=== PATIENT | male | born 1960 | race Caucasian/White ===

== ENCOUNTER 2017-10-18 21:07 | Emergency (ER) | payer MEDICARE, MEDICAID ==
[~2017-10-18] VITALS: Ht 172.7 cm; Wt 78.0 kg
[~2017-10-18 21:07] MED LIST: ALBU8.5H2 IH; AMOX-358 PO; ASPI-586 PO; ASPI-587 PO; AZIT-21 PO; CARI350T27 PO; CEFU500T5 PO; CEPH500C PO; CIPR500T4 PO; CITA10SO4 PO; CITA10TA PO; CLIN300C3 PO; D-ME118S33 PO; DIAZ-345 PO; DOXY100C2 PO; DOXY100C42 PO; ESCI10TA PO; ESCT10T PO; GABA600T2 PO; GBPN100C PO; HC2.5C30 TP; HCT25T PO; HYDR-1231 PO; HYDR-2890 PO; HYDR-3062 PO; HYDR-3583 PO; HYDR-3816 PO; HYDR-700 PO; HYDR25CA PO; HYDR25TA4 PO; HYDR50TA76 PO; KETO75CA PO; LISI-552 PO; LISI10TA2 PO; LISI1TAB PO; LORA1TAB59 PO; LSNP20T PO; METR500T PO; MINO100C2 PO; NAPR-243 PO; NF-ESOM40C PO; NS.65NA45; ORPH100T PO; ORUDIS PO; OXC5T PO; PRD20T PO; PRM25T PO; PRM50SU PR; SIMV20TA3 PO; SIMV40TA PO; SIMV40TA2 PO; SULF-222 PO; SULF1TAB35 PO; SULF1TAB38 PO; SULF1TAB7 PO; TRAM-21 PO; TRAM50TA2 PO; WARF10TA PO; WARF10TA4 PO; WRF10T PO; WRF2T PO
[2017-10-18] MEDS ORDERED: AMOX-358 PO (21:20)
--- NOTE | 2017-10-18 21:21 | ED EENT ---
History of Present Illness General Stated Complaint: DENTAL PAIN Source: patient Exam Limitations: no limitations History of Present Illness Date Seen by Provider: Oct 18, 2017 Time Seen by Provider: 21:18 Initial Comments To ER with left upper dental pain and some sinus congestion. He finished amoxicillin yesterday for this dental infection. He has an appointment with [facility] tomorrow morning to have a couple of teeth removed. Timing/Duration: this morning Severity: moderate Allergies and Home Medications Allergies Coded Allergies: Bacitracin Zinc (Verified Allergy, Unknown, 06/04/12) bacitracin (Verified Allergy, Unknown, 06/04/12) benzalkonium chloride (Verified Allergy, Unknown, 06/04/12) cefadroxil (Verified Allergy, Unknown, RASH, 04/08/16) gramicidin D (Verified Allergy, Unknown, 06/04/12) hydrocortisone (Verified Allergy, Unknown, 06/04/12) methocarbamol (Verified Allergy, Unknown, 06/04/12) neomycin sulfate (Verified Allergy, Unknown, 06/04/12) polymyxin B (Verified Allergy, Unknown, 06/04/12) polymyxin B sulfate (Verified Allergy, Unknown, 06/04/12) carbamazepine (Unverified Adverse Reaction, Mild, hives, 11/12/14) Home Medications Amoxicillin/Potassium Clav 1 Each Tablet, 1 EACH PO BID, #14 Prescribed by: PEDRO MENDES on 06/24/162004 Aspirin 81 Mg Tablet.dr, 81 MG PO DAILY, (Reported) Escitalopram Oxalate 10 Mg Tablet, 10 MG PO DAILY PRN for MOOD, (Reported) Hydrochlorothiazide 25 Mg Tablet, 25 MG PO DAILY PRN for BLOOD PRESSURE, ( Reported) Hydrocodone/Acetaminophen 1 Each Tablet, 1 EACH PO Q6H, #12 Prescribed by: PEDRO MENDES on 06/24/162004 Hydroxyzine HCl 25 Mg Tablet, 25 MG PO Q6H PRN for ITCHING, #20 Ref 0 Prescribed by: PEDRO MENDES on 06/24/162004 Lisinopril 20 Mg Tablet, 20 MG PO DAILY PRN for BLOOD PRESSURE, (Reported) Loratadine/Pseudoephedrine 1 Each Tab.er.12h, 1 TAB PO BID PRN for CONGESTION, ( Reported) Prednisone 20 Mg Tab, 40 MG PO DAILY, #14 Prescribed by: PEDRO MENDES on 06/24/162004 Simvastatin 20 Mg Tablet, 20 MG PO HS PRN for CHOLESTEROL, (Reported) Warfarin Sodium 10 Mg Tablet, 10 MG PO TWICE WEEKLY PRN for DIZZINESS, (Reported ) REPORTS TAKES ONCE OR TWICE WEEKLY, MAINLY WHEN HE FEELS DIZZY Review of Systems Constitutional: see HPI Eyes: No Symptoms Reported Ears: No Symptoms Reported Nose: no symptoms reported Mouth: no symptoms reported Throat: no symptoms reported Respiratory: no symptoms reported Cardiovascular: no symptoms reported Musculoskeletal: no symptoms reported Skin: no symptoms reported Neurological: No Symptoms Reported Hematologic/Lymphatic: No Symptoms Reported Past Hfmllzx-Sdhvmg-Zhlpzf Hx Patient Social History Alcohol Beverage of Choice: Beer Type Used: Cigarettes Recent Foreign Travel: No Contact w/Someone Who Travel: No Recent Hopitalizations: Yes Immunizations Up To Date Tetanus Booster (TDap): Unknown Date of Pneumonia Vaccine: Sep 26, 2010 Date of Influenza Vaccine: Jun 26, 2011 Seasonal Allergies Seasonal Allergies: No Surgeries Surgeries: Cardiac, Eye Surgery, Lobectomy Respiratory Respiratory Disorders: Asthma, COPD, Tuberculosis Cardiovascular Cardiac Disorders: Coronary Artery Disease, Deep Vein Thrombosis, Heart Attack , Hypertension, Peripheral Vascular Neurological Neurological Disorders: Neuropathy, Stroke, TIA Reproductive System Hx Reproductive Disorders: No Sexually Transmitted Disease: No Genitourinary Genitourinary Disorders: Renal Failure Gastrointestinal Gastrointestinal Disorders: Gastroesophageal Reflux, Liver Disease/Jaundice, Hepatitis, Polyps Musculoskeletal Musculoskeletal Disorders: Back Injury, Chronic Back Pain, Fractures Cancer Cancer: Lung Psychosocial Behavioral Health Disorders: Anxiety, PTSD, Depression Physical Exam General Appearance: WD/WN, no apparent distress Eyes: bilateral eye normal inspection, bilateral eye PERRL, bilateral eye EOMI Ears: bilateral ear auricle normal, bilateral ear canal normal, bilateral ear TM normal Mouth/Throat: other (multiple eroded teeth but no fluctuant abscess) Neck: non-tender, full range of motion Respiratory: normal breath sounds, no respiratory distress, no accessory muscle use Gastrointestinal: normal bowel sounds, non tender Neurologic/Psychiatric: alert, normal mood/affect, oriented x 3 Skin: normal color, warm/dry Progress/Results/Core Measures Results/Orders My Orders Orders - JASMINE ANDERSON [employer] Amoxicillin/Clavulanate Tablet (Augmenti (10/18/17 21:30) Departure Impression Impression: Primary Impression: Pain, dental Disposition: 01 HOME, SELF-CARE Condition: Stable (ERASED) Departure-Patient Inst. Decision time for Depature: 21:20 Referrals: [facility] (PCP/Family) Primary Care Physician Patient Instructions: Dental Pain Add. Discharge Instructions: 1. Keep your appointment with the dentist tomorrow morning 2. Return to ER for any concerns 3. Scripts Amoxicillin/Potassium Clav (Augmentin 875-125 Tablet) 1 Each Tablet 1 EACH PO BID, #14 TAB Prov: JASMINE ANDERSON APRN 10/18/17 JASMINE ANDERSON APRN Oct 18, 2017 21:21
[2017-10-18 21:25] VITALS: BP 0/0
[2017-10-18] MEDS ORDERED: AUGMENTIN 875 MG TAB (AMOXICILLIN/CLAVULANATE) PO SCH (21:30)
[2017-10-18] MEDS ORDERED: HYDROcodone/APAP 5 MG/325 MG (LORTAB) TAB PO ONE (21:30)
== END 2017-10-18 21:25 | disposition home or self-care (01) ==
LOC: EDUNIT# 21:07 → ER 21:09
DX: K08.89 Other specified disorders of teeth and supporting structures (principal); F41.9 Anxiety disorder, unspecified; F32.9 Major depressive disorder, single episode, unspecified; F43.10 Post-traumatic stress disorder, unspecified; I25.10 Atherosclerotic heart disease of native coronary artery without angina pectoris; I25.2 Old myocardial infarction; J44.9 Chronic obstructive pulmonary disease, unspecified; I10 Essential (primary) hypertension; Z86.718 Personal history of other venous thrombosis and embolism; Z86.73 Personal history of transient ischemic attack (TIA), and cerebral infarction without residual deficits; Z90.2 Acquired absence of lung [part of]; Z79.01 Long term (current) use of anticoagulants; Z79.82 Long term (current) use of aspirin
CPT/HCPCS: 99283

== ENCOUNTER 2017-12-09 09:56 | Emergency (ER) | payer MEDICARE, MEDICAID ==
[~2017-12-09] VITALS: Ht 172.7 cm; Wt 72.6 kg
[~2017-12-09 09:56] MED LIST changes: +HYDR-34 PO; -HYDR-3816 PO
[2017-12-09 10:33] VITALS: BP 146/97
== END 2017-12-09 11:12 | disposition left against medical advice (07) ==
LOC: EDUNIT# 09:56 → ER 09:58
DX: R05 Cough (principal); R09.81 Nasal congestion; R06.00 Dyspnea, unspecified
CPT/HCPCS: 99282

== ENCOUNTER 2018-02-24 13:37 | Emergency (ER) | payer MEDICARE, MEDICAID ==
[~2018-02-24] VITALS: Ht 175.3 cm; Wt 72.1 kg
[2018-02-24 13:53] LABS: BASOPHILS % (AUTO) 0 % (0-10); EOSINOPHILS % (AUTO) 0 % (0-10); HEMATOCRIT 43 % (40-54); HEMOGLOBIN 14.8 G/DL (13.3-17.7); LYMPHOCYTES # (AUTO) 0.7 X 10^3 (1.0-4.0); LYMPHOCYTES % (AUTO) 8 % (12-44); MEAN CORPUSCULAR HEMOGLOBIN 30 PG (25-34); MEAN CORPUSCULAR HGB CONC 35 G/DL (32-36); MEAN CORPUSCULAR VOLUME 88 FL (80-99); MEAN PLATELET VOLUME 9.6 FL (7.4-10.4); MONOCYTES # (AUTO) 0.4 X 10^3 (0.0-1.0); MONOCYTES % (AUTO) 5 % (0-12); NEUTROPHILS # (AUTO) 7.7 X 10^3 (1.8-7.8); NEUTROPHILS % (AUTO) 87 % (42-75); PLATELET COUNT 276 10^3/uL (130-400); RED BLOOD COUNT 4.89 10^6/uL (4.35-5.85); RED CELL DISTRIBUTION WIDTH 14.8 % (10.0-14.5); WHITE BLOOD COUNT 8.9 10^3/uL (4.3-11.0)
[2018-02-24 14:14] LABS: ALANINE AMINOTRANSFERASE 47 U/L (0-55); ALBUMIN 4.3 GM/DL (3.2-4.5); ALKALINE PHOSPHATASE 88 U/L (40-136); BUN/CREATININE RATIO 15; CALCIUM 9.5 MG/DL (8.5-10.1); CARBON DIOXIDE 22 MMOL/L (21-32); CHLORIDE 109 MMOL/L (98-107); CREATININE SERUM 1.24 MG/DL (0.60-1.30); GFR ESTIMATED > 60; GLUCOSE 139 MG/DL (70-105); SODIUM 142 MMOL/L (135-145); TOTAL PROTEIN 7.7 GM/DL (6.4-8.2)
[2018-02-24] MEDS ORDERED: ONDANSETRON 4 MG/2 ML (SDV) Z0FRAN IVP ONE (14:15)
[2018-02-24] MEDS ORDERED: NS IV 1000 ML 1,000 ML IV SCH ×2 (14:15→15:30)
[2018-02-24 14:17] LABS: LYMPHOCYTES % (MANUAL) 10 %; MONOCYTES % (MANUAL) 9 %; NEUTROPHILS % (MANUAL) 81 %; RBC MORPH NORMAL
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
[2018-02-24] MEDS ORDERED: ACETAMINOPHEN 500 MG TAB (TYLENOL) PO ONE (16:15)
[2018-02-24 16:39] VITALS: BP 142/79
== END 2018-02-24 16:39 | disposition home or self-care (01) ==
LOC: EDUNIT# 13:37 → ER 13:39
DX: T67.5XXA Heat exhaustion, unspecified, initial encounter (principal); J44.9 Chronic obstructive pulmonary disease, unspecified; I25.2 Old myocardial infarction; I10 Essential (primary) hypertension; I73.9 Peripheral vascular disease, unspecified; I25.10 Atherosclerotic heart disease of native coronary artery without angina pectoris; B19.20 Unspecified viral hepatitis C without hepatic coma; K21.9 Gastro-esophageal reflux disease without esophagitis; F41.9 Anxiety disorder, unspecified; F43.10 Post-traumatic stress disorder, unspecified; F32.9 Major depressive disorder, single episode, unspecified; F12.10 Cannabis abuse, uncomplicated; F17.210 Nicotine dependence, cigarettes, uncomplicated; Z86.010 Personal history of colon polyps; Z88.2 Allergy status to sulfonamides; Z90.2 Acquired absence of lung [part of]; Z87.19 Personal history of other diseases of the digestive system; Z86.718 Personal history of other venous thrombosis and embolism; Z86.73 Personal history of transient ischemic attack (TIA), and cerebral infarction without residual deficits; Z88.8 Allergy status to other drugs, medicaments and biological substances; Z88.1 Allergy status to other antibiotic agents; Z88.0 Allergy status to penicillin; Z79.82 Long term (current) use of aspirin; Z79.01 Long term (current) use of anticoagulants; X30.XXXA Exposure to excessive natural heat, initial encounter
CPT/HCPCS: 36415; 80053; 80320; 85007; 85027; 96361; 96374

== ENCOUNTER → 2018-03-15 | Outpatient (CLI) | payer MEDICARE, MEDICAID ==
--- NOTE | 2018-03-15 13:11 | Diagnostic Imaging Report ---
Indication: Left wrist pain post injury. AP, oblique, and lateral views of the left wrist are obtained. There is narrowing of the left wrist joint space with chondrocalcinosis, suggesting calcium pyrophosphate deposition arthropathy. There is narrowing of the first carpal metacarpal joint as well with underlying sclerosis. Impression: Degenerative changes of the left wrist involving the radial carpal joint as well as first carpal metacarpal joint. No acute fracture. There is chondrocalcinosis. Dictated by: Dictated on workstation # [id number]
== END ==
LOC: RAD 11:41
PROVIDERS: ATTEND Nurse Practitioner Family
DX: M19.132 Post-traumatic osteoarthritis, left wrist (principal); M11.231 Other chondrocalcinosis, right wrist
CPT/HCPCS: 73110

== ENCOUNTER 2018-07-02 22:39 | Observation (INO) | payer MEDICARE, MEDICAID ==
[~2018-07-02] VITALS: Ht 172.7 cm; Wt 78.6 kg
[2018-07-02] MEDS ORDERED: RT-ALBUTEROL SULF 2.5 MG/3 ML PRE-MIX VIAL INH STA (22:49)
[2018-07-02] MEDS ORDERED: GABA-490 PO (22:53)
[2018-07-02] MEDS ORDERED: GABA-490 (22:53)
[2018-07-02] MEDS ORDERED: AMIT150T PO (22:53)
[2018-07-02] MEDS ORDERED: OMEP20CA12 PO (22:53)
[2018-07-02] MEDS ORDERED: MELO7.5T46 PO (22:53)
[2018-07-02] MEDS ORDERED: FLUT1DIS28 IH (22:53)
[2018-07-02] MEDS ORDERED: PROP40TA5 PO (22:53)
[2018-07-02] MEDS ORDERED: RT-ALBUTEROL/IPRATROPIUM 3 ML (DUONEB) VIAL INH ONE (23:00)
[2018-07-02] MEDS ORDERED: methylPREDNISolone 125 MG (Solu-MEDROL) VIAL IVP ONE (23:00)
[2018-07-02 23:17] LABS: BASOPHILS % (AUTO) 0 % (0-10); EOSINOPHILS # (AUTO) 0.2 10^3/uL (0.0-0.3); EOSINOPHILS % (AUTO) 4 % (0-10); HEMATOCRIT 38 % (40-54); HEMOGLOBIN 12.9 G/DL (13.3-17.7); LYMPHOCYTES # (AUTO) 1.2 X 10^3 (1.0-4.0); LYMPHOCYTES % (AUTO) 20 % (12-44); MEAN CORPUSCULAR HEMOGLOBIN 30 PG (25-34); MEAN CORPUSCULAR HGB CONC 34 G/DL (32-36); MEAN CORPUSCULAR VOLUME 89 FL (80-99); MONOCYTES # (AUTO) 0.8 X 10^3 (0.0-1.0); MONOCYTES % (AUTO) 13 % (0-12); NEUTROPHILS # (AUTO) 3.7 X 10^3 (1.8-7.8); NEUTROPHILS % (AUTO) 63 % (42-75); PLATELET COUNT 201 10^3/uL (130-400); RED BLOOD COUNT 4.25 10^6/uL (4.35-5.85); RED CELL DISTRIBUTION WIDTH 14.3 % (10.0-14.5)
[2018-07-02 23:33] LABS: INR 1.1 (0.8-1.4)
[2018-07-02 23:36] LABS: ALANINE AMINOTRANSFERASE 89 U/L (0-55); ALKALINE PHOSPHATASE 60 U/L (40-136); BILIRUBIN,TOTAL 0.4 MG/DL (0.1-1.0); BUN/CREATININE RATIO 14; CALCIUM 9.3 MG/DL (8.5-10.1); CARBON DIOXIDE 22 MMOL/L (21-32); CHLORIDE 108 MMOL/L (98-107); CREATININE SERUM 1.31 MG/DL (0.60-1.30); GFR ESTIMATED 57; GLUCOSE 93 MG/DL (70-105); POTASSIUM 4.5 MMOL/L (3.6-5.0); SODIUM 141 MMOL/L (135-145)
[2018-07-02 23:43] LABS: MYOGLOBIN SERUM 64.3 NG/ML (10.0-92.0)
[2018-07-02] MEDS ORDERED: RX-OSELTAMIVIR 75 MG (TAMIFLU) BOX OF 10 PO STA (23:47)
[2018-07-03] MEDS ORDERED: ACETAMINOPHEN 500 MG TAB (TYLENOL) PO ONE
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
[2018-07-03 02:00] VITALS: BP 137/81
[2018-07-03 03:00] VITALS: BP 131/60
[2018-07-03] MEDS ORDERED: RT-ALBUTEROL SULF 2.5 MG/3 ML PRE-MIX VIAL IH PRN (03:15)
[2018-07-03] MEDS ORDERED: IBUPROFEN 600 MG (MOTRIN) TAB PO PRN (03:15)
[2018-07-03] MEDS ORDERED: ACETAMINOPHEN 500 MG TAB (TYLENOL) PO PRN (03:15)
[2018-07-03] MEDS: NS IV 1000 ML 1,000 ML IV SCH ×2 (03:34→13:36)
[2018-07-03 03:46] LABS: BASOPHILS % (AUTO) 0 % (0-10); EOSINOPHILS % (AUTO) 0 % (0-10); HEMATOCRIT 36 % (40-54); HEMOGLOBIN 12.2 G/DL (13.3-17.7); LYMPHOCYTES # (AUTO) 0.6 X 10^3 (1.0-4.0); LYMPHOCYTES % (AUTO) 9 % (12-44); MEAN CORPUSCULAR HEMOGLOBIN 30 PG (25-34); MEAN CORPUSCULAR HGB CONC 34 G/DL (32-36); MEAN CORPUSCULAR VOLUME 89 FL (80-99); MEAN PLATELET VOLUME 10.1 FL (7.4-10.4); MONOCYTES # (AUTO) 0.1 X 10^3 (0.0-1.0); MONOCYTES % (AUTO) 2 % (0-12); NEUTROPHILS # (AUTO) 6.1 X 10^3 (1.8-7.8); NEUTROPHILS % (AUTO) 89 % (42-75); PLATELET COUNT 200 10^3/uL (130-400); RED BLOOD COUNT 4.03 10^6/uL (4.35-5.85); RED CELL DISTRIBUTION WIDTH 14.5 % (10.0-14.5); WHITE BLOOD COUNT 6.8 10^3/uL (4.3-11.0)
[2018-07-03 04:00] VITALS: BP 123/67
[2018-07-03 04:17] LABS: CALCIUM 9.2 MG/DL (8.5-10.1); CREATININE SERUM 1.42 MG/DL (0.60-1.30); POTASSIUM 4.3 MMOL/L (3.6-5.0)
[2018-07-03 04:42] LABS: BAND NEUTROPHILS 5 %; EOSINOPHILS % (MANUAL) 1 %; LYMPHOCYTES % (MANUAL) 7 %; MONOCYTES % (MANUAL) 3 %; NEUTROPHILS % (MANUAL) 84 %; RBC MORPH NORMAL
[2018-07-03] MEDS: methylPREDNISolone 40 MG/ML (Solu-MEDROL) VIAL IV SCH ×2 (05:11→13:35)
--- NOTE | 2018-07-03 06:39 | Diagnostic Imaging Report ---
INDICATION: Cough. TECHNIQUE: Single frontal view of the chest. COMPARISON: 03/11/2015 FINDINGS: Lung volumes are mildly low. No focal consolidation is seen. No significant pleural effusion or pneumothorax is present. No acute osseous abnormality is seen. There is an old right-sided rib fracture. The cardiac silhouette is normal in size. IMPRESSION: Low lung volumes with no acute pulmonary abnormality seen. Dictated by: Dictated on workstation # [id number]
[2018-07-03] MEDS: RT-ALBUTEROL/IPRATROPIUM 3 ML (DUONEB) VIAL IH SCH ×3 (06:49→14:33)
[2018-07-03] MEDS ORDERED: FLU QUADRIvalent (5+ YOA) 2018-2019 (AFLURIA) 0.5 ML IM ONE (07:00)
--- NOTE | 2018-07-03 07:20 | Diagnostic Imaging Report ---
INDICATION: Cough. TECHNIQUE: Single frontal view of the chest. COMPARISON: 07/02/2018 FINDINGS: There is mild central vascular congestion. Calcified granuloma is again seen in the left lung. Lung volumes appear normal. No new consolidation is seen. There is no significant pleural effusion or pneumothorax. IMPRESSION: 1. Mild central vascular congestion. No focal consolidation seen. Dictated by: Dictated on workstation # [id number]
[2018-07-03 08:00] VITALS: BP 128/62
[2018-07-03] MEDS ORDERED: RX-OSELTAMIVIR 75 MG (TAMIFLU) BOX OF 10 PO SCH (09:00)
[2018-07-03] MEDS ORDERED: risperiDONE 0.25 MG (RisperDAL) TAB PO NR (09:15)
[2018-07-03] MEDS ORDERED: FLUT12AE4 IH (11:09)
[2018-07-03] MEDS ORDERED: LISI10TA2 PO (11:09)
[2018-07-03] MEDS ORDERED: RT-ALBUINH IH (11:09)
[2018-07-03] MEDS ORDERED: FLUT12AE6 IH (11:12)
[2018-07-03] MEDS ORDERED: HYDR-700 PO (11:12)
[2018-07-03] MEDS ORDERED: hydrOXYzine (VISTARIL) 25 MG CAP PO PRN (11:30)
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
[2018-07-03] MEDS ORDERED: HALOPERIDOL 5 MG/ML (HALDOL) AMP ONE (11:40)
[2018-07-03] MEDS ORDERED: LORazepam INJ 2 MG/ML (ATIVAN) VIAL IVP NR (11:45)
[2018-07-03] MEDS ORDERED: HALOPERIDOL 5 MG/ML (HALDOL) AMP IM PRN (11:45)
[2018-07-03 12:03] VITALS: BP 144/78
[2018-07-03] MEDS ORDERED: ENOXAPARIN 40 MG/0.4 ML (LOVENOX) SYR SC SCH (12:15)
[2018-07-03] MEDS ORDERED: GABAPENTIN 400 MG (NEURONTIN) CAP PO SCH (13:00)
--- NOTE | 2018-07-03 19:51 | Discharge Summary ---
Diagnosis/Chief Complaint Date of Admission Jul 03, 2018 at 00:51 Date of Discharge Jul 03, 2018 at 14:11 Admission Diagnosis Admission Diagnosis (1) Influenza A Status: Acute Assessment & Plan: Started oseltamivir, no hypoxia or fever. (2) Influenza B Status: Acute Assessment & Plan: See above (3) COPD exacerbation Status: Acute Assessment & Plan: RT protocol, duonebs, solumedrol (4) Acute renal insufficiency Status: Acute Assessment & Plan: Stop NSAIDs, hold lisinopril, increase IVF to 150 ml/hr (5) Psychosis Status: Acute Assessment & Plan: Unclear etiology, possibly delirium associated with illness , but appears more consistent with psychosis as the remainder of his history and exam is unremarkable and he is alert and oriented about his reason for admission. Agitation leading to need for one-on-one sitter and wanting to leave AMA. -Risperidone 0.25 mg give this am with no benefit -Will try lorazepam 2 mg IV and if still agitated, can try Haldol 2 mg IM. If unable to calm and leaves AMA, will contact law enforcement due to concern for safety with his acute psychosis. (6) Elevated liver enzymes Status: Chronic Assessment & Plan: Reported history of Hep C treated, no labs found. Stable elevation, monitor. (7) Chest pain Status: Acute Assessment & Plan: Troponin and D dimer neg, suspect related to his influenza/ COPD exacerbation. BNP is slightly elevated, last echo in 2014 showed normal EF and LV function. Monitor closely with IVF administration. (8) Tremor Assessment & Plan: Reportedly acute, but chart review notes occurring over a month ago and was started on propranolol. Hold propranolol given his COPD exacerbation. May need further neurologic work-up given the psychosis as well. When less agitated will attempt further evaluation. (9) PTSD (post-traumatic stress disorder) Status: Chronic Assessment & Plan: Resume home gabapentin, hold home amitriptyline, escitalopram and hydroxyzine for now due to risk of QT prolongation with Haldol use. (10) Depression Status: Chronic (11) DVT prophylaxis Status: Acute Assessment & Plan: Enoxaparin renally dosed Discharge Diagnosis Patient became more agitated and requesting to leave AMA in spite of IV ativan. He refused haldol. [facility] visited with him and stated he was not a danger to himself or others. Concern that his psychosis may have been related to the oseltamivir which was therefore held, but unable to convince patient to stay and wait for improvement. He was not walking well when he attempted to leave, so law enforcement was called, they did give him a ride. Chief Complaint/HPI Chief Complaint/HPI 57 yo male brought from skilled nursing due to chest pain. He reports central chest pain radiating to back starting around 5 pm along with some shortness of breath which did not improve, so he was brought to the ER. He no longer has chest pain , but states he has some pain in his right side at this time. He also is concerned about the "bad dope" growing inside of him and coming out of his skin in "crystallization", "moving his hair on his arms and legs and writing things to him", the messages are telling him "he's not going to make it". He denies having had this happen before. 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 When asked to clarify, he states he took some dope around February that was "bad- it was moving from the bacteria they use to make it" but he injected it anyway and he thought he had kicked it but now feels it has returned and is causing all these problems. He was going to go to rehab in February, but states he was arrested for not registering as a drug offender and has been in skilled nursing since April 15. He states he last drank alcohol in 1998. He is tremulous and states he started shaking 3-4 days ago, but chart review notes a visit in May where he was having racing thoughts and shakiness. Review of his records demonstrates that he has previously reported extremely extensive and unverified medical history- some of which is not accurate- for example he reportedly stated he "100% blockage of one carotid and 95% of the other" but a carotid US in 2014 showed only mild left plaquing with no stenosis. Discharge Summary-Simple/Stand Consultations Discharge Physical Examination Allergies: Coded Allergies: Bacitracin Zinc (Verified Allergy, Unknown, 06/04/12) bacitracin (Verified Allergy, Unknown, 06/04/12) benzalkonium chloride (Verified Allergy, Unknown, 06/04/12) cefadroxil (Verified Allergy, Unknown, RASH, 04/08/16) gramicidin D (Verified Allergy, Unknown, 06/04/12) hydrocortisone (Verified Allergy, Unknown, 06/04/12) methocarbamol (Verified Allergy, Unknown, 06/04/12) neomycin sulfate (Verified Allergy, Unknown, 06/04/12) polymyxin B (Verified Allergy, Unknown, 06/04/12) polymyxin B sulfate (Verified Allergy, Unknown, 06/04/12) carbamazepine (Unverified Adverse Reaction, Mild, hives, 11/12/14) Vitals & I&Os Vital Sign - Last 12Hours Date Time Temp Pulse Resp B/P (MAP) Pulse Ox O2 Delivery O2 Flow Rate FiO2 07/03/18 13:00 119 07/03/18 12:03 99.5 22 144/78 (100) 94 Room Air Hospital Course See final discharge diagnosis. Radiology Reviewed CXR: 1. Mild central vascular congestion. No focal consolidation seen. Discussion & Recommendations See discharge diagnosis, patient left AMA. Discharge Condition at discharge AMA Instructions to patient/family Please see electronic discharge instructions given to patient. Discharge Medications Reviewed and agree with Discharge Medication list on patient's Discharge Instruction sheet Clinical Quality Measures DVT/VTE Risk/Contraindication: Risk Factor Score Per Nursin RFS Level Per Nursing on Admit: 3=High SAMANTHA GALEANO MD Jul 03, 2018 19:51
[2018-07-03] MEDS ORDERED: AMITRIPTYLINE 150 MG (ELAVIL) TABLET PO SCH (21:00)
[2018-07-03] MEDS ORDERED: NON-FORMULARY MEDICATION 1 EA EA (Fluticasone/Salmeterol (Advair Hfa 230-21 Mcg Inhaler) 2 IH SCH (21:00)
[2018-07-04] MEDS ORDERED: NS IV 1000 ML 1,000 ML ONE (07:51)
[2018-07-04] MEDS ORDERED: OMEP20CA12 PO (09:50)
[2018-07-04] MEDS ORDERED: AMIT150T PO (09:50)
[2018-07-04] MEDS ORDERED: PRD10T PO (09:50)
[2018-07-04] MEDS ORDERED: ESCI10TA PO (09:50)
[2018-07-04] MEDS ORDERED: GABA-490 PO (09:50)
[2018-07-04] MEDS ORDERED: LISI10TA2 PO (09:50)
[2018-07-04] MEDS ORDERED: RT-ALBUINH IH (09:50)
[2018-07-04] MEDS ORDERED: FLUT12AE6 IH (09:50)
== END 2018-07-03 14:11 | disposition left against medical advice (07) ==
LOC: EDUNIT# 22:39 → ER 22:40 → 4TH 22:42 → UNDOADMOB 07-03 00:51 → UNDODISOB 07-03 14:11
PROVIDERS: ADMIT Family Medicine; ATTEND Family Medicine
DX: J10.89 Influenza due to other identified influenza virus with other manifestations (principal); J44.0 Chronic obstructive pulmonary disease with (acute) lower respiratory infection; J44.1 Chronic obstructive pulmonary disease with (acute) exacerbation; N28.9 Disorder of kidney and ureter, unspecified; F23 Brief psychotic disorder; R25.1 Tremor, unspecified; B19.20 Unspecified viral hepatitis C without hepatic coma; I25.10 Atherosclerotic heart disease of native coronary artery without angina pectoris; I10 Essential (primary) hypertension; J45.909 Unspecified asthma, uncomplicated; F17.210 Nicotine dependence, cigarettes, uncomplicated; I73.9 Peripheral vascular disease, unspecified; K21.9 Gastro-esophageal reflux disease without esophagitis; F41.9 Anxiety disorder, unspecified; F43.10 Post-traumatic stress disorder, unspecified; F32.9 Major depressive disorder, single episode, unspecified; I25.2 Old myocardial infarction; Z90.2 Acquired absence of lung [part of]; Z87.19 Personal history of other diseases of the digestive system; Z86.718 Personal history of other venous thrombosis and embolism; Z86.73 Personal history of transient ischemic attack (TIA), and cerebral infarction without residual deficits; Z79.82 Long term (current) use of aspirin; Z79.01 Long term (current) use of anticoagulants; Z53.21 Procedure and treatment not carried out due to patient leaving prior to being seen by health care provider
CPT/HCPCS: 36415; 71045; 80048; 80053; 80061; 83735; 83874; 83880; 84484; 85007; 85025; 85027; 85610; 85730; 86141; 87804; 93005; 93041; 94640; 94760; G0378

== ENCOUNTER 2018-07-03 19:51 | Observation (INO) | payer MEDICARE, MEDICAID ==
[~2018-07-03] VITALS: Ht 172.7 cm; Wt 77.3 kg
[~2018-07-03 19:51] MED LIST changes: +AMIT150T PO; +FLUT12AE4 IH; +FLUT12AE6 IH; +FLUT1DIS28 IH; +GABA-490; +GABA-490 PO; +MELO7.5T46 PO; +OMEP20CA12 PO; +PROP40TA5 PO; +RT-ALBUINH IH
[2018-07-03] MEDS ORDERED: RT-ALBUTEROL/IPRATROPIUM 3 ML (DUONEB) VIAL INH ONE (20:30)
[2018-07-03 20:42] LABS: BASOPHILS % (AUTO) 0 % (0-10); EOSINOPHILS % (AUTO) 0 % (0-10); HEMATOCRIT 35 % (40-54); HEMOGLOBIN 12.6 G/DL (13.3-17.7); LYMPHOCYTES % (AUTO) 6 % (12-44); MEAN CORPUSCULAR HEMOGLOBIN 31 PG (25-34); MEAN CORPUSCULAR HGB CONC 36 G/DL (32-36); MEAN CORPUSCULAR VOLUME 88 FL (80-99); MEAN PLATELET VOLUME 9.2 FL (7.4-10.4); MONOCYTES # (AUTO) 0.8 X 10^3 (0.0-1.0); MONOCYTES % (AUTO) 5 % (0-12); NEUTROPHILS # (AUTO) 14.4 X 10^3 (1.8-7.8); NEUTROPHILS % (AUTO) 89 % (42-75); PLATELET COUNT 222 10^3/uL (130-400); RED BLOOD COUNT 4.04 10^6/uL (4.35-5.85); WHITE BLOOD COUNT 16.1 10^3/uL (4.3-11.0)
[2018-07-03 20:51] LABS: BENZODIAZEPINES SCREEN URINE POSITIVE (NEGATIVE); TRICYCLIC ANTIDEPRESSANTS SCRE POSITIVE (NEGATIVE)
[2018-07-03 20:52] LABS: AMPHETAMINE SCREEN, URINE NEGATIVE (NEGATIVE); BARBITURATE SCREEN URINE NEGATIVE (NEGATIVE); CANNABINOID SCREEN, URINE NEGATIVE (NEGATIVE); COCAINE SCREEN URINE NEGATIVE (NEGATIVE); METHADONE STAT NEGATIVE (NEGATIVE); METHAMPHETAMINE SCREEN URINE S NEGATIVE (NEGATIVE); OPIATE SCREEN URINE NEGATIVE (NEGATIVE); OXYCODONE STAT NEGATIVE (NEGATIVE); PROPOXYPHENE STAT NEGATIVE (NEGATIVE)
[2018-07-03 20:58] LABS: BAND NEUTROPHILS 1 %; BASOPHILS % (MANUAL) 0 %; EOSINOPHILS % (MANUAL) 0 %; LYMPHOCYTES % (MANUAL) 9 %; MONOCYTES % (MANUAL) 3 %; NEUTROPHILS % (MANUAL) 87 %; RBC MORPH NORMAL
[2018-07-03] MEDS ORDERED: NS IV 1000 ML 1,000 ML IV ONE (20:59)
[2018-07-03 21:01] LABS: ALANINE AMINOTRANSFERASE 82 U/L (0-55); ALBUMIN 4.4 GM/DL (3.2-4.5); ALKALINE PHOSPHATASE 52 U/L (40-136); BILIRUBIN,TOTAL 0.7 MG/DL (0.1-1.0); BUN/CREATININE RATIO 20; CALCIUM 9.7 MG/DL (8.5-10.1); CARBON DIOXIDE 19 MMOL/L (21-32); CHLORIDE 106 MMOL/L (98-107); CREATININE SERUM 1.33 MG/DL (0.60-1.30); GFR ESTIMATED 56; GLUCOSE 123 MG/DL (70-105); SODIUM 139 MMOL/L (135-145); TOTAL PROTEIN 7.5 GM/DL (6.4-8.2)
--- NOTE | 2018-07-03 21:25 | Diagnostic Imaging Report ---
CHEST PA/LAT (2 VIEW) Indication: Cough and shortness of air Comparison: Portable chest of earlier same day. Findings: No focal pneumonic consolidation, pleural effusion or pneumothorax. Stable calcified left upper lobe pulmonary nodule. Normal heart size and pulmonary vasculature. Impression: No acute cardiopulmonary process. Dictated by: Dictated on workstation # [id number]
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
[2018-07-03] MEDS ORDERED: ACETAMINOPHEN 500 MG TAB (TYLENOL) PO PRN (23:15)
[2018-07-03] MEDS: NS IV 1000 ML 1,000 ML IV SCH (23:22)
[2018-07-03] MEDS: methylPREDNISolone 40 MG/ML (Solu-MEDROL) VIAL IV SCH (23:22)
[2018-07-03 23:30] VITALS: BP 131/81
[2018-07-04 00:18] VITALS: BP 124/79
[2018-07-04] MEDS ORDERED: RT-ALBUTEROL/IPRATROPIUM 3 ML (DUONEB) VIAL INH PRN (00:30)
[2018-07-04] MEDS: LORazepam INJ 2 MG/ML (ATIVAN) VIAL IV PRN ×2 (03:22→05:30)
[2018-07-04 04:00] VITALS: BP 144/75
[2018-07-04] MEDS: methylPREDNISolone 40 MG/ML (Solu-MEDROL) VIAL IV SCH (05:15)
[2018-07-04] MEDS ORDERED: RT-ALBUTEROL/IPRATROPIUM 3 ML (DUONEB) VIAL INH SCH (07:00)
[2018-07-04] MEDS ORDERED: FLU QUADRIvalent (5+ YOA) 2018-2019 (AFLURIA) 0.5 ML IM ONE (07:15)
[2018-07-04] MEDS: NS IV 1000 ML 1,000 ML IV SCH (09:46)
[2018-07-04] MEDS ORDERED: RT-ALBUINH IH (09:50)
[2018-07-04] MEDS ORDERED: AMIT150T PO (09:50)
[2018-07-04] MEDS ORDERED: OMEP20CA12 PO (09:50)
[2018-07-04] MEDS ORDERED: FLUT12AE6 IH (09:50)
[2018-07-04] MEDS ORDERED: ESCI10TA PO (09:50)
[2018-07-04] MEDS ORDERED: LISI10TA2 PO (09:50)
[2018-07-04] MEDS ORDERED: PRD10T PO (09:50)
[2018-07-04] MEDS ORDERED: GABA-490 PO (09:50)
--- NOTE | 2018-07-04 09:55 | Discharge Instructions ---
Discharge Inst-[facility] Discharge Medications New, Converted or Re-Newed RX: Transmitted to Pharmacy New Medications: Prednisone (Prednisone) 10 Mg Tab 0 PO UD, #42 TAB 0 Refills Take 6 tabs(60mg)daily, decrease by 1 tab(10mg) every other day. Continued Medications: Albuterol Sulfate (Proair Hfa) 1 Puff Puff 2 PUFF IH Q6H PRN for SHORTNESS OF BREATH, #1 INHALER 0 Refills (This prescription has been renewed) Amitriptyline HCl (Amitriptyline HCl) 150 Mg Tablet 150 MG PO HS, #30 TAB 0 Refills (This prescription has been renewed) Escitalopram Oxalate (Lexapro) 10 Mg Tablet 10 MG PO DAILY, #30 TAB 0 Refills (This prescription has been renewed) Fluticasone/Salmeterol (Advair Hfa 230-21 Mcg Inhaler) 12 Gm Hfa.aer.ad 2 PUFF IH BID, #1 INHALER 0 Refills (This prescription has been renewed) Gabapentin (Gabapentin) 400 Mg Capsule 400 MG PO TID, #90 CAP 0 Refills (This prescription has been renewed) Lisinopril (Lisinopril) 10 Mg Tablet 10 MG PO DAILY, #30 TAB 0 Refills (This prescription has been renewed) Omeprazole (Omeprazole) 20 Mg Capsule.dr 20 MG PO DAILY, #30 CAP 0 Refills (This prescription has been renewed) Discontinued Medications: Hydroxyzine HCl (Hydroxyzine HCl) 25 Mg Tablet 25 MG PO TID PRN for ANXIETY, TAB Meloxicam (Meloxicam) 7.5 Mg Tablet 7.5 MG PO BID, TAB Propranolol HCl (Propranolol HCl) 40 Mg Tablet 40 MG PO BID, TAB Patient Instructions Goal/Follow Up Appt: Follow up with Bebo Tipton at [facility] on Jul 06 at 1140 am. Return to The Hospital For: Fever, worsening shortness of breath Activity & Diet Discharge Diet: Regular Diet Orders-Post D/C & Referrals Pneu Vac Indicated: Yes Copy Copies To 1: SAVANNA Morocho BETHANY N MD Jul 04, 2018 9:55 am
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
== END 2018-07-04 09:57 | disposition home or self-care (01) ==
LOC: EDUNIT# 19:51 → ER 19:53 → 4TH 21:42 → UNDOADMOB 21:42 → ICU 23:07 → 4TH 23:07 → ICU 23:30 → 4TH 07-04 07:50 → ICU 07-04 07:50 → UNDODISOB 07-04 10:46
PROVIDERS: ADMIT Family Medicine; ATTEND Family Medicine
DX: J09.X2 Influenza due to identified novel influenza A virus with other respiratory manifestations (principal); R06.02 Shortness of breath; R06.2 Wheezing; F17.210 Nicotine dependence, cigarettes, uncomplicated; J44.0 Chronic obstructive pulmonary disease with (acute) lower respiratory infection; J44.1 Chronic obstructive pulmonary disease with (acute) exacerbation; Z86.718 Personal history of other venous thrombosis and embolism; I25.2 Old myocardial infarction; I10 Essential (primary) hypertension; I73.9 Peripheral vascular disease, unspecified; Z86.73 Personal history of transient ischemic attack (TIA), and cerebral infarction without residual deficits; F32.9 Major depressive disorder, single episode, unspecified; F41.9 Anxiety disorder, unspecified; F43.10 Post-traumatic stress disorder, unspecified; Z23 Encounter for immunization
CPT/HCPCS: 36415; 71046; 80053; 80306; 80320; 85007; 85027; 90471; 90686; 94640; 96360; G0378

== ENCOUNTER 2018-07-04 19:38 | Emergency (ER) | payer MEDICARE, MEDICAID ==
[~2018-07-04 19:38] MED LIST changes: +PRD10T PO
== END 2018-07-04 20:11 | disposition left against medical advice (07) ==
LOC: EDUNIT# 19:38 → ER 19:39
DX: R06.02 Shortness of breath (principal); R25.9 Unspecified abnormal involuntary movements

== ENCOUNTER 2018-07-05 04:12 | Observation (INO) | payer MEDICARE, MEDICAID ==
[2018-07-05] VITALS (7 sets, daily range): BP systolic 107–132; BP diastolic 61–90
[~2018-07-05] VITALS: Ht 172.7 cm; Wt 77.3 kg
[2018-07-05] MEDS ORDERED: NS IV 1000 ML 1,000 ML IV SCH (04:18)
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
[2018-07-05 05:10] LABS: BASOPHILS % (AUTO) 0 % (0-10); EOSINOPHILS % (AUTO) 0 % (0-10); HEMATOCRIT 35 % (40-54); HEMOGLOBIN 12.4 G/DL (13.3-17.7); LYMPHOCYTES # (AUTO) 2.2 X 10^3 (1.0-4.0); LYMPHOCYTES % (AUTO) 15 % (12-44); MEAN CORPUSCULAR HEMOGLOBIN 32 PG (25-34); MEAN CORPUSCULAR HGB CONC 36 G/DL (32-36); MEAN CORPUSCULAR VOLUME 88 FL (80-99); MEAN PLATELET VOLUME 9.9 FL (7.4-10.4); MONOCYTES # (AUTO) 1.8 X 10^3 (0.0-1.0); MONOCYTES % (AUTO) 13 % (0-12); NEUTROPHILS # (AUTO) 10.5 X 10^3 (1.8-7.8); NEUTROPHILS % (AUTO) 72 % (42-75); PLATELET COUNT 247 10^3/uL (130-400); RED BLOOD COUNT 3.94 10^6/uL (4.35-5.85); RED CELL DISTRIBUTION WIDTH 14.3 % (10.0-14.5); WHITE BLOOD COUNT 14.5 10^3/uL (4.3-11.0)
[2018-07-05 05:33] LABS: ALANINE AMINOTRANSFERASE 80 U/L (0-55); ALBUMIN 4.2 GM/DL (3.2-4.5); ALKALINE PHOSPHATASE 48 U/L (40-136); AMMONIA 27 UMOL/L (11-32); BILIRUBIN,TOTAL 1.2 MG/DL (0.1-1.0); BUN/CREATININE RATIO 28; CALCIUM 9.4 MG/DL (8.5-10.1); CARBON DIOXIDE 19 MMOL/L (21-32); CHLORIDE 108 MMOL/L (98-107); CREATININE SERUM 1.55 MG/DL (0.60-1.30); GFR ESTIMATED 47; GLUCOSE 69 MG/DL (70-105); POTASSIUM 3.6 MMOL/L (3.6-5.0); SODIUM 143 MMOL/L (135-145); TOTAL PROTEIN 7.1 GM/DL (6.4-8.2)
[2018-07-05 06:17] LABS: BILIRUBIN,URINE NEGATIVE (NEGATIVE); CLARITY,URINE CLEAR; COLOR,URINE YELLOW; GLUCOSE, URINE (UA) NEGATIVE (NEGATIVE); KETONES,URINE 2+ (NEGATIVE); LEUKOCYTE ESTERASE ,URINE NEGATIVE (NEGATIVE); NITRITE,URINE NEGATIVE (NEGATIVE); PH,URINE 5 (5-9); PROTEIN,URINE 2+ (NEGATIVE); UROBILINOGEN,URINE NORMAL (NORMAL)
[2018-07-05] MEDS ORDERED: NS IV 1000 ML 1,000 ML IV ONE (06:20)
[2018-07-05 06:27] LABS: BACTERIA,URINE FEW /HPF; RBC,URINE RARE /HPF; SQUAMOUS EPITHELIAL CELL,UR RARE /HPF; URINE OTHER MOD SPERM /HPF; WBC,URINE 0-2 /HPF
[2018-07-05] MEDS ORDERED: OLANZapine 5 MG (ZyPREXA) TAB PO ONE (06:30)
[2018-07-05 06:33] LABS: AMPHETAMINE SCREEN, URINE POSITIVE (NEGATIVE); BARBITURATE SCREEN URINE NEGATIVE (NEGATIVE); BENZODIAZEPINES SCREEN URINE POSITIVE (NEGATIVE); CANNABINOID SCREEN, URINE NEGATIVE (NEGATIVE); COCAINE SCREEN URINE NEGATIVE (NEGATIVE); METHADONE STAT NEGATIVE (NEGATIVE); METHAMPHETAMINE SCREEN URINE S POSITIVE (NEGATIVE); OPIATE SCREEN URINE NEGATIVE (NEGATIVE); OXYCODONE STAT NEGATIVE (NEGATIVE); PROPOXYPHENE STAT NEGATIVE (NEGATIVE); TRICYCLIC ANTIDEPRESSANTS SCRE POSITIVE (NEGATIVE)
[2018-07-05] MEDS ORDERED: LORazepam INJ 2 MG/ML (ATIVAN) VIAL IM ONE ×2 (07:00→08:00)
[2018-07-05] MEDS ORDERED: LORazepam INJ 2 MG/ML (ATIVAN) VIAL IVP ONE (08:00)
--- NOTE | 2018-07-05 08:06 | Diagnostic Imaging Report ---
INDICATION: Altered mental status. COMPARISON: 07/03/2018. FINDINGS: Portable chest shows lungs to be clear. Heart is not enlarged. There is no pulmonary edema. No hilar adenopathy. No pneumothorax or pleural effusion. No bony abnormality. IMPRESSION: Negative portable chest. Dictated by: Dictated on workstation # [id number]
[2018-07-05] MEDS ORDERED: WATER (STERILE) FOR INJECTION 20 ML ONE ×2 (08:12→10:43)
[2018-07-05] MEDS ORDERED: ZIPRASIDONE 20 MG INJ (GEODON) VIAL IM ONE ×2 (08:15→10:45)
--- NOTE | 2018-07-05 08:23 | Diagnostic Imaging Report ---
PROCEDURE: CT head, face, and cervical spine without contrast. TECHNIQUE: Multiple contiguous axial images were obtained through the head, neck, and facial bones without the use of intravenous contrast. Sagittal and coronal reformations through the cervical spine and facial bones were also performed. INDICATION: Altered mental status. COMPARISON: None. FINDINGS: CT head and maxillofacial: No intracranial hemorrhage, mass effect, hydrocephalus or extra-axial fluid collections. No CT evidence for territorial infarction. No calvarial or maxillofacial fractures. The mastoids are clear. Normal alignment of the temporomandibular joints. CT cervical spine: Normal alignment. Vertebral body heights preserved. No fractures. Moderate degenerative endplate changes. No evidence of high-grade spinal canal narrowing on this noncontrast exam. The visualized paravertebral soft tissues are unremarkable. IMPRESSION: 1. No calvarial or maxillofacial fractures. 2. No acute intracranial or cervical spine CT findings. Dictated by: Dictated on workstation # [id number]
[2018-07-05] MEDS ORDERED: ZIPRASIDONE 20 MG INJ (GEODON) VIAL IM PRN (11:45)
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
[2018-07-05] MEDS ORDERED: ENOXAPARIN 40 MG/0.4 ML (LOVENOX) SYR SC SCH (15:00)
[2018-07-05] MEDS: NS IV 1000 ML 1,000 ML IV SCH ×3 (15:11→18:58)
[2018-07-05] MEDS: LORazepam INJ 2 MG/ML (ATIVAN) VIAL IVP PRN ×2 (20:44→23:12)
[2018-07-06] VITALS: BP 140/68
[2018-07-06] MEDS: LORazepam INJ 2 MG/ML (ATIVAN) VIAL IVP PRN (00:50)
[2018-07-06 01:00] VITALS: BP 128/69
[2018-07-06] MEDS ORDERED: ZIPRASIDONE 20 MG INJ (GEODON) VIAL IM ONE (01:15)
[2018-07-06] MEDS ORDERED: WATER (STERILE) FOR INJECTION 10 ML ONE (01:24)
[2018-07-06] MEDS ORDERED: RT-ALBUTEROL/IPRATROPIUM 3 ML (DUONEB) VIAL INH PRN (01:45)
[2018-07-06] MEDS ORDERED: RT-ALBUTEROL/IPRATROPIUM 3 ML (DUONEB) VIAL INH SCH (08:00)
== END 2018-07-06 01:40 | disposition left against medical advice (07) ==
LOC: EDUNIT# 04:12 → ER 04:13 → ICU 10:29 → UNDOADMOB 10:29 → ICU 10:56 → UNDODISOB 07-07
PROVIDERS: ADMIT Family Medicine; ATTEND Family Medicine
DX: F23 Brief psychotic disorder (principal); N28.9 Disorder of kidney and ureter, unspecified; F15.10 Other stimulant abuse, uncomplicated; F17.210 Nicotine dependence, cigarettes, uncomplicated; J44.9 Chronic obstructive pulmonary disease, unspecified; J45.909 Unspecified asthma, uncomplicated; I25.10 Atherosclerotic heart disease of native coronary artery without angina pectoris; I10 Essential (primary) hypertension; I73.9 Peripheral vascular disease, unspecified; K21.9 Gastro-esophageal reflux disease without esophagitis; B19.20 Unspecified viral hepatitis C without hepatic coma; F43.10 Post-traumatic stress disorder, unspecified; I25.2 Old myocardial infarction; Z79.52 Long term (current) use of systemic steroids; Z86.718 Personal history of other venous thrombosis and embolism; Z86.73 Personal history of transient ischemic attack (TIA), and cerebral infarction without residual deficits; Z53.21 Procedure and treatment not carried out due to patient leaving prior to being seen by health care provider
CPT/HCPCS: 36415; 70450; 70486; 71045; 72125; 80053; 80306; 80320; 81000; 82140; 85025

== ENCOUNTER 2018-07-07 19:28 | Emergency (ER) | payer MEDICARE, MEDICAID ==
[~2018-07-07] VITALS: Ht 172.7 cm; Wt 77.1 kg
[2018-07-07] MEDS ORDERED: NS IV 1000 ML 1,000 ML IV ONE (20:20)
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
[2018-07-07 20:30] LABS: BASOPHILS % (AUTO) 0 % (0-10); EOSINOPHILS # (AUTO) 0.3 10^3/uL (0.0-0.3); EOSINOPHILS % (AUTO) 3 % (0-10); HEMATOCRIT 38 % (40-54); HEMOGLOBIN 13.3 G/DL (13.3-17.7); LYMPHOCYTES # (AUTO) 1.4 X 10^3 (1.0-4.0); LYMPHOCYTES % (AUTO) 15 % (12-44); MEAN CORPUSCULAR HEMOGLOBIN 30 PG (25-34); MEAN CORPUSCULAR HGB CONC 35 G/DL (32-36); MEAN CORPUSCULAR VOLUME 88 FL (80-99); MEAN PLATELET VOLUME 9.4 FL (7.4-10.4); MONOCYTES # (AUTO) 1.1 X 10^3 (0.0-1.0); MONOCYTES % (AUTO) 12 % (0-12); NEUTROPHILS # (AUTO) 6.3 X 10^3 (1.8-7.8); NEUTROPHILS % (AUTO) 69 % (42-75); PLATELET COUNT 226 10^3/uL (130-400); RED BLOOD COUNT 4.37 10^6/uL (4.35-5.85); WHITE BLOOD COUNT 9.1 10^3/uL (4.3-11.0)
[2018-07-07 20:49] LABS: ALANINE AMINOTRANSFERASE 58 U/L (0-55); ALBUMIN 3.8 GM/DL (3.2-4.5); ALKALINE PHOSPHATASE 46 U/L (40-136); BILIRUBIN,TOTAL 1.1 MG/DL (0.1-1.0); BUN/CREATININE RATIO 22; CALCIUM 9.4 MG/DL (8.5-10.1); CARBON DIOXIDE 22 MMOL/L (21-32); CHLORIDE 104 MMOL/L (98-107); CREATININE SERUM 0.95 MG/DL (0.60-1.30); GFR ESTIMATED > 60; GLUCOSE 83 MG/DL (70-105); POTASSIUM 3.6 MMOL/L (3.6-5.0); SALICYLATE < 5.0 MG/DL (5.0-20.0); SODIUM 139 MMOL/L (135-145); TOTAL PROTEIN 7.5 GM/DL (6.4-8.2)
[2018-07-07 20:52] LABS: ACETAMINOPHEN < 10 UG/ML (10-30)
--- NOTE | 2018-07-07 20:56 | Diagnostic Imaging Report ---
INDICATION: Flulike symptoms. Respiratory distress Portable chest shows normal heart size and vascularity. The lungs are clear. There is no effusion or pneumothorax. There is no change from 07/05/2018. IMPRESSION: Normal chest. Stable chest. Dictated by: Dictated on workstation # [id number]
[2018-07-07 21:41] LABS: BILIRUBIN,URINE NEGATIVE (NEGATIVE); CLARITY,URINE CLEAR; COLOR,URINE YELLOW; GLUCOSE, URINE (UA) NEGATIVE (NEGATIVE); KETONES,URINE 3+ (NEGATIVE); LEUKOCYTE ESTERASE ,URINE NEGATIVE (NEGATIVE); NITRITE,URINE NEGATIVE (NEGATIVE); PH,URINE 6.5 (5-9); PROTEIN,URINE NEGATIVE (NEGATIVE); UROBILINOGEN,URINE 1 MG/DL (NORMAL)
[2018-07-07 21:51] LABS: AMPHETAMINE SCREEN, URINE NEGATIVE (NEGATIVE); BARBITURATE SCREEN URINE NEGATIVE (NEGATIVE); BENZODIAZEPINES SCREEN URINE POSITIVE (NEGATIVE); CANNABINOID SCREEN, URINE NEGATIVE (NEGATIVE); COCAINE SCREEN URINE NEGATIVE (NEGATIVE); METHADONE STAT NEGATIVE (NEGATIVE); METHAMPHETAMINE SCREEN URINE S NEGATIVE (NEGATIVE); OPIATE SCREEN URINE NEGATIVE (NEGATIVE); OXYCODONE STAT NEGATIVE (NEGATIVE); PROPOXYPHENE STAT NEGATIVE (NEGATIVE); TRICYCLIC ANTIDEPRESSANTS SCRE POSITIVE (NEGATIVE)
[2018-07-07 21:52] LABS: BACTERIA,URINE NEGATIVE /HPF; RBC,URINE 0-2 /HPF
[2018-07-08] MEDS ORDERED: IBUPROFEN 800 MG (MOTRIN) TAB PO STA (00:18)
[2018-07-08 05:25] VITALS: BP 118/62
== END 2018-07-08 05:25 | disposition home or self-care (01) ==
LOC: EDUNIT# 19:28 → ER 19:31
DX: J10.1 Influenza due to other identified influenza virus with other respiratory manifestations (principal); I25.10 Atherosclerotic heart disease of native coronary artery without angina pectoris; I25.2 Old myocardial infarction; J44.9 Chronic obstructive pulmonary disease, unspecified; I10 Essential (primary) hypertension; K21.9 Gastro-esophageal reflux disease without esophagitis; F41.9 Anxiety disorder, unspecified; F32.9 Major depressive disorder, single episode, unspecified; F43.10 Post-traumatic stress disorder, unspecified; I73.9 Peripheral vascular disease, unspecified; F15.10 Other stimulant abuse, uncomplicated; F12.10 Cannabis abuse, uncomplicated; Z87.891 Personal history of nicotine dependence; Z85.118 Personal history of other malignant neoplasm of bronchus and lung; Z87.19 Personal history of other diseases of the digestive system; Z92.21 Personal history of antineoplastic chemotherapy; Z86.73 Personal history of transient ischemic attack (TIA), and cerebral infarction without residual deficits; Z86.010 Personal history of colon polyps; Z90.2 Acquired absence of lung [part of]; Z88.0 Allergy status to penicillin; Z86.718 Personal history of other venous thrombosis and embolism; Z88.2 Allergy status to sulfonamides; Z88.8 Allergy status to other drugs, medicaments and biological substances; Z87.09 Personal history of other diseases of the respiratory system; Z95.2 Presence of prosthetic heart valve; Z88.5 Allergy status to narcotic agent; Z79.51 Long term (current) use of inhaled steroids; Z79.52 Long term (current) use of systemic steroids
CPT/HCPCS: 36415; 71045; 80053; 80306; 80320; 80329; 81000; 85025

== ENCOUNTER → 2018-08-14 | Emergency (ER) | payer MEDICARE, MEDICAID ==
[~2018-08-14] MED LIST changes: +LEVO500T80 PO
== END | disposition left against medical advice (07) ==
LOC: EDUNIT# 22:36 → ER 22:38
DX: S40.852D Superficial foreign body of left upper arm, subsequent encounter (principal); X58.XXXD Exposure to other specified factors, subsequent encounter

== ENCOUNTER 2018-08-16 14:05 | Emergency (ER) | payer MEDICARE, MEDICAID ==
[~2018-08-16] VITALS: Ht 172.7 cm; Wt 77.3 kg
[~2018-08-16 14:05] MED LIST changes: -LEVO500T80 PO
[2018-08-16 15:04] LABS: BASOPHILS # (AUTO) 0.1 10^3/uL (0.0-0.1); BASOPHILS % (AUTO) 1 % (0-10); EOSINOPHILS # (AUTO) 0.1 10^3/uL (0.0-0.3); EOSINOPHILS % (AUTO) 1 % (0-10); HEMATOCRIT 44 % (40-54); HEMOGLOBIN 14.3 G/DL (13.3-17.7); LYMPHOCYTES # (AUTO) 1.2 X 10^3 (1.0-4.0); LYMPHOCYTES % (AUTO) 18 % (12-44); MEAN CORPUSCULAR HEMOGLOBIN 29 PG (25-34); MEAN CORPUSCULAR HGB CONC 33 G/DL (32-36); MEAN CORPUSCULAR VOLUME 89 FL (80-99); MEAN PLATELET VOLUME 9.5 FL (7.4-10.4); MONOCYTES # (AUTO) 0.8 X 10^3 (0.0-1.0); MONOCYTES % (AUTO) 13 % (0-12); NEUTROPHILS # (AUTO) 4.3 X 10^3 (1.8-7.8); NEUTROPHILS % (AUTO) 67 % (42-75); PLATELET COUNT 357 10^3/uL (130-400); RED BLOOD COUNT 4.92 10^6/uL (4.35-5.85); RED CELL DISTRIBUTION WIDTH 14.5 % (10.0-14.5); WHITE BLOOD COUNT 6.4 10^3/uL (4.3-11.0)
[2018-08-16] MEDS: RT-ALBUTEROL/IPRATROPIUM 3 ML (DUONEB) VIAL INH ONE (15:10)
[2018-08-16 15:15] LABS: ALANINE AMINOTRANSFERASE 36 U/L (0-55); ALKALINE PHOSPHATASE 60 U/L (40-136); BILIRUBIN,TOTAL 0.5 MG/DL (0.1-1.0); BUN/CREATININE RATIO 14; CARBON DIOXIDE 22 MMOL/L (21-32); CHLORIDE 102 MMOL/L (98-107); CREATININE SERUM 0.96 MG/DL (0.60-1.30); GFR ESTIMATED > 60; GLUCOSE 112 MG/DL (70-105); POTASSIUM 4.2 MMOL/L (3.6-5.0); SODIUM 137 MMOL/L (135-145); TOTAL PROTEIN 7.7 GM/DL (6.4-8.2)
[2018-08-16] MEDS: NS IV 1000 ML 1,000 ML IV ONE (15:15)
--- NOTE | 2018-08-16 15:36 | Diagnostic Imaging Report ---
INDICATION: Left forearm injury. FINDINGS: AP and lateral views of the left forearm show no fracture, dislocation, or radiopaque foreign object. IMPRESSION: Negative left forearm. Dictated by: Dictated on workstation # [id number]
--- NOTE | 2018-08-16 15:38 | Diagnostic Imaging Report ---
INDICATION: Shortness of breath. EXAMINATION: PA and lateral chest. FINDINGS: There is an infiltrate present in the lateral aspect of the right lung. Part of this was present on 07/07/2018, but there is a second patchy opacity just below the initial infiltrate in the right lower lung. There is no effusion or pneumothorax. There are granulomatous changes in the left upper lobe. IMPRESSION: There are two patchy infiltrates in the peripheral aspect of the right lower lung. Part of this is partially improved, but there is a smaller patchy component inferior to the previous infiltrate that has developed. Dictated by: Dictated on workstation # [id number]
--- NOTE | 2018-08-16 16:03 | ED General ---
General Chief Complaint: Respiratory Problems Stated Complaint: PNEUMONIA/ GLASS IN LFT ARM Nursing Triage Note: PT CO OF SOA AND POSS [place], STATES WAS IN HOSP LAST MONTH W [place]. PT HAS WOUND ON L FA, PT STATES HAS PIECE OF GLASS IN ARM, AREA REDDEND, WARM TO TOUCH, AND OOZING PUSS FROM AREA. PT STATES ALSO HAD FLU A AND B RECENTLY. Nursing Sepsis Screen: No Definite Risk Source of Information: Patient Exam Limitations: No Limitations History of Present Illness Date Seen by Provider: Aug 16, 2018 Time Seen by Provider: 15:40 Initial Comments Here with report of cough and concern about pneumonia and shortness of air. Also has a wound to the left forearm that he states has a piece of glass in it. He states that he was getting into a dumpster and there is a pain of glass and he stuck his hand through. It stuck him in the arm and the left forearm. He felt a piece of glass in there and try to grasp it with pliers and the glass shattered in the arm. Since then it has increased in redness and swelling and started having some purulent drainage. Not currently on antibiotics. Reports that he was in the hospital legionella pneumonia. Also had a psychiatric stay. Denies nausea or vomiting. Timing/Duration: 2-3 Days Severity: Moderate Associated Systoms: Cough; No Fever/Chills, No Nausea/Vomiting; Shortness of Air; No Weakness Allergies and Home Medications Allergies Coded Allergies: Bacitracin Zinc (Verified Allergy, Unknown, 06/04/12) bacitracin (Verified Allergy, Unknown, 06/04/12) benzalkonium chloride (Verified Allergy, Unknown, 06/04/12) cefadroxil (Verified Allergy, Unknown, RASH, 04/08/16) gramicidin D (Verified Allergy, Unknown, 06/04/12) hydrocortisone (Verified Allergy, Unknown, 06/04/12) methocarbamol (Verified Allergy, Unknown, 06/04/12) neomycin sulfate (Verified Allergy, Unknown, 06/04/12) polymyxin B (Verified Allergy, Unknown, 06/04/12) polymyxin B sulfate (Verified Allergy, Unknown, 06/04/12) carbamazepine (Unverified Adverse Reaction, Mild, hives, 11/12/14) Home Medications Albuterol Sulfate 1 Puff Puff, 2 PUFF IH Q6H PRN for SHORTNESS OF BREATH Prescribed by: SAMANTHA GALEANO on 07/04/18949 Amitriptyline HCl 150 Mg Tablet, 150 MG PO HS Prescribed by: SAMANTHA GALEANO on 07/04/18949 Escitalopram Oxalate 10 Mg Tablet, 10 MG PO DAILY Prescribed by: SAMANTHA GALEANO on 07/04/18949 Fluticasone/Salmeterol 12 Gm Hfa.aer.ad, 2 PUFF IH BID Prescribed by: SAMANTHA GALEANO on 07/04/18949 Gabapentin 400 Mg Capsule, 400 MG PO TID Prescribed by: SAMANTHA GALEANO on 07/04/18949 Lisinopril 10 Mg Tablet, 10 MG PO DAILY Prescribed by: SAMANTHA GALEANO on 07/04/18949 Omeprazole 20 Mg Capsule.dr, 20 MG PO DAILY Prescribed by: SAMANTHA GALEANO on 07/04/18949 Prednisone 10 Mg Tab, 0 PO UD Take 6 tabs(60mg)daily, decrease by 1 tab(10mg) every other day. Prescribed by: SAMANTHA GALEANO on 07/04/18949 Patient Home Medication List Home Medication List Reviewed: Yes Review of Systems Review of Systems Constitutional: see HPI; No chills, No fever EENTM: no symptoms reported Respiratory: cough, short of breath Cardiovascular: no symptoms reported Gastrointestinal: no symptoms reported Genitourinary: no symptoms reported Musculoskeletal: no symptoms reported Skin: see HPI, change in color, lesions Psychiatric/Neurological: No Symptoms Reported All Other Systems Reviewed Negative Unless Noted: Yes Past Qixkgyi-Jyigod-Ynsopm Hx Past Med/Social Hx: Reviewed Nursing Past Med/Soc Hx Patient Social History Alcohol Use: Occasionally Uses Number of Drinks Today: AA Alcohol Beverage of Choice: Beer Recreational Drug Use: Yes Drug of Choice: pot and meth Smoking Status: Current Everyday Smoker Type Used: Cigarettes Former Smoker, Quit: Apr 15, 2018 2nd Hand Smoke Exposure: Yes Recent Foreign Travel: No Contact w/Someone Who Travel: No Recent Infectious Disease Expo: No Recent Hopitalizations: Yes (SANDOR CAMARILLO JUL 12-) Physical Abuse: No Sexual Abuse: No Immunizations Up To Date Tetanus Booster (TDap): Unknown Date of Pneumonia Vaccine: Jun 28, 2011 Date of Influenza Vaccine: Jun 26, 2011 Seasonal Allergies Seasonal Allergies: No Past Medical History Surgeries: No Cardiac, Eye Surgery, Lobectomy Respiratory: Yes Pneumonia, COPD, Emphysema Currently Using CPAP: No Currently Using BIPAP: No Cardiac: No Coronary Artery Disease, Deep Vein Thrombosis, Heart Attack, Hypertension, Peripheral Vascular Neurological: No Neuropathy, Stroke, TIA Reproductive Disorders: No Sexually Transmitted Disease: No Genitourinary: No Renal Failure Gastrointestinal: No Gastroesophageal Reflux, Liver Disease/Jaundice, Hepatitis, Polyps Musculoskeletal: No Back Injury, Chronic Back Pain, Fractures Endocrine: No HEENT: No Loss of Vision: Left Cancer: No Lung Did You Recieve Any Treatments: Yes What Type of Treatment Did You: Surgical Intervention Psychosocial: No Anxiety, PTSD, Depression Integumentary: No Blood Disorders: No Adverse Reaction/Blood Tranf: No Family Medical History Reviewed Nursing Family Hx No Pertinent Family Hx Physical Exam Vital Signs Vital Signs - First Documented 08/16/18 08/16/18 14:40 15:16 Temp 98.8 Pulse 96 Resp 18 B/P (MAP) 147/89 (108) Pulse Ox 97 O2 Delivery Room Air Capillary Refill : Less Than 3 Seconds Height, Weight, BMI Height: 5'8.00" Weight: 170lbs. 5.0oz. 77.975590dk; 25.9 BMI Method:Stated General Appearance: No Apparent Distress, WD/WN HEENT: PERRL/EOMI, Pharynx Normal Neck: Non Tender, Supple Respiratory: Decreased Breath Sounds, Wheezing Cardiovascular: Regular Rate, Rhythm, No Murmur Gastrointestinal: Non Tender, Soft Back: Normal Inspection, No CVA Tenderness, No Vertebral Tenderness Extremity: Normal Range of Motion, Non Tender Neurologic/Psychiatric: Alert, Oriented x3 Skin: Normal Color, Warm/Dry Procedures/Interventions I&D : Blade Size: 11 I & D Procedure: betadine prep, sterile drapes applied, sterile dressing applied, gauze wick placed, Wound Packing Packing/Drain: Idoform 1/4 Progress Anesthetized with 8 mL of 2 percent lidocaine with epinephrine. Excellent anesthesia. 2 cm incision with 11 blade.. 5 mL of purulent/chunky substance expressed from wound. Removed from Wound. Wound Flushed and Cleaned. Packed with iodoform. Tolerated procedure well with no complications. Covered with gauze dressing secured Progress/Results/Core Measures Suspected Sepsis Recent Fever Within 48 Hours: No Infection Criteria Present: None New/Unexplained Altered Menta: No Sepsis Screen: No Definite Risk SIRS Temperature:98.8 Pulse: 96 Respiratory Rate: 18 Laboratory Tests 08/16/18 14:50: White Blood Count 6.4 Blood Pressure 147 /89 Mean: 108 Laboratory Tests 08/16/18 14:50: Creatinine 0.96, Platelet Count 357, Total Bilirubin 0.5 Results/Orders Lab Results Laboratory Tests Test 08/16/18 14:50 Range/Units White Blood Count 6.4 4.3-11.0 10^3/uL Red Blood Count 4.92 4.35-5.85 10^6/uL Hemoglobin 14.3 13.3-17.7 G/DL Hematocrit 44 40-54 % Mean Corpuscular Volume 89 80-99 FL Mean Corpuscular Hemoglobin 29 25-34 PG Mean Corpuscular Hemoglobin Concent 33 32-36 G/DL Red Cell Distribution Width 14.5 10.0-14.5 % Platelet Count 357 130-400 10^3/uL Mean Platelet Volume 9.5 7.4-10.4 FL Neutrophils (%) (Auto) 67 42-75 % Lymphocytes (%) (Auto) 18 12-44 % Monocytes (%) (Auto) 13 H 0-12 % Eosinophils (%) (Auto) 1 0-10 % Basophils (%) (Auto) 1 0-10 % Neutrophils # (Auto) 4.3 1.8-7.8 X 10^3 Lymphocytes # (Auto) 1.2 1.0-4.0 X 10^3 Monocytes # (Auto) 0.8 0.0-1.0 X 10^3 Eosinophils # (Auto) 0.1 0.0-0.3 10^3/uL Basophils # (Auto) 0.1 0.0-0.1 10^3/uL Sodium Level 137 135-145 MMOL/L Potassium Level 4.2 3.6-5.0 MMOL/L Chloride Level 102 98-107 MMOL/L Carbon Dioxide Level 22 21-32 MMOL/L Anion Gap 13 5-14 MMOL/L Blood Urea Nitrogen 13 7-18 MG/DL Creatinine 0.96 0.60-1.30 MG/DL Estimat Glomerular Filtration Rate > 60 BUN/Creatinine Ratio 14 Glucose Level 112 H 70-105 MG/DL Calcium Level 10.0 8.5-10.1 MG/DL Corrected Calcium 10.0 8.5-10.1 MG/DL Total Bilirubin 0.5 0.1-1.0 MG/DL Aspartate Amino Transf (AST/SGOT) 36 H 5-34 U/L Alanine Aminotransferase (ALT/SGPT) 36 0-55 U/L Alkaline Phosphatase 60 40-136 U/L C-Reactive Protein High Sensitivity 3.65 H 0.00-0.50 MG/DL Total Protein 7.7 6.4-8.2 GM/DL Albumin 4.0 3.2-4.5 GM/DL My Orders Orders - PEDRO MENDES MD Cbc With Automated Diff (08/16/18 14:56) Comprehensive Metabolic Panel (08/16/18 14:56) Hs C Reactive Protein (08/16/18 14:56) Chest Pa/Lat (2 View) (08/16/18 14:56) Saline Lock/Iv-Start (08/16/18 14:56) Ns Iv 1000 Ml (Sodium Chloride 0.9%) (08/16/18 14:56) Forearm, Left, 2 Views (08/16/18 14:58) Albuterol/Ipra Inhalation Soln (Duoneb I (08/16/18 15:00) Svn Small Volume Nebulizer (08/16/18 14:59) Lidocaine/Epi 2% 1:100,000 (Xylocaine/Ep (08/16/18 16:00) Sulfamethoxazole/Trimet Ds Tab (Bactrim (08/16/18 17:17) Levofloxacin Tablet (Levaquin Tablet) (08/16/18 17:17) Medications Given in ED Current Medications Medications Dose Ordered Sig/Kiran Route Start Time Stop Time Status Last Admin Dose Admin Albuterol/ Ipratropium 3 ml ONCE ONCE INH 08/16/18 15:00 08/16/18 15:01 DC 08/16/18 15:10 3 ML Lidocaine/ Epinephrine 20 ml ONCE ONCE INJ 08/16/18 16:00 08/16/18 16:01 DC 08/16/18 16:57 10 ML Sodium Chloride 1,000 ml @ 0 mls/hr Q0M ONCE IV 08/16/18 14:56 08/16/18 14:58 DC 08/16/18 15:15 1,000 MLS/HR Vital Signs/I&O 08/16/18 08/16/18 14:40 15:16 Temp 98.8 Pulse 96 Resp 18 B/P (MAP) 147/89 (108) Pulse Ox 97 96 O2 Delivery Room Air Capillary Refill : Less Than 3 Seconds Blood Pressure Mean: 108 Progress Note : Progress Note Seen and evaluated. IV, labs, normal saline 1 L bolus, chest x-ray ordered. Wound culture obtained from left forearm. I&D left forearm. 1730: I&D performed and completed. Tolerated procedure well. Does have findings of questionable pneumonia. Also has cellulitis left forearm with abscess. We will initiate Levaquin and Bactrim outpatient treatment. Levaquin 500 mg by mouth given. Bactrim DS one tab by mouth given. Discharged home with return precautions. Patient verbalize understanding instructions and agreement with plan. Diagnostic Imaging Diagonstic Imaging: Xray Plain Films/CT/US/NM/MRI: chest [facility] [place], [place] NAME: DARCIEMELYN Adams [facility] REC#: [id number] PT STATUS: REG ER : 1960 PHYSICIAN: PEDRO MENDES MD ADMIT DATE: 08/16/18/ER Draft Date of Exam:08/16/18 CHEST PA/LAT (2 VIEW) INDICATION: Shortness of breath. EXAMINATION: PA and lateral chest. FINDINGS: There is an infiltrate present in the lateral aspect of the right lung. Part of this was present on 07/07/2018, but there is a second patchy opacity just below the initial infiltrate in the right lower lung. There is no effusion or pneumothorax. There are granulomatous changes in the left upper lobe. IMPRESSION: There are two patchy infiltrates in the peripheral aspect of the right lower lung. Part of this is partially improved, but there is a smaller patchy component inferior to the previous infiltrate that has developed. Dictated on workstation # [id number] Dict: 08/16/18 1532 Trans: 08/16/18 1537 [id number] Interpreted by: PEDRO MOSS MD Electronically signed by: Diagonstic Imaging: Xray Plain Films/CT/US/NM/MRI: other Comments [facility]IA [facility] [place], [place] NAME: EMELYN BEJARANO [facility] REC#: [id number] PT STATUS: REG ER : 1960 PHYSICIAN: PEDRO MENDES MD ADMIT DATE: 08/16/18/ER Draft Date of Exam:08/16/18 FOREARM, LEFT, 2 VIEWS INDICATION: Left forearm injury. FINDINGS: AP and lateral views of the left forearm show no fracture, dislocation, or radiopaque foreign object. IMPRESSION: Negative left forearm. Dictated on workstation # [id number] Dict: 08/16/18 1534 Trans: 08/16/18 1536 [id number] Interpreted by: PEDRO MOSS MD Electronically signed by: Departure Impression Primary Impression: Right lower lobe pneumonia Qualified Codes: J18.1 - Lobar pneumonia, unspecified organism Additional Impression: Abscess of left forearm Disposition: 01 HOME, SELF-CARE Condition: Improved Departure-Patient Inst. Decision time for Depature: 17:34 Referrals: JOSEFINA PEREZ MD (PCP/Family) Primary Care Physician Patient Instructions: ABSCESS, Abscess Incision and Drainage (DC), Community- Acquired Pneumonia, Adult (DC) Add. Discharge Instructions: All discharge instructions reviewed with patient and/or family. Voiced understanding. Take medications as directed. Follow-up with your Dr. in a few days for recheck. Return here Tuesday morning for recheck of wound. You may take ibuprofen 600 mg every 8 hours as needed for pain. You may take Tylenol/ acetaminophen 1000 mg every 8 hours as needed for pain. Drink plenty of fluids. Return for worse pain, fever, vomiting, weakness, breathing problems or other concerns as needed. Scripts Sulfamethoxazole/Trimethoprim (Sulfamethoxazole-Tmp Ds Tablet) 1 Each Tablet 1 EACH PO BID, #13 TAB 0 Refills Prov: PEDRO MENDES MD 08/16/18 Levofloxacin (Levofloxacin) 500 Mg Tablet 500 MG PO DAILY, #6 TAB 0 Refills Prov: PEDRO MENDES MD 08/16/18 PEDRO MENDES MD Aug 16, 2018 16:03
[2018-08-16] MEDS: LIDOCAINE/EPI 2% 1:100,00 (XYLOCAINE) 20 ML VIAL INJ ONE (16:57)
[2018-08-16] MEDS ORDERED: LEVO500T80 PO (17:35)
[2018-08-16] MEDS ORDERED: SULF-222 PO (17:35)
[2018-08-16] MEDS: TRIM/SULFAMETH 160/800 (SEPTRA DS) TAB PO STA (17:56)
[2018-08-16] MEDS: LEVOFLOXACIN 500 MG TAB (LEVAQUIN) PO STA (17:56)
[2018-08-16 18:01] VITALS: BP 147/89
== END 2018-08-16 18:01 | disposition home or self-care (01) ==
LOC: EDUNIT# 14:05 → ER 14:08
DX: J18.1 Lobar pneumonia, unspecified organism (principal); L02.414 Cutaneous abscess of left upper limb; J43.9 Emphysema, unspecified; I25.10 Atherosclerotic heart disease of native coronary artery without angina pectoris; I10 Essential (primary) hypertension; I73.9 Peripheral vascular disease, unspecified; F41.9 Anxiety disorder, unspecified; F43.10 Post-traumatic stress disorder, unspecified; F32.9 Major depressive disorder, single episode, unspecified; I25.2 Old myocardial infarction; F17.210 Nicotine dependence, cigarettes, uncomplicated; Z90.2 Acquired absence of lung [part of]; Z86.010 Personal history of colon polyps; Z85.118 Personal history of other malignant neoplasm of bronchus and lung; Z86.718 Personal history of other venous thrombosis and embolism; Z87.19 Personal history of other diseases of the digestive system; Z86.73 Personal history of transient ischemic attack (TIA), and cerebral infarction without residual deficits; Z88.2 Allergy status to sulfonamides; Z87.01 Personal history of pneumonia (recurrent); Z88.8 Allergy status to other drugs, medicaments and biological substances; Z88.1 Allergy status to other antibiotic agents; Z88.0 Allergy status to penicillin; Z79.51 Long term (current) use of inhaled steroids; Z79.52 Long term (current) use of systemic steroids
CPT/HCPCS: 10061; 36415; 71046; 73090; 80053; 85025; 86141; 87040; 87070; 87205; 94640

== ENCOUNTER 2018-08-18 09:37 | Emergency (ER) | payer MEDICARE, MEDICAID ==
[~2018-08-18] VITALS: Ht 172.7 cm; Wt 77.3 kg
[~2018-08-18 09:37] MED LIST changes: +LEVO500T80 PO
--- NOTE | 2018-08-18 09:52 | ED Suture Removal/Wound Check ---
Suture/Wound Re-check Suture Removal/Wound Recheck : Progress Patient presents for a wound check. He had an abscess incised and drained. The abscess developed after he cut himself on some broken glass. The abscess was drained a couple days ago. He has been prescribed Bactrim and Levaquin which he states he is presently taking. There is packing in the wound and he wishes to have the wound assessed today. Packing was removed. There was a small amount of purulent material on the packing. The tissue around the wound was not particularly inflamed. Wound was redressed with a nonstick dressing. See discharge instructions. General Appearance: WD/WN, no apparent distress Physical Exam Vital Signs Vital Signs - First Documented 08/18/18 08/18/18 09:41 09:56 Temp 97.3 Pulse 101 Resp 16 B/P (MAP) 150/85 Pulse Ox 95 Capillary Refill : General Appearance: WD/WN, no apparent distress Skin: other (wound on the left forearm with packing in place) Departure Impression Primary Impression: Wound of left upper extremity Qualified Codes: S41.102D - Unspecified open wound of left upper arm, subsequent encounter Disposition: HOME, SELF-CARE Condition: Improved Departure-Patient Inst. Decision time for Depature: 09:45 Referrals: JOSEFINA PEREZ MD (PCP/Family) Primary Care Physician Add. Discharge Instructions: Continue with antibiotics as previously prescribed. Leave the wound covered until it closes. Change dressings daily or anytime dressings are soiled. You may remove dressings to shower. Return to care if you have any further problems or concerns. Follow-up with your primary care provider next week. RAMANA SALAS MD Aug 18, 2018 09:52
[2018-08-18 09:56] VITALS: BP 150/85
== END 2018-08-18 09:57 | disposition home or self-care (01) ==
LOC: EDUNIT# 09:37 → ER 09:38
DX: S41.102D Unspecified open wound of left upper arm, subsequent encounter (principal); L02.414 Cutaneous abscess of left upper limb; W25.XXXD Contact with sharp glass, subsequent encounter

== ENCOUNTER 2018-11-28 10:17 | Emergency (ER) | payer MEDICARE, MEDICAID | END 2018-11-28 11:14 | disposition left against medical advice (07) | LOC: EDUNIT# 10:17 → ER 10:19 | DX: S30.860A Insect bite (nonvenomous) of lower back and pelvis, initial encounter (principal); W57.XXXA Bitten or stung by nonvenomous insect and other nonvenomous arthropods, initial encounter ==

== ENCOUNTER 2019-01-03 11:07 | Emergency (ER) | payer MEDICARE, MEDICAID ==
[~2019-01-03] VITALS: Ht 172.7 cm; Wt 80.7 kg
--- NOTE | 2019-01-03 11:44 | ED Lower Extremity ---
General Chief Complaint: Lower Extremity Stated Complaint: TOE LACERATION/INFECTION Nursing Triage Note: Pt ambulatory to triage with a limp. Pt reports cutting L second toe when installing a wood floor approximately one week ago. Pt denies seeking medical attention at the time. Pt c/o pain is now radiating to knee. Pt's toe is reddned and swollen. Nursing Sepsis Screen: No Definite Risk Source: patient Exam Limitations: no limitations History of Present Illness Date Seen by Provider: Jan 03, 2019 Time Seen by Provider: 11:39 Initial Comments to ER per private vehicle with reports of a one-weekold wound to the left second toe dorsally. He states that he was installing a wood floor when he accidentally kicked it and injured the toe. Is now red and swollen Onset: just prior to arrival Severity: moderate Pain/Injury Location: left 2nd toe Modifying Factors: Worse With Movement Allergies and Home Medications Allergies Coded Allergies: Bacitracin Zinc (Verified Allergy, Unknown, 06/04/12) bacitracin (Verified Allergy, Unknown, 06/04/12) benzalkonium chloride (Verified Allergy, Unknown, 06/04/12) cefadroxil (Verified Allergy, Unknown, RASH, 04/08/16) gramicidin D (Verified Allergy, Unknown, 06/04/12) hydrocortisone (Verified Allergy, Unknown, 06/04/12) methocarbamol (Verified Allergy, Unknown, 06/04/12) neomycin sulfate (Verified Allergy, Unknown, 06/04/12) polymyxin B (Verified Allergy, Unknown, 06/04/12) polymyxin B sulfate (Verified Allergy, Unknown, 06/04/12) carbamazepine (Unverified Adverse Reaction, Mild, hives, 11/12/14) Home Medications Albuterol Sulfate 1 Puff Puff, 2 PUFF IH Q6H PRN for SHORTNESS OF BREATH Prescribed by: SAMANTHA GALEANO on 07/04/18 0950 Amitriptyline HCl 150 Mg Tablet, 150 MG PO HS Prescribed by: SAMANTHA GALEANO on 07/04/18 0950 Escitalopram Oxalate 10 Mg Tablet, 10 MG PO DAILY Prescribed by: SAMANTHA GALEANO on 07/04/18 0950 Fluticasone/Salmeterol 12 Gm Hfa.aer.ad, 2 PUFF IH BID Prescribed by: SAMANTHA GALEANO on 07/04/18949 Gabapentin 400 Mg Capsule, 400 MG PO TID Prescribed by: SAMANTHA GALEANO on 07/04/18949 Levofloxacin 500 Mg Tablet, 500 MG PO DAILY Prescribed by: PEDRO MENDES on 08/16/181734 Lisinopril 10 Mg Tablet, 10 MG PO DAILY Prescribed by: SAMANTHA GALEANO on 07/04/18949 Omeprazole 20 Mg Capsule.dr, 20 MG PO DAILY Prescribed by: SAMANTHA GALEANO on 07/04/18949 Prednisone 10 Mg Tab, 0 PO UD Take 6 tabs(60mg)daily, decrease by 1 tab(10mg) every other day. Prescribed by: SAMANTHA GALEANO on 07/04/18949 Sulfamethoxazole/Trimethoprim 1 Each Tablet, 1 EACH PO BID Prescribed by: PEDRO MENDES on 08/16/181734 Patient Home Medication List Home Medication List Reviewed: Yes Review of Systems Constitutional: see HPI; No chills, No fever EENTM: see HPI Respiratory: no symptoms reported Cardiovascular: no symptoms reported Genitourinary: no symptoms reported Musculoskeletal: no symptoms reported Skin: see HPI Psychiatric/Neurological: No Symptoms Reported Past Agquszn-Nacdve-Wajxxx Hx Patient Social History Alcohol Use: Denies Use Number of Drinks Today: AA Alcohol Beverage of Choice: Beer Recreational Drug Use: No Drug of Choice: pot and meth Smoking Status: Current Everyday Smoker Type Used: Cigarettes Former Smoker, Quit: Apr 15, 2018 2nd Hand Smoke Exposure: Yes Recent Foreign Travel: No Contact w/Someone Who Travel: No Recent Infectious Disease Expo: Yes Recent Hopitalizations: Yes (SANDOR CAMARILLO JUL 12) Physical Abuse: No Sexual Abuse: No Immunizations Up To Date Tetanus Booster (TDap): Unknown Date of Pneumonia Vaccine: Jun 28, 2011 Date of Influenza Vaccine: Jun 26, 2011 Seasonal Allergies Seasonal Allergies: No Past Medical History Surgeries: No Cardiac, Eye Surgery, Lobectomy Respiratory: Yes Pneumonia, COPD, Emphysema Currently Using CPAP: No Currently Using BIPAP: No Cardiac: No Coronary Artery Disease, Deep Vein Thrombosis, Heart Attack, Hypertension, Peripheral Vascular Neurological: No Neuropathy, Stroke, TIA Reproductive Disorders: No Sexually Transmitted Disease: No Genitourinary: No Renal Failure Gastrointestinal: No Gastroesophageal Reflux, Liver Disease/Jaundice, Hepatitis, Polyps Musculoskeletal: No Back Injury, Chronic Back Pain, Fractures Endocrine: No HEENT: No Loss of Vision: Left Cancer: No Lung Did You Recieve Any Treatments: Yes What Type of Treatment Did You: Surgical Intervention Psychosocial: No Anxiety, PTSD, Depression Integumentary: No Blood Disorders: No Adverse Reaction/Blood Tranf: No Family Medical History No Pertinent Family Hx Physical Exam Vital Signs Vital Signs - First Documented 01/03/19 11:10 Temp 97.8 Pulse 102 Resp 26 B/P (MAP) 111/75 (87) Pulse Ox 95 O2 Delivery Room Air Capillary Refill : Less Than 3 Seconds Height, Weight, BMI Height: 5'8.00" Weight: 178lbs. 5.0oz. 80.821788ed; 21.09 BMI Method:Stated General Appearance: WD/WN, no apparent distress HEENT: PERRL/EOMI, normal ENT inspection Neck: non-tender, full range of motion Hips: bilateral hip non-tender, bilateral hip normal inspection, bilateral hip normal range of motion Legs: bilateral leg non-tender, bilateral leg normal inspection, bilateral leg normal range of motion Knees: bilateral knee non-tender, bilateral knee normal inspection, bilateral knee normal range of motion Ankles: bilateral ankle non-tender, bilateral ankle normal inspection, bilateral ankle normal range of motion Feet: left foot other (there is circumferential erythema to the left second toe without paronychia or apparentdrainable abscess.This does not extend proximal to theMTP joint. There is a draining ulcer to the dorsal aspectof the DIP joint. The foot is warm. Posterior tibial pulses 2+ and strength. Dorsalis pedis pulse is not palpable. All toes are warm) Neurologic/Psychiatric: alert, normal mood/affect, oriented x 3 Skin: normal color, warm/dry Progress/Results/Core Measures Results/Orders My Orders Orders - JASMINE ANDERSON APRN Cbc With Automated Diff (01/03/19 11:37) Basic Metabolic Panel (01/03/19 11:37) Erythrocyte Sedimentation Rate (01/03/19 11:37) Foot, Left, 3 Views (01/03/19 11:37) Wound Culture (01/03/19 11:37) Drug Screen Stat (Urine) (01/03/19 11:37) Iv Heplock-Insert (Order) (01/03/19 11:37) Ketorolac Injection (Toradol Injection) (01/03/19 11:45) Vital Signs/I&O 01/03/19 11:10 Temp 97.8 Pulse 102 Resp 26 B/P (MAP) 111/75 (87) Pulse Ox 95 O2 Delivery Room Air Blood Pressure Mean: 87 Departure Impression Primary Impression: Ulcer of toe Qualified Codes: L97.529 - Non-pressure chronic ulcer of other part of left foot with unspecified severity Additional Impression: Cellulitis of toe of left foot Disposition: HOME, SELF-CARE Condition: Stable Departure-Patient Inst. Decision time for Depature: 11:41 Referrals: JOSEFINA PEREZ MD (PCP/Family) Primary Care Physician Patient Instructions: Cellulitis (Skin Infection), Adult (DC) Add. Discharge Instructions: 1. Follow up with [facility]. I made an appointment for you on THIS TUESDAY the AT 1:[address] PEREZ. 2. Antibiotics and pain medication as directed All discharge instructions reviewed with patient and/or family. Voiced understanding. Scripts Amoxicillin/Potassium Clav (Augmentin 875-125 Tablet) 1 Each Tablet 1 EACH PO BID, #14 TAB Prov: JASMINE ANDERSON VAC[employer]UM [employer]OOK 01/03/19 Hydrocodone/Acetaminophen ([place] 5-325 Tablet) 1 Each Tablet 1 EACH PO Q6H PRN for PAIN-MODERATE MDD 10, #10 TAB do not fill unless antibiotic is also filled Prov: JASMINE ANDERSON [employer]OOK 01/03/19 JASMINE ANDERSON V[employer]OOK Jan 03, 2019 11:44
[2019-01-03 11:45] LABS: BASOPHILS % (AUTO) 0 % (0-10); EOSINOPHILS # (AUTO) 0.3 10^3/uL (0.0-0.3); EOSINOPHILS % (AUTO) 4 % (0-10); HEMATOCRIT 41 % (40-54); LYMPHOCYTES # (AUTO) 1.3 X 10^3 (1.0-4.0); LYMPHOCYTES % (AUTO) 16 % (12-44); MEAN CORPUSCULAR HEMOGLOBIN 31 PG (25-34); MEAN CORPUSCULAR HGB CONC 34 G/DL (32-36); MEAN CORPUSCULAR VOLUME 90 FL (80-99); MEAN PLATELET VOLUME 9.8 FL (7.4-10.4); MONOCYTES # (AUTO) 0.9 X 10^3 (0.0-1.0); MONOCYTES % (AUTO) 12 % (0-12); NEUTROPHILS # (AUTO) 5.4 X 10^3 (1.8-7.8); NEUTROPHILS % (AUTO) 68 % (42-75); PLATELET COUNT 222 10^3/uL (130-400); RED CELL DISTRIBUTION WIDTH 14.7 % (10.0-14.5); WHITE BLOOD COUNT 7.9 10^3/uL (4.3-11.0)
[2019-01-03] MEDS ORDERED: KETOROLAC 30 MG/ML VIAL IVP ONE (11:45)
[2019-01-03] MEDS ORDERED: AMOX-358 PO (11:46)
[2019-01-03] MEDS ORDERED: HYDR-4226 PO (11:46)
[2019-01-03 12:01] LABS: BUN/CREATININE RATIO 28; CALCIUM 9.7 MG/DL (8.5-10.1); CARBON DIOXIDE 25 MMOL/L (21-32); CHLORIDE 105 MMOL/L (98-107); CREATININE SERUM 1.08 MG/DL (0.60-1.30); GFR ESTIMATED > 60; GLUCOSE 94 MG/DL (70-105); POTASSIUM 4.2 MMOL/L (3.6-5.0); SODIUM 138 MMOL/L (135-145)
[2019-01-03 12:24] LABS: ERYTHROCYTE SEDIMENTATION RATE 16 MM/HR (0-30)
[2019-01-03 12:25] VITALS: BP 124/74
--- NOTE | 2019-01-03 12:31 | Diagnostic Imaging Report ---
PATIENT HISTORY: Left foot injury. Laceration to the left second toe. TECHNIQUE: Three views of the left foot. COMPARISON: None. FINDINGS: No acute fracture or dislocation is seen in the left foot. There is a mallet toe deformity of the second toe. No radiopaque foreign body is seen. No cortical erosions are seen. Alignment otherwise appears normal and joint spaces are generally preserved. IMPRESSION: 1. Mallet toe deformity of the left second toe. No acute osseous abnormalities seen. If there is clinical concern for osteomyelitis, consider MRI for further evaluation. Dictated by: Dictated on workstation # [id number]
== END 2019-01-03 12:25 | disposition home or self-care (01) ==
LOC: EDUNIT# 11:07 → ER 11:08
DX: L97.529 Non-pressure chronic ulcer of other part of left foot with unspecified severity (principal); L03.032 Cellulitis of left toe; J43.9 Emphysema, unspecified; I25.10 Atherosclerotic heart disease of native coronary artery without angina pectoris; I25.2 Old myocardial infarction; I10 Essential (primary) hypertension; I73.9 Peripheral vascular disease, unspecified; K21.9 Gastro-esophageal reflux disease without esophagitis; F41.9 Anxiety disorder, unspecified; F43.10 Post-traumatic stress disorder, unspecified; F32.9 Major depressive disorder, single episode, unspecified; Z85.118 Personal history of other malignant neoplasm of bronchus and lung; Z86.010 Personal history of colon polyps; Z87.19 Personal history of other diseases of the digestive system; Z86.73 Personal history of transient ischemic attack (TIA), and cerebral infarction without residual deficits; Z86.718 Personal history of other venous thrombosis and embolism; Z88.1 Allergy status to other antibiotic agents; Z88.8 Allergy status to other drugs, medicaments and biological substances; Z79.51 Long term (current) use of inhaled steroids; Z87.01 Personal history of pneumonia (recurrent); Z79.52 Long term (current) use of systemic steroids; Z87.891 Personal history of nicotine dependence; Z90.2 Acquired absence of lung [part of]; W22.09XA Striking against other stationary object, initial encounter
CPT/HCPCS: 73630; 80048; 85652; 87070; 87077; 87186; 87205

== ENCOUNTER 2019-01-09 16:37 | Emergency (ER) | payer MEDICARE, MEDICAID ==
[~2019-01-09] VITALS: Ht 172.7 cm; Wt 80.7 kg
[~2019-01-09 16:37] MED LIST changes: +HYDR-4226 PO
[2019-01-09] MEDS ORDERED: CLIN300C11 PO (17:31)
[2019-01-09] MEDS ORDERED: ACHD5005 PO (17:31)
--- NOTE | 2019-01-09 17:31 | ED Lower Extremity ---
General Chief Complaint: Lower Extremity Stated Complaint: L TOE PAIN Nursing Triage Note: COMPLAINS OF INFECTION IN LEFT 2ND TOE FOR SEVERAL WEEKS. HAS FAILED ON 2 DIFFERENT ORAL ABX AMOXICILLIN AND BACTRIM AND THINKS HE NEEDS IV ABX. Nursing Sepsis Screen: No Definite Risk Source: patient Exam Limitations: no limitations History of Present Illness Date Seen by Provider: Jan 09, 2019 Time Seen by Provider: 17:28 Allergies and Home Medications Allergies Coded Allergies: Bacitracin Zinc (Verified Allergy, Unknown, 06/04/12) bacitracin (Verified Allergy, Unknown, 06/04/12) benzalkonium chloride (Verified Allergy, Unknown, 06/04/12) cefadroxil (Verified Allergy, Unknown, RASH, 04/08/16) gramicidin D (Verified Allergy, Unknown, 06/04/12) hydrocortisone (Verified Allergy, Unknown, 06/04/12) methocarbamol (Verified Allergy, Unknown, 06/04/12) neomycin sulfate (Verified Allergy, Unknown, 06/04/12) polymyxin B (Verified Allergy, Unknown, 06/04/12) polymyxin B sulfate (Verified Allergy, Unknown, 06/04/12) carbamazepine (Unverified Adverse Reaction, Mild, hives, 11/12/14) Home Medications Albuterol Sulfate 1 Puff Puff, 2 PUFF IH Q6H PRN for SHORTNESS OF BREATH Prescribed by: SAMANTHA GALEANO on 07/04/18 0950 Amitriptyline HCl 150 Mg Tablet, 150 MG PO HS Prescribed by: SAMANTHA GALEANO on 07/04/18 0950 Amoxicillin/Potassium Clav 1 Each Tablet, 1 EACH PO BID Prescribed by: JASMINE ANDERSON on 01/03/19 1146 Escitalopram Oxalate 10 Mg Tablet, 10 MG PO DAILY Prescribed by: SAMANTHA GALEANO on 07/04/18 0950 Fluticasone/Salmeterol 12 Gm Hfa.aer.ad, 2 PUFF IH BID Prescribed by: SAMANTHA GALEANO on 07/04/18 0950 Gabapentin 400 Mg Capsule, 400 MG PO TID Prescribed by: SAMANTHA GALEANO on 07/04/18 0950 Hydrocodone/Acetaminophen 1 Each Tablet, 1 EACH PO Q6H PRN for PAIN-MODERATE do not fill unless antibiotic is also filled Prescribed by: JASMINE ANDERSON on 01/03/19 1146 Levofloxacin 500 Mg Tablet, 500 MG PO DAILY Prescribed by: PEDRO MENDES on 08/16/181734 Lisinopril 10 Mg Tablet, 10 MG PO DAILY Prescribed by: SAMANTHA GALEANO on 07/04/18949 Omeprazole 20 Mg Capsule.dr, 20 MG PO DAILY Prescribed by: SAMANTHA GALEANO on 07/04/18949 Prednisone 10 Mg Tab, 0 PO UD Take 6 tabs(60mg)daily, decrease by 1 tab(10mg) every other day. Prescribed by: SAMANTHA GALEANO on 07/04/18949 Sulfamethoxazole/Trimethoprim 1 Each Tablet, 1 EACH PO BID Prescribed by: PEDRO MENDES on 08/16/181734 Past Ofgsjhm-Wwnkvo-Jzreoz Hx Patient Social History Alcohol Beverage of Choice: Beer Drug of Choice: pot and meth Type Used: Cigarettes Former Smoker, Quit: Apr 15, 2018 2nd Hand Smoke Exposure: Yes Recent Foreign Travel: No Contact w/Someone Who Travel: No Recent Infectious Disease Expo: No Recent Hopitalizations: Yes (SANDOR CAMARILLO JUL 12-) Physical Abuse: No Sexual Abuse: No Mistreated: No Fear: No Immunizations Up To Date Tetanus Booster (TDap): Unknown Date of Pneumonia Vaccine: Jun 28, 2011 Date of Influenza Vaccine: Jun 26, 2011 Seasonal Allergies Seasonal Allergies: No Past Medical History Surgeries: No Cardiac, Eye Surgery, Lobectomy Respiratory: Yes Pneumonia, COPD, Emphysema Currently Using CPAP: No Currently Using BIPAP: No Cardiac: No Coronary Artery Disease, Deep Vein Thrombosis, Heart Attack, Hypertension, Peripheral Vascular Neurological: No Neuropathy, Stroke, TIA Reproductive Disorders: No Sexually Transmitted Disease: No Genitourinary: No Renal Failure Gastrointestinal: No Gastroesophageal Reflux, Liver Disease/Jaundice, Hepatitis, Polyps Musculoskeletal: No Back Injury, Chronic Back Pain, Fractures Endocrine: No HEENT: No Loss of Vision: Left Cancer: No Lung Did You Recieve Any Treatments: Yes What Type of Treatment Did You: Surgical Intervention Psychosocial: No Anxiety, PTSD, Depression Integumentary: No Blood Disorders: No Adverse Reaction/Blood Tranf: No Family Medical History No Pertinent Family Hx Physical Exam Vital Signs Vital Signs - First Documented 01/09/19 16:50 Temp 98.4 Pulse 92 Resp 16 B/P (MAP) 173/91 (118) Pulse Ox 95 O2 Delivery Room Air Capillary Refill : Less Than 3 Seconds Height, Weight, BMI Height: 5'8.00" Weight: 178lbs. 5.0oz. 80.502014eu; 21.09 BMI Method:Stated Progress/Results/Core Measures Results/Orders Vital Signs/I&O 01/09/19 16:50 Temp 98.4 Pulse 92 Resp 16 B/P (MAP) 173/91 (118) Pulse Ox 95 O2 Delivery Room Air Blood Pressure Mean: 118 Departure Impression Primary Impression: Toe ulcer Disposition: 01 HOME, SELF-CARE Condition: Stable/Unchanged Departure-Patient Inst. Decision time for Depature: 17:29 Referrals: JOSEFINA PEREZ MD (PCP/Family) Primary Care Physician Patient Instructions: Wound Care (DC) Add. Discharge Instructions: Take medications as directed. Follow-up with Dr. Horton within 1 week for recheck. Return back to the emergency room for worsening symptoms or concerns as needed. You may use Tylenol and ibuprofen as needed for pain relief. All discharge instructions reviewed with patient and/or family. Voiced understanding. Scripts Hydrocodone Bit/Acetaminophen (Hydrocodone/Acetaminophen 5/325mg Tablet) 1 Tab Tab 1 EACH PO Q4-6HR PRN for PAIN-MODERATE MDD 10, #14 TAB Prov: KADI HOROWITZ 01/09/19 Clindamycin HCl (Clindamycin HCl) 300 Mg Capsule 300 MG PO Q8H for 7 Days, #21 CAP Prov: KADI HOROWITZ 01/09/19 KADI HOROWITZ Jan 09, 2019 17:31
[2019-01-09 17:38] VITALS: BP 173/90
== END 2019-01-09 17:40 | disposition home or self-care (01) ==
LOC: EDUNIT# 16:37 → ER 16:38
DX: L97.529 Non-pressure chronic ulcer of other part of left foot with unspecified severity (principal); J43.9 Emphysema, unspecified; I25.10 Atherosclerotic heart disease of native coronary artery without angina pectoris; I25.2 Old myocardial infarction; I10 Essential (primary) hypertension; I73.9 Peripheral vascular disease, unspecified; K21.9 Gastro-esophageal reflux disease without esophagitis; F41.9 Anxiety disorder, unspecified; F43.10 Post-traumatic stress disorder, unspecified; F32.9 Major depressive disorder, single episode, unspecified; Z85.118 Personal history of other malignant neoplasm of bronchus and lung; Z86.010 Personal history of colon polyps; Z87.19 Personal history of other diseases of the digestive system; Z86.73 Personal history of transient ischemic attack (TIA), and cerebral infarction without residual deficits; Z86.718 Personal history of other venous thrombosis and embolism; Z88.1 Allergy status to other antibiotic agents; Z88.8 Allergy status to other drugs, medicaments and biological substances; Z79.51 Long term (current) use of inhaled steroids; Z79.52 Long term (current) use of systemic steroids; Z87.891 Personal history of nicotine dependence; Z90.2 Acquired absence of lung [part of]; Z87.01 Personal history of pneumonia (recurrent)
CPT/HCPCS: 99282

== ENCOUNTER → 2019-01-29 | Outpatient (CLI) | payer MEDICARE, MEDICAID ==
[~2019-01-29] MED LIST changes: +ACHD5005 PO; +CLIN300C11 PO
== END ==
LOC: WOUNDCARE 13:11
PROVIDERS: ATTEND Surgery
DX: L97.521 Non-pressure chronic ulcer of other part of left foot limited to breakdown of skin (principal); L03.116 Cellulitis of left lower limb; G60.9 Hereditary and idiopathic neuropathy, unspecified; T65.222A Toxic effect of tobacco cigarettes, intentional self-harm, initial encounter
CPT/HCPCS: 99213

== ENCOUNTER 2019-04-10 13:26 | Emergency (ER) | payer MEDICAID, MEDICARE ==
[~2019-04-10] VITALS: Ht 172.7 cm; Wt 74.8 kg
[2019-04-10] MEDS ORDERED: LIDOCAINE 1% INJ 20 ML 20 ML VIAL INJ ONE (13:45)
--- NOTE | 2019-04-10 13:49 | ED Upper Extremity ---
General Chief Complaint: Upper Extremity Stated Complaint: L ARM SWELLING Nursing Triage Note: pt was working under a truck et either got something in his left elbow or got bit by a spider. Pt rates pain7/10. limited ROM et c/o itching. Nursing Sepsis Screen: No Definite Risk Source: patient Exam Limitations: no limitations History of Present Illness Date Seen by Provider: Apr 10, 2019 Time Seen by Provider: 13:37 Initial Comments Patient presents to ER by private conveyance with chief complaint that 3 days ago was working in the vehicle on the ground and got up later something poked him in his left elbow. Swollen he has redness and white discharge today. No fevers chills nausea vomiting. He says is drained a couple times but he's not starting the antibiotics yet. He has had a tetanus shot in the last 5 years. Allergies and Home Medications Allergies Coded Allergies: Bacitracin Zinc (Verified Allergy, Unknown, 06/04/12) bacitracin (Verified Allergy, Unknown, 06/04/12) benzalkonium chloride (Verified Allergy, Unknown, 06/04/12) cefadroxil (Verified Allergy, Unknown, RASH, 04/08/16) gramicidin D (Verified Allergy, Unknown, 06/04/12) hydrocortisone (Verified Allergy, Unknown, 06/04/12) methocarbamol (Verified Allergy, Unknown, 06/04/12) neomycin sulfate (Verified Allergy, Unknown, 06/04/12) polymyxin B (Verified Allergy, Unknown, 06/04/12) polymyxin B sulfate (Verified Allergy, Unknown, 06/04/12) carbamazepine (Unverified Adverse Reaction, Mild, hives, 11/12/14) Home Medications Albuterol Sulfate 1 Puff Puff, 2 PUFF IH Q6H PRN for SHORTNESS OF BREATH Prescribed by: SAMANTHA GALEANO on 07/04/18 0950 Amitriptyline HCl 150 Mg Tablet, 150 MG PO HS Prescribed by: SAMANTHA GALEANO on 07/04/18 0950 Amoxicillin/Potassium Clav 1 Each Tablet, 1 EACH PO BID Prescribed by: JASMINE ANDERSON on 01/03/19 1146 Clindamycin HCl 300 Mg Capsule, 300 MG PO Q8H Prescribed by: KADI HOROWITZ on 01/09/19 2851 Escitalopram Oxalate 10 Mg Tablet, 10 MG PO DAILY Prescribed by: SAMANTHA GALEANO on 07/04/18 0950 Fluticasone/Salmeterol 12 Gm Hfa.aer.ad, 2 PUFF IH BID Prescribed by: SAMANTHA GALEANO on 07/04/18 0950 Gabapentin 400 Mg Capsule, 400 MG PO TID Prescribed by: SAMANTHA GALEANO on 07/04/18 0950 Hydrocodone Bit/Acetaminophen 1 Tab Tab, 1 EACH PO Q4-6HR PRN for PAIN-MODERATE Prescribed by: KADI HOROWITZ on 01/09/19 173 Hydrocodone/Acetaminophen 1 Each Tablet, 1 EACH PO Q6H PRN for PAIN-MODERATE do not fill unless antibiotic is also filled Prescribed by: JASMINE ANDERSON on 01/03/19 1146 Levofloxacin 500 Mg Tablet, 500 MG PO DAILY Prescribed by: PEDRO MENDES on 08/16/18 173 Lisinopril 10 Mg Tablet, 10 MG PO DAILY Prescribed by: SAMANTHA GALEANO on 07/04/18 0950 Omeprazole 20 Mg Capsule.dr, 20 MG PO DAILY Prescribed by: SAMANTHA GALEANO on 07/04/18 0950 Prednisone 10 Mg Tab, 0 PO UD Take 6 tabs(60mg)daily, decrease by 1 tab(10mg) every other day. Prescribed by: SAMANTHA GALEANO on 07/04/1850 Sulfamethoxazole/Trimethoprim 1 Each Tablet, 1 EACH PO BID Prescribed by: PEDRO MENDES on 08/16/18 173 Patient Home Medication List Home Medication List Reviewed: Yes Review of Systems Constitutional: No chills, No fever, No malaise EENTM: No ear discharge, No hearing loss, No ear pain Respiratory: No cough, No short of breath Cardiovascular: No chest pain, No edema Gastrointestinal: No abdominal pain, No constipation, No diarrhea Genitourinary: No discharge, No dysuria Past Otyzgwh-Uhbbhy-Pyztbe Hx Patient Social History Alcohol Use: Occasionally Uses Number of Drinks Today: AA Alcohol Beverage of Choice: Beer Recreational Drug Use: No Drug of Choice: pot and meth Type Used: Cigarettes Former Smoker, Quit: Apr 15, 2018 2nd Hand Smoke Exposure: Yes Recent Foreign Travel: No Contact w/Someone Who Travel: No Recent Infectious Disease Expo: No Recent Hopitalizations: Yes (SANDOR CAMARILLO JUL 12-30) Immunizations Up To Date Tetanus Booster (TDap): Unknown Date of Pneumonia Vaccine: Jun 28, 2011 Date of Influenza Vaccine: Jun 26, 2011 Seasonal Allergies Seasonal Allergies: No Past Medical History Surgeries: No Cardiac, Eye Surgery, Lobectomy Respiratory: Yes Pneumonia, COPD, Emphysema Currently Using CPAP: No Currently Using BIPAP: No Cardiac: No Coronary Artery Disease, Deep Vein Thrombosis, Heart Attack, Hypertension, Peripheral Vascular Neurological: No Neuropathy, Stroke, TIA Reproductive Disorders: No Sexually Transmitted Disease: No Genitourinary: No Renal Failure Gastrointestinal: No Gastroesophageal Reflux, Liver Disease/Jaundice, Hepatitis, Polyps Musculoskeletal: No Back Injury, Chronic Back Pain, Fractures Endocrine: No HEENT: No Loss of Vision: Left Cancer: No Lung Did You Recieve Any Treatments: Yes What Type of Treatment Did You: Surgical Intervention Psychosocial: No Anxiety, PTSD, Depression Integumentary: No Blood Disorders: No Adverse Reaction/Blood Tranf: No Family Medical History No Pertinent Family Hx Physical Exam Vital Signs Vital Signs - First Documented 04/10/19 13:32 Temp 97.8 Pulse 102 Resp 18 B/P (MAP) 120/104 (109) Pulse Ox 96 O2 Delivery Room Air Capillary Refill : Less Than 3 Seconds Height, Weight, BMI Height: 5'8.00" Weight: 165lbs. 5.0oz. 74.925881qu; 21.09 BMI Method:Stated General Appearance: WD/WN, no apparent distress HEENT: PERRL/EOMI, pharynx normal Cardiovascular: normal peripheral pulses, regular rate, rhythm Respiratory: lungs clear, normal breath sounds, no respiratory distress, no accessory muscle use Gastrointestinal: normal bowel sounds, non tender, soft Procedures/Interventions I&D : Site: left elbow lateral Blade Size: 11 I & D Procedure: betadine prep (chlorhexidine), sterile drapes applied, sterile dressing applied Progress Wound was cleaned thoroughly with chlorhexidine and then infiltrated with 1/2 cc 1% lidocaine without epinephrine. When the skin was anesthetized we used an 11 blade scapula make a cross kim incision. We then trimmed the corners to open up a hole. We expressed approximately 15-20 cc of white purulent matter. We then flushed the wound out with sterile saline and loosely placed gauze over top wound. Progress/Results/Core Measures Results/Orders My Orders Orders - BALTAZAR WEBBER Lidocaine 1% Inj 20 Ml (Xylocaine 1% Inj (04/10/19 13:45) Vital Signs/I&O 04/10/19 13:32 Temp 97.8 Pulse 102 Resp 18 B/P (MAP) 120/104 (109) Pulse Ox 96 O2 Delivery Room Air Blood Pressure Mean: 109 Progress Progress Note : Time: 13:48 Progress Note I&D, lidocaine Departure Impression Primary Impression: Abscess, elbow Disposition: HOME, SELF-CARE Condition: Improved Departure-Patient Inst. Decision time for Depature: 14:00 Referrals: JOSEFINA PEREZ MD (PCP/Family) Primary Care Physician Patient Instructions: Abscess Incision and Drainage (DC) Add. Discharge Instructions: Keep the wound cleaned thoroughly with soap and water. Do not plug the wound hole. Let it drain as long as it can. Start taking the Bactrim one tablet twice daily with food for the next 7 days. Tylenol 1000 mg every 8 hours as necessary for pain. Ibuprofen 800 mg every 8 hours as necessary for pain. Warm compresses as necessary for pain and swelling. Follow-up with primary care if the abscess reoccurs. All discharge instructions reviewed with patient and/or family. Voiced understanding. Scripts Sulfamethoxazole/Trimethoprim (Bactrim Ds Tablet) 1 Each Tablet 1 EACH PO BID for 7 Days, #14 TAB 0 Refills Prov: BALTAZAR WEBBER 04/10/19 BALTAZAR WEBBER Apr 10, 2019 13:49
[2019-04-10] MEDS ORDERED: SULF1TAB35 PO (14:02)
[2019-04-10 14:10] VITALS: BP 174/83
== END 2019-04-10 14:10 | disposition home or self-care (01) ==
LOC: EDUNIT# 13:26 → ER 13:27
DX: L02.414 Cutaneous abscess of left upper limb (principal); J43.9 Emphysema, unspecified; I10 Essential (primary) hypertension; I25.10 Atherosclerotic heart disease of native coronary artery without angina pectoris; I25.2 Old myocardial infarction; I73.9 Peripheral vascular disease, unspecified; G62.9 Polyneuropathy, unspecified; K21.9 Gastro-esophageal reflux disease without esophagitis; F41.9 Anxiety disorder, unspecified; F43.10 Post-traumatic stress disorder, unspecified; F32.9 Major depressive disorder, single episode, unspecified; Z85.118 Personal history of other malignant neoplasm of bronchus and lung; Z86.010 Personal history of colon polyps; Z86.73 Personal history of transient ischemic attack (TIA), and cerebral infarction without residual deficits; Z86.718 Personal history of other venous thrombosis and embolism; Z87.01 Personal history of pneumonia (recurrent); Z88.1 Allergy status to other antibiotic agents; Z88.8 Allergy status to other drugs, medicaments and biological substances; Z79.51 Long term (current) use of inhaled steroids; Z87.891 Personal history of nicotine dependence
CPT/HCPCS: 99284

== ENCOUNTER 2019-05-17 11:44 | Emergency (ER) | payer MEDICARE ==
[~2019-05-17] VITALS: Ht 172.7 cm; Wt 75.0 kg
[~2019-05-17 11:44] MED LIST changes: -OMEP20CA12 PO; +OMEP20CA13 PO
--- NOTE | 2019-05-17 12:30 | Diagnostic Imaging Report ---
INDICATION: Shortness of air, cough. Study compared 08/16/2018. FINDINGS: Calcified granulomata unchanged and chronic. Mild air trapping chronic. No acute infiltrate or pneumonia. No failure, effusion or pneumothorax. IMPRESSION: Stable chronic findings. Dictated by: Dictated on workstation # [id number]
--- NOTE | 2019-05-17 12:36 | ED Cough/URI ---
General Chief Complaint: Respiratory Problems Stated Complaint: POSS PNEUMONIA Nursing Triage Note: PT ARRIVES WITH C/O SOA AT REST AND COUGHING. PT STATES INTERMITTENT COUGH. PT HISTORY OF PNEUMONIA. PT UNSURE IF HE HAS HAD FEVER. PT STATES HE SMOKES AND HISTORY OF METH USE. Sepsis Screen: No Definite Risk Source: patient Exam Limitations: no limitations History of Present Illness Date Seen by Provider: May 17, 2019 Time Seen by Provider: 12:35 Initial Comments To ER by private vehicle with reports of shortness of breath at rest and cough ing. Been ongoing for a few weeks, has some pain on the right side of his chest. Unsure if he's had a fever. Complains of generalized body aches. Last used methamphetamine 2 days ago. Timing/Duration: constant Severity/Quality: moderate Associated Symptoms: cough, shortness of breath, wheezing Allergies and Home Medications Allergies Coded Allergies: Bacitracin Zinc (Verified Allergy, Unknown, 06/04/12) bacitracin (Verified Allergy, Unknown, 06/04/12) benzalkonium chloride (Verified Allergy, Unknown, 06/04/12) cefadroxil (Verified Allergy, Unknown, RASH, 04/08/16) gramicidin D (Verified Allergy, Unknown, 06/04/12) hydrocortisone (Verified Allergy, Unknown, 06/04/12) methocarbamol (Verified Allergy, Unknown, 06/04/12) neomycin sulfate (Verified Allergy, Unknown, 06/04/12) polymyxin B (Verified Allergy, Unknown, 06/04/12) polymyxin B sulfate (Verified Allergy, Unknown, 06/04/12) carbamazepine (Unverified Adverse Reaction, Mild, hives, 11/12/14) Home Medications Albuterol Sulfate 1 Puff Puff, 2 PUFF IH Q6H PRN for SHORTNESS OF BREATH Prescribed by: SAMANTHA GALEANO on 07/04/18 0950 Amitriptyline HCl 150 Mg Tablet, 150 MG PO HS Prescribed by: SAMANTHA GALEANO on 07/04/18 0950 Amoxicillin/Potassium Clav 1 Each Tablet, 1 EACH PO BID Prescribed by: JASMINE ANDERSON on 01/03/19 1146 Clindamycin HCl 300 Mg Capsule, 300 MG PO Q8H Prescribed by: KADI HOROWITZ on 01/09/19 6801 Escitalopram Oxalate 10 Mg Tablet, 10 MG PO DAILY Prescribed by: SAMANTHA GALEANO on 07/04/18 0950 Fluticasone/Salmeterol 12 Gm Hfa.aer.ad, 2 PUFF IH BID Prescribed by: SAMANTHA GALEANO on 07/04/18 0950 Gabapentin 400 Mg Capsule, 400 MG PO TID Prescribed by: SAMANTHA GALEANO on 07/04/18 0950 Hydrocodone Bit/Acetaminophen 1 Tab Tab, 1 EACH PO Q4-6HR PRN for PAIN-MODERATE Prescribed by: KADI HOROWITZ on 01/09/19 1731 Hydrocodone/Acetaminophen 1 Each Tablet, 1 EACH PO Q6H PRN for PAIN-MODERATE do not fill unless antibiotic is also filled Prescribed by: JASMINE ANDERSON on 01/03/19 1146 Levofloxacin 500 Mg Tablet, 500 MG PO DAILY Prescribed by: PEDRO MENDES on 08/16/18 173 Lisinopril 10 Mg Tablet, 10 MG PO DAILY Prescribed by: SAMANTHA GALEANO on 07/04/18 0950 Omeprazole 20 Mg Capsule.dr, 20 MG PO DAILY Prescribed by: SAMANTHA GALEANO on 07/04/18 0950 Prednisone 10 Mg Tab, 0 PO UD Take 6 tabs(60mg)daily, decrease by 1 tab(10mg) every other day. Prescribed by: SAMANTHA GALEANO on 07/04/18 0950 Sulfamethoxazole/Trimethoprim 1 Each Tablet, 1 EACH PO BID Prescribed by: PEDRO MENDES on 08/16/18 173 Sulfamethoxazole/Trimethoprim 1 Each Tablet, 1 EACH PO BID Prescribed by: BALTAZAR WEBBER on 04/10/19 1402 Patient Home Medication List Home Medication List Reviewed: Yes Review of Systems Review of Systems Constitutional: see HPI EENTM: see HPI Respiratory: see HPI, cough Cardiovascular: no symptoms reported Genitourinary: no symptoms reported Musculoskeletal: no symptoms reported Skin: no symptoms reported Psychiatric/Neurological: No Symptoms Reported Hematologic/Lymphatic: No Symptoms Reported Immunological/Allergic: no symptoms reported Past Qtsyjvv-Zroeou-Zurxsi Hx Patient Social History Alcohol Use: Rarely Uses Number of Drinks Today: AA Alcohol Beverage of Choice: Beer Recreational Drug Use: Yes Drug of Choice: pot and meth Type Used: Cigarettes Former Smoker, Quit: Apr 15, 2018 2nd Hand Smoke Exposure: Yes Recent Foreign Travel: No Contact w/Someone Who Travel: No Recent Infectious Disease Expo: No Recent Hopitalizations: Yes (SANDOR CAMARILLO JUL 12) Physical Abuse: No Sexual Abuse: No Immunizations Up To Date Tetanus Booster (TDap): Unknown Date of Pneumonia Vaccine: Jun 28, 2011 Date of Influenza Vaccine: Jun 26, 2011 Seasonal Allergies Seasonal Allergies: No Past Medical History Surgeries: No Cardiac, Eye Surgery, Lobectomy Respiratory: Yes Pneumonia, COPD, Emphysema Currently Using CPAP: No Currently Using BIPAP: No Cardiac: No Coronary Artery Disease, Deep Vein Thrombosis, Heart Attack, Hypertension, Peripheral Vascular Neurological: No Neuropathy, Stroke, TIA Reproductive Disorders: No Sexually Transmitted Disease: No Genitourinary: No Renal Failure Gastrointestinal: No Gastroesophageal Reflux, Liver Disease/Jaundice, Hepatitis, Polyps Musculoskeletal: No Back Injury, Chronic Back Pain, Fractures Endocrine: No HEENT: No Loss of Vision: Left Cancer: No Lung Did You Recieve Any Treatments: Yes What Type of Treatment Did You: Surgical Intervention Psychosocial: No Anxiety, PTSD, Depression Integumentary: No Blood Disorders: No Adverse Reaction/Blood Tranf: No Family Medical History No Pertinent Family Hx Physical Exam Vital Signs - First Documented 05/17/19 11:56 Temp 98.4 Pulse 105 B/P (MAP) 141/76 (97) Pulse Ox 95 O2 Delivery Room Air Capillary Refill : Less Than 3 Seconds Height: 5'8.00" Weight: 165lbs. 5.0oz. [id number]; 21.09 BMI Method:Stated General Appearance: WD/WN, no apparent distress Eyes: Bilateral Eye Normal Inspection, Bilateral Eye PERRL, Bilateral Eye EOMI HEENT: PERRL/EOMI, normal ENT inspection Respiratory: no respiratory distress, no accessory muscle use Cardiovascular: regular rate, rhythm, no murmur Gastrointestinal: normal bowel sounds, non tender, soft Neurologic/Psychiatric: alert, normal mood/affect, oriented x 3 Skin: normal color, warm/dry Progress/Results/Core Measures Suspected Sepsis Recent Fever Within 48 Hours: No Infection Criteria Present: None New/Unexplained Altered Menta: No Sepsis Screen: No Definite Risk SIRS Temperature:98.4 Pulse: 105 Respiratory Rate: Laboratory Tests 05/17/19 12:46: White Blood Count 11.9H Blood Pressure 141 /76 Mean: 97 Laboratory Tests 05/17/19 12:46: Creatinine 0.91, Platelet Count 266, Total Bilirubin 0.5 Results/Orders Lab Results Laboratory Tests Test 05/17/19 12:46 Range/Units White Blood Count 11.9 H 4.3-11.0 10^3/uL Red Blood Count 4.46 4.35-5.85 10^6/uL Hemoglobin 12.9 L 13.3-17.7 G/DL Hematocrit 39 L 40-54 % Mean Corpuscular Volume 87 80-99 FL Mean Corpuscular Hemoglobin 29 25-34 PG Mean Corpuscular Hemoglobin Concent 33 32-36 G/DL Red Cell Distribution Width 15.2 H 10.0-14.5 % Platelet Count 266 130-400 10^3/uL Mean Platelet Volume 9.5 7.4-10.4 FL Neutrophils (%) (Auto) 78 H 42-75 % Lymphocytes (%) (Auto) 10 L 12-44 % Monocytes (%) (Auto) 10 0-12 % Eosinophils (%) (Auto) 2 0-10 % Basophils (%) (Auto) 0 0-10 % Neutrophils # (Auto) 9.2 H 1.8-7.8 X 10^3 Lymphocytes # (Auto) 1.2 1.0-4.0 X 10^3 Monocytes # (Auto) 1.2 H 0.0-1.0 X 10^3 Eosinophils # (Auto) 0.2 0.0-0.3 10^3/uL Basophils # (Auto) 0.0 0.0-0.1 10^3/uL Sodium Level 138 135-145 MMOL/L Potassium Level 4.0 3.6-5.0 MMOL/L Chloride Level 106 98-107 MMOL/L Carbon Dioxide Level 24 21-32 MMOL/L Anion Gap 8 5-14 MMOL/L Blood Urea Nitrogen 17 7-18 MG/DL Creatinine 0.91 0.60-1.30 MG/DL Estimat Glomerular Filtration Rate > 60 BUN/Creatinine Ratio 19 Glucose Level 129 H 70-105 MG/DL Calcium Level 8.9 8.5-10.1 MG/DL Corrected Calcium 9.4 8.5-10.1 MG/DL Total Bilirubin 0.5 0.1-1.0 MG/DL Aspartate Amino Transf (AST/SGOT) 29 5-34 U/L Alanine Aminotransferase (ALT/SGPT) 39 0-55 U/L Alkaline Phosphatase 60 40-136 U/L Total Protein 7.1 6.4-8.2 GM/DL Albumin 3.4 3.2-4.5 GM/DL My Orders Orders - JASMINE ANDERSON APRN Chest Pa/Lat (2 View) (05/17/19 11:54) Ed Iv/Invasive Line Start (05/17/19 12:23) Cbc With Automated Diff (05/17/19 12:23) Comprehensive Metabolic Panel (05/17/19 12:23) Ct Chest W (05/17/19 ) Iohexol Injection (Omnipaque 350 Mg/Ml 1 (05/17/19 13:30) Received Contrast (Hold Metformin- Contr (05/17/19 13:30) Ns (Ivpb) (Sodium Chloride 0.9% Ivpb Bag (05/17/19 13:30) Medications Given in ED Current Medications Medications Dose Ordered Sig/Kiran Route Start Time Stop Time Status Last Admin Dose Admin Iohexol 75 ml ONCE ONCE IV 05/17/19 13:30 05/17/19 13:31 DC 05/17/19 13:41 75 ML Sodium Chloride 100 ml ONCE ONCE IV 05/17/19 13:30 05/17/19 13:31 DC 05/17/19 13:41 80 ML Vital Signs/I&O 05/17/19 11:56 Temp 98.4 Pulse 105 B/P (MAP) 141/76 (97) Pulse Ox 95 O2 Delivery Room Air Capillary Refill : Less Than 3 Seconds Blood Pressure Mean: 97 Diagnostic Imaging Diagonstic Imaging: CT Comments NAME: DARCIEMELYN Angie [facility] REC#: [id number] PT STATUS: REG ER : 1960 PHYSICIAN: JASMINE ANDERSON APRN ADMIT DATE: 05/17/19/ER Draft Date of Exam:05/17/19 CT CHEST W PROCEDURE: CT chest with contrast only. TECHNIQUE: Multiple contiguous axial images were obtained through the chest after administration of intravenous contrast. Auto Exposure Controls were utilized during the CT exam to meet ALARA standards for radiation dose reduction. INDICATION: Pneumonia. Right-sided chest pain. FINDINGS: There is airspace disease seen in the right upper lobe with groundglass type of infiltrate seen in several areas in the right upper lobe. No large area of consolidation is seen, but the changes are most consistent with pneumonia. There are slightly more patchy but otherwise similar areas of infiltrate seen in the left upper lobe. There is minimal groundglass infiltrate in the right lower lobe. The left lower lobe is clear. There is no effusion or pneumothorax. There are several mildly prominent mediastinal lymph nodes. The largest is an AP window lymph node measuring 1.5 x 2.3 cm. There is a right hilar lymph node present measuring 11 x 17 mm. No bony destructive lesions are seen. IMPRESSION: There are bilateral infiltrates most consistent with pneumonia. Recommend follow-up for clearing. Dictated on workstation # [id number] Dict: 05/17/19 1347 Trans: 05/17/19 1355 [id number] Interpreted by: GALINDO BARNES MD Electronically signed by: Departure Communication (Admissions) Pneumonia is within the differential and certainly supported by CT scan but he is afebrile.alternatively, a chemical pneumonitis is a possibility for methamphetamine inhalation smoking would be a possibility as well. Impression Primary Impression: Pneumonia Qualified Codes: J18.1 - Lobar pneumonia, unspecified organism Additional Impression: Methamphetamine use Disposition: HOME, SELF-CARE Condition: Stable Departure-Patient Inst. Decision time for Depature: 14:32 Referrals: JOSEFINA PEREZ MD (PCP/Family) Primary Care Physician Patient Instructions: Pneumonia in Adults Add. Discharge Instructions: 1. Antibiotics as directed 2. Follow-up with your doctor next week 3. All discharge instructions reviewed with patient and/or family. Voiced understanding. Scripts Levofloxacin (Levaquin) 750 Mg Tablet 750 MG PO DAILY for 5 Days, #5 TAB . Prov: JASMINE ANDERSON APRN 05/17/19 Doxycycline Hyclate (Doxycycline Hyclate) 100 Mg Tablet 100 MG PO BID, #20 TAB 0 Refills Prov: JASMINE ANDERSON APRN 05/17/19 JASMINE ANDERSON APRN May 17, 2019 12:36
[2019-05-17 12:53] LABS: BASOPHILS % (AUTO) 0 % (0-10); EOSINOPHILS # (AUTO) 0.2 10^3/uL (0.0-0.3); EOSINOPHILS % (AUTO) 2 % (0-10); HEMATOCRIT 39 % (40-54); HEMOGLOBIN 12.9 G/DL (13.3-17.7); LYMPHOCYTES # (AUTO) 1.2 X 10^3 (1.0-4.0); LYMPHOCYTES % (AUTO) 10 % (12-44); MEAN CORPUSCULAR HEMOGLOBIN 29 PG (25-34); MEAN CORPUSCULAR HGB CONC 33 G/DL (32-36); MEAN CORPUSCULAR VOLUME 87 FL (80-99); MEAN PLATELET VOLUME 9.5 FL (7.4-10.4); MONOCYTES # (AUTO) 1.2 X 10^3 (0.0-1.0); MONOCYTES % (AUTO) 10 % (0-12); NEUTROPHILS # (AUTO) 9.2 X 10^3 (1.8-7.8); NEUTROPHILS % (AUTO) 78 % (42-75); PLATELET COUNT 266 10^3/uL (130-400); RED CELL DISTRIBUTION WIDTH 15.2 % (10.0-14.5); WHITE BLOOD COUNT 11.9 10^3/uL (4.3-11.0)
[2019-05-17 13:17] LABS: ALANINE AMINOTRANSFERASE 39 U/L (0-55); ALBUMIN 3.4 GM/DL (3.2-4.5); ALKALINE PHOSPHATASE 60 U/L (40-136); BILIRUBIN,TOTAL 0.5 MG/DL (0.1-1.0); BUN/CREATININE RATIO 19; CALCIUM 8.9 MG/DL (8.5-10.1); CARBON DIOXIDE 24 MMOL/L (21-32); CHLORIDE 106 MMOL/L (98-107); CREATININE SERUM 0.91 MG/DL (0.60-1.30); GFR ESTIMATED > 60; GLUCOSE 129 MG/DL (70-105); SODIUM 138 MMOL/L (135-145); TOTAL PROTEIN 7.1 GM/DL (6.4-8.2)
[2019-05-17] MEDS ORDERED: IOHEXOL 350 MG/ML 100 ML (OMNIPAQUE 350) VIAL IV ONE (13:30)
[2019-05-17] MEDS ORDERED: NS 100 ML (IVPB) BAG IV ONE (13:30)
[2019-05-17] MEDS ORDERED: HOLD METFORMIN - RECEIVED CONTRAST 20 ML VIAL IV SCH (13:30)
--- NOTE | 2019-05-17 13:55 | Diagnostic Imaging Report ---
PROCEDURE: CT chest with contrast only. TECHNIQUE: Multiple contiguous axial images were obtained through the chest after administration of intravenous contrast. Auto Exposure Controls were utilized during the CT exam to meet ALARA standards for radiation dose reduction. INDICATION: Pneumonia. Right-sided chest pain. FINDINGS: There is airspace disease seen in the right upper lobe with groundglass type of infiltrate seen in several areas in the right upper lobe. No large area of consolidation is seen, but the changes are most consistent with pneumonia. There are slightly more patchy but otherwise similar areas of infiltrate seen in the left upper lobe. There is minimal groundglass infiltrate in the right lower lobe. The left lower lobe is clear. There is no effusion or pneumothorax. There are several mildly prominent mediastinal lymph nodes. The largest is an AP window lymph node measuring 1.5 x 2.3 cm. There is a right hilar lymph node present measuring 11 x 17 mm. No bony destructive lesions are seen. IMPRESSION: There are bilateral infiltrates most consistent with pneumonia. Recommend follow-up for clearing. Dictated by: Dictated on workstation # [id number]
[2019-05-17] MEDS ORDERED: LEVO750T9 PO (14:35)
[2019-05-17] MEDS ORDERED: DOXY100T2 PO (14:35)
[2019-05-17] MEDS ORDERED: methylPREDNISolone 125 MG (Solu-MEDROL) VIAL IVP ONE (14:45)
[2019-05-17] MEDS ORDERED: LEVOFLOXACIN 750 MG TAB (LEVAQUIN) PO ONE (14:45)
[2019-05-17] MEDS ORDERED: DOXYCYCLINE 100 MG (VIBRAMYCIN) TABLET PO SCH (14:45)
[2019-05-17] MEDS ORDERED: RT-ALBUTEROL/IPRATROPIUM 3 ML (DUONEB) VIAL INH ONE (15:00)
[2019-05-17 15:27] VITALS: BP 162/91
== END 2019-05-17 15:27 | disposition home or self-care (01) ==
LOC: EDUNIT# 11:44 → ER 11:45
DX: J18.9 Pneumonia, unspecified organism (principal); F15.10 Other stimulant abuse, uncomplicated; J43.9 Emphysema, unspecified; I10 Essential (primary) hypertension; I25.2 Old myocardial infarction; I25.10 Atherosclerotic heart disease of native coronary artery without angina pectoris; I73.9 Peripheral vascular disease, unspecified; G62.9 Polyneuropathy, unspecified; K21.9 Gastro-esophageal reflux disease without esophagitis; F43.10 Post-traumatic stress disorder, unspecified; F32.9 Major depressive disorder, single episode, unspecified; F41.9 Anxiety disorder, unspecified; Z85.118 Personal history of other malignant neoplasm of bronchus and lung; Z86.010 Personal history of colon polyps; Z86.73 Personal history of transient ischemic attack (TIA), and cerebral infarction without residual deficits; Z86.718 Personal history of other venous thrombosis and embolism; Z88.8 Allergy status to other drugs, medicaments and biological substances; Z88.5 Allergy status to narcotic agent; Z79.52 Long term (current) use of systemic steroids
CPT/HCPCS: 36415; 71046; 71260; 80053; 85025

== ENCOUNTER 2019-07-17 14:29 | Inpatient (IN) | payer MEDICARE ==
[~2019-07-17] VITALS: Ht 172.7 cm; Wt 84.2 kg
[~2019-07-17 14:29] MED LIST changes: +DOXY100T2 PO; +LEVO750T9 PO
[2019-07-17] MEDS ORDERED: methylPREDNISolone 125 MG (Solu-MEDROL) VIAL IV STA (15:53)
[2019-07-17] MEDS ORDERED: RT-ALBUTEROL/IPRATROPIUM 3 ML (DUONEB) VIAL INH ONE (16:00)
[2019-07-17] MEDS ORDERED: AZITHROMYCIN INJECTION 500 MG in NS (IVPB) 250 ML IV ONE (16:00)
--- NOTE | 2019-07-17 16:14 | ED Respiratory ---
General Chief Complaint: Respiratory Problems Stated Complaint: PNEUMONIA;SOA;CHEST PAIN Nursing Triage Note: SOA, COUGH, FEVER, AND CHEST PAIN WITH COUGH X2 DAYS. PT THINKS HE HAS PNEUMONIA AGAIN. Source: patient Exam Limitations: no limitations History of Present Illness Date Seen by Provider: Jul 17, 2019 Time Seen by Provider: 16:00 Initial Comments This 58-year-old male presents with a history of cough fever chest discomfort with coughing and shortness of breath that has been present progressively 2 days. Patient had a similar THE PAST SECONDARY TO PNEUMONIA WHICH HE BELIEVES HE HAS A HAD IN THE PAST. The patient states he has had no nausea vomiting or diarrhea. Allergies and Home Medications Allergies Coded Allergies: Bacitracin Zinc (Verified Allergy, Unknown, 06/04/12) bacitracin (Verified Allergy, Unknown, 06/04/12) benzalkonium chloride (Verified Allergy, Unknown, 06/04/12) cefadroxil (Verified Allergy, Unknown, RASH, 04/08/16) gramicidin D (Verified Allergy, Unknown, 06/04/12) hydrocortisone (Verified Allergy, Unknown, 06/04/12) methocarbamol (Verified Allergy, Unknown, 06/04/12) neomycin sulfate (Verified Allergy, Unknown, 06/04/12) polymyxin B (Verified Allergy, Unknown, 06/04/12) polymyxin B sulfate (Verified Allergy, Unknown, 06/04/12) carbamazepine (Unverified Adverse Reaction, Mild, hives, 11/12/14) Home Medications Albuterol Sulfate 1 Puff Puff, 2 PUFF IH Q6H PRN for SHORTNESS OF BREATH Prescribed by: SAMANTHA GALEANO on 07/04/18 0950 Amitriptyline HCl 150 Mg Tablet, 150 MG PO HS Prescribed by: SAMANTHA GALEANO on 07/04/18 0950 Amoxicillin/Potassium Clav 1 Each Tablet, 1 EACH PO BID Prescribed by: JASMINE ANDERSON on 01/03/19 1146 Clindamycin HCl 300 Mg Capsule, 300 MG PO Q8H Prescribed by: KADI HOROWITZ on 01/09/19 1731 Doxycycline Hyclate 100 Mg Tablet, 100 MG PO BID Prescribed by: JASMINE ANDERSON on 05/17/19 1435 Escitalopram Oxalate 10 Mg Tablet, 10 MG PO DAILY Prescribed by: SAMANTHA GALEANO on 07/04/18 0950 Fluticasone/Salmeterol 12 Gm Hfa.aer.ad, 2 PUFF IH BID Prescribed by: SAMANTHA GALEANO on 07/04/18 0950 Gabapentin 400 Mg Capsule, 400 MG PO TID Prescribed by: SAMANTHA GALEANO on 07/04/18 0950 Hydrocodone Bit/Acetaminophen 1 Tab Tab, 1 EACH PO Q4-6HR PRN for PAIN-MODERATE Prescribed by: KADI HOROWITZ on 01/09/19 1731 Hydrocodone/Acetaminophen 1 Each Tablet, 1 EACH PO Q6H PRN for PAIN-MODERATE do not fill unless antibiotic is also filled Prescribed by: JASMINE ANDERSON on 01/03/19 1146 Levofloxacin 500 Mg Tablet, 500 MG PO DAILY Prescribed by: PEDRO MENDES on 08/16/18 173 Levofloxacin 750 Mg Tablet, 750 MG PO DAILY . Prescribed by: JASMINE ANDERSON on 05/17/19 1435 Lisinopril 10 Mg Tablet, 10 MG PO DAILY Prescribed by: SAMANTHA GALEANO on 07/04/18 0950 Omeprazole 20 Mg Capsule.dr, 20 MG PO DAILY Prescribed by: SAMANTHA GALEANO on 07/04/18 0950 Prednisone 10 Mg Tab, 0 PO UD Take 6 tabs(60mg)daily, decrease by 1 tab(10mg) every other day. Prescribed by: SAMANTHA GALEANO on 07/04/18 0950 Sulfamethoxazole/Trimethoprim 1 Each Tablet, 1 EACH PO BID Prescribed by: PEDRO MENDES on 08/16/18 173 Sulfamethoxazole/Trimethoprim 1 Each Tablet, 1 EACH PO BID Prescribed by: BALTAZAR WEBBER on 04/10/19 1402 Patient Home Medication List Home Medication List Reviewed: Yes Review of Systems Review of Systems Constitutional: chills, fever, weakness EENTM: No hearing loss Respiratory: see HPI, cough, short of breath Cardiovascular: No chest pain, No palpitations Gastrointestinal: No abdominal pain, No nausea, No vomiting Genitourinary: no symptoms reported Musculoskeletal: No back pain Skin: no symptoms reported Psychiatric/Neurological: No Symptoms Reported Hematologic/Lymphatic: No Symptoms Reported Immunological/Allergic: no symptoms reported Past Okxlxfp-Wqcyip-Sblivs Hx Past Med/Social Hx: Reviewed Nursing Past Med/Soc Hx Patient Social History Alcohol Use: Past History Number of Drinks Today: AA Alcohol Beverage of Choice: Beer Recreational Drug Use: No (PAST HISTORY) Drug of Choice: pot and meth Smoking Status: Current Everyday Smoker Type Used: Cigarettes Former Smoker, Quit: Apr 15, 2018 2nd Hand Smoke Exposure: Yes Recent Foreign Travel: No Contact w/Someone Who Travel: No Recent Infectious Disease Expo: No Recent Hopitalizations: Yes (SANDOR MARQUISE JUL 12-) Immunizations Up To Date Tetanus Booster (TDap): Unknown Date of Pneumonia Vaccine: Jun 28, 2011 Date of Influenza Vaccine: Jun 26, 2011 Seasonal Allergies Seasonal Allergies: No Past Medical History Surgeries: No Cardiac, Eye Surgery, Lobectomy Respiratory: Yes Pneumonia, COPD, Emphysema Currently Using CPAP: No Currently Using BIPAP: No Cardiac: No Coronary Artery Disease, Deep Vein Thrombosis, Heart Attack, Hypertension, Peripheral Vascular Neurological: No Neuropathy, Stroke, TIA Reproductive Disorders: No Sexually Transmitted Disease: No Genitourinary: No Renal Failure Gastrointestinal: No Gastroesophageal Reflux, Liver Disease/Jaundice, Hepatitis, Polyps Musculoskeletal: No Back Injury, Chronic Back Pain, Fractures Endocrine: No HEENT: No Loss of Vision: Left Cancer: No Lung Did You Recieve Any Treatments: Yes What Type of Treatment Did You: Surgical Intervention Psychosocial: No Anxiety, PTSD, Depression Integumentary: No Blood Disorders: No Adverse Reaction/Blood Tranf: No Family Medical History No Pertinent Family Hx Physical Exam Vital Signs - First Documented 07/17/19 15:15 Temp 36.6 Pulse 93 Resp 16 B/P (MAP) 137/85 (102) Pulse Ox 98 O2 Delivery Room Air Capillary Refill : Less Than 3 Seconds Height: 5'8.00" Weight: 165lbs. 5.0oz. 74.153710fb; 25.00 BMI Method:Stated General Appearance: WD/WN, mild distress Eyes: Bilateral Eye Normal Inspection HEENT: normal ENT inspection, scleral icterus (R) Neck: non-tender, full range of motion, supple Respiratory: decreased breath sounds, wheezing Cardiovascular: regular rate, rhythm, no murmur Gastrointestinal: normal bowel sounds Extremities: normal range of motion Neurologic/Psychiatric: no motor/sensory deficits, alert, normal mood/affect Skin: normal color, warm/dry Focused Exam Lactate Level 07/17/19 16:25: Lactic Acid Level 1.49 Lactic Acid Level Laboratory Tests Test 07/17/19 16:25 Lactic Acid Level 1.49 MMOL/L (0.50-2.00) Progress/Results/Core Measures Suspected Sepsis Recent Fever Within 48 Hours: Yes Infection Criteria Present: Suspected New Infection New/Unexplained Altered Menta: No Sepsis Screen: Possible Severe Sepsis Risk SIRS Temperature: Pulse: 93 Respiratory Rate: 16 Laboratory Tests 07/17/19 16:25: White Blood Count 7.9 Blood Pressure 137 /85 Mean: 102 07/17/19 16:25: Lactic Acid Level 1.49 Laboratory Tests 07/17/19 16:25: Platelet Count 270 Results/Orders Lab Results Laboratory Tests Test 07/17/19 16:25 Range/Units White Blood Count 7.9 4.3-11.0 10^3/uL Red Blood Count 5.47 4.35-5.85 10^6/uL Hemoglobin 15.7 13.3-17.7 G/DL Hematocrit 47 40-54 % Mean Corpuscular Volume 86 80-99 FL Mean Corpuscular Hemoglobin 29 25-34 PG Mean Corpuscular Hemoglobin Concent 33 32-36 G/DL Red Cell Distribution Width 15.1 H 10.0-14.5 % Platelet Count 270 130-400 10^3/uL Mean Platelet Volume 9.7 7.4-10.4 FL Neutrophils (%) (Auto) 66 42-75 % Lymphocytes (%) (Auto) 22 12-44 % Monocytes (%) (Auto) 8 0-12 % Eosinophils (%) (Auto) 4 0-10 % Basophils (%) (Auto) 0 0-10 % Neutrophils # (Auto) 5.2 1.8-7.8 X 10^3 Lymphocytes # (Auto) 1.7 1.0-4.0 X 10^3 Monocytes # (Auto) 0.7 0.0-1.0 X 10^3 Eosinophils # (Auto) 0.3 0.0-0.3 10^3/uL Basophils # (Auto) 0.0 0.0-0.1 10^3/uL Lactic Acid Level 1.49 0.50-2.00 MMOL/L Troponin I < 0.028 <0.028 NG/ML My Orders Orders - KAT GRAHAM MD Cbc With Automated Diff (07/17/19 15:53) Blood Culture (07/17/19 15:53) Ekg Tracing (07/17/19 15:53) O2 (07/17/19 15:53) Ed Iv/Invasive Line Start (07/17/19 15:53) Monitor-Rhythm Ecg Trace Only (07/17/19 15:53) Methylprednisolone Sod Succ (Solu-Medrol (07/17/19 15:53) Chest 1 View, Ap/Pa Only (07/17/19 15:53) Lactic Acid Analyzer (07/17/19 15:53) Albuterol/Ipra Inhalation Soln (Duoneb I (07/17/19 16:00) Svn Small Volume Nebulizer (07/17/19 15:53) Troponin I (07/17/19 15:53) Azithromycin Injection (Zithromax Inject (07/17/19 16:00) Arterial Blood Gas (07/17/19 16:59) Medications Given in ED Current Medications Medications Dose Ordered Sig/Kiran Route Start Time Stop Time Status Last Admin Dose Admin Albuterol/ Ipratropium 3 ml ONCE ONCE INH 07/17/19 16:00 07/17/19 16:01 DC 07/17/19 16:08 3 ML Azithromycin 500 mg/Sodium Chloride 250 ml @ 250 mls/hr ONCE ONCE IV 07/17/19 16:00 07/17/19 16:59 DC 07/17/19 16:45 250 MLS/HR Vital Signs/I&O 07/17/19 07/17/19 15:15 16:11 Temp 36.6 Pulse 93 Resp 16 B/P (MAP) 137/85 (102) Pulse Ox 98 96 O2 Delivery Room Air Room Air Capillary Refill : Less Than 3 Seconds Blood Pressure Mean: 102 Progress Note : Time: 17:05 Progress Note The patient was somewhat improved with 125 mg Solu-Medrol IV and a DuoNeb edvin tment. The patient's condition unfortunately was such that after treatment however he was still significantly symptomatic. Consultation was undertaken with Dr. Figueredo who was kind enough to admit the patient. Orders WERE written AND the patient was transferred TO THE FLOOR. Departure Communication (Admissions) Time/Spoke to Admitting Phy: 17:07 Dr. Figueredo. Impression Primary Impression: Acute exacerbation of COPD with asthma Disposition: ADMITTED INPATIENT Condition: Improved Admissions Decision to Admit Reason: Admit from ER (General) Decision to Admit/Date: Jul 17, 2019 Time/Decision to Admit Time: 17:08 Departure-Patient Inst. Referrals: JOSEFIAN PEREZ MD (PCP/Family) Primary Care Physician KAT GRAHAM MD Jul 17, 2019 16:14
[2019-07-17 16:37] LABS: BASOPHILS % (AUTO) 0 % (0-10); EOSINOPHILS # (AUTO) 0.3 10^3/uL (0.0-0.3); EOSINOPHILS % (AUTO) 4 % (0-10); HEMATOCRIT 47 % (40-54); HEMOGLOBIN 15.7 G/DL (13.3-17.7); LYMPHOCYTES # (AUTO) 1.7 X 10^3 (1.0-4.0); LYMPHOCYTES % (AUTO) 22 % (12-44); MEAN CORPUSCULAR HEMOGLOBIN 29 PG (25-34); MEAN CORPUSCULAR HGB CONC 33 G/DL (32-36); MEAN CORPUSCULAR VOLUME 86 FL (80-99); MEAN PLATELET VOLUME 9.7 FL (7.4-10.4); MONOCYTES # (AUTO) 0.7 X 10^3 (0.0-1.0); MONOCYTES % (AUTO) 8 % (0-12); NEUTROPHILS # (AUTO) 5.2 X 10^3 (1.8-7.8); NEUTROPHILS % (AUTO) 66 % (42-75); PLATELET COUNT 270 10^3/uL (130-400); RED CELL DISTRIBUTION WIDTH 15.1 % (10.0-14.5); WHITE BLOOD COUNT 7.9 10^3/uL (4.3-11.0)
--- NOTE | 2019-07-17 16:59 | Diagnostic Imaging Report ---
INDICATION: Difficulty breathing over the past three days. Shortness of air. TECHNIQUE: Single-view chest, 4:43 p.m. CORRELATION STUDY: 05/17/2019. FINDINGS: The heart size, mediastinal configuration, and pulmonary vascularity are within normal limits. Lung abad are mildly hyperinflated but overall clear of infiltrate. Patchy densities at the lung bases could be some hypoventilation or overlying artifact. Calcified granuloma, chronic, left upper lobe. IMPRESSION: 1. Negative for acute abnormality of the chest. Dictated by: Dictated on workstation # [id number]
--- NOTE | 2019-07-17 17:11 | NUR ---
CALLED FOR ROOM
--- NOTE | 2019-07-17 17:29 | NUR ---
RT HERE TO DRAW ABG.
[2019-07-17 17:42] LABS: ABG BASE EXCESS -0.6 MMOL/L (-2.5-2.5); ABG OXYGEN SATURATION 96 % (94-100); ABG PCO2 39 MMHG (35-45); ABG PH 7.39 (7.37-7.43); ABG PO2 78 MMHG (79-93)
[2019-07-17 17:46] LABS: ALLENS TEST YES-POS; INSPIRED O2 RA; PATIENT TEMP 36.2; VENTILATOR NO
[2019-07-17 18:20] VITALS: BP 136/77
--- NOTE | 2019-07-17 18:20 | NUR ---
TIMELINE NOTE: 1819:PT ARRIVED VIA W/C AND AMBULATED TO BED WITH SBA. ADMISSION COMPLETED. PT GIVEN SANDWICH AND DRINK PER HIS REQUEST. HE VOICED NO OTHER CONCERNS. PT IS UP AMBULATING AD SHIRA IN THE ROOM. 1899:DR. WINSLOW NOTIFIED OF HIGH DVT RISK AND LOVENOX 40MG DAILY ORDERED. DR. PARKER PAGED AND RETURNED CALL AND IS AWARE OF NEW REFERRAL.
[2019-07-17] MEDS ORDERED: CATHETER FLUSH 10 ML SYR IV PRN (18:30)
[2019-07-17] MEDS ORDERED: RT-ALBUTEROL/IPRATROPIUM 3 ML (DUONEB) VIAL IH PRN (18:30)
[2019-07-17] MEDS: RT-ALBUTEROL/IPRATROPIUM 3 ML (DUONEB) VIAL IH SCH (19:29)
[2019-07-17 20:00] VITALS: BP 113/70
[2019-07-17] MEDS: ENOXAPARIN 40 MG/0.4 ML (LOVENOX) SYR SC SCH (20:00)
[2019-07-17] MEDS: NS IV 1000 ML 1,000 ML IV SCH (20:00)
[2019-07-17] MEDS ORDERED: ONDANSETRON 4 MG (ZOFRAN) ORAL DISSOLVE TAB PO PRN (20:30)
[2019-07-17] MEDS ORDERED: DOCUSATE SODIUM 100 MG (COLACE) CAP PO PRN (20:30)
[2019-07-17] MEDS ORDERED: ONDANSETRON 4 MG/2 ML (SDV) Z0FRAN IVP PRN (20:30)
[2019-07-17] MEDS ORDERED: LOPERAMIDE 2 MG (IMODIUM) TABLET PO PRN (20:30)
[2019-07-17] MEDS ORDERED: CALCIUM CARBONATE 500 MG (TUMS) TAB.CHEW PO PRN (20:30)
[2019-07-17] MEDS: methylPREDNISolone 125 MG (Solu-MEDROL) VIAL IV SCH (21:57)
[2019-07-17] MEDS: ACETAMINOPHEN 500 MG TAB (TYLENOL) PO PRN (21:57)
[2019-07-17] MEDS: MELATONIN 3 MG TABLET PO PRN (21:57)
[2019-07-17] MEDS: SENNA W/DOCUSATE (SENOKOT S) TABLET PO SCH (21:57)
[2019-07-18] VITALS (14 sets, daily range): BP systolic 105–161; BP diastolic 50–100
[2019-07-18 03:36] LABS: BASOPHILS % (AUTO) 0 % (0-10); EOSINOPHILS % (AUTO) 0 % (0-10); HEMATOCRIT 43 % (40-54); LYMPHOCYTES # (AUTO) 0.7 X 10^3 (1.0-4.0); LYMPHOCYTES % (AUTO) 9 % (12-44); MEAN CORPUSCULAR HEMOGLOBIN 29 PG (25-34); MEAN CORPUSCULAR HGB CONC 33 G/DL (32-36); MEAN CORPUSCULAR VOLUME 87 FL (80-99); MEAN PLATELET VOLUME 10.1 FL (7.4-10.4); MONOCYTES # (AUTO) 0.1 X 10^3 (0.0-1.0); MONOCYTES % (AUTO) 1 % (0-12); NEUTROPHILS # (AUTO) 7.2 X 10^3 (1.8-7.8); NEUTROPHILS % (AUTO) 90 % (42-75); PLATELET COUNT 254 10^3/uL (130-400); RED CELL DISTRIBUTION WIDTH 15.1 % (10.0-14.5); WHITE BLOOD COUNT 8.1 10^3/uL (4.3-11.0)
[2019-07-18 04:00] LABS: ALANINE AMINOTRANSFERASE 97 U/L (0-55); ALBUMIN 3.4 GM/DL (3.2-4.5); ALKALINE PHOSPHATASE 70 U/L (40-136); BILIRUBIN,TOTAL 0.2 MG/DL (0.1-1.0); BUN/CREATININE RATIO 21; CALCIUM 9.5 MG/DL (8.5-10.1); CARBON DIOXIDE 20 MMOL/L (21-32); CHLORIDE 107 MMOL/L (98-107); CREATININE SERUM 1.06 MG/DL (0.60-1.30); GFR ESTIMATED > 60; GLUCOSE 216 MG/DL (70-105); POTASSIUM 4.2 MMOL/L (3.6-5.0); SODIUM 138 MMOL/L (135-145); TOTAL PROTEIN 6.8 GM/DL (6.4-8.2)
[2019-07-18 04:25] LABS: BAND NEUTROPHILS 8 %; LYMPHOCYTES % (MANUAL) 5 %; MONOCYTES % (MANUAL) 3 %; NEUTROPHILS % (MANUAL) 84 %
[2019-07-18 04:26] LABS: RBC MORPH NORMAL
[2019-07-18] MEDS: methylPREDNISolone 125 MG (Solu-MEDROL) VIAL IV SCH ×3 (04:41→17:02)
[2019-07-18] MEDS: RT-ALBUTEROL/IPRATROPIUM 3 ML (DUONEB) VIAL IH SCH ×5 (07:13→22:17)
[2019-07-18] MEDS: SENNA W/DOCUSATE (SENOKOT S) TABLET PO SCH ×2 (08:20→20:02)
--- NOTE | 2019-07-18 08:33 | Diagnostic Imaging Report ---
INDICATION: COPD. TIME OF EXAM: 2:22 AM Correlation is made with prior chest from one day earlier. FINDINGS: Nodule left upper lobe is stable and likely a granuloma. Heart size is normal. Lungs are clear. No infiltrates are seen. There is no effusion or pneumothorax. IMPRESSION: No acute cardiopulmonary process is detected. Dictated by: Dictated on workstation # [id number]
[2019-07-18] MEDS: guaiFENesin/CODEINE (ROBITUSSIN AC) 10ML UDC PO PRN ×3 (10:16→20:05)
--- NOTE | 2019-07-18 10:28 | Consultation-Cardiology ---
HPI-Cardiology Cardiology Consultation Date of Consultation 07/18/19 Date of Admission Time Seen by Provider: 10:23 Indication: chest pain, dyspnea HPI Patient is a 58 y/o male with history of COPD, tobaccoism. Presented to the ER with complaints of increased chest pain, dyspnea and nonproductive cough over the past 2-3 days. Associated dizziness and lightheadedness with cough. Denies any active chest pain at this time. Last seen by our services in 2014 where he underwent cardiac catheterization revealing mild to moderate nonobstructive disease. Upon interviewing the patient he is complaining of some dyspnea with cough. Having bronchospasm. Continues to smoke 1/2 ppd, denies any recent illicit drug use. 58 years old gentleman with history of mild coronary artery disease, has been having dizziness, lightheadedness, shortness of breath, cough and sputum production which has been bloody. Admitted with chest pain, mainly musculoskeletal and pleuritic pain in nature. Currently having fever and di aphoresis, generalized weakness. Home Medications & Allergies Allergies: Coded Allergies: Bacitracin Zinc (Verified Allergy, Unknown, 06/04/12) bacitracin (Verified Allergy, Unknown, 06/04/12) benzalkonium chloride (Verified Allergy, Unknown, 06/04/12) cefadroxil (Verified Allergy, Unknown, RASH, 04/08/16) gramicidin D (Verified Allergy, Unknown, 06/04/12) hydrocortisone (Verified Allergy, Unknown, 06/04/12) methocarbamol (Verified Allergy, Unknown, 06/04/12) neomycin sulfate (Verified Allergy, Unknown, 06/04/12) polymyxin B (Verified Allergy, Unknown, 06/04/12) polymyxin B sulfate (Verified Allergy, Unknown, 06/04/12) carbamazepine (Unverified Adverse Reaction, Mild, hives, 11/12/14) Home Medication List Reviewed: Yes MQY-Aniusu-Nhpjiw Hx Patient Social History Alcohol Use: Past History Recreational Drug Use: No (PAST HISTORY) Drug of Choice: pot and meth Smoking Status: Current Everyday Smoker Type Used: Cigarettes 2nd Hand Smoke Exposure: Yes Recent Foreign Travel: No Recent Infectious Disease Expo: No Recent Hopitalizations: Yes (SANDOR CAMAR[facility]O JUL 12-) Immunizations Up To Date Tetanus Booster (TDap): Unknown Date of Pneumonia Vaccine: Jun 26, 2018 Date of Influenza Vaccine: Jun 26, 2011 Past Medical History COPD, HTN, Tobaccoism, hx of illicit drug use, nonobstructive CAD Family Medical History Significant Family History: No Pertinent Family Hx Family History: Cardiovascular disease 19 FATHER 19 MOTHER FH: stroke G8 BROTHER Hypertension 19 FATHER G8 BROTHER Review of Systems-General Review of Systems Constitutional: see HPI, chills, fever, weakness EENTM: No hearing loss, No blurred vision, No double vision Respiratory: see HPI, cough, dyspnea on exertion; No orthopnea, No phlegm; short of breath; No wheezing Cardiovascular: see HPI, chest pain; No edema, No Hx of Intervention; palpitations; No syncope Gastrointestinal: no symptoms reported; No abdominal pain, No constipation, No nausea, No vomiting Genitourinary: no symptoms reported, see HPI Musculoskeletal: see HPI; No back pain Skin: no symptoms reported, see HPI Psychiatric/Neurological: No Symptoms Reported, See HPI Reviewed Test Results Reviewed Test Results Lab Laboratory Tests 07/17/19 16:25: White Blood Count 7.9, Red Blood Count 5.47, Hemoglobin 15.7, Hematocrit 47, Mean Corpuscular Volume 86, Mean Corpuscular Hemoglobin 29, Mean Corpuscular Hemoglobin Concent 33, Red Cell Distribution Width 15.1H, Platelet Count 270, Mean Platelet Volume 9.7, Neutrophils (%) (Auto) 66, Lymphocytes (%) (Auto) 22, Monocytes (%) (Auto) 8, Eosinophils (%) (Auto) 4, Basophils (%) (Auto) 0, Neutrophils # (Auto) 5.2, Lymphocytes # (Auto) 1.7, Monocytes # (Auto) 0.7, Eosinophils # (Auto) 0.3, Basophils # (Auto) 0.0, Lactic Acid Level 1.49, Troponin I < 0.028 07/17/19 17:34: Blood Gas Puncture Site RR, Blood Gas Patient Temperature 36.2, Arterial Blood pH 7.39, Arterial Blood Partial Pressure CO2 39, Arterial Blood Partial Pressure O2 78L, Arterial Blood HCO3 24, Arterial Blood Total CO2 25.0, Arterial Blood Oxygen Saturation 96, Arterial Blood Base Excess -0.6, Kev Test YES-POS, Blood Gas Ventilator Setting NO, Blood Gas Inspired Oxygen RA 07/18/19 03:12: White Blood Count 8.1, Red Blood Count 4.87, Hemoglobin 14.0, Hematocrit 43, Mean Corpuscular Volume 87, Mean Corpuscular Hemoglobin 29, Mean Corpuscular Hemoglobin Concent 33, Red Cell Distribution Width 15.1H, Platelet Count 254, Mean Platelet Volume 10.1, Neutrophils (%) (Auto) 90H, Lymphocytes (%) (Auto) 9L , Monocytes (%) (Auto) 1, Eosinophils (%) (Auto) 0, Basophils (%) (Auto) 0, Neutrophils # (Auto) 7.2, Lymphocytes # (Auto) 0.7L, Monocytes # (Auto) 0.1, Eosinophils # (Auto) 0.0, Basophils # (Auto) 0.0, Neutrophils % (Manual) 84, Lymphocytes % (Manual) 5, Monocytes % (Manual) 3, Band Neutrophils 8, Blood Morphology Comment NORMAL, Sodium Level 138, Potassium Level 4.2, Chloride Level 107, Carbon Dioxide Level 20L, Anion Gap 11, Blood Urea Nitrogen 22H, Creatinine 1.06, Estimat Glomerular Filtration Rate > 60, BUN/Creatinine Ratio 21, Glucose Level 216H, Calcium Level 9.5, Corrected Calcium 10.0, Total Bilirubin 0.2, Aspartate Amino Transf (AST/SGOT) 50H, Alanine Aminotransferase (ALT/SGPT) 97H, Alkaline Phosphatase 70, Total Protein 6.8, Albumin 3.4 Physical Exam Physical Exam Vital Signs Vital Signs - First Documented 07/17/19 15:15 Temp 36.6 Pulse 93 Resp 16 B/P (MAP) 137/85 (102) Pulse Ox 98 O2 Delivery Room Air Capillary Refill : Less Than 3 Seconds Height, Weight, BMI Height: 5'8.00" Weight: 165lbs. 5.0oz. 74.477195sw; 23.90 BMI Method:Stated General Appearance: No Apparent Distress, WD/WN Eyes: Bilateral Eye Normal Inspection HEENT: PERRL/EOMI, Normal ENT Inspection Neck: Non Tender, Supple; No Carotid Bruit Respiratory: Chest Non Tender, No Accessory Muscle Use, No Respiratory Distress, Rales ( at the right base), Wheezing Cardiovascular: Regular Rate, Rhythm, No Edema, No Gallop, No JVD, Diastolic Murmur Gastrointestinal: Non Tender, Soft Rectal: Deferred Back: No CVA Tenderness Extremity: Normal Capillary Refill, Normal Inspection, Non Tender, No Calf Tenderness, No Pedal Edema Neurologic/Psychiatric: Alert, Oriented x3, import coordinator II-XII Norm as Tested A/P-Cardiology Admission Diagnosis Chest pain Dyspnea AE COPD Aortic regurgitation Tobaccoism Assessment/Plan Chest pain, nonspecific etiology- EKG reveals no acute ST changes, cardiac enzymes normal, atypical in presentation, probably pleuritic in nature. Continue to monitor EKG. No changes in treatment are recommended, continue on aspirin for now Fever, blood culture has gram-positive and gram-negative, probably contamina tion, I will repeat blood culture 2, start empiric therapy with vancomycin and cefepime. Repeat chest x-ray. Monitor closely Mild elevation in liver enzymes. Continue to monitor liver enzymes. Shortness of breath, acute exacerbation of COPD, cough and active of bloody sputum. Patient is an active smoker, consider CT of the chest, might need bronchoscopy which can be done as an outpatient. Bronchitis- Having bronchospasm on physical exam. Management per medical services. Aortic regurgitation- 2d Echo done 2014 revealed moderate AR, I will evaluate 2D Echo Mild to moderate nonobstructive CAD per cath done 2014. Tobaccoism- educated on smoking cessation Hx of illicit drug use- denies any recent drug use. Reported hx of multiple DC's in the past not requiring intervention Thank you for allowing us to participate in the management of Mr. Tsang. This is Jesenia Randle PA-C, as a scribe for Dr. Adames. Patient was seen and evaluated with Jesenia, examination performed, management plan was discussed, agree with the current scribed note, I made few changes to the note using Italic font Patient is having fever and shortness of breath, generalized fatigue, cough productive of reddish sputum Management plan was discussed and note was adjusted as described above Clinical Quality Measures DVT/VTE Risk/Contraindication: Risk Factor Score Per Nursin RFS Level Per Nursing on Admit: 4+=Very High JESENIA PEÑA Jul 18, 2019 10:28 SHEFALI ADAMES MD Jul 18, 2019 13:58
[2019-07-18] MEDS ORDERED: LISI10TA2 PO (13:12)
[2019-07-18] MEDS ORDERED: ESCI10TA PO (13:12)
[2019-07-18] MEDS ORDERED: HYDR-700 PO (13:12)
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
[2019-07-18] MEDS ORDERED: GABA-490 PO (13:14)
[2019-07-18] MEDS ORDERED: ASPI-983 PO (13:14)
[2019-07-18] MEDS ORDERED: FLU QUADRIvalent (5+ YOA) 2019-2020 (AFLURIA) 0.5 ML IM ONE (13:15)
[2019-07-18] MEDS ORDERED: RT-ALBUINH IH (13:16)
--- NOTE | 2019-07-18 13:20 | NUR ---
SPOKE WITH THE PATIENT ABOUT HIS MEDICATIONS. HE LISTED WHAT HE IS SUPPOSED TO BE TAKING HOWEVER ADMITS HE HAS BEEN OUT OF THEM FOR AWHILE. HE STATES HE HAS TROUBLE AFFORDING TO PICK THEM UP. I CALLED AND SPOKE WITH A NURSE AT [facility], SHE READ TO ME WHAT MEDICATIONS THE PATIENT HAS BEEN PRESCRIBED BUT STATES THERE IS NO DOCUMENTATION THEY WERE VOUCHERED OR DISPENSED THROUGH THE REPOSITORY. I UPDATED THE MED REC WITH THE PAST DUE FILL DATES ACCORDING TO THE EXT MED HX AT [facility]. HE STATES HE HAS AN ALBUTEROL INHALER THAT IS ALMOST GONE. HE ALSO IS SUPPOSED TO USE SYMBICORT BUT DOES NOT HAVE ANYMORE, I DO NOT SEE A RECORD OF WHEN THAT WAS LAST FILLED. I DID NOT INCLUDE SYMBICORT ON THE MED REC BUT DID LEAVE THE PROAIR. HE ALSO MENTIONED HE TAKES SOMETHING FOR CHOLESTEROL HOWEVER [facility] DID NOT HAVE THAT ON HIS CHART AND THERE IS NO HISTORY OF HIM FILLING IT. I DID NOT INCLUDE ANY CHOLESTEROL MED ON THE MED REC AT THIS TIME. HE STATES HE TAKES ASPIRIN 81MG TID PRN OTC NEEDED FOR PAIN.
[2019-07-18] MEDS ORDERED: VANCOMYCIN 1500 MG/NS 500 ML IVPB IV NR ×2 (14:04)
--- NOTE | 2019-07-18 14:07 | NUR ---
PHARMACY TO DOSE VANCOMYCIN. CRCL ~75. BOLUS WITH 1500MG THEN DOSE AT 1250MG BID. TROUGH PRIOR TO 4TH DOSE ON 07/19 @1300. HOLD IF GREATER THAN 20 AND PHARMACY WILL ADJUST
[2019-07-18] MEDS: diphenhydrAMINE 25 MG TAB (BENADRYL) PO PRN (15:16)
[2019-07-18] MEDS: NS IV 1000 ML 1,000 ML IV SCH ×5 (15:45→22:30)
[2019-07-18] MEDS ORDERED: AZITHROMYCIN 500 MG/NS 250 ML IVPB IV SCH ×2 (16:00)
[2019-07-18] MEDS: AZITHROMYCIN 250 MG TAB (ZITHROMAX) PO SCH (17:03)
[2019-07-18] MEDS ORDERED: CEFEPIME 1 GM (MAXIPIME) VIAL ONE ×2 (17:05→17:13)
[2019-07-18] MEDS ORDERED: WATER (STERILE) FOR INJECTION 10 ML ONE ×2 (17:05→17:13)
[2019-07-18] MEDS: CEFEPIME 2,000 MG/SWFI 20 ML IV PUSH IV SCH ×2 (17:13)
[2019-07-18] MEDS: HYDROcodone/APAP 5 MG/325 MG (LORTAB) TAB PO PRN ×2 (17:17→20:05)
[2019-07-18] MEDS ORDERED: DAPTOMYCIN IV SCH (18:00)
[2019-07-18] MEDS ORDERED: NS IV SCH (18:00)
[2019-07-18] MEDS ORDERED: CEFEPIME INJECTION 1,000 MG in WATER (STERILE) FOR INJECTION 10 ML IV SCH (18:00)
[2019-07-18] MEDS: LINEZOLID 600MG/300ML IVPB (PRE-MIX) IV SCH (18:01)
[2019-07-18] MEDS: ENOXAPARIN 40 MG/0.4 ML (LOVENOX) SYR SC SCH (20:02)
[2019-07-19] VITALS (21 sets, daily range): BP systolic 95–170; BP diastolic 32–95
[2019-07-19] MEDS: CEFEPIME 2,000 MG/SWFI 20 ML IV PUSH IV SCH ×6 (00:08→16:43)
[2019-07-19] MEDS: HYDROcodone/APAP 5 MG/325 MG (LORTAB) TAB PO PRN ×4 (01:57→20:25)
[2019-07-19] MEDS ORDERED: VANCOMYCIN INJECTION 1,250 MG in NS (IVPB) 250 ML IV SCH (02:00)
[2019-07-19] MEDS: RT-ALBUTEROL/IPRATROPIUM 3 ML (DUONEB) VIAL IH SCH (02:32)
[2019-07-19] MEDS: NS IV 1000 ML 1,000 ML IV SCH ×6 (03:03→23:34)
[2019-07-19 03:57] LABS: HEMOGLOBIN 11.9 G/DL (13.3-17.7); MEAN PLATELET VOLUME 10.2 FL (7.4-10.4); RED CELL DISTRIBUTION WIDTH 15.8 % (10.0-14.5); WHITE BLOOD COUNT 20.8 10^3/uL (4.3-11.0)
[2019-07-19] MEDS: methylPREDNISolone 125 MG (Solu-MEDROL) VIAL IVP SCH ×4 (04:17→20:40)
[2019-07-19] MEDS: LINEZOLID 600MG/300ML IVPB (PRE-MIX) IV SCH ×2 (04:18→15:23)
[2019-07-19 04:19] LABS: ALANINE AMINOTRANSFERASE 64 U/L (0-55); ALBUMIN 3.1 GM/DL (3.2-4.5); ALKALINE PHOSPHATASE 53 U/L (40-136); BILIRUBIN,TOTAL 0.2 MG/DL (0.1-1.0); BUN/CREATININE RATIO 20; CALCIUM 8.8 MG/DL (8.5-10.1); CARBON DIOXIDE 19 MMOL/L (21-32); CHLORIDE 111 MMOL/L (98-107); CHOLESTEROL 144 MG/DL (< 200); CREATININE SERUM 1.04 MG/DL (0.60-1.30); GFR ESTIMATED > 60; GLUCOSE 183 MG/DL (70-105); HDL CHOLESTEROL 40 MG/DL (40-60); POTASSIUM 4.3 MMOL/L (3.6-5.0); SODIUM 141 MMOL/L (135-145); TRIGLYCERIDES 96 MG/DL (<150); VLDL CHOLESTEROL 19 MG/DL (5-40)
[2019-07-19] MEDS: ACETAMINOPHEN 500 MG TAB (TYLENOL) PO PRN (04:29)
--- NOTE | 2019-07-19 07:41 | Cardiology Progress Note ---
Subjective Date Seen by Provider: Jul 19, 2019 Time Seen by Provider: 07:37 Subjective/Events-last exam Patient is complaining of shortness of breath and cough. Generalized fatigue Review of Systems General: Chills; No Night Sweats; Fatigue, Malaise; No Appetite, No Other HEENT: No Head Aches, No Visual Changes, No Eye Pain, No Ear Pain, No Dysphasia, No Sinus Congestion, No Post Nasal Drip, No Sore Throat, No Other Pulmonary: Dyspnea, Cough; No Pleuritic Chest Pain, No Other Cardiovascular: Chest Pain; No: Palpitations, Orthopnea, Paroxysmal Noc. Dyspnea, Edema, Lt Headedness, Other Focused Exam Lactate Level 07/17/19 16:25: Lactic Acid Level 1.49 07/18/19 14:14: Lactic Acid Level 3.18*H 07/18/19 16:18: Lactic Acid Level 4.39*H Objective-Cardiology Exam Last Set of Vital Signs Vital Signs 07/19/19 07/19/19 07/19/19 04:00 05:00 06:00 Temp 37.0 Pulse 90 Resp 17 B/P (MAP) 134/58 (83) Pulse Ox 96 O2 Delivery Room Air Capillary Refill : Less Than 3 Seconds I&O Intake and Output 07/19/19 00:00 Intake Total 4030 ml Output Total 900 ml Balance 3130 ml Intake Oral 1330 ml IV Total 2700 ml Output Urine Total 900 ml # Voids 3 General: Alert, Oriented X3, Cooperative, Moderate Distress HEENT: Atraumatic, PERRLA Neck: Supple, No JVD, No Thyromegaly Lungs: Normal Air Movement, Other (Bilateral rhonchi, bilateral wheezing) Heart: Regular Rate, Normal S1, Normal S2, No Murmurs Abdomen: Normal Bowel Sounds, Soft, No Tenderness, No Hepatosplenomegaly, No Masses Extremities: No Clubbing, No Cyanosis, No Edema, Normal Pulses, No Tenderness/Swelling Skin: No Rashes, No Breakdown, No Significant Lesion Neuro: Normal Gait, Normal Speech, Strength at 5/5 X4 Ext, Normal Tone, Sens ation Intact Psych/Mental Status: Mental Status NL, Mood NL Results Lab Laboratory Tests 07/19/19 03:15 A/P-Cardiology Admission Diagnosis Chest pain Dyspnea AE COPD Aortic regurgitation Tobaccoism Assessment/Plan Chest pain, nonspecific etiology- EKG reveals no acute ST changes, cardiac enzymes normal, pleuritic in nature. Continue to monitor Fever, multiple organism on blood culture, repeat blood culture is pending, started empirically on cefepime and Zyvox Allergic reaction to Vancomycin Elevation in liver enzymes, better at this time Shortness of breath, acute exacerbation of COPD with cough and bloody sputum. I will evaluate CT of the chest Bronchitis- Having bronchospasm on physical exam. Management per medical services. Aortic regurgitation- 2d Echo done 2014 revealed moderate AR, I will evaluate 2D Echo Mild to moderate nonobstructive CAD per cath done 2014. Tobaccoism- educated on smoking cessation Hx of illicit drug use- denies any recent drug use. Reported hx of multiple KY's in the past not requiring intervention Clinical Quality Measures DVT/VTE Risk/Contraindication: Risk Factor Score Per Nursin RFS Level Per Nursing on Admit: 4+=Very High SHEFALI ANDREW MD Jul 19, 2019 07:41
[2019-07-19] MEDS: SENNA W/DOCUSATE (SENOKOT S) TABLET PO SCH ×2 (08:25→23:28)
[2019-07-19] MEDS: guaiFENesin/CODEINE (ROBITUSSIN AC) 10ML UDC PO PRN ×3 (08:35→21:04)
[2019-07-19] MEDS ORDERED: NICOTINE 14 MG (NICODERM) PATCH TD SCH (09:00)
[2019-07-19] MEDS ORDERED: NS 100 ML (IVPB) BAG IV ONE (09:30)
[2019-07-19] MEDS ORDERED: IOHEXOL 350 MG/ML 100 ML (OMNIPAQUE 350) VIAL IV ONE (09:30)
[2019-07-19] MEDS ORDERED: CATHETER FLUSH 10 ML SYR IV PRN (09:30)
[2019-07-19] MEDS ORDERED: HOLD METFORMIN - RECEIVED CONTRAST 20 ML VIAL IV SCH (09:30)
--- NOTE | 2019-07-19 09:43 | Diagnostic Imaging Report ---
INDICATION: Chest pain. TIME OF EXAM: 09:25 a.m. COMPARISON: Correlation is made with prior chest one day earlier. FINDINGS: There is some developing infiltrate in the right upper lung. This is patchy in appearance. Left lung is clear. No effusion or pneumothorax is seen. Nodular density in left upper lung is stable. IMPRESSION: Developing patchy right upper lung pulmonary infiltrate when compared with exam one day earlier. Dictated by: Dictated on workstation # [id number]
--- NOTE | 2019-07-19 10:03 | Diagnostic Imaging Report ---
PROCEDURE: CT neck soft tissue with contrast. TECHNIQUE: Multiple contiguous axial images were obtained through the neck after the administration of contrast. Auto Exposure Controls were utilized during the CT exam to meet ALARA standards for radiation dose reduction. INDICATION: Swollen right side of the neck. Recent right carotid endarterectomy. COMPARISON: None. Findings: The visualized intracranial contents demonstrate no evidence of pathologic intracranial enhancement or intracranial mass effect. Visualized orbital contents are unremarkable. Frothy secretions are seen in the bilateral maxillary sinuses with retained secretions throughout the paranasal sinuses. The mastoids and middle ears are clear. The posterior nasopharynx and oropharynx demonstrate appropriate symmetry. There is no displacement of the parapharyngeal fat planes. There is no abnormal process evident within the prevertebral or retropharyngeal space. There is no evidence of abnormal thickening of the epiglottis or aryepiglottic folds. The vocal folds appear symmetric. The parotid, submandibular and thyroid gland are unremarkable. Prominent reactive cervical lymph nodes are seen in the neck bilaterally, right greater than left. There are nonspecific inflammatory changes seen in the posterior lateral right neck extending to the dermis, likely related to the recent procedure. No evidence of focal fluid collection or mass. The vascular structures the neck demonstrate no evidence of high-grade stenosis on this nondedicated exam. Scattered atherosclerotic plaque is present in the bilateral carotid systems. The visualized lung apices demonstrate bilateral scarring. A prominent calcified granuloma is seen in the left apex. There are mild degenerative features within the cervical spine without CT evidence of an acute or suspicious osseous abnormality. There is grade 1 anterolisthesis of C6 on C7 with endplate degenerative changes present. IMPRESSION: 1. Nonspecific inflammatory changes in the posterior lateral right neck, likely representing cellulitis. No evidence of focal fluid collection or mass. Associated reactive cervical lymphadenopathy is seen bilaterally, right greater than left. 2. Acute sinusitis involving the bilateral maxillary sinuses with additional retained secretions throughout the paranasal sinuses. 3. Scattered calcified atherosclerotic plaque in the bilateral carotid systems. No focal stenosis is seen on this nondedicated exam. Dictated by: Dictated on workstation # [id number]
[2019-07-19] MEDS: NICOTINE 14 MG (NICODERM) PATCH TD SCH (10:30)
--- NOTE | 2019-07-19 10:46 | Progress Note - Hospitalist ---
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 ABG was stable at time, White count was normal no evidence of sepsis so he was placed on empiric antibiotics Azithromycin in addition to IV steroids, nebulizer treatments, and oxygen supplementation. Dr. Rojas was consulted for cardiology issues and at that point hs blood cultures were reported to have some contamination of both gram positive and gram negative bacteria so Dr. Adames saw him and he has ordered a repeat urine culture and blood culture and I will place him on Cerfepime and Vancomycin empirically for history of pneumonias and bronchitis in the past. Chest x ray was negative for any infiltrate but did note the lung mass he knows about. We will heplock his IV and initiate Tessalon Pearls and Robitussin Codeine. Subjective/Events-last exam * Pt had positive blood cultures, increased WBC, and elevated lactic acid yesterday resulting in transfer to ICU * Today the patient reports still having a cough, but feels less short of breath * He reports increased fever, chills, nausea, and vomiting * He also states that this morning when he woke up the right side of his neck was swollen and tender * He states he did have a cavity 4 years ago on that side that he filled in with [employer] himself and wonders if this is related to it * He also states he recently had 90% stenosis of his right carotid artery for which he had a procedure done to clean it out * He stills complains of abdominal pain when he urinates Review of Systems General: Chills, Fatigue HEENT: Head Aches, Sinus Congestion Pulmonary: No Dyspnea; Cough Cardiovascular: Chest Pain (Mata horse sensation on left center chest ); No: Palpitations Gastrointestinal: Nausea, Vomiting, Abdominal Pain Neurological: Weakness, Numbness (Hand) Focused Exam Lactate Level 07/18/19 14:14: Lactic Acid Level 3.18*H 07/18/19 16:18: Lactic Acid Level 4.39*H 07/19/19 10:10: Lactic Acid Level 1.62 Respiratory: No Accessory Muscle Use, No Respiratory Distress, Wheezing (Slight in bilateral lower lobes ) Cardiovascular: Regular Rate, Rhythm, No Edema, No JVD, Normal Peripheral Pulses Peripheral Pulses: 2+ Dorsalis Pedis (R), 2+ Left Dors-Pedis (L), 2+ Radial Pulses (R), 2+ Radial Pulses (L) Skin: normal color, diaphoresis Lactic Acid Level Laboratory Tests Test 07/19/19 10:10 Lactic Acid Level 1.62 MMOL/L (0.50-2.00) Objective Exam Vital Signs Vital Signs Date Time Temp Pulse Resp B/P (MAP) Pulse Ox O2 Delivery O2 Flow Rate FiO2 07/19/19 10:00 96 166/95 (118) 95 Room Air 07/19/19 09:00 21 07/19/19 08:00 36.6 Capillary Refill : Less Than 3 Seconds General Appearance: WD/WN, Moderate Distress Neck: Full Range of Motion, Tender Lateral (Right), Other (Swelling right neck ) Respiratory: No Accessory Muscle Use, No Respiratory Distress, Wheezing (Slight bilateral lower lobes) Cardiovascular: Regular Rate, Rhythm, No Edema, No Murmur, Normal Peripheral Pulses Extremity: Non Tender, No Calf Tenderness, No Pedal Edema Neurologic/Psychiatric: Alert, Oriented x3, No Motor/Sensory Deficits, Normal Mood/Affect Skin: Normal Color, Diaphoresis Results/Procedures Lab Laboratory Tests 07/19/19 03:15 Patient resulted labs reviewed. Assessment/Plan Assessment and Plan Assess & Plan/Chief Complaint Assessment: COPD Bronchitis Sinusitis Sepsis Possible abscess/ cellulitis right neck Depression Chronic neuropathic pain Chronic Liver Dz Chronic Kidney Dz Tobacco abuse HTN PLAN: CT neck to check for abscess/cellulitis DuoNeb treatments Cough suppressant Continue Linezolid IV Fluids per sepsis protocol Continue home medication Lexapro 10mg daily for depression Continue home medication for pain management Start nicotine patch Continue home medication for blood pressure management Clinical Quality Measures DVT/VTE Risk/Contraindication: Risk Factor Score Per Nursin RFS Level Per Nursing on Admit: 4+=Very High VALERIE WINSLOW DO 07/19/192108: Subjective Subjective/Events-last exam Major events overnight. Right neck swelling likely due to tooth abcess. Will obtain CT of the neck soft tissue. Maintain on empiric antibiotics. IV fluids given yesterday. Covered with Cefepime and Vancomycin. Awaiting blood cultures that were re-done. Lungs sound more coarse, but actually better air movement. Decrease cough noted. Review of Systems General: Fatigue Pulmonary: Cough Objective Exam General Appearance: No Apparent Distress, WD/WN, Chronically ill Neck: Other (right neck with edema and mild ttp) Respiratory: Wheezing (Slight bilateral lower lobes) Cardiovascular: Regular Rate, Rhythm Assessment/Plan Assessment and Plan Assess & Plan/Chief Complaint CT neck IVF ABX Diagnosis/Problems Diagnosis/Problems (1) Acute exacerbation of COPD with asthma Status: Acute (2) Methamphetamine use Status: Acute (3) Elevated liver enzymes Status: Chronic (4) Acute renal insufficiency Status: Acute (5) Psychosis Status: Acute (6) PTSD (post-traumatic stress disorder) Status: Chronic Supervisory-Addendum Brief Verification & Attestation Participated in pt care: history, MDM, physical Personally performed: exam, history, MDM, supervision of care Care discussed with: Medical Student Procedures: n/a Results interpretation: Verified all documentation Verification and Attestation of Medical Student E/M Service A medical student performed and documented this service in my presence. I reviewed and verified all information documented by the medical student and made modifications to such information, when appropriate. I personally performed the physical exam and medical decision making. Valerie Winslow, Jul 19, 2019,21:07 [facility] Jul 19, 2019 10:46 VALERIE WINSLOW DO Jul 19, 2019 21:09
[2019-07-19] MEDS ORDERED: TROUGH ORDER-PHARMACY XX NR (13:00)
[2019-07-19] MEDS: AZITHROMYCIN 250 MG TAB (ZITHROMAX) PO SCH (14:13)
[2019-07-19] MEDS ORDERED: DILTIAZEM 25 MG/5 ML INJ (CARDIZEM) VIAL IVP NR (15:00)
[2019-07-19] MEDS ORDERED: ENOXAPARIN 100 MG/1 ML (LOVENOX) SYR SC SCH (15:00)
[2019-07-19] MEDS: ENOXAPARIN 80 MG/0.8 ML (LOVENOX) SYR SC SCH (15:13)
[2019-07-19] MEDS: DILTIAZEM IV FOR DRIP 125 MG in NS (IVPB) 100 ML IV SCH (15:14)
--- NOTE | 2019-07-19 20:15 | NUR ---
This RN heard patient talking on phone "get me out of here, they are trying to kill me". RN checks on patient, he is wheezing and sitting on side of bed. States his neck is more swollen and feels that he is having an allergic reaction to the cardizem. Cardizem turned off and patient assessed. Dr. Dykes of [facility] notified and has camera'd into room to evaluate. Orders received. RT at bedside to give breathing treatment for wheezing and patient placed on oxygen per patient request. Will continue to monitor.
[2019-07-19] MEDS ORDERED: diphenhydrAMINE 50 MG/ML INJ (BENADRYL) ONE (20:31)
[2019-07-19] MEDS: RT-ALBUTEROL/IPRATROPIUM 3 ML (DUONEB) VIAL IH PRN (20:32)
[2019-07-19] MEDS: diphenhydrAMINE 50 MG/ML INJ (BENADRYL) IV SCH (20:35)
[2019-07-19] MEDS: ALPRAZolam 0.25 MG (XANAX) TAB PO PRN (20:43)
[2019-07-19] MEDS: MELATONIN 3 MG TABLET PO PRN (20:43)
[2019-07-19] MEDS: FAMOTIDINE 20MG/2ML IV (PEPCID) IV SCH (23:28)
[2019-07-20] VITALS (21 sets, daily range): BP systolic 106–178; BP diastolic 52–100
[2019-07-20] MEDS: guaiFENesin/CODEINE (ROBITUSSIN AC) 10ML UDC PO PRN ×5 (00:54→21:32)
[2019-07-20] MEDS: HYDROcodone/APAP 5 MG/325 MG (LORTAB) TAB PO PRN ×5 (00:55→23:47)
[2019-07-20] MEDS: CEFEPIME 2,000 MG/SWFI 20 ML IV PUSH IV SCH ×6 (01:27→17:47)
[2019-07-20 03:22] LABS: BASOPHILS % (AUTO) 0 % (0-10); EOSINOPHILS % (AUTO) 0 % (0-10); HEMATOCRIT 39 % (40-54); HEMOGLOBIN 12.4 G/DL (13.3-17.7); LYMPHOCYTES # (AUTO) 0.8 X 10^3 (1.0-4.0); LYMPHOCYTES % (AUTO) 5 % (12-44); MEAN CORPUSCULAR HEMOGLOBIN 29 PG (25-34); MEAN CORPUSCULAR HGB CONC 32 G/DL (32-36); MEAN CORPUSCULAR VOLUME 89 FL (80-99); MEAN PLATELET VOLUME 10.1 FL (7.4-10.4); MONOCYTES # (AUTO) 0.9 X 10^3 (0.0-1.0); MONOCYTES % (AUTO) 5 % (0-12); NEUTROPHILS # (AUTO) 15.7 X 10^3 (1.8-7.8); NEUTROPHILS % (AUTO) 90 % (42-75); PLATELET COUNT 234 10^3/uL (130-400); RED CELL DISTRIBUTION WIDTH 16.1 % (10.0-14.5); WHITE BLOOD COUNT 17.4 10^3/uL (4.3-11.0)
[2019-07-20] MEDS: diphenhydrAMINE 25 MG TAB (BENADRYL) PO PRN ×3 (03:25→17:33)
[2019-07-20] MEDS: ACETAMINOPHEN 500 MG TAB (TYLENOL) PO PRN ×2 (03:26→20:07)
[2019-07-20] MEDS: ENOXAPARIN 80 MG/0.8 ML (LOVENOX) SYR SC SCH ×2 (03:27→13:30)
[2019-07-20 03:41] LABS: BUN/CREATININE RATIO 25; CALCIUM 8.7 MG/DL (8.5-10.1); CARBON DIOXIDE 20 MMOL/L (21-32); CHLORIDE 110 MMOL/L (98-107); CREATININE SERUM 1.02 MG/DL (0.60-1.30); GFR ESTIMATED > 60; GLUCOSE 154 MG/DL (70-105); MAGNESIUM 1.9 MG/DL (1.6-2.4); PHOSPHORUS 3.6 MG/DL (2.3-4.7); POTASSIUM 4.2 MMOL/L (3.6-5.0); SODIUM 139 MMOL/L (135-145)
[2019-07-20 04:04] LABS: LYMPHOCYTES % (MANUAL) 5 %; MONOCYTES % (MANUAL) 1 %; NEUTROPHILS % (MANUAL) 94 %
[2019-07-20] MEDS: NS IV 1000 ML 1,000 ML IV SCH ×6 (04:05→21:44)
[2019-07-20] MEDS: LINEZOLID 600MG/300ML IVPB (PRE-MIX) IV SCH (05:50)
[2019-07-20] MEDS: methylPREDNISolone 125 MG (Solu-MEDROL) VIAL IVP SCH ×3 (05:50→21:32)
[2019-07-20] MEDS: FAMOTIDINE 20MG/2ML IV (PEPCID) IV SCH ×2 (07:37→20:07)
[2019-07-20] MEDS: SENNA W/DOCUSATE (SENOKOT S) TABLET PO SCH ×2 (07:37→20:07)
[2019-07-20] MEDS: NICOTINE 14 MG (NICODERM) PATCH TD SCH (07:37)
[2019-07-20] MEDS: diphenhydrAMINE 50 MG/ML INJ (BENADRYL) IV SCH ×2 (07:38→21:32)
--- NOTE | 2019-07-20 07:43 | Cardiology Progress Note ---
Subjective Date Seen by Provider: Jul 20, 2019 Time Seen by Provider: 07:41 Subjective/Events-last exam Patient is laying down in bed, breathing slightly better, having some chest pain mainly with deep inspiration. No palpitation. No syncope, went back to sinus rhythm Review of Systems General: No Chills, No Night Sweats, No Fatigue, No Malaise, No Appetite, No Other HEENT: No Head Aches, No Visual Changes, No Eye Pain, No Ear Pain, No Dysphasia, No Sinus Congestion, No Post Nasal Drip, No Sore Throat, No Other Pulmonary: Dyspnea; No Cough, No Pleuritic Chest Pain, No Other Cardiovascular: Chest Pain; No: Palpitations, Orthopnea, Paroxysmal Noc. Dyspnea, Edema, Lt Headedness, Other Focused Exam Lactate Level 07/18/19 14:14: Lactic Acid Level 3.18*H 07/18/19 16:18: Lactic Acid Level 4.39*H 07/19/19 10:10: Lactic Acid Level 1.62 Objective-Cardiology Exam Last Set of Vital Signs Vital Signs 07/20/19 07/20/19 00:00 06:00 Temp 36.5 Pulse 67 Resp 12 B/P (MAP) 119/52 (74) Pulse Ox 94 O2 Delivery Nasal Cannula O2 Flow Rate 2.00 Capillary Refill : Less Than 3 Seconds I&O Intake and Output 07/20/19 00:00 Intake Total 4180 ml Output Total 2425 ml Balance 1755 ml Intake Oral 2180 ml IV Total 2000 ml Output Urine Total 2425 ml # Bowel Movements 2 General: Alert, Oriented X3, Cooperative, Moderate Distress HEENT: Atraumatic, PERRLA Neck: Supple, No JVD, No Thyromegaly Lungs: Normal Air Movement, Other (Bilateral rhonchi, bilateral wheezing) Heart: Regular Rate, Normal S1, Normal S2, No Murmurs Abdomen: Normal Bowel Sounds, Soft, No Tenderness, No Hepatosplenomegaly, No Masses Extremities: No Clubbing, No Cyanosis, No Edema, Normal Pulses, No Tenderness/Swelling Skin: No Rashes, No Breakdown, No Significant Lesion Neuro: Normal Gait, Normal Speech, Strength at 5/5 X4 Ext, Normal Tone, Sensati on Intact Psych/Mental Status: Mental Status NL, Mood NL Results Lab Laboratory Tests 07/20/19 03:05 A/P-Cardiology Admission Diagnosis Chest pain Dyspnea AE COPD Aortic regurgitation Tobaccoism Assessment/Plan Chest pain, nonspecific etiology- EKG reveals no acute ST changes, cardiac enzymes normal, pleuritic in nature. Continue to monitor Fever, multiple organism on blood culture, repeat blood culture is negative, started on antibiotics, managed by primary care physician Neck abscess, patient had dental abscess, will need surgical evaluation Paroxysmal atrial fibrillation, had an episode of atrial fibrillation with rapid ventricular response, started on Cardizem drip and converted to sinus rhythm. Continue to monitor heart rate Allergic reaction to Vancomycin Elevation in liver enzymes, better at this time Shortness of breath, acute exacerbation of COPD with cough and bloody sputum Bronchitis. Management per medical services. Aortic regurgitation- 2d Echo done 2014 revealed moderate AR, I will evaluate 2D Echo Mild to moderate nonobstructive CAD per cath done 2014. Tobaccoism- educated on smoking cessation Hx of illicit drug use- denies any recent drug use. Reported hx of multiple NV's in the past not requiring intervention Clinical Quality Measures DVT/VTE Risk/Contraindication: Risk Factor Score Per Nursin RFS Level Per Nursing on Admit: 4+=Very High SHEFALI ANDREW MD Jul 20, 2019 07:43
[2019-07-20] MEDS: NICOTINE PATCH REMOVAL TP SCH (07:45)
--- NOTE | 2019-07-20 11:15 | NUR ---
Pastoral care visit.
--- NOTE | 2019-07-20 11:19 | Progress Note - Hospitalist ---
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 ABG was stable at time, White count was normal no evidence of sepsis so he was placed on empiric antibiotics Azithromycin in addition to IV steroids, nebulizer treatments, and oxygen supplementation. Dr. Rojas was consulted for cardiology issues and at that point hs blood cultures were reported to have some contamination of both gram positive and gram negative bacteria so Dr. Adames saw him and he has ordered a repeat urine culture and blood culture and I will place him on Cerfepime and Vancomycin empirically for history of pneumonias and bronchitis in the past. Chest x ray was negative for any infiltrate but did note the lung mass he knows about. We will heplock his IV and initiate Tessalon Pearls and Robitussin Codeine. Subjective/Events-last exam * Pt appears similar to yesterday with some increase in neck swelling * He is still coughing, but does report it being better especially after the cough medicine * He reports being dizzy when he sits up and during the coughing spells * He reports having some dysphagia yesterday requiring suctioning by the nurse, who then gave him the suction in case he needs it again * He reports some nausea and vomiting * He reports fever and chills and has been sweating a lot * He reports having normal bowel movements and urinating normally with some recurrent abdominal pain associated * He went into A Fib with RvR last night that was able to be converted with Cardizem Review of Systems General: Chills, Fatigue HEENT: Head Aches, Other (Neck swelling) Pulmonary: Dyspnea, Cough Cardiovascular: Chest Pain, Palpitations Gastrointestinal: Nausea, Vomiting; No: Diarrhea, Constipation Genitourinary: No Dysuria, No Frequency Neurological: Numbness (Hands), Change in speech (Mumbled due to swelling) Focused Exam Lactate Level 07/18/19 14:14: Lactic Acid Level 3.18*H 07/18/19 16:18: Lactic Acid Level 4.39*H 07/19/19 10:10: Lactic Acid Level 1.62 Respiratory: No Respiratory Distress, Wheezing Cardiovascular: Regular Rate, Rhythm, No Gallop, No Murmur, Normal Peripheral P ulses Peripheral Pulses: 2+ Dorsalis Pedis (R), 2+ Left Dors-Pedis (L), 2+ Radial Pulses (R), 2+ Radial Pulses (L) Skin: normal color, diaphoresis Objective Exam Vital Signs Vital Signs Date Time Temp Pulse Resp B/P (MAP) Pulse Ox O2 Delivery O2 Flow Rate FiO2 07/20/19 11:00 73 28 128/80 (96) 96 Nasal Cannula 2.00 07/20/19 08:00 36.8 Capillary Refill : Less Than 3 Seconds General Appearance: WD/WN, Moderate Distress Neck: Full Range of Motion, Tender Lateral, Other (Bilateral swelling) Respiratory: No Chest Non Tender, No Normal Breath Sounds; No Respiratory Distress, Wheezing Cardiovascular: Regular Rate, Rhythm, No Edema, No Murmur, Normal Peripheral Pulses Extremity: Normal Inspection, Non Tender, No Calf Tenderness, No Pedal Edema Neurologic/Psychiatric: Alert, Oriented x3, No Motor/Sensory Deficits, Normal Mood/Affect Skin: Normal Color, Diaphoresis Results/Procedures Lab Laboratory Tests 07/20/19 03:05 Patient resulted labs reviewed. Assessment/Plan Assessment and Plan Assess & Plan/Chief Complaint Assessment: COPD Bronchitis Sinusitis Sepsis Cellulitis neck Depression Chronic neuropathic pain Chronic Liver Dz Chronic Kidney Dz Tobacco abuse HTN A-Fib RvR hx PLAN: DuoNeb treatments Cough suppressant Continue Linezolid IV Fluids per sepsis protocol Continue home medication Lexapro 10mg daily for depression Continue home medication for pain management Continue nicotine patch Consulted cardiology for blood pressure management Clinical Quality Measures DVT/VTE Risk/Contraindication: Risk Factor Score Per Nursin RFS Level Per Nursing on Admit: 4+=Very High VALERIE WINSLOW DO 07/20/19 1137: Subjective Subjective/Events-last exam Patient is becoming more more complicated as the days progress Atrial fibrillation now controlled after Cardizem given last night Benadryl given for itching Multiple allergies of medications and increasing by the day Bowels are moving Breathing pretty well Very complex situation Review of Systems General: Fatigue Pulmonary: Dyspnea Objective Exam General Appearance: No Apparent Distress, WD/WN, Chronically ill Respiratory: Crackles, Decreased Breath Sounds, Other (improved 07/20/19) Cardiovascular: Regular Rate, Rhythm, No Edema, No Gallop, No JVD, No Murmur, Normal Peripheral Pulses Assessment/Plan Assessment and Plan Assess & Plan/Chief Complaint Nebulizer treatments Atrial fibrillation monitoring Pain control IV antibiotics IV steroids Diagnosis/Problems Diagnosis/Problems (1) Acute exacerbation of COPD with asthma Status: Acute Supervisory-Addendum Brief Verification & Attestation Participated in pt care: history, MDM, physical Personally performed: exam, history, MDM, supervision of care Care discussed with: Medical Student Procedures: n/a Results interpretation: Verified all documentation Verification and Attestation of Medical Student E/M Service A medical student performed and documented this service in my presence. I reviewed and verified all information documented by the medical student and made modifications to such information, when appropriate. I personally performed the physical exam and medical decision making. Valerie Winslow, Jul 20, 2019,11:37 [facility] Jul 20, 2019 11:19 VALERIE WINSLOW DO Jul 20, 2019 11:37
[2019-07-20] MEDS: DILTIAZEM IV FOR DRIP 125 MG in NS (IVPB) 100 ML IV SCH (13:31)
[2019-07-20] MEDS: AZITHROMYCIN 250 MG TAB (ZITHROMAX) PO SCH (17:47)
[2019-07-20] MEDS: RT-ALBUTEROL/IPRATROPIUM 3 ML (DUONEB) VIAL IH PRN ×2 (17:54→23:27)
[2019-07-20] MEDS: ALPRAZolam 0.25 MG (XANAX) TAB PO PRN (20:07)
--- NOTE | 2019-07-20 23:25 | NUR ---
2300 BP increased to 170 Systolic. Called E ICU at this time about home medication Lisinopril or a PRN order for HTN.
[2019-07-20] MEDS ORDERED: CARVEDILOL 6.25 MG (COREG) TAB ONE (23:43)
[2019-07-20] MEDS ORDERED: CARVEDILOL 6.25 MG (COREG) TAB PO ONE (23:45)
[2019-07-21] VITALS (23 sets, daily range): BP systolic 94–158; BP diastolic 66–101
[2019-07-21] MEDS: CEFEPIME 2,000 MG/SWFI 20 ML IV PUSH IV SCH ×4 (01:05→08:35)
[2019-07-21] MEDS: NS IV 1000 ML 1,000 ML IV SCH ×2 (01:05→06:03)
[2019-07-21 03:11] LABS: BASOPHILS % (AUTO) 0 % (0-10); EOSINOPHILS % (AUTO) 0 % (0-10); HEMATOCRIT 39 % (40-54); HEMOGLOBIN 12.2 G/DL (13.3-17.7); LYMPHOCYTES # (AUTO) 0.8 X 10^3 (1.0-4.0); LYMPHOCYTES % (AUTO) 7 % (12-44); MEAN CORPUSCULAR HEMOGLOBIN 28 PG (25-34); MEAN CORPUSCULAR HGB CONC 31 G/DL (32-36); MEAN CORPUSCULAR VOLUME 90 FL (80-99); MEAN PLATELET VOLUME 10.3 FL (7.4-10.4); MONOCYTES # (AUTO) 0.8 X 10^3 (0.0-1.0); MONOCYTES % (AUTO) 7 % (0-12); NEUTROPHILS # (AUTO) 10.2 X 10^3 (1.8-7.8); NEUTROPHILS % (AUTO) 87 % (42-75); PLATELET COUNT 244 10^3/uL (130-400); RED CELL DISTRIBUTION WIDTH 16.2 % (10.0-14.5); WHITE BLOOD COUNT 11.8 10^3/uL (4.3-11.0)
[2019-07-21 03:26] LABS: BUN/CREATININE RATIO 26; CALCIUM 8.6 MG/DL (8.5-10.1); CARBON DIOXIDE 20 MMOL/L (21-32); CHLORIDE 109 MMOL/L (98-107); CREATININE SERUM 1.06 MG/DL (0.60-1.30); GFR ESTIMATED > 60; GLUCOSE 151 MG/DL (70-105); MAGNESIUM 2.1 MG/DL (1.6-2.4); PHOSPHORUS 3.1 MG/DL (2.3-4.7); SODIUM 139 MMOL/L (135-145)
[2019-07-21] MEDS: HYDROcodone/APAP 5 MG/325 MG (LORTAB) TAB PO PRN ×5 (03:28→21:52)
[2019-07-21] MEDS: ENOXAPARIN 80 MG/0.8 ML (LOVENOX) SYR SC SCH ×2 (03:29→15:25)
[2019-07-21] MEDS: guaiFENesin/CODEINE (ROBITUSSIN AC) 10ML UDC PO PRN ×5 (03:30→21:52)
[2019-07-21] MEDS: RT-ALBUTEROL/IPRATROPIUM 3 ML (DUONEB) VIAL IH PRN ×3 (04:01→12:15)
[2019-07-21] MEDS: MAGNESIUM 1 GM/100 ML IVPB 100 ML IV SCH (04:16)
[2019-07-21] MEDS: POTASSIUM CL 10MEQ/50ML IVPB 50 ML IV SCH (04:16)
[2019-07-21] MEDS: KCL 20 MEQ TAB (K-DUR) PO SCH (04:17)
--- NOTE | 2019-07-21 06:28 | Diagnostic Imaging Report ---
EXAMINATION: Portable erect AP chest at 4:12 AM INDICATION: Dyspnea The heart size is within normal limits and stable when compared to 07/19/2019. The vague area of increased density in the right upper lobe seen on the prior study is less conspicuous on this exam. The right lung base and left lung remain generally clear. The nodule in the left upper lung appears stable. The mediastinum is not widened. The osseous structures are intact. IMPRESSION: The appearance of the chest has improved as the right upper lung does seem better aerated. There is still some residual atelectasis/infiltrate in this area, however. Dictated by: Dictated on workstation # [id number]
[2019-07-21] MEDS: FAMOTIDINE 20 MG (PEPCID) TABLET PO SCH (08:35)
[2019-07-21] MEDS: CARVEDILOL 6.25 MG (COREG) TAB PO SCH ×2 (08:35→21:12)
[2019-07-21] MEDS: NICOTINE 14 MG (NICODERM) PATCH TD SCH (08:36)
[2019-07-21] MEDS: diphenhydrAMINE 25 MG TAB (BENADRYL) PO SCH ×2 (08:36→21:12)
[2019-07-21] MEDS: NICOTINE PATCH REMOVAL TP SCH (08:39)
[2019-07-21] MEDS: SENNA W/DOCUSATE (SENOKOT S) TABLET PO SCH ×2 (08:39→21:01)
--- NOTE | 2019-07-21 08:45 | Cardiology Progress Note ---
Subjective Date Seen by Provider: Jul 21, 2019 Time Seen by Provider: 08:44 Subjective/Events-last exam Patient is laying down in bed, still having tightness in his chest and shortness of breath Review of Systems General: No Chills, No Night Sweats, No Fatigue, No Malaise, No Appetite, No Other HEENT: No Head Aches, No Visual Changes, No Eye Pain, No Ear Pain, No Dy sphasia, No Sinus Congestion, No Post Nasal Drip, No Sore Throat, No Other Pulmonary: Dyspnea; No Cough, No Pleuritic Chest Pain, No Other Cardiovascular: Chest Pain; No: Palpitations, Orthopnea, Paroxysmal Noc. Dyspnea, Edema, Lt Headedness, Other Focused Exam Lactate Level 07/18/19 14:14: Lactic Acid Level 3.18*H 07/18/19 16:18: Lactic Acid Level 4.39*H 07/19/19 10:10: Lactic Acid Level 1.62 Objective-Cardiology Exam Last Set of Vital Signs Vital Signs 07/21/19 07/21/19 07/21/19 06:00 07:44 08:00 Temp 37.0 Pulse 90 Resp 16 B/P (MAP) 142/80 (100) Pulse Ox 97 O2 Delivery Nasal Cannula O2 Flow Rate 1.00 Capillary Refill : Less Than 3 Seconds I&O Intake and Output0 07/21/19 00:00 Intake Total 2205 ml Output Total 2275 ml Balance -70 ml Intake Oral 2205 ml Output Urine Total 2275 ml # Voids 1 # Bowel Movements 2 General: Alert, Oriented X3, Cooperative, Moderate Distress HEENT: Atraumatic, PERRLA Neck: Supple, No JVD, No Thyromegaly Lungs: Normal Air Movement, Other (Bilateral rhonchi, bilateral wheezing) Heart: Regular Rate, Normal S1, Normal S2, No Murmurs Abdomen: Normal Bowel Sounds, Soft, No Tenderness, No Hepatosplenomegaly, No Masses Extremities: No Clubbing, No Cyanosis, No Edema, Normal Pulses, No Tenderness/Swelling Skin: No Rashes, No Breakdown, No Significant Lesion Neuro: Normal Gait, Normal Speech, Strength at 5/5 X4 Ext, Normal Tone, Sensation Intact Psych/Mental Status: Mental Status NL, Mood NL Results Lab Laboratory Tests 07/21/19 02:30 A/P-Cardiology Admission Diagnosis Chest pain Dyspnea AE COPD Aortic regurgitation Tobaccoism Assessment/Plan Chest pain, nonspecific etiology- EKG reveals no acute ST changes, cardiac enzymes normal, pleuritic in nature. Continue to monitor Fever, multiple organism on blood culture, repeat blood culture is negative, started on antibiotics, managed by primary care physician Wheezing, shortness of breath, acute exacerbation of COPD, receiving bronchodilator, I requested additional bronchodilator now due to active wheezing Neck abscess, patient had dental abscess, will need surgical evaluation Paroxysmal atrial fibrillation, had an episode of atrial fibrillation with rapid ventricular response, started on Cardizem drip and converted to sinus rhythm. Continue to monitor heart rate Allergic reaction to Vancomycin Elevation in liver enzymes, better at this time Bronchitis. Management per medical services. Aortic regurgitation- 2d Echo done 2014 revealed moderate AR, I will evaluate 2D Echo Mild to moderate nonobstructive CAD per cath done 2014. Tobaccoism- educated on smoking cessation Hx of illicit drug use- denies any recent drug use. Reported hx of multiple ID's in the past not requiring intervention Clinical Quality Measures DVT/VTE Risk/Contraindication: Risk Factor Score Per Nursin RFS Level Per Nursing on Admit: 4+=Very High SHEFALI ANDREW MD Jul 21, 2019 08:45
[2019-07-21] MEDS ORDERED: methylPREDNISolone 125 MG (Solu-MEDROL) VIAL IV SCH (09:00)
--- NOTE | 2019-07-21 09:52 | Progress Note - Hospitalist ---
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 ABG was stable at time, White count was normal no evidence of sepsis so he was placed on empiric antibiotics Azithromycin in addition to IV steroids, nebulizer treatments, and oxygen supplementation. Dr. Rojas was consulted for cardiology issues and at that point hs blood cultures were reported to have some contamination of both gram positive and gram negative bacteria so Dr. Adames saw him and he has ordered a repeat urine culture and blood culture and I will place him on Cerfepime and Vancomycin empirically for history of pneumonias and bronchitis in the past. Chest x ray was negative for any infiltrate but did note the lung mass he knows about. We will heplock his IV and initiate Tessalon Pearls and Robitussin Codeine. Subjective/Events-last exam Patient reports mild improvement in shortness of breath cough nonproductive. When asked he reports that he has had some mild right sided neck and jaw pain wi th increased swelling over the past 48 hours. He had visible significant swelling of both sides of the neck although the right side is worse and he states that this is new since his admission. He reports that 4 years ago he injected a welding metal into a rotten right lower molar and is concerned that this may be contributing to his current swelling. He denies night sweats chills or fever. He also denies hemoptysis. Focused Exam Lactate Level 07/18/19 14:14: Lactic Acid Level 3.18*H 07/18/19 16:18: Lactic Acid Level 4.39*H 07/19/19 10:10: Lactic Acid Level 1.62 Objective Exam Vital Signs Vital Signs Date Time Temp Pulse Resp B/P (MAP) Pulse Ox O2 Delivery O2 Flow Rate FiO2 07/21/19 09:00 98 Nasal Cannula 1.00 07/21/19 08:00 37.0 07/21/19 07:00 83 07/21/19 06:00 16 142/80 (100) Capillary Refill : Less Than 3 Seconds General Appearance: WD/WN, Mild Distress Neck: Full Range of Motion, Other (Neck swelling noted there is no evidence for erythema or induration of the skin. There is little more tenderness on the right side in the left and some tenderness over the right lower jaw there is severe dental disease with just stubs of rotting teeth involving the right 6 and 12 year molar on the left side molars are absent. No discrete adenopathy is noted no supraclavicular adenopathy noted. The tongue is not swollen and didn't see venous dilatation of the upper chest or upper extremities.) Respiratory: Chest Non Tender, No Accessory Muscle Use, Other (Scattered rhonchi with diffuse expiratory wheeze noted no focal consolidative findings noted.) Cardiovascular: Regular Rate, Rhythm, No Edema, No Gallop, No JVD, No Murmur, Normal Peripheral Pulses Gastrointestinal: Normal Bowel Sounds, No Organomegaly, No Pulsatile Mass, Non Tender, Soft Extremity: Normal Capillary Refill, Normal Inspection, Normal Range of Motion, Non Tender, No Calf Tenderness, No Pedal Edema Results/Procedures Lab Laboratory Tests 07/21/19 02:30 Patient resulted labs reviewed. Assessment/Plan Assessment and Plan Assess & Plan/Chief Complaint A/P acute COPD exacerbation secondary to right upper lobe pneumonia. We will increase Solu-Medrol due to significant wheezing the 60 IV every 6 from his current 60 mg daily. 2. Progressive neck swelling considering that his right upper lobe infiltrate is improving and the chest x-ray does not reveal mediastinal widening or adenopathy and that I don't see venous dilatation or tongue swelling at this time superior vena cava syndrome is favored to be less likely. Suspect dental infection and is possible that his blood cultures are not a contaminant and that this is oral ligia. Well CT scanning discusses cellulitis physical examination does not suggest cellulitis. Will discontinue cefepime and initiate Zosyn for reasonable pneumonia coverage and better oral ligia coverage. If there is continued increase in swelling will obtain CT chest evaluation. Clinical Quality Measures DVT/VTE Risk/Contraindication: Risk Factor Score Per Nursin RFS Level Per Nursing on Admit: 4+=Very High KAT COLLIER MD Jul 21, 2019 09:52
[2019-07-21] MEDS ORDERED: PIPERACILLIN/TAZO 4.5 GM/NS 100 ML IV NR ×2 (10:00)
[2019-07-21] MEDS: methylPREDNISolone 125 MG (Solu-MEDROL) VIAL IV SCH ×2 (13:22→21:12)
[2019-07-21] MEDS: ALPRAZolam 0.25 MG (XANAX) TAB PO PRN ×2 (13:22→21:12)
[2019-07-21] MEDS: PIPERACILLIN/TAZOBACTAM (BULK) 4.5 GM in NS (IVPB) 100 ML IV SCH ×2 (15:25→23:55)
[2019-07-21] MEDS: AZITHROMYCIN 250 MG TAB (ZITHROMAX) PO SCH (15:25)
[2019-07-21] MEDS: ACETAMINOPHEN 500 MG TAB (TYLENOL) PO PRN (21:12)
[2019-07-22] VITALS (23 sets, daily range): BP systolic 140–200; BP diastolic 64–134
[2019-07-22] MEDS: ENOXAPARIN 80 MG/0.8 ML (LOVENOX) SYR SC SCH (03:08)
[2019-07-22 03:41] LABS: BASOPHILS % (AUTO) 0 % (0-10); EOSINOPHILS % (AUTO) 0 % (0-10); HEMATOCRIT 41 % (40-54); HEMOGLOBIN 13.3 G/DL (13.3-17.7); LYMPHOCYTES # (AUTO) 0.9 X 10^3 (1.0-4.0); LYMPHOCYTES % (AUTO) 9 % (12-44); MEAN CORPUSCULAR HEMOGLOBIN 29 PG (25-34); MEAN CORPUSCULAR HGB CONC 33 G/DL (32-36); MEAN CORPUSCULAR VOLUME 89 FL (80-99); MEAN PLATELET VOLUME 11.1 FL (7.4-10.4); MONOCYTES # (AUTO) 0.9 X 10^3 (0.0-1.0); MONOCYTES % (AUTO) 8 % (0-12); NEUTROPHILS # (AUTO) 8.8 X 10^3 (1.8-7.8); NEUTROPHILS % (AUTO) 83 % (42-75); PLATELET COUNT 223 10^3/uL (130-400); RED CELL DISTRIBUTION WIDTH 15.9 % (10.0-14.5); WHITE BLOOD COUNT 10.6 10^3/uL (4.3-11.0)
[2019-07-22 04:04] LABS: BUN/CREATININE RATIO 26; CALCIUM 8.6 MG/DL (8.5-10.1); CARBON DIOXIDE 22 MMOL/L (21-32); CHLORIDE 106 MMOL/L (98-107); CREATININE SERUM 1.14 MG/DL (0.60-1.30); GFR ESTIMATED > 60; GLUCOSE 142 MG/DL (70-105); MAGNESIUM 2.1 MG/DL (1.6-2.4); POTASSIUM 3.9 MMOL/L (3.6-5.0); SODIUM 140 MMOL/L (135-145)
[2019-07-22] MEDS: POTASSIUM CL 10MEQ/50ML IVPB 50 ML IV SCH (04:07)
[2019-07-22] MEDS: MAGNESIUM 1 GM/100 ML IVPB 100 ML IV SCH (04:07)
[2019-07-22] MEDS: KCL 20 MEQ TAB (K-DUR) PO SCH (04:07)
[2019-07-22] MEDS: guaiFENesin/CODEINE (ROBITUSSIN AC) 10ML UDC PO PRN ×2 (04:19→08:08)
[2019-07-22] MEDS: HYDROcodone/APAP 5 MG/325 MG (LORTAB) TAB PO PRN ×5 (04:20→23:34)
[2019-07-22] MEDS: methylPREDNISolone 125 MG (Solu-MEDROL) VIAL IV SCH ×3 (05:47→21:01)
[2019-07-22] MEDS: diphenhydrAMINE 25 MG TAB (BENADRYL) PO SCH ×2 (08:06→20:49)
[2019-07-22] MEDS: FAMOTIDINE 20 MG (PEPCID) TABLET PO SCH (08:07)
[2019-07-22] MEDS: NICOTINE 14 MG (NICODERM) PATCH TD SCH (08:07)
[2019-07-22] MEDS: CARVEDILOL 6.25 MG (COREG) TAB PO SCH ×2 (08:07→20:49)
--- NOTE | 2019-07-22 08:08 | Diagnostic Imaging Report ---
CHEST 1 VIEW, AP/PA ONLY Indication: Dyspnea Comparison: 07/21/2019 Findings: No new focal airspace disease in the visualized lungs. Stable left upper lobe pulmonary nodular granuloma. Please note that the posterior lower lobes are poorly evaluated by portable radiography. No pleural effusion or pneumothorax. Normal cardiomediastinal silhouette. Impression: 1. No acute cardiopulmonary process by portable radiography. Dictated by: Dictated on workstation # [id number]
[2019-07-22] MEDS: ALPRAZolam 0.25 MG (XANAX) TAB PO PRN ×3 (08:11→18:45)
[2019-07-22] MEDS: SENNA W/DOCUSATE (SENOKOT S) TABLET PO SCH ×2 (08:11→20:49)
[2019-07-22] MEDS: NICOTINE PATCH REMOVAL TP SCH (08:11)
[2019-07-22] MEDS: PIPERACILLIN/TAZOBACTAM (BULK) 4.5 GM in NS (IVPB) 100 ML IV SCH ×3 (08:11→23:34)
--- NOTE | 2019-07-22 08:43 | Cardiology Progress Note ---
Subjective Date Seen by Provider: Jul 22, 2019 Time Seen by Provider: 08:42 Subjective/Events-last exam Patient is laying down in bed complaining of right flank pain. No chest pain Review of Systems General: No Chills, No Night Sweats; Fatigue, Malaise; No Appetite, No Other HEENT: No Head Aches, No Visual Changes, No Eye Pain, No Ear Pain, No Dysphasia, No Sinus Congestion, No Post Nasal Drip, No Sore Throat, No Other Pulmonary: Dyspnea, Cough; No Pleuritic Chest Pain, No Other Cardiovascular: Edema; No: Chest Pain, Palpitations, Orthopnea, Paroxysmal Noc. Dyspnea, Lt Headedness, Other Focused Exam Lactate Level 07/19/19 10:10: Lactic Acid Level 1.62 Objective-Cardiology Exam Last Set of Vital Signs Vital Signs 07/22/19 07/22/19 03:05 06:00 Temp 37.0 Pulse 69 Resp 15 B/P (MAP) 142/64 (90) Pulse Ox 98 O2 Delivery Nasal Cannula O2 Flow Rate 1.00 Capillary Refill : Less Than 3 Seconds I&O Intake and Output 07/22/19 00:00 Intake Total 3500 ml Output Total 2325 ml Balance 1175 ml Intake Oral 1970 ml IV Total 1530 ml Output Urine Total 2325 ml # Bowel Movements 1 General: Alert, Oriented X3, Cooperative, Moderate Distress HEENT: Atraumatic, PERRLA Neck: Supple, No JVD, No Thyromegaly Lungs: Normal Air Movement, Other (Bilateral rhonchi, bilateral wheezing) Heart: Regular Rate, Normal S1, Normal S2, No Murmurs Abdomen: Normal Bowel Sounds, Soft, No Tenderness, No Hepatosplenomegaly, No Masses Extremities: No Clubbing, No Cyanosis, No Edema, Normal Pulses, No Tenderness/Swelling Skin: No Rashes, No Breakdown, No Significant Lesion Neuro: Normal Gait, Normal Speech, Strength at 5/5 X4 Ext, Normal Tone, Sensation Intact Psych/Mental Status: Mental Status NL, Mood NL Results Lab Laboratory Tests 07/22/19 02:48 A/P-Cardiology Admission Diagnosis Chest pain Dyspnea AE COPD Aortic regurgitation Tobaccoism Assessment/Plan Chest pain, nonspecific etiology, improved- EKG reveals no acute ST changes, cardiac enzymes normal, pleuritic in nature. Continue to monitor Fever, multiple organism on blood culture, repeat blood culture is negative, started on antibiotics, managed by primary care physician Pneumonia, Wheezing, shortness of breath, acute exacerbation of COPD, receiving bronchodilator, I requested additional bronchodilator now due to active wheezing Neck abscess, patient had dental abscess, will need surgical evaluation Paroxysmal atrial fibrillation, had an episode of atrial fibrillation with rapid ventricular response, started on Cardizem drip and converted to sinus rhythm. Continue to monitor heart rate Allergic reaction to Vancomycin Elevation in liver enzymes, better at this time Bronchitis. Management per medical services. Aortic regurgitation- 2d Echo done 2014 revealed moderate AR, I will evaluate 2D Echo Mild to moderate nonobstructive CAD per cath done 2014. Tobaccoism- educated on smoking cessation Hx of illicit drug use- denies any recent drug use. Reported hx of multiple NH's in the past not requiring intervention Clinical Quality Measures DVT/VTE Risk/Contraindication: Risk Factor Score Per Nursin RFS Level Per Nursing on Admit: 4+=Very High SHEFALI ANDREW MD Jul 22, 2019 08:43
--- NOTE | 2019-07-22 10:52 | NUR ---
0800 ASSESSMENT COMPLETE SEE FLOW SHEET, PT HAD SPILLED FOOD ALL OVER BED, THIS RN HAD PT SIT UP IN CHAIR TO CLEAN UP. PT ENCOURAGED TO SIT UP FOR AT LEAST 1 HOUR. 20 MIN AFTER SITTING UP PT ON KNEES COUGHING OVER BSC AND HITTING THE WALL OF CABINET C/O "MY SIDE IS CRAMPING" PT'S BED MADE AND PT BACK TO BED. XANAX GIVEN ALONG WITH COUGH MEDICATION AND PAIN TAB. CALL LIGHT AND OTHER PERSONAL ITEMS WITHIN REACH, PT APOLOGIZED SEVERAL TIMES FOR HIS BEHAVIOR. WILL CONTINUE TO MONITOR.
--- NOTE | 2019-07-22 12:55 | Progress Note - Hospitalist ---
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 ABG was stable at time, White count was normal no evidence of sepsis so he was placed on empiric antibiotics Azithromycin in addition to IV steroids, nebulizer treatments, and oxygen supplementation. Dr. Rojas was consulted for cardiology issues and at that point hs blood cultures were reported to have some contamination of both gram positive and gram negative bacteria so Dr. Adames saw him and he has ordered a repeat urine culture and blood culture and I will place him on Cerfepime and Vancomycin empirically for history of pneumonias and bronchitis in the past. Chest x ray was negative for any infiltrate but did note the lung mass he knows about. We will heplock his IV and initiate Tessalon Pearls and Robitussin Codeine. Subjective/Events-last exam Patient reports decrease in neck swelling still coughing a lot promptly nonproductive no purulent sputum production but less short of breath. No night sweats chills or fever noted. Objective Exam Vital Signs Vital Signs Date Time Temp Pulse Resp B/P (MAP) Pulse Ox O2 Delivery O2 Flow Rate FiO2 07/22/19 12:04 97 Nasal Cannula 1.00 07/22/19 12:00 36.6 07/22/19 12:00 68 20 173/87 (115) Capillary Refill : Less Than 3 Seconds General Appearance: No Apparent Distress Neck: Full Range of Motion, Other (Decreased swelling and tenderness of the neck tissue soft no induration or erythema no venous dilatation noted. ) Respiratory: No Accessory Muscle Use, No Respiratory Distress, Other (Scattered rhonchi with mild expiratory wheeze increased air movement compared to yesterday) Cardiovascular: Regular Rate, Rhythm, No Edema, No Gallop, No JVD, No Murmur Gastrointestinal: Normal Bowel Sounds, No Organomegaly, No Pulsatile Mass, Non Tender, Soft Results/Procedures Lab Laboratory Tests 07/22/19 02:48 Patient resulted labs reviewed. Assessment/Plan Assessment and Plan Assess & Plan/Chief Complaint A/P acute COPD exacerbation secondary to right upper lobe pneumonia improving continue increased dose of Solu-Medrol 60 mg IV every 8. 2. Progressive neck swelling appears to be improving was switched to Zosyn. Considering that his right upper lobe infiltrate is improving and the chest x- ray does not reveal mediastinal widening or adenopathy and that I don't see venous dilatation or tongue swelling at this time superior vena cava syndrome is favored to be less likely. Suspect dental infection and is possible that his blood cultures are not a contaminant and that this is oral ligia. Well CT scanning discusses cellulitis physical examination does not suggest cellulitis. Clinical Quality Measures DVT/VTE Risk/Contraindication: Risk Factor Score Per Nursin RFS Level Per Nursing on Admit: 4+=Very High KAT COLLIER MD Jul 22, 2019 12:55
[2019-07-22] MEDS: BENZONATATE 100 MG (TESSALON) CAPSULE PO SCH ×2 (16:00→21:01)
[2019-07-22] MEDS: MELATONIN 3 MG TABLET PO PRN (18:44)
[2019-07-23] VITALS (13 sets, daily range): BP systolic 120–193; BP diastolic 63–92
[2019-07-23] MEDS: ENOXAPARIN 80 MG/0.8 ML (LOVENOX) SYR SC SCH ×2 (03:29→14:00)
[2019-07-23 03:37] LABS: BASOPHILS % (AUTO) 0 % (0-10); EOSINOPHILS % (AUTO) 0 % (0-10); HEMATOCRIT 42 % (40-54); HEMOGLOBIN 13.6 G/DL (13.3-17.7); LYMPHOCYTES # (AUTO) 1.1 X 10^3 (1.0-4.0); LYMPHOCYTES % (AUTO) 11 % (12-44); MEAN CORPUSCULAR HEMOGLOBIN 29 PG (25-34); MEAN CORPUSCULAR HGB CONC 33 G/DL (32-36); MEAN CORPUSCULAR VOLUME 88 FL (80-99); MEAN PLATELET VOLUME 10.1 FL (7.4-10.4); MONOCYTES # (AUTO) 0.6 X 10^3 (0.0-1.0); MONOCYTES % (AUTO) 6 % (0-12); NEUTROPHILS # (AUTO) 8.7 X 10^3 (1.8-7.8); NEUTROPHILS % (AUTO) 83 % (42-75); PLATELET COUNT 228 10^3/uL (130-400); RED CELL DISTRIBUTION WIDTH 15.8 % (10.0-14.5); WHITE BLOOD COUNT 10.4 10^3/uL (4.3-11.0)
[2019-07-23 04:06] LABS: BUN/CREATININE RATIO 27; CALCIUM 8.3 MG/DL (8.5-10.1); CARBON DIOXIDE 22 MMOL/L (21-32); CHLORIDE 104 MMOL/L (98-107); CREATININE SERUM 1.07 MG/DL (0.60-1.30); GFR ESTIMATED > 60; GLUCOSE 184 MG/DL (70-105); PHOSPHORUS 4.2 MG/DL (2.3-4.7); POTASSIUM 3.9 MMOL/L (3.6-5.0); SODIUM 136 MMOL/L (135-145)
[2019-07-23] MEDS: HYDROcodone/APAP 5 MG/325 MG (LORTAB) TAB PO PRN ×5 (04:18→21:50)
[2019-07-23] MEDS: MAGNESIUM 1 GM/100 ML IVPB 100 ML IV SCH (04:19)
[2019-07-23] MEDS: POTASSIUM CL 10MEQ/50ML IVPB 50 ML IV SCH (04:19)
[2019-07-23] MEDS: KCL 20 MEQ TAB (K-DUR) PO SCH (04:19)
[2019-07-23] MEDS: methylPREDNISolone 125 MG (Solu-MEDROL) VIAL IV SCH ×2 (05:56→14:00)
[2019-07-23] MEDS: BENZONATATE 100 MG (TESSALON) CAPSULE PO SCH ×3 (05:56→21:51)
--- NOTE | 2019-07-23 07:27 | Diagnostic Imaging Report ---
PATIENT HISTORY: Dyspnea, COPD exacerbation. TECHNIQUE: Single frontal view of the chest. COMPARISON: 07/22/2019 FINDINGS: Lung volumes are normal. No focal consolidation is seen. There is no pleural effusion or pneumothorax. Calcified granuloma is seen in the left upper lung. The cardiac silhouette is normal in size. IMPRESSION: No acute pulmonary abnormality seen. Dictated by: Dictated on workstation # [id number]
[2019-07-23] MEDS: CARVEDILOL 6.25 MG (COREG) TAB PO SCH ×2 (07:49→21:55)
[2019-07-23] MEDS: NICOTINE PATCH REMOVAL TP SCH (07:49)
[2019-07-23] MEDS: NICOTINE 14 MG (NICODERM) PATCH TD SCH (07:49)
[2019-07-23] MEDS: PIPERACILLIN/TAZOBACTAM (BULK) 4.5 GM in NS (IVPB) 100 ML IV SCH ×2 (07:49→15:59)
[2019-07-23] MEDS: diphenhydrAMINE 25 MG TAB (BENADRYL) PO SCH ×2 (07:49→21:50)
[2019-07-23] MEDS: FAMOTIDINE 20 MG (PEPCID) TABLET PO SCH (07:49)
[2019-07-23] MEDS: SENNA W/DOCUSATE (SENOKOT S) TABLET PO SCH ×2 (07:50→21:50)
--- NOTE | 2019-07-23 08:41 | Cardiology Progress Note ---
Subjective Date Seen by Provider: Jul 23, 2019 Time Seen by Provider: 08:40 Subjective/Events-last exam Patient is laying down in bed, still having neck and jaw pain. No chest pain Review of Systems General: No Chills, No Night Sweats; Fatigue, Malaise; No Appetite, No Other HEENT: No Head Aches, No Visual Changes, No Eye Pain, No Ear Pain, No Dysphasia, No Sinus Congestion, No Post Nasal Drip, No Sore Throat, No Other Pulmonary: No Dyspnea, No Cough, No Pleuritic Chest Pain, No Other Cardiovascular: No: Chest Pain, Palpitations, Orthopnea, Paroxysmal Noc. Dyspnea, Edema, Lt Headedness, Other Objective-Cardiology Exam Last Set of Vital Signs Vital Signs 07/23/19 07/23/19 07/23/19 07/23/19 03:25 06:00 07:00 07:08 Temp 36.8 Pulse 74 Resp 34 B/P (MAP) 150/77 (101) Pulse Ox 94 O2 Delivery Nasal Cannula O2 Flow Rate 1.00 Capillary Refill : Less Than 3 Seconds I&O Intake and Output 07/23/19 00:00 Intake Total 1740 ml Output Total 1525 ml Balance 215 ml Intake Oral 1500 ml IV Total 240 ml Output Urine Total 1525 ml # Bowel Movements 2 General: Alert, Oriented X3, Cooperative, Moderate Distress HEENT: Atraumatic, PERRLA Neck: Supple, No JVD, No Thyromegaly Lungs: Normal Air Movement, Other (Bilateral rhonchi, bilateral wheezing) Heart: Regular Rate, Normal S1, Normal S2, No Murmurs Abdomen: Normal Bowel Sounds, Soft, No Tenderness, No Hepatosplenomegaly, No Masses Extremities: No Clubbing, No Cyanosis, No Edema, Normal Pulses, No Tenderness/Swelling Skin: No Rashes, No Breakdown, No Significant Lesion Neuro: Normal Gait, Normal Speech, Strength at 5/5 X4 Ext, Normal Tone, Sensation Intact Psych/Mental Status: Mental Status NL, Mood NL Results Lab Laboratory Tests 07/23/19 03:05 A/P-Cardiology Admission Diagnosis Chest pain Dyspnea AE COPD Aortic regurgitation Tobaccoism Assessment/Plan Chest pain, nonspecific etiology, improved- EKG reveals no acute ST changes, cardiac enzymes normal, pleuritic in nature. Continue to monitor Fever, multiple organism on blood culture, repeat blood culture is negative, started on antibiotics, managed by primary care physician Pneumonia, Wheezing, shortness of breath, acute exacerbation of COPD, better today. Managed by Dr. Raza Neck abscess, patient had dental abscess, will need surgical evaluation Paroxysmal atrial fibrillation, had an episode of atrial fibrillation with rapid ventricular response, started on Cardizem drip and converted to sinus rhythm. Continue to monitor heart rate Allergic reaction to Vancomycin Elevation in liver enzymes, better at this time Bronchitis. Management per medical services. Aortic regurgitation- 2d Echo done 2014 revealed moderate AR, I will evaluate 2D Echo Mild to moderate nonobstructive CAD per cath done 2014. Tobaccoism- educated on smoking cessation Hx of illicit drug use- denies any recent drug use. Reported hx of multiple AR's in the past not requiring intervention Clinical Quality Measures DVT/VTE Risk/Contraindication: Risk Factor Score Per Nursin RFS Level Per Nursing on Admit: 4+=Very High SHEFALI ANDREW MD Jul 23, 2019 08:41
--- NOTE | 2019-07-23 09:05 | NUR ---
REPORT CALLED TO BRAULIO THOMPSON. PT TRANSPORTED TO ROOM 412 WITH ALL PERSONAL BELONGINGS VIA W/C. PT TRANSFERRED TO W/C INDEPENDENTLY WITH SBA. PT VOICED NO COMPLAINTS.
[2019-07-23] MEDS: ALPRAZolam 0.25 MG (XANAX) TAB PO PRN ×2 (12:31→21:49)
--- NOTE | 2019-07-23 14:20 | Progress Note ---
Subjective Subjective/Events-last exam Patient states that he is feeling better but still short of breath. Tolerating PO diet. Review of Systems Cardiovascular: No: Chest Pain, Palpitations Gastrointestinal: No: Nausea, Vomiting Musculoskeletal: back pain Objective Exam Last Set of Vital Signs Vital Signs Date Time Temp Pulse Resp B/P (MAP) Pulse Ox O2 Delivery O2 Flow Rate FiO2 07/23/19 12:10 88 07/23/19 12:00 37.0 19 185/88 (120) 97 Nasal Cannula 1.00 Capillary Refill : Less Than 3 Seconds I&O Intake and Output 07/23/19 00:00 Intake Total 1740 ml Output Total 1525 ml Balance 215 ml Intake Oral 1500 ml IV Total 240 ml Output Urine Total 1525 ml # Bowel Movements 2 General: Alert, Oriented X3, Cooperative Lungs: Other (basilar wheezing bilaterally, mild increased work of breathing with activity) Extremities: Other (1+ pitting edema bilaterally with chronic venous statis changes) Results/Procedures Lab Laboratory Tests 07/23/19 03:05: White Blood Count 10.4, Red Blood Count 4.73, Hemoglobin 13.6, Hematocrit 42, Mean Corpuscular Volume 88, Mean Corpuscular Hemoglobin 29, Mean Corpuscular Hemoglobin Concent 33, Red Cell Distribution Width 15.8H, Platelet Count 228, Mean Platelet Volume 10.1, Neutrophils (%) (Auto) 83H, Lymphocytes (%) (Auto) 11L, Monocytes (%) (Auto) 6, Eosinophils (%) (Auto) 0, Basophils (%) (Auto) 0, Neutrophils # (Auto) 8.7H, Lymphocytes # (Auto) 1.1, Monocytes # (Auto) 0.6, Eosinophils # (Auto) 0.0, Basophils # (Auto) 0.0, Sodium Level 136, Potassium Level 3.9, Chloride Level 104, Carbon Dioxide Level 22, Anion Gap 10, Blood Urea Nitrogen 29H, Creatinine 1.07, Estimat Glomerular Filtration Rate > 60, BUN/Creatinine Ratio 27, Glucose Level 184H, Calcium Level 8.3L, Phosphorus Level 4.2, Magnesium Level 2.0 Microbiology 07/18/19 Blood Culture - Preliminary, Resulted No growth Assessment/Plan Assessment/Plan (1) Acute exacerbation of COPD with asthma Status: Acute Assessment & Plan: - Antibiotics, steroids, MAT protocol, encourage OOB and ambulation (2) Atypical chest pain Status: Resolved Assessment & Plan: 08/23: Cardiology consulted, appreciate recommendations, Ch est pain seems to be related to acute lung disease (3) Right upper lobe pneumonia Status: Acute Assessment & Plan: 08/23: Continue antibiotics, titrate oxygen as tolerated Qualifiers: Qualified Codes: J18.1 - Lobar pneumonia, unspecified organism (4) Aortic regurgitation Status: Chronic Qualifiers: Qualified Codes: I35.1 - Nonrheumatic aortic (valve) insufficiency (5) CAD (coronary artery disease) Status: Chronic Qualifiers: Qualified Codes: I25.10 - Atherosclerotic heart disease of [place] coronary artery without angina pectoris (6) Dental abscess Status: Acute Assessment & Plan: - Needs dental care outpatient (7) Tobacco abuse (8) DVT prophylaxis Status: Acute Clinical Quality Measures DVT/VTE Risk/Contraindication: Risk Factor Score Per Nursin RFS Level Per Nursing on Admit: 4+=Very High ANNELIESE RAMON MD Jul 23, 2019 14:19 POS
[2019-07-23] MEDS: ACETAMINOPHEN 500 MG TAB (TYLENOL) PO PRN (15:33)
--- NOTE | 2019-07-23 16:04 | Pulmonary Consultation ---
History of Present Illness History of Present Illness Date of Consultation 07/23/19 15:59 Time Seen by Provider: 05:00 Date of Admission Reason for Visit: chest pain, dyspnea History of Present Illness 58yo presented to ED secondary to CP and coughing x 2 days. Allergies and Home Medications Allergies Coded Allergies: vancomycin (Unverified Allergy, Intermediate, Vomiting, 07/18/19) Bacitracin Zinc (Verified Allergy, Unknown, 06/04/12) bacitracin (Verified Allergy, Unknown, 06/04/12) benzalkonium chloride (Verified Allergy, Unknown, 06/04/12) cefadroxil (Verified Allergy, Unknown, RASH, 04/08/16) gramicidin D (Verified Allergy, Unknown, 06/04/12) hydrocortisone (Verified Allergy, Unknown, 06/04/12) methocarbamol (Verified Allergy, Unknown, 06/04/12) neomycin sulfate (Verified Allergy, Unknown, 06/04/12) polymyxin B (Verified Allergy, Unknown, 06/04/12) polymyxin B sulfate (Verified Allergy, Unknown, 06/04/12) carbamazepine (Unverified Adverse Reaction, Mild, hives, 11/12/14) Home Medications Albuterol Sulfate 1 Puff Puff, 2 PUFF IH Q6H PRN for SHORTNESS OF BREATH, (Reported) 1 PUFF = 90 MCG Aspirin 81 Mg Tablet.dr, 81 MG PO TID PRN for PAIN-MILD, (Reported) Escitalopram Oxalate 10 Mg Tablet, 10 MG PO DAILY, (Reported) LAST FILLED #30 04-20-19 Gabapentin 400 Mg Capsule, 400 MG PO TID, (Reported) LAST FILLED #90 04-20-19 Hydroxyzine HCl 25 Mg Tablet, 25 MG PO Q8H PRN for ANXIETY, (Reported) LAST FILLED #90 04-20-19 Lisinopril 10 Mg Tablet, 10 MG PO DAILY, (Reported) LAST FILLED #30 03-26-19 Past Ajwpkmh-Wusbid-Rfxrvf Hx Past Med/Social Hx: Reviewed Nursing Past Med/Soc Hx, Reviewed and Corrections made Patient Social History Alcohol Use: Past History Number of Drinks Today: AA Alcohol Beverage of Choice: Beer Recreational Drug Use: No (PAST HISTORY) Drug of Choice: pot and meth Smoking Status: Current Everyday Smoker Type Used: Cigarettes Former Smoker, Quit: Apr 15, 2018 2nd Hand Smoke Exposure: Yes Recent Foreign Travel: No Contact w/Someone Who Travel: No Recent Infectious Disease Expo: No Recent Hopitalizations: Yes (SANDOR MARQUISE JUL 12-) Immunizations Up To Date Tetanus Booster (TDap): Unknown Date of Pneumonia Vaccine: Jun 26, 2018 Date of Influenza Vaccine: Jun 26, 2011 Seasonal Allergies Seasonal Allergies: No Past Medical History Surgeries: No Cardiac, Eye Surgery, Lobectomy Respiratory: Yes Pneumonia, COPD, Emphysema Currently Using CPAP: No Currently Using BIPAP: No Cardiac: No Coronary Artery Disease, Deep Vein Thrombosis, Heart Attack, Hypertension, Peripheral Vascular Neurological: No Neuropathy, Stroke, TIA Reproductive Disorders: No Sexually Transmitted Disease: No Genitourinary: No Renal Failure Gastrointestinal: No Gastroesophageal Reflux, Liver Disease/Jaundice, Hepatitis, Polyps Musculoskeletal: No Back Injury, Chronic Back Pain, Fractures Endocrine: No HEENT: No Loss of Vision: Left Cancer: No Lung Did You Recieve Any Treatments: Yes What Type of Treatment Did You: Surgical Intervention Psychosocial: No Anxiety, PTSD, Depression Integumentary: No Blood Disorders: No Adverse Reaction/Blood Tranf: No Family Medical History Cardiovascular disease 19 FATHER 19 MOTHER FH: stroke G8 BROTHER Hypertension 19 FATHER G8 BROTHER No Pertinent Family Hx Review of Systems Time Seen by Provider: 16:04 Sepsis Event Evaluation Height, Weight, BMI Height: 5'8.00" Weight: 165lbs. 5.0oz. 74.072625kt; 23.90 BMI Method:Stated Exam Exam Vital Signs Date Time Temp Pulse Resp B/P (MAP) Pulse Ox O2 Delivery O2 Flow Rate FiO2 07/23/19 14:00 170/77 (108) 07/23/19 12:10 88 07/23/19 12:00 37.0 77 19 185/88 (120) 97 Nasal Cannula 1.00 07/23/19 09:10 36.9 78 22 178/81 (113) 92 Nasal Cannula 1.00 07/23/19 08:15 95 Nasal Cannula 1.00 07/23/19 08:00 75 25 142/69 (93) Nasal Cannula 1.00 07/23/19 07:08 94 Nasal Cannula 1.00 07/23/19 07:00 62 16 155/78 (103) Nasal Cannula 1.00 07/23/19 07:00 74 07/23/19 06:00 73 34 150/77 (101) Nasal Cannula 1.00 07/23/19 05:00 66 15 93 Nasal Cannula 1.00 07/23/19 04:00 65 18 123/63 (83) 95 Nasal Cannula 1.00 07/23/19 03:25 95 Nasal Cannula 1.00 07/23/19 03:25 36.8 Nasal Cannula 1.00 07/23/19 03:17 64 07/23/19 03:00 65 15 137/75 (95) 95 Nasal Cannula 1.00 07/23/19 02:00 73 15 120/63 (82) 94 Nasal Cannula 1.00 07/23/19 01:00 63 14 132/84 (100) 97 Nasal Cannula 1.00 07/23/19 00:00 66 17 133/66 (88) 97 Nasal Cannula 1.00 07/22/19 23:35 37.0 Nasal Cannula 1.00 07/22/19 23:25 98 Nasal Cannula 1.00 07/22/19 23:15 66 22 140/91 (107) 96 Nasal Cannula 1.00 07/22/19 22:00 67 18 141/67 (91) 94 Nasal Cannula 1.00 07/22/19 21:30 07/22/19 21:00 78 18 168/94 (118) 94 Nasal Cannula 1.00 07/22/19 20:00 36.3 07/22/19 20:00 75 17 162/97 (118) 96 Nasal Cannula 1.00 07/22/19 19:40 Nasal Cannula 1.00 07/22/19 19:40 98 Nasal Cannula 1.00 07/22/19 19:00 68 20 143/72 (95) 98 Nasal Cannula 1.00 07/22/19 19:00 70 07/22/19 18:15 98 Nasal Cannula 1.00 07/22/19 18:00 71 21 142/77 (98) 97 Nasal Cannula 1.00 07/22/19 17:00 67 25 140/107 (118) 96 Nasal Cannula 1.00 07/22/19 16:00 67 10 153/76 (101) 95 Nasal Cannula 1.00 07/22/19 16:00 97 Nasal Cannula 1.00 07/22/19 16:00 36.5 I & O 07/23/19 07:00 Intake Total 1830 ml Output Total 2100 ml Balance -270 ml Height & Weight Height: 5'8.00" Weight: 165lbs. 5.0oz. 74.865179kw; 23.90 BMI Method:Stated General Appearance: No Apparent Distress HEENT: PERRL/EOMI, Normal ENT Inspection Neck: Full Range of Motion, Other (Decreased swelling and tenderness of the neck tissue soft no induration or erythema no venous dilatation noted. ) Respiratory: No Accessory Muscle Use, No Respiratory Distress, Other (Scattered rhonchi with mild expiratory wheeze increased air movement compared to yesterday) Cardiovascular: Regular Rate, Rhythm, No Edema, No Gallop, No JVD, No Murmur Capillary Refill: Less Than 3 Seconds Peripheral Pulses: 2+ Dorsalis Pedis (R), 2+ Left Dors-Pedis (L), 2+ Radial Pulses (R), 2+ Radial Pulses (L) Gastrointestinal: normal bowel sounds Extremity: Normal Capillary Refill, Normal Inspection, Normal Range of Motion, Non Tender, No Calf Tenderness, No Pedal Edema Neurologic/Psychiatric: Alert, Oriented x3, No Motor/Sensory Deficits, Normal Mood/Affect Skin: Normal Color, Diaphoresis Results Lab Laboratory Tests 07/22/19 02:48 07/23/19 03:05 Assessment/Plan Assessment/Plan COPDAE -SVNS -Oxygen -Solumedrol - change to prednisone PNA -currently on zosyn Dental infection ROMELIA RG DO Jul 23, 2019 16:04 POS
[2019-07-23] MEDS ORDERED: lisINopril 20 MG (PRINIVIL) TABLET PO NR (17:45)
[2019-07-23] MEDS: MELATONIN 3 MG TABLET PO PRN (21:50)
[2019-07-24] VITALS: BP 134/66
[2019-07-24] MEDS: PIPERACILLIN/TAZOBACTAM (BULK) 4.5 GM in NS (IVPB) 100 ML IV SCH ×2 (00:20→08:34)
[2019-07-24] MEDS: HYDROcodone/APAP 5 MG/325 MG (LORTAB) TAB PO PRN ×2 (01:51→06:51)
[2019-07-24] MEDS: ENOXAPARIN 80 MG/0.8 ML (LOVENOX) SYR SC SCH (03:41)
[2019-07-24 04:42] VITALS: BP 145/79
[2019-07-24 05:47] LABS: BASOPHILS % (AUTO) 0 % (0-10); EOSINOPHILS % (AUTO) 0 % (0-10); HEMATOCRIT 40 % (40-54); LYMPHOCYTES # (AUTO) 2.3 X 10^3 (1.0-4.0); LYMPHOCYTES % (AUTO) 14 % (12-44); MEAN CORPUSCULAR HEMOGLOBIN 29 PG (25-34); MEAN CORPUSCULAR HGB CONC 33 G/DL (32-36); MEAN CORPUSCULAR VOLUME 88 FL (80-99); MEAN PLATELET VOLUME 10.7 FL (7.4-10.4); MONOCYTES # (AUTO) 1.7 X 10^3 (0.0-1.0); MONOCYTES % (AUTO) 10 % (0-12); NEUTROPHILS # (AUTO) 12.6 X 10^3 (1.8-7.8); NEUTROPHILS % (AUTO) 76 % (42-75); PLATELET COUNT 231 10^3/uL (130-400); RED CELL DISTRIBUTION WIDTH 15.8 % (10.0-14.5); WHITE BLOOD COUNT 16.6 10^3/uL (4.3-11.0)
[2019-07-24 05:56] LABS: BUN/CREATININE RATIO 27; CALCIUM 7.9 MG/DL (8.5-10.1); CARBON DIOXIDE 27 MMOL/L (21-32); CHLORIDE 103 MMOL/L (98-107); CREATININE SERUM 0.98 MG/DL (0.60-1.30); GFR ESTIMATED > 60; GLUCOSE 116 MG/DL (70-105); POTASSIUM 3.5 MMOL/L (3.6-5.0); SODIUM 139 MMOL/L (135-145)
[2019-07-24] MEDS: KCL 20 MEQ TAB (K-DUR) PO SCH (06:00)
[2019-07-24] MEDS ORDERED: KCL 20 MEQ TAB (K-DUR) PO ONE (06:45)
[2019-07-24] MEDS: BENZONATATE 100 MG (TESSALON) CAPSULE PO SCH (06:51)
[2019-07-24 07:29] VITALS: BP 170/90
--- NOTE | 2019-07-24 08:00 | Pulmonary Progress Note ---
Subjective Time Seen by a Provider: 08:02 Subjective/Events-last exam PT appears to be doing better. Sepsis Event Evaluation Height, Weight, BMI Height: 5'8.00" Weight: 165lbs. 5.0oz. 74.634360eq; 23.90 BMI Method:Stated Exam Exam Vital Signs Date Time Temp Pulse Resp B/P (MAP) Pulse Ox O2 Delivery O2 Flow Rate FiO2 07/24/19 07:29 36.0 69 16 170/90 (116) 99 Nasal Cannula 1.00 07/24/19 07:00 73 07/24/19 04:42 36.1 75 18 145/79 (101) 100 Nasal Cannula 1.00 07/24/19 00:32 80 07/24/19 00:00 35.9 79 20 134/66 (88) 98 Nasal Cannula 1.00 07/23/19 20:22 36.9 79 19 184/88 (120) 96 Nasal Cannula 1.00 07/23/19 19:00 88 07/23/19 16:35 37.1 82 19 193/92 (125) 96 Nasal Cannula 1.00 07/23/19 14:00 170/77 (108) 07/23/19 12:10 88 07/23/19 12:00 37.0 77 19 185/88 (120) 97 Nasal Cannula 1.00 07/23/19 09:10 36.9 78 22 178/81 (113) 92 Nasal Cannula 1.00 07/23/19 08:15 95 Nasal Cannula 1.00 07/23/19 08:00 75 25 142/69 (93) Nasal Cannula 1.00 I & O 07/24/19 07:00 Intake Total 1760 ml Balance 1760 ml Height & Weight Height: 5'8.00" Weight: 165lbs. 5.0oz. 74.729523jb; 23.90 BMI Method:Stated General Appearance: No Apparent Distress HEENT: PERRL/EOMI, Normal ENT Inspection Neck: Full Range of Motion Respiratory: No Accessory Muscle Use, No Respiratory Distress, Decreased Breath Sounds Cardiovascular: Regular Rate, Rhythm, No Edema, No Gallop, No JVD, No Murmur Capillary Refill: Less Than 3 Seconds Peripheral Pulses: 2+ Dorsalis Pedis (R), 2+ Left Dors-Pedis (L), 2+ Radial Pulses (R), 2+ Radial Pulses (L) Gastrointestinal: normal bowel sounds Extremity: Normal Capillary Refill, Normal Inspection, Normal Range of Motion, Non Tender, No Calf Tenderness, No Pedal Edema Neurologic/Psychiatric: Alert, Oriented x3, No Motor/Sensory Deficits, Normal Mood/Affect Skin: Normal Color, Diaphoresis Results Lab Laboratory Tests 07/23/19 03:05 07/24/19 04:25 Assessment/Plan Assessment/Plan COPDAE -SVNS -Oxygen - prednisone PNA -currently on zosyn Dental infection ROMELIA RG DO Jul 24, 2019 08:00 POS
--- NOTE | 2019-07-24 08:33 | Cardiology Progress Note ---
Subjective Date Seen by Provider: Jul 24, 2019 Time Seen by Provider: 08:32 Subjective/Events-last exam Patient is laying down in bed. Denied any chest pain. No palpitation, having chest congestion and shortness of breath Review of Systems General: No Chills, No Night Sweats, No Fatigue, No Malaise, No Appetite, No Other HEENT: No Head Aches, No Visual Changes, No Eye Pain, No Ear Pain, No Dysphasia, No Sinus Congestion, No Post Nasal Drip, No Sore Throat, No Other Pulmonary: Dyspnea, Cough; No Pleuritic Chest Pain, No Other Cardiovascular: No: Chest Pain, Palpitations, Orthopnea, Paroxysmal Noc. Dyspnea, Edema, Lt Headedness, Other Objective-Cardiology Exam Last Set of Vital Signs Vital Signs 07/24/19 07:29 Temp 36.0 Pulse 69 Resp 16 B/P (MAP) 170/90 (116) Pulse Ox 99 O2 Delivery Nasal Cannula O2 Flow Rate 1.00 Capillary Refill : Less Than 3 Seconds I&O Intake and Output 07/24/19 00:00 Intake Total 2470 ml Output Total 950 ml Balance 1520 ml Intake Oral 2350 ml IV Total 120 ml Output Urine Total 950 ml # Voids 3 # Bowel Movements 4 General: Alert, Oriented X3, Cooperative HEENT: Atraumatic, PERRLA Neck: Supple, No JVD, No Thyromegaly Lungs: Other (bilateral rhonchi) Heart: Regular Rate, Normal S1, Normal S2, No Murmurs Abdomen: Normal Bowel Sounds, Soft, No Tenderness, No Hepatosplenomegaly, No Masses Extremities: Other (1+ pitting edema bilaterally with chronic venous statis changes) Skin: No Rashes, No Breakdown, No Significant Lesion Neuro: Normal Gait, Normal Speech, Strength at 5/5 X4 Ext, Normal Tone, Sensation Intact Psych/Mental Status: Mental Status NL, Mood NL Results Lab Laboratory Tests 07/24/19 04:25 A/P-Cardiology Admission Diagnosis Chest pain Dyspnea AE COPD Aortic regurgitation Tobaccoism Assessment/Plan Chest pain, nonspecific etiology, improved- EKG reveals no acute ST changes, cardiac enzymes normal, pleuritic in nature. Continue to monitor Pneumonia, Wheezing, shortness of breath, acute exacerbation of COPD, improving slowly, managed by Dr. Raza Neck abscess, patient had dental abscess, will need surgical evaluation Paroxysmal atrial fibrillation, had an episode of atrial fibrillation with rapid ventricular response, started on Cardizem drip and converted to sinus rhythm. Continue to monitor heart rate Allergic reaction to Vancomycin Elevation in liver enzymes, better at this time Bronchitis. Management per medical services. Aortic regurgitation- 2d Echo done 2014 revealed moderate AR, I will evaluate 2D Echo Mild to moderate nonobstructive CAD per cath done 2014. Tobaccoism- educated on smoking cessation Hx of illicit drug use- denies any recent drug use. Reported hx of multiple IL's in the past not requiring intervention Clinical Quality Measures DVT/VTE Risk/Contraindication: Risk Factor Score Per Nursin RFS Level Per Nursing on Admit: 4+=Very High SHEFALI ANDREW MD Jul 24, 2019 08:33 POS
[2019-07-24] MEDS: diphenhydrAMINE 25 MG TAB (BENADRYL) PO SCH (08:34)
[2019-07-24] MEDS: NICOTINE 14 MG (NICODERM) PATCH TD SCH (08:34)
[2019-07-24] MEDS: FAMOTIDINE 20 MG (PEPCID) TABLET PO SCH (08:34)
[2019-07-24] MEDS: NICOTINE PATCH REMOVAL TP SCH (08:50)
[2019-07-24] MEDS: SENNA W/DOCUSATE (SENOKOT S) TABLET PO SCH (08:50)
[2019-07-24] MEDS ORDERED: CARVEDILOL 12.5 MG (COREG) TABLET PO SCH (09:00)
[2019-07-24 11:19] VITALS: BP 146/75
--- NOTE | 2019-07-24 11:27 | Discharge Summary ---
Diagnosis/Chief Complaint Date of Admission Jul 17, 2019 at 17:00 Date of Discharge 07/24/2019 Admission Diagnosis Admission Diagnosis See problem list Discharge Diagnosis See below Problems/Diagnosis: (1) Acute exacerbation of COPD with asthma Assessment & Plan: - Antibiotics, steroids, MAT protocol, encourage OOB and ambulation 07/24: Patient off oxygen, ambulating with PT w/o oxygen Status: Acute (2) Atypical chest pain Assessment & Plan: 08/23: Cardiology consulted, appreciate recommendations, Chest pain seems to be related to acute lung disease Status: Resolved Resolution Date/Time: 07/23/19 @ 14:17 (3) Right upper lobe pneumonia Assessment & Plan: 08/23: Continue antibiotics, titrate oxygen as tolerated Qualifiers: Qualified Codes: J18.1 - Lobar pneumonia, unspecified organism Status: Acute (4) Aortic regurgitation Assessment & Plan: 07/24: Will have f.u with cardiology as outpatient Qualifiers: Qualified Codes: I35.1 - Nonrheumatic aortic (valve) insufficiency Status: Chronic (5) CAD (coronary artery disease) Qualifiers: Qualified Codes: I25.10 - Atherosclerotic heart disease of [place] coronary artery without angina pectoris Status: Chronic (6) Dental abscess Assessment & Plan: - Needs dental care outpatient Status: Acute (7) Tobacco abuse Assessment & Plan: - Discussed the need for cessation (8) DVT prophylaxis Status: Acute Discharge Summary-Simple/Stand Consultations Dr Sawyer: Cardiology Dr Raza: Pulm, Critical Care Discharge Physical Examination Allergies: Coded Allergies: vancomycin (Unverified Allergy, Intermediate, Vomiting, 07/18/19) Bacitracin Zinc (Verified Allergy, Unknown, 06/04/12) bacitracin (Verified Allergy, Unknown, 06/04/12) benzalkonium chloride (Verified Allergy, Unknown, 06/04/12) cefadroxil (Verified Allergy, Unknown, RASH, 04/08/16) gramicidin D (Verified Allergy, Unknown, 06/04/12) hydrocortisone (Verified Allergy, Unknown, 06/04/12) methocarbamol (Verified Allergy, Unknown, 06/04/12) neomycin sulfate (Verified Allergy, Unknown, 06/04/12) polymyxin B (Verified Allergy, Unknown, 06/04/12) polymyxin B sulfate (Verified Allergy, Unknown, 06/04/12) carbamazepine (Unverified Adverse Reaction, Mild, hives, 11/12/14) Vitals & I&Os Vital Sign - Last 12Hours Date Time Temp Pulse Resp B/P (MAP) Pulse Ox O2 Delivery O2 Flow Rate FiO2 07/24/19 11:19 36.6 69 20 146/75 (98) 97 Room Air 07/24/19 07:29 1.00 Intake and Output 07/24/19 00:00 Intake Total 2860 ml Output Total 1025 ml Balance 1835 ml General Appearance: Alert, Oriented X3, Cooperative, No Acute Distress HEENT: Mucous Memb Moist/[place], Other (Poor dentition) Respiratory: Normal Air Movement, Other (basilar wheezing, normal work of breathing) Cardiovascular: Regular Rate, No Murmurs Abdominal: Normal Bowel Sounds, Soft, No Tenderness, No Masses Extremities: Other (1+ edema bilaterally) Hospital Course See final discharge diagnosis. Discussion & Recommendations 58 yo that was admitted with COPDAE 2/[address] [facility]. He was placed on oxygen and MAT protocol and IV antibiotics and steroids. Patient was seen by Dr Raza and oxygen was titrated as tolerated. Patient will have outpatient f.u with Dr Raza. Discussed with patient the importance of tobacco cessation. Patient will have close f.u with Dr Raza and PCP at [facility]. Discharge Condition at discharge Guarded Instructions to patient/family Please see electronic discharge instructions given to patient. Discharge Medications Reviewed and agree with Discharge Medication list on patient's Discharge Instruction sheet Clinical Quality Measures DVT/VTE Risk/Contraindication: Risk Factor Score Per Nursin RFS Level Per Nursing on Admit: 4+=Very High ANNELIESE RAMON MD Jul 24, 2019 11:27 POS
[2019-07-24] MEDS ORDERED: PRD20T PO (11:35)
[2019-07-24] MEDS ORDERED: FAMO20TA5 PO (11:35)
[2019-07-24] MEDS ORDERED: CARV12.53 PO (11:35)
[2019-07-24] MEDS ORDERED: CLIN300C11 PO (11:35)
--- NOTE | 2019-07-24 11:39 | D/C HH Face to Face Order ---
Discharge Summary Reconcile Patient Problems Problems Reviewed?: Yes Instructions for Patient Via BeGo, Assessment/Instructions Patient discharging from hospital and will need help with new meds. PT/OT for debility. Physician to follow Patient: Heurter Discharge Diet for Home: Cardiac Diet, Low Sodium Diet Hospital Course Date of Admission: Jul 17, 2019 at 17:00 Admission Diagnosis : Family Physician/Provider: Daniel Omalley MD Date of Discharge: 07/24/19 Discharge Diagnosis: [ ] Hospital Course: [ ] Labs and Pending Lab Test: Laboratory Tests 07/24/19 04:25: White Blood Count 16.6H, Red Blood Count 4.55, Hemoglobin 13.0L, Hematocrit 40, Mean Corpuscular Volume 88, Mean Corpuscular Hemoglobin 29, Mean Corpuscular Hemoglobin Concent 33, Red Cell Distribution Width 15.8H, Platelet Count 231, Mean Platelet Volume 10.7H, Neutrophils (%) (Auto) 76H, Lymphocytes (%) (Auto) 14, Monocytes (%) (Auto) 10, Eosinophils (%) (Auto) 0, Basophils (%) (Auto) 0, Neutrophils # (Auto) 12.6H, Lymphocytes # (Auto) 2.3, Monocytes # (Auto) 1.7H, Eosinophils # (Auto) 0.0, Basophils # (Auto) 0.0, Sodium Level 139, Potassium Level 3.5L, Chloride Level 103, Carbon Dioxide Level 27, Anion Gap 9, Blood Urea Nitrogen 26H, Creatinine 0.98, Estimat Glomerular Filtration Rate > 60, BUN/Creatinine Ratio 27, Glucose Level 116H, Calcium Level 7.9L Microbiology 07/18/19 Blood Culture - Final, Complete No growth Home Meds Active Clindamycin HCl 300 Mg Capsule 300 Mg PO TID 10 Days Prednisone 20 Mg Tab 20 Mg PO DAILY Take 3 tabs(60mg)daily,decrease by 1/2 tab(10mg)every other day. Famotidine 20 Mg Tablet 20 Mg PO DAILY Carvedilol 12.5 Mg Tablet 12.5 Mg PO BID Reported Proair Hfa (Albuterol Sulfate) 1 Puff Puff 2 Puff IH Q6H PRN 1 PUFF = 90 MCG Gabapentin 400 Mg Capsule 400 Mg PO TID LAST FILLED #90 04-20-19 Aspirin EC (Aspirin) 81 Mg Tablet.dr 81 Mg PO TID PRN Hydroxyzine HCl 25 Mg Tablet 25 Mg PO Q8H PRN LAST FILLED #90 04-20-19 Lexapro (Escitalopram Oxalate) 10 Mg Tablet 10 Mg PO DAILY LAST FILLED #30 04-20-19 Lisinopril 10 Mg Tablet 10 Mg PO DAILY LAST FILLED #30 03-26-19 Patient Allergies: Coded Allergies: vancomycin (Unverified Allergy, Intermediate, Vomiting, 07/18/19) Bacitracin Zinc (Verified Allergy, Unknown, 06/04/12) bacitracin (Verified Allergy, Unknown, 06/04/12) benzalkonium chloride (Verified Allergy, Unknown, 06/04/12) cefadroxil (Verified Allergy, Unknown, RASH, 04/08/16) gramicidin D (Verified Allergy, Unknown, 06/04/12) hydrocortisone (Verified Allergy, Unknown, 06/04/12) methocarbamol (Verified Allergy, Unknown, 06/04/12) neomycin sulfate (Verified Allergy, Unknown, 06/04/12) polymyxin B (Verified Allergy, Unknown, 06/04/12) polymyxin B sulfate (Verified Allergy, Unknown, 06/04/12) carbamazepine (Unverified Adverse Reaction, Mild, hives, 11/12/14) Height (Feet): 5 Height (Inches): 8.00 Weight (Pounds): 165 Weight (Ounces): 5.0 Home Health Need/Face to Face Date of Face to Face: Jul 24, 2019 Clinical Findings: Shortness of breath, Unsteady gait I have seen Pt [id number]: Yes Discharged To: Home Diagnosis/Conditions: PNA COPD Exacerbation Atypical Chest pain Tobacco use Dental pain and abscess Aortic Regurgitation Patient is Homebound due to: Brianna fall risk due to instabilty, Muscle weakness, Shortness of breath/distress Homebound Status Due to the above stated illness, injury or surgical procedure (medical condition or diagnosis) and associated clinical findings, the patient is homebound because of his/her inability to leave home except with aid of a suppor tive device and/or person AND leaving the home requires a considerable and taxing effort or is medically contraindicated. Pt req the following assistanc: Aid of another person Home Health Nursing Orders Home Health Services Order: Nursing Services, Physical Therapy-Evaluate & Treat Home Health Infusion Therapy Line Start Date: Jul 21, 2019 Therapy Orders Therapy Orders: OT (must have SN or PT order), PT to assess for OT Therapy Specific Orders: Teach enviro modifications/safety, Increase s trength/endurance Certify Stmt I certify that this patient is under my care and that I, a nurse practitioner or a physician; a assistant professor of drama working with me, had a face to face encounter that - meets the physician face to face encounter requirements with this patient as dated. Discharge Physical Exam General: Alert, Oriented X3, Cooperative, Moderate Distress (with any activity) Lungs: Other (basilar wheezing) Heart: Regular Rate, No Murmurs Abdomen: Normal Bowel Sounds, Soft, No Tenderness, No Masses Extremities: No Tenderness/Swelling Neuro: Cranial Nerves 3-12 NL ANNELIESE RAMON MD Jul 24, 2019 11:39 POS
--- NOTE | 2019-07-24 11:40 | Discharge Instructions ---
Discharge [facility] Discharge Medications New Medications: Clindamycin HCl (Clindamycin HCl) 300 Mg Capsule 300 MG PO TID for 10 Days, #30 CAP Prednisone (Prednisone) 20 Mg Tab 20 MG PO DAILY, #22 TAB Take 3 tabs(60mg)daily,decrease by 1/2 tab(10mg)every other day. Carvedilol (Carvedilol) 12.5 Mg Tablet 12.5 MG PO BID, #60 TAB Famotidine (Famotidine) 20 Mg Tablet 20 MG PO DAILY, #30 TAB Continued Medications: Albuterol Sulfate (Proair Hfa) 1 Puff Puff 2 PUFF IH Q6H PRN for SHORTNESS OF BREATH, INHALER 1 PUFF = 90 MCG Aspirin (Aspirin EC) 81 Mg Tablet.dr 81 MG PO TID PRN for PAIN-MILD, TAB Escitalopram Oxalate (Lexapro) 10 Mg Tablet 10 MG PO DAILY, TAB LAST FILLED #30 04-20-19 Gabapentin (Gabapentin) 400 Mg Capsule 400 MG PO TID, CAP LAST FILLED #90 04-20-19 Hydroxyzine HCl (Hydroxyzine HCl) 25 Mg Tablet 25 MG PO Q8H PRN for ANXIETY, TAB LAST FILLED #90 04-20-19 Lisinopril (Lisinopril) 10 Mg Tablet 10 MG PO DAILY, TAB LAST FILLED #30 03-26-19 Patient Instructions Goal/Follow Up Appt: You have a f.u appt with Dr Merritt on TuesdayJul 30 @ 1140 AM ANNELIESE RAMON MD Jul 24, 2019 11:40 POS
--- NOTE | 2019-07-24 12:16 | NUR ---
CM/SS spoke with the patient for discharge planning. Patient is in need of a dental appointment, with the patient called [facility], appointment scheduled for 07/25/19 at 8am. Patient was supplied with their contact / location information and stated he would report to appointment in the morning. Patient will have HHC and [facility], referral faxed to C.
[2019-07-24 14:00] VITALS: BP 146/75
--- NOTE | 2019-07-24 14:04 | NUR ---
patient was on RA for 60 mins and O2 sat on RA was 96% with HR 73, patient walked for 6 mins on RA: 1 min HR 86 and he walked 158 ft; 2 min HR 87 and he walked 158 ft, 3 min HR 89 and he walked 158 ft, 4 min HR 87 and he walked 158 ft, 5 min HR 94 and he walked 158 ft, 6 min HR and he walked 158 ft. Patient walked a total of 948 ft and his O2 Sat did not drop below 92% and his lowest HR was 73 and his highest was 94. He did not require O2 at rest or on exertion at this time
[2019-07-25] MEDS ORDERED: predniSONE 20 MG TAB PO SCH (07:00)
--- NOTE | 2019-07-25 23:50 | Physician Query Clarification ---
PQ-Intro New Diagnosis Admission/Discharge Admission Date: Jul 17, 2019 at 17:00 Discharge Date: Jul 24, 2019 at 14:00 The medical record reflects the following clinical scenario: History/Risk Factors: pneumonia, bronchitis Clinical Findings: positive blood cultures, elevated lactic acid, increased WBC Treatment: IV antibiotics, transfer to ICU Question: What condition best reflects the above clinical scenario? The only place I see sepsis documented is on 07/19 and 07/20 Figueredo/Sandra progress notes. Please document a response in the Progress Noter or Discharge Summary. 1. SEPSIS, not present on admission 2. NO SEPSIS 3. Other, with explanation of the clinical findings. 4. Clinically undetermined, no explanation for the clinical findings. PHYSICIAN RESPONSE What condition reflects above: Other, explanation/clinical finding Explanation of clincal finding I treated patient for COPD Exacerbation. I did not admit patient so if that is a question then contact admitted doctor Please remember a lack of response to the above will prompt a phone page by CDI/Coding staff. In responding to this query, please exercise your independent professional judgment. The purpose of this communication is to more accurately reflect the complexity of your patients condition. The fact that a question is asked does not imply that any particular answer is desired or expected. Thank you for your timely response to this clarification. Requestors name: Mckenzie Aguilar Phone # [phone] THIS PHYSICIAN QUERY FORM IS A PERMANENT PART OF THE MEDICAL RECORD MCKENZIE DONNELLY Jul 25, 2019 23:50 ANNELIESE FUCHS MD Aug 01, 2019 10:54 POS
--- NOTE | 2019-08-01 15:29 | Physician Query Clarification ---
PQ-Intro New Diagnosis Admission/Discharge Admission Date: Jul 17, 2019 at 17:00 Discharge Date: Jul 24, 2019 at 14:00 The medical record reflects the following clinical scenario: History/Risk Factors: pneumonia, bronchitis, emphysema Clinical Findings: positive blood cultures, elevated lactic acid, increased WBC Treatment: IV antibiotics, transfer to ICU, IV fluids per sepsis protocol Question: What condition best reflects the above clinical scenario? The only place I see sepsis documented is on 07/19 and 07/20 [facility] progress notes. Please document a response in the Progress Noter or Discharge Summary. 1. SEPSIS 2. NO SEPSIS 3. Other, with explanation of the clinical findings. 4. Clinically undetermined, no explanation for the clinical findings. PHYSICIAN RESPONSE What condition reflects above: 1 Please remember a lack of response to the above will prompt a phone page by [facility]/Coding staff. In responding to this query, please exercise your independent professional judgment. The purpose of this communication is to more accurately reflect the complexity of your patients condition. The fact that a question is asked does not imply that any particular answer is desired or expected. Thank you for your timely response to this clarification. Requestors name: Mckenzie Aguilar Phone # [phone] THIS PHYSICIAN QUERY FORM IS A PERMANENT PART OF THE MEDICAL RECORD MCKENZIE DONNELLY Aug 01, 2019 15:29 SUDHEER PIKE DO Aug 01, 2019 19:35 POS
== END 2019-07-24 14:00 | disposition home health service (06) | DRG 871 ==
LOC: EDUNIT# 14:29 → ER 14:30 → CSD 17:00 → ICU 07-18 15:33 → 4TH 07-23 09:10
PROVIDERS: ADMIT Internal Medicine; ATTEND Internal Medicine
DX: A41.89 Other specified sepsis (principal); J43.9 Emphysema, unspecified; J18.1 Lobar pneumonia, unspecified organism; J40 Bronchitis, not specified as acute or chronic; R04.2 Hemoptysis; L03.221 Cellulitis of neck; C34.90 Malignant neoplasm of unspecified part of unspecified bronchus or lung; K04.7 Periapical abscess without sinus; J32.9 Chronic sinusitis, unspecified; R07.81 Pleurodynia; I35.1 Nonrheumatic aortic (valve) insufficiency; F17.210 Nicotine dependence, cigarettes, uncomplicated; I25.10 Atherosclerotic heart disease of native coronary artery without angina pectoris; I25.2 Old myocardial infarction; I12.9 Hypertensive chronic kidney disease with stage 1 through stage 4 chronic kidney disease, or unspecified chronic kidney disease; N18.9 Chronic kidney disease, unspecified; G62.9 Polyneuropathy, unspecified; K21.9 Gastro-esophageal reflux disease without esophagitis; M54.9 Dorsalgia, unspecified; F41.9 Anxiety disorder, unspecified; I48.0 Paroxysmal atrial fibrillation; F43.10 Post-traumatic stress disorder, unspecified; F32.9 Major depressive disorder, single episode, unspecified; I69.891 Dysphagia following other cerebrovascular disease; K76.9 Liver disease, unspecified; K73.9 Chronic hepatitis, unspecified; Z90.2 Acquired absence of lung [part of]; Z86.718 Personal history of other venous thrombosis and embolism; Z87.01 Personal history of pneumonia (recurrent); Z88.1 Allergy status to other antibiotic agents
CPT/HCPCS: 36415; 36600; 70491; 71045; 71046; 80048; 80053; 80061; 82805; 82962; 83605; 83735; 84100; 84484; 85007; 85025; 85027; 87040; 87077; 93005; 93306; 94640; 94760; 94761; 96361; 96374

== ENCOUNTER 2019-09-03 09:50 | Emergency (ER) | payer MEDICARE ==
[~2019-09-03] VITALS: Ht 172.7 cm; Wt 77.3 kg
[~2019-09-03 09:50] MED LIST changes: +ASPI-983 PO; +CARV12.53 PO; +FAMO20TA5 PO
--- NOTE | 2019-09-03 11:24 | ED Integumentary General ---
General Chief Complaint: Bite-Animal/Human/Insect Stated Complaint: ULCERS ON FEET Nursing Triage Note: Pt amb to triage with c/o multiple spider bites. Pt reports approx 3-4wks ago, he was under his house and experienced multiple spider bites "from all kinds of spiders." Pt reports within the last wk, multiple ulcerated areas have devloped over body including Lt arm, bilat knees, and bilat feet. Pt states, "I was told they laid eggs in me." Pt reports to have applied super glue topically to wounds. Pt reports pain, fever, and chills. A&OX4. Source: patient Exam Limitations: no limitations History of Present Illness Date Seen by Provider: Sep 03, 2019 Time Seen by Provider: 11:19 Initial Comments This 58-year-old white male presents with history of ulcers that have developed over his arms and legs in last week. Patient is worried that he has an infestation causing the ulcers. He has been self treating with superglue topically. Patient in the care of . He denies fever or chills with these lesions. He self initiated Clindomycin which he had at home without improvement. Patient has a history of williamson to his legs long ago. Allergies and Home Medications Allergies Coded Allergies: vancomycin (Unverified Allergy, Intermediate, Vomiting, 07/18/19) Bacitracin Zinc (Verified Allergy, Unknown, 06/04/12) bacitracin (Verified Allergy, Unknown, 06/04/12) benzalkonium chloride (Verified Allergy, Unknown, 06/04/12) cefadroxil (Verified Allergy, Unknown, RASH, 04/08/16) gramicidin D (Verified Allergy, Unknown, 06/04/12) hydrocortisone (Verified Allergy, Unknown, 06/04/12) methocarbamol (Verified Allergy, Unknown, 06/04/12) neomycin sulfate (Verified Allergy, Unknown, 06/04/12) polymyxin B (Verified Allergy, Unknown, 06/04/12) polymyxin B sulfate (Verified Allergy, Unknown, 06/04/12) carbamazepine (Unverified Adverse Reaction, Mild, hives, 11/12/14) Home Medications Albuterol Sulfate 1 Puff Puff, 2 PUFF IH Q6H PRN for SHORTNESS OF BREATH, (Reported) 1 PUFF = 90 MCG Aspirin 81 Mg Tablet.dr, 81 MG PO TID PRN for PAIN-MILD, (Reported) Carvedilol 12.5 Mg Tablet, 12.5 MG PO BID Prescribed by: ANNELIESE RAMON on 07/24/191134 Clindamycin HCl 300 Mg Capsule, 300 MG PO TID Prescribed by: ANNELIESE RAMON on 07/24/191134 Escitalopram Oxalate 10 Mg Tablet, 10 MG PO DAILY, (Reported) LAST FILLED #30 04-20-19 Famotidine 20 Mg Tablet, 20 MG PO DAILY Prescribed by: ANNELIESE RAMON on 07/24/19 113 Gabapentin 400 Mg Capsule, 400 MG PO TID, (Reported) LAST FILLED #90 04-20-19 Hydroxyzine HCl 25 Mg Tablet, 25 MG PO Q8H PRN for ANXIETY, (Reported) LAST FILLED #90 04-20-19 Lisinopril 10 Mg Tablet, 10 MG PO DAILY, (Reported) LAST FILLED #30 03-26-19 Prednisone 20 Mg Tab, 20 MG PO DAILY Take 3 tabs(60mg)daily,decrease by 1/2 tab(10mg)every other day. Prescribed by: ANNELIESE RAMON on 07/24/191134 Patient Home Medication List Home Medication List Reviewed: Yes Review of Systems Review of Systems Constitutional: No chills EENTM: no symptoms reported Respiratory: No cough Cardiovascular: No chest pain Gastrointestinal: No abdominal pain, No diarrhea, No nausea, No vomiting Genitourinary: No dysuria, No frequency Musculoskeletal: no symptoms reported Skin: see HPI, other (skin ulcers and excoriations over the arms and legs.) Psychiatric/Neurological: Emotional Problems (my impression is the patient has a significant disturbance suggestive of schizophrenia or bipolar disease) Endocrine: No Symptoms Reported Hematologic/Lymphatic: No Symptoms Reported Past Iczonej-Nnhrgv-Zghbsn Hx Past Med/Social Hx: Reviewed Nursing Past Med/Soc Hx Patient Social History Alcohol Use: Denies Use Number of Drinks Today: AA Alcohol Beverage of Choice: Beer Recreational Drug Use: No Drug of Choice: pot and meth Smoking Status: Current Everyday Smoker Type Used: Cigarettes Former Smoker, Quit: Apr 15, 2018 2nd Hand Smoke Exposure: Yes Recent Foreign Travel: No Contact w/Someone Who Travel: No Recent Infectious Disease Expo: No Recent Hopitalizations: Yes (SANDOR CAMARILLO JUL 12) Immunizations Up To Date Tetanus Booster (TDap): Unknown Date of Pneumonia Vaccine: Jun 26, 2018 Date of Influenza Vaccine: Jun 26, 2011 Seasonal Allergies Seasonal Allergies: No Past Medical History Surgeries: No Cardiac, Eye Surgery, Lobectomy Respiratory: Yes Pneumonia, COPD, Emphysema Currently Using CPAP: No Currently Using BIPAP: No Cardiac: No Coronary Artery Disease, Deep Vein Thrombosis, Heart Attack, Hypertension, Peripheral Vascular Neurological: No Neuropathy, Stroke, TIA Reproductive Disorders: No Sexually Transmitted Disease: No Genitourinary: No Renal Failure Gastrointestinal: No Gastroesophageal Reflux, Liver Disease/Jaundice, Hepatitis, Polyps Musculoskeletal: No Back Injury, Chronic Back Pain, Fractures Endocrine: No HEENT: No Loss of Vision: Left Cancer: No Lung Did You Recieve Any Treatments: Yes What Type of Treatment Did You: Surgical Intervention Psychosocial: No Anxiety, PTSD, Depression Integumentary: No Blood Disorders: No Adverse Reaction/Blood Tranf: No Family Medical History Cardiovascular disease 19 FATHER 19 MOTHER FH: stroke G8 BROTHER Hypertension 19 FATHER G8 BROTHER No Pertinent Family Hx Physical Exam Vital Signs Vital Signs - First Documented 09/03/19 10:07 Temp 37.0 Pulse 110 Resp 20 B/P (MAP) 151/86 (107) Pulse Ox 97 O2 Delivery Room Air Capillary Refill : Less Than 3 Seconds General Appearance: mild distress, cachetic HEENT: normal ENT inspection Neck: non-tender, supple Cardiovascular: regular rate, rhythm Respiratory: lungs clear Gastrointestinal: non tender, soft Back: normal inspection Extremities: other (and ulcers and excoriations over the arms and legs) Neurologic/Psychiatric: no motor/sensory deficits Skin: other (excoriations and ulcers over the arms and legs) Skin Problem Location: upper extremities, lower extremities Skin Problem Character: other (. On the left forearm that appears represent a cellulitis. The other lesions appear to be stasis ulcers.) Progress/Results/Core Measures Results/Orders Lab Results Laboratory Tests Test 09/03/19 12:33 Range/Units White Blood Count 9.0 4.3-11.0 10^3/uL Red Blood Count 4.45 4.35-5.85 10^6/uL Hemoglobin 12.7 L 13.3-17.7 G/DL Hematocrit 38 L 40-54 % Mean Corpuscular Volume 85 80-99 FL Mean Corpuscular Hemoglobin 29 25-34 PG Mean Corpuscular Hemoglobin Concent 33 32-36 G/DL Red Cell Distribution Width 15.0 H 10.0-14.5 % Platelet Count 297 130-400 10^3/uL Mean Platelet Volume 9.1 7.4-10.4 FL Neutrophils (%) (Auto) 74 42-75 % Lymphocytes (%) (Auto) 15 12-44 % Monocytes (%) (Auto) 9 0-12 % Eosinophils (%) (Auto) 2 0-10 % Basophils (%) (Auto) 0 0-10 % Neutrophils # (Auto) 6.6 1.8-7.8 X 10^3 Lymphocytes # (Auto) 1.3 1.0-4.0 X 10^3 Monocytes # (Auto) 0.8 0.0-1.0 X 10^3 Eosinophils # (Auto) 0.2 0.0-0.3 10^3/uL Basophils # (Auto) 0.0 0.0-0.1 10^3/uL Erythrocyte Sedimentation Rate 45 H 0-30 MM/HR My Orders Orders - KAT GRAHAM MD Cbc With Automated Diff (09/03/19 11:13) Erythrocyte Sedimentation Rate (09/03/19 11:13) Wound Culture (09/03/19 11:13) Vital Signs/I&O 09/03/19 10:07 Temp 37.0 Pulse 110 Resp 20 B/P (MAP) 151/86 (107) Pulse Ox 97 O2 Delivery Room Air Blood Pressure Mean: 107 POS Progress Progress Note : Time: 13:13 Progress Note The patient's CBC was normal. His sedimentation rate was elevated at 45. I discussed the findings with the patient after obtaining a culture from his ulcer. I believe the patient has 2 problems. Stasis dermatitis with secondary skin ulcers and cellulitis to the upper extremities. I placed the patient on Augmentin 875 twice a day and asked that he follow-up with his caregivers in the next 2 days. I asked that he call or return if any problems or questions. Departure Impression Primary Impression: Skin ulcer Qualified Codes: L98.499 - Non-pressure chronic ulcer of skin of other sites with unspecified severity Additional Impression: Bacterial skin infection Disposition: 01 HOME, SELF-CARE Condition: Unchanged Departure-Patient Inst. Decision time for Depature: 13:20 Referrals: JOSEFINA PEREZ MD (PCP/Family) Primary Care Physician Patient Instructions: Cellulitis and Erysipelas (Skin Infections) Add. Discharge Instructions: Augmentin as prescribed. Close follow-up with Dr. Perez. Come back for any problems or questions All discharge instructions reviewed with patient and/or family. Voiced understanding. Scripts Amoxicillin/Potassium Clav (Augmentin 875-125 Tablet) 1 Each Tablet 1 EACH PO BID for 28 Days, #14 TAB 0 Refills Prov: KAT GRAHAM MD 09/03/19 KAT GRAHAM MD Sep 03, 2019 11:24 POS
[2019-09-03 12:39] LABS: BASOPHILS % (AUTO) 0 % (0-10); EOSINOPHILS # (AUTO) 0.2 10^3/uL (0.0-0.3); EOSINOPHILS % (AUTO) 2 % (0-10); HEMATOCRIT 38 % (40-54); HEMOGLOBIN 12.7 G/DL (13.3-17.7); LYMPHOCYTES # (AUTO) 1.3 X 10^3 (1.0-4.0); LYMPHOCYTES % (AUTO) 15 % (12-44); MEAN CORPUSCULAR HEMOGLOBIN 29 PG (25-34); MEAN CORPUSCULAR HGB CONC 33 G/DL (32-36); MEAN CORPUSCULAR VOLUME 85 FL (80-99); MEAN PLATELET VOLUME 9.1 FL (7.4-10.4); MONOCYTES # (AUTO) 0.8 X 10^3 (0.0-1.0); MONOCYTES % (AUTO) 9 % (0-12); NEUTROPHILS # (AUTO) 6.6 X 10^3 (1.8-7.8); NEUTROPHILS % (AUTO) 74 % (42-75); PLATELET COUNT 297 10^3/uL (130-400)
[2019-09-03 13:02] LABS: ERYTHROCYTE SEDIMENTATION RATE 45 MM/HR (0-30)
[2019-09-03] MEDS ORDERED: AMOX-358 PO (13:27)
[2019-09-03 13:38] VITALS: BP 157/86
== END 2019-09-03 13:42 | disposition home or self-care (01) ==
LOC: EDUNIT# 09:50 → ER 09:51
DX: L98.499 Non-pressure chronic ulcer of skin of other sites with unspecified severity (principal); L08.89 Other specified local infections of the skin and subcutaneous tissue; B96.89 Other specified bacterial agents as the cause of diseases classified elsewhere; J43.9 Emphysema, unspecified; I25.10 Atherosclerotic heart disease of native coronary artery without angina pectoris; I10 Essential (primary) hypertension; I25.2 Old myocardial infarction; G62.9 Polyneuropathy, unspecified; F41.9 Anxiety disorder, unspecified; F43.10 Post-traumatic stress disorder, unspecified; F32.9 Major depressive disorder, single episode, unspecified; K21.9 Gastro-esophageal reflux disease without esophagitis; F17.210 Nicotine dependence, cigarettes, uncomplicated; Z86.73 Personal history of transient ischemic attack (TIA), and cerebral infarction without residual deficits; Z85.118 Personal history of other malignant neoplasm of bronchus and lung; Z86.718 Personal history of other venous thrombosis and embolism; Z88.1 Allergy status to other antibiotic agents; Z88.5 Allergy status to narcotic agent; Z88.8 Allergy status to other drugs, medicaments and biological substances; Z79.82 Long term (current) use of aspirin; Z79.52 Long term (current) use of systemic steroids; Z82.49 Family history of ischemic heart disease and other diseases of the circulatory system
CPT/HCPCS: 36415; 85025; 85652; 87070; 87077; 87186; 87205; 99283

== ENCOUNTER 2020-01-09 07:35 | Emergency (ER) | payer MEDICAID, MEDICARE ==
[~2020-01-09] VITALS: Ht 170.2 cm; Wt 85.0 kg
[~2020-01-09 07:35] MED LIST changes: -OMEP20CA13 PO; +OMEP20CA18 PO; +SIMV20TA26 PO; -SIMV20TA3 PO; +TRM50T PO
--- NOTE | 2020-01-09 07:58 | ED GI ---
General Stated Complaint: BLOOD IN STOOL Source of Information: Patient Exam Limitations: No Limitations History of Present Illness Date Seen by Provider: Jan 09, 2020 Time Seen by Provider: 07:45 Initial Comments Patient presents ER by private conveyance with chief complaint that yesterday he had some black dark stools and today he's having bright red blood in stool. He says is happened in 2009 and he had a colonoscopy and there were polyps bleeding. This was done at this for [facility]. Since then he's been following in [facility] for primary care. He has peripheral vascular disease with chronic, nonhealing ulcers on his feet. He uses tramadol to control pain and has had stents placed in his legs. He is having no chest pain or shortness of breath today. He denies a history of anemia. He is not on any antacids. He does however take Motrin twice a day and Toradol in addition to tramadol for his chronic pain. He's not having epigastric pain but he has some generalized upset stomach around the umbilicus. No nausea or vomiting. He's had an umbilical hernia and right inguinal hernia repair on his abdomen. He says he was told the past his gallbladder was a problem but he doesn't think he ever had it taken out. He claims that it will act up from time to time depending on what he eats. He uses daily aspirin but does not take blood thinners. Allergies and Home Medications Allergies Coded Allergies: vancomycin (Unverified Allergy, Intermediate, Vomiting, 07/18/19) Bacitracin Zinc (Verified Allergy, Unknown, 06/04/12) bacitracin (Verified Allergy, Unknown, 06/04/12) benzalkonium chloride (Verified Allergy, Unknown, 06/04/12) cefadroxil (Verified Allergy, Unknown, RASH, 04/08/16) gramicidin D (Verified Allergy, Unknown, 06/04/12) hydrocortisone (Verified Allergy, Unknown, 06/04/12) methocarbamol (Verified Allergy, Unknown, 06/04/12) neomycin sulfate (Verified Allergy, Unknown, 06/04/12) polymyxin B (Verified Allergy, Unknown, 06/04/12) polymyxin B sulfate (Verified Allergy, Unknown, 06/04/12) carbamazepine (Unverified Adverse Reaction, Mild, hives, 11/12/14) Home Medications Albuterol Sulfate 1 Puff Puff, 2 PUFF IH Q6H PRN for SHORTNESS OF BREATH, (Reported) 1 PUFF = 90 MCG Amoxicillin/Potassium Clav 1 Each Tablet, 1 EACH PO BID Prescribed by: KAT GRAHAM MD on 09/03/19 1327 Aspirin 81 Mg Tablet.dr, 81 MG PO TID PRN for PAIN-MILD, (Reported) Carvedilol 12.5 Mg Tablet, 12.5 MG PO BID Prescribed by: ANNELIESE RAMON on 07/24/19 113 Clindamycin HCl 300 Mg Capsule, 300 MG PO TID Prescribed by: ANNELIESE RAMON on 07/24/19 113 Escitalopram Oxalate 10 Mg Tablet, 10 MG PO DAILY, (Reported) LAST FILLED #30 04-20-19 Famotidine 20 Mg Tablet, 20 MG PO DAILY Prescribed by: ANNELIESE RAMON on 07/24/19 113 Gabapentin 400 Mg Capsule, 400 MG PO TID, (Reported) LAST FILLED #90 04-20-19 Hydroxyzine HCl 25 Mg Tablet, 25 MG PO Q8H PRN for ANXIETY, (Reported) LAST FILLED #90 04-20-19 Lisinopril 10 Mg Tablet, 10 MG PO DAILY, (Reported) LAST FILLED #30 03-26-19 Prednisone 20 Mg Tab, 20 MG PO DAILY Take 3 tabs(60mg)daily,decrease by 1/2 tab(10mg)every other day. Prescribed by: ANNELIESE RAMON on 07/24/191134 Patient Home Medication List Home Medication List Reviewed: Yes Review of Systems Review of Systems Constitutional: No chills, No diaphoresis EENTM: No Blurred Vision, No Double Vision Respiratory: Denies Cough, Denies Shortness of Air Cardiovascular: Denies Chest Pain, Denies Edema Gastrointestinal: See HPI; Denies Abdominal Pain; Blood Streaked Stools; Denies Constipated, Denies Diarrhea, Denies Nausea, Denies Vomiting Genitourinary: Denies Burning, Denies Discharge Musculoskeletal: No back pain, No joint pain Psychiatric/Neurological: Denies Anxiety, Denies Depressed Hematologic/Lymphatic: Denies Anemia, Denies Blood Clots, Denies Easy Bleeding, Denies Easy Bruising All Other Systems Reviewed Negative Unless Noted: Yes Past Ywfizqy-Onhhli-Nkputh Hx Patient Social History Alcohol Use: Denies Use Alcohol Beverage of Choice: Beer Recreational Drug Use: Yes Drug of Choice: pot and meth Smoking Status: Current Everyday Smoker Type Used: Cigarettes 2nd Hand Smoke Exposure: Yes Recent Foreign Travel: No Contact w/Someone Who Travel: No Recent Hopitalizations: Yes (ZAIRERINAELSATevin MARQUISE JUL 12) Immunizations Up To Date Tetanus Booster (TDap): Unknown Date of Pneumonia Vaccine: Jun 26, 2018 Date of Influenza Vaccine: Jun 26, 2011 Seasonal Allergies Seasonal Allergies: No Past Medical History Surgeries: No Cardiac, Eye Surgery, Lobectomy Respiratory: Yes Pneumonia, COPD, Emphysema Currently Using CPAP: No Currently Using BIPAP: No Cardiac: No Coronary Artery Disease, Deep Vein Thrombosis, Heart Attack, Hypertension, Peripheral Vascular Neurological: No Neuropathy, Stroke, TIA Reproductive Disorders: No Sexually Transmitted Disease: No Genitourinary: No Renal Failure Gastrointestinal: No Gastroesophageal Reflux, Liver Disease/Jaundice, Hepatitis, Polyps Musculoskeletal: No Back Injury, Chronic Back Pain, Fractures Endocrine: No HEENT: No Loss of Vision: Left Cancer: No Lung Did You Recieve Any Treatments: Yes What Type of Treatment Did You: Surgical Intervention Psychosocial: No Anxiety, PTSD, Depression Integumentary: No Blood Disorders: No Adverse Reaction/Blood Tranf: No Family Medical History Cardiovascular disease 19 FATHER 19 MOTHER FH: stroke G8 BROTHER Hypertension 19 FATHER G8 BROTHER No Pertinent Family Hx Physical Exam Vital Signs Vital Signs - First Documented 01/09/20 08:37 Temp 35.8 Pulse 107 Resp 18 B/P (MAP) 151/78 (102) Pulse Ox 97 O2 Delivery Room Air Capillary Refill : Height/Weight/BMI Height: 5'8.00" Weight: 165lbs. 5.0oz. 74.245702yg; 25.00 BMI Method:Stated General Appearance: WD/WN, no apparent distress HEENT: PERRL/EOMI, pharynx normal Neck: full range of motion, normal inspection Respiratory: no respiratory distress, no accessory muscle use Cardiovascular: normal peripheral pulses, regular rate, rhythm Gastrointestinal: normal bowel sounds, non tender, soft, no organomegaly Rectal: normal rectal tone, blood streaked stool, heme positive stool; No hemorrhoids, No mass; other (prostate 2+, soft) Extremities: normal range of motion, normal inspection, normal capillary refill Neurologic/Psychiatric: no motor/sensory deficits, alert, normal mood/affect, oriented x 3 Skin: normal color, warm/dry Progress/Results/Core Measures Results/Orders Lab Results Laboratory Tests Test 01/09/20 08:23 Range/Units White Blood Count 15.9 H 4.3-11.0 10^3/uL Red Blood Count 4.87 4.35-5.85 10^6/uL Hemoglobin 14.5 13.3-17.7 G/DL Hematocrit 43 40-54 % Mean Corpuscular Volume 88 80-99 FL Mean Corpuscular Hemoglobin 30 25-34 PG Mean Corpuscular Hemoglobin Concent 34 32-36 G/DL Red Cell Distribution Width 15.3 H 10.0-14.5 % Platelet Count 280 130-400 10^3/uL Mean Platelet Volume 10.3 7.4-10.4 FL Neutrophils (%) (Auto) 82 H 42-75 % Lymphocytes (%) (Auto) 6 L 12-44 % Monocytes (%) (Auto) 10 0-12 % Eosinophils (%) (Auto) 2 0-10 % Basophils (%) (Auto) 0 0-10 % Neutrophils # (Auto) 13.1 H 1.8-7.8 X 10^3 Lymphocytes # (Auto) 1.0 1.0-4.0 X 10^3 Monocytes # (Auto) 1.6 H 0.0-1.0 X 10^3 Eosinophils # (Auto) 0.3 0.0-0.3 10^3/uL Basophils # (Auto) 0.0 0.0-0.1 10^3/uL My Orders Orders - BALTAZAR WEBBER Occult Blood Stool (01/09/20 07:50) Cbc With Automated Diff (01/09/20 07:50) Comprehensive Metabolic Panel (01/09/20 07:50) Type And Screen (01/09/20 07:50) Pantoprazole Injection (Protonix Injecti (01/09/20 08:00) Manual Differential (01/09/20 08:23) Lidocaine 2% Viscous 15 Ml (Xylocaine Vi (01/09/20 09:15) Famotidine Tablet (Pepcid Tablet) (01/09/20 09:01) Antacid Suspension (Mylanta Suspension (01/09/20 09:15) Vital Signs/I&O 01/09/20 08:37 Temp 35.8 Pulse 107 Resp 18 B/P (MAP) 151/78 (102) Pulse Ox 97 O2 Delivery Room Air Progress Progress Note #1: Time: 07:57 Progress Note Plan to do a rectal exam, fecal occult blood test, labs to rule out significant anemia. He is tachycardic 101 and this could be from anxiety or significant anemia so a type and screen has been ordered. Progress Note #2: Time: 08:36 Progress Note Nursing staff and this provider using ultrasound guidance were unable to thread an IV that did not immediately below. We did get a small amount of blood that we sent down for a CBC. I discontinue the IV pantoprazole. If he does not look like he needs eminent surgery then we can give him oral medications. Rectal vault was free of masses but he did have a prominent prostate and grossly bloody contents. Progress Note #3: Time: 09:05 Progress Note Hemoglobin is 14.5. Canceled the type and screen and CMP. Plan to give him a GI cocktail him on pantoprazole. We called Dr. Pickering left a message and will tryi to get him some outpatient follow-up. Departure Impression Primary Impression: Bright red blood per rectum Additional Impression: History of colonic polyps Disposition: HOME, SELF-CARE Condition: Stable Departure-Patient Inst. Decision time for Depature: 09:05 Referrals: JOSEFINA PEREZ MD (PCP/Family) Primary Care Physician Patient Instructions: Bloody Stools, Adult (DC) Add. Discharge Instructions: Follow up with Dr Pickering on 01/15/20 at 1:00 PM. Discuss appropriate management of rectal bleeding. Return to the ER if you are having chest pain or severe shortness of breath. Degree of upset stomach or abdominal pain you may try Tums, Rolaids, Mylanta. Pantoprazole 20 mg twice a day until released by the surgeon. Carafate 1 tablet 4 times a day with meals and bedtime. Take it half an hour before you eat. You may continue using tramadol as prescribed. Stop taking the Toradol and Mobic. Do not take any NSAIDs until released by your doctor. NSAIDs include ibuprofen, Aleve, naproxen/Naprosyn, mobic, Toradol. Scripts Sucralfate (Carafate) 1 Gm Tablet 1 GM PO QIDACHS for 14 Days, #56 TAB 0 Refills Prov: BALTAZAR WEBBER 01/09/20 Pantoprazole Sodium (Pantoprazole Sodium) 20 Mg Tablet.dr 20 MG PO BID for 30 Days, #60 TAB 0 Refills Prov: BALTAZAR WEBBER 01/09/20 BALTAZAR WEBBER Jan 09, 2020 07:58
[2020-01-09] MEDS ORDERED: PANTOPRAZOLE 40 MG (PROTONIX) VIAL IV ONE (08:00)
[2020-01-09 08:35] LABS: BASOPHILS % (AUTO) 0 % (0-10); EOSINOPHILS # (AUTO) 0.3 10^3/uL (0.0-0.3); EOSINOPHILS % (AUTO) 2 % (0-10); HEMATOCRIT 43 % (40-54); HEMOGLOBIN 14.5 G/DL (13.3-17.7); LYMPHOCYTES % (AUTO) 6 % (12-44); MEAN CORPUSCULAR HEMOGLOBIN 30 PG (25-34); MEAN CORPUSCULAR HGB CONC 34 G/DL (32-36); MEAN CORPUSCULAR VOLUME 88 FL (80-99); MEAN PLATELET VOLUME 10.3 FL (7.4-10.4); MONOCYTES # (AUTO) 1.6 X 10^3 (0.0-1.0); MONOCYTES % (AUTO) 10 % (0-12); NEUTROPHILS # (AUTO) 13.1 X 10^3 (1.8-7.8); NEUTROPHILS % (AUTO) 82 % (42-75); PLATELET COUNT 280 10^3/uL (130-400); RED CELL DISTRIBUTION WIDTH 15.3 % (10.0-14.5); WHITE BLOOD COUNT 15.9 10^3/uL (4.3-11.0)
[2020-01-09] MEDS ORDERED: FAMOTIDINE 20 MG (PEPCID) TABLET PO STA (09:01)
[2020-01-09 09:06] LABS: BAND NEUTROPHILS 5 %; BASOPHILS % (MANUAL) 0 %; EOSINOPHILS % (MANUAL) 0 %; LYMPHOCYTES % (MANUAL) 8 %; MONOCYTES % (MANUAL) 10 %; NEUTROPHILS % (MANUAL) 77 %; RBC MORPH NORMAL
[2020-01-09] MEDS ORDERED: PANT20TA3 PO (09:12)
[2020-01-09] MEDS ORDERED: SUCR1TAB36 PO (09:12)
[2020-01-09] MEDS ORDERED: LIDOCAINE 2% VISCOUS 15 ML UDC PO ONE (09:15)
[2020-01-09] MEDS ORDERED: ANTACID SUSP 30 ML UDC (MYLANTA) PO ONE (09:15)
[2020-01-09 09:21] VITALS: BP 142/72
== END 2020-01-09 09:21 | disposition home or self-care (01) ==
LOC: EDUNIT# 07:35 → ER 07:37
DX: K92.1 Melena (principal); J43.9 Emphysema, unspecified; I25.10 Atherosclerotic heart disease of native coronary artery without angina pectoris; I10 Essential (primary) hypertension; I73.9 Peripheral vascular disease, unspecified; I25.2 Old myocardial infarction; G62.9 Polyneuropathy, unspecified; Z86.73 Personal history of transient ischemic attack (TIA), and cerebral infarction without residual deficits; K21.9 Gastro-esophageal reflux disease without esophagitis; M54.9 Dorsalgia, unspecified; G89.29 Other chronic pain; F41.9 Anxiety disorder, unspecified; F32.9 Major depressive disorder, single episode, unspecified; F43.10 Post-traumatic stress disorder, unspecified; Z86.718 Personal history of other venous thrombosis and embolism; F17.210 Nicotine dependence, cigarettes, uncomplicated; Z87.01 Personal history of pneumonia (recurrent); Z86.010 Personal history of colon polyps; Z85.118 Personal history of other malignant neoplasm of bronchus and lung; Z79.82 Long term (current) use of aspirin; Z79.899 Other long term (current) drug therapy
CPT/HCPCS: 36415; 85007; 85027

== ENCOUNTER 2020-01-16 06:06 | Outpatient (CLI) | payer MEDICAID, MEDICARE ==
[~2020-01-16] VITALS: Ht 172 cm; Wt 77.2 kg
[~2020-01-16 06:06] MED LIST changes: +PANT20TA3 PO; +SUCR1TAB36 PO
[2020-01-16] MEDS ORDERED: TRAM50TA3 PO (12:21)
[2020-01-16] MEDS ORDERED: AMLO5TAB9 PO (12:21)
[2020-01-16] MEDS ORDERED: LORA10TA7 PO (12:21)
[2020-01-16] MEDS ORDERED: MELO7.5T46 PO (12:21)
== END 2020-01-16 12:48 | disposition home or self-care (01) ==
LOC: PREOP 06:06
PROVIDERS: ATTEND Surgery
DX: Z01.818 Encounter for other preprocedural examination (principal)

== ENCOUNTER → 2020-02-12 | Outpatient (CLI) | payer MEDICARE, MEDICAID ==
[~2020-02-12] MED LIST changes: +AMLO5TAB9 PO; +LORA10TA7 PO; +TRAM50TA3 PO
== END ==
LOC: WOUNDCARE 13:01
PROVIDERS: ATTEND Surgery
DX: I70.263 Atherosclerosis of native arteries of extremities with gangrene, bilateral legs (principal); L97.422 Non-pressure chronic ulcer of left heel and midfoot with fat layer exposed; L97.412 Non-pressure chronic ulcer of right heel and midfoot with fat layer exposed; L98.492 Non-pressure chronic ulcer of skin of other sites with fat layer exposed; T65.222A Toxic effect of tobacco cigarettes, intentional self-harm, initial encounter; L03.116 Cellulitis of left lower limb; L03.115 Cellulitis of right lower limb; F17.218 Nicotine dependence, cigarettes, with other nicotine-induced disorders
CPT/HCPCS: 99215

== ENCOUNTER → 2020-02-12 | Outpatient (CLI) | payer MEDICARE, MEDICAID ==
[2020-02-12 15:04] LABS: BASOPHILS % (AUTO) 1 % (0-10); EOSINOPHILS # (AUTO) 0.3 10^3/uL (0.0-0.3); EOSINOPHILS % (AUTO) 3 % (0-10); HEMATOCRIT 42 % (40-54); HEMOGLOBIN 14.1 G/DL (13.3-17.7); LYMPHOCYTES # (AUTO) 1.7 X 10^3 (1.0-4.0); LYMPHOCYTES % (AUTO) 22 % (12-44); MEAN CORPUSCULAR HEMOGLOBIN 29 PG (25-34); MEAN CORPUSCULAR HGB CONC 34 G/DL (32-36); MEAN CORPUSCULAR VOLUME 87 FL (80-99); MEAN PLATELET VOLUME 9.2 FL (7.4-10.4); MONOCYTES # (AUTO) 0.8 X 10^3 (0.0-1.0); MONOCYTES % (AUTO) 11 % (0-12); NEUTROPHILS % (AUTO) 64 % (42-75); PLATELET COUNT 370 10^3/uL (130-400); RED CELL DISTRIBUTION WIDTH 13.8 % (10.0-14.5); WHITE BLOOD COUNT 7.8 10^3/uL (4.3-11.0)
[2020-02-12 15:21] LABS: CHLORIDE 105 MMOL/L (98-107); POTASSIUM 4.5 MMOL/L (3.6-5.0); SODIUM 136 MMOL/L (135-145)
[2020-02-12 15:24] LABS: GLUCOSE 102 MG/DL (70-105); TOTAL PROTEIN 7.7 GM/DL (6.4-8.2)
[2020-02-12 15:25] LABS: CARBON DIOXIDE 21 MMOL/L (21-32)
[2020-02-12 15:26] LABS: BILIRUBIN,TOTAL 0.4 MG/DL (0.1-1.0)
[2020-02-12 15:27] LABS: ALKALINE PHOSPHATASE 71 U/L (40-136); CREATININE SERUM 1.09 MG/DL (0.60-1.30); GFR ESTIMATED > 60
[2020-02-12 15:28] LABS: BUN/CREATININE RATIO 17
[2020-02-12 15:30] LABS: ALANINE AMINOTRANSFERASE 52 U/L (0-55)
== END ==
LOC: LAB 14:40
PROVIDERS: ATTEND Surgery
DX: L97.422 Non-pressure chronic ulcer of left heel and midfoot with fat layer exposed (principal)
CPT/HCPCS: 36415; 80053; 84134; 85025

== ENCOUNTER 2020-04-11 19:29 | Emergency (ER) | payer MEDICARE, MEDICAID ==
[~2020-04-11] VITALS: Ht 172.7 cm; Wt 78.5 kg
[2020-04-11 19:35] VITALS: BP 117/56
[2020-04-11] MEDS ORDERED: METR500T PO (19:54)
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
[2020-04-11] MEDS ORDERED: metroNIDAZOLE 500 MG (FLAGYL) TAB PO ONE (20:00)
[2020-04-11] MEDS ORDERED: TETANUS,DIPTH,PERTUSS P/F (BOOSTRIX) 0.5 ML VIAL IM ONE (20:00)
== END 2020-04-11 20:14 | disposition home or self-care (01) ==
LOC: EDUNIT# 19:29 → ER 19:30
DX: S61.257A Open bite of left little finger without damage to nail, initial encounter (principal); J43.9 Emphysema, unspecified; I10 Essential (primary) hypertension; I25.2 Old myocardial infarction; I25.10 Atherosclerotic heart disease of native coronary artery without angina pectoris; K21.9 Gastro-esophageal reflux disease without esophagitis; G62.9 Polyneuropathy, unspecified; G89.29 Other chronic pain; M54.9 Dorsalgia, unspecified; F41.9 Anxiety disorder, unspecified; F32.9 Major depressive disorder, single episode, unspecified; F17.210 Nicotine dependence, cigarettes, uncomplicated; Z88.8 Allergy status to other drugs, medicaments and biological substances; Z79.891 Long term (current) use of opiate analgesic; Z85.118 Personal history of other malignant neoplasm of bronchus and lung; Z88.1 Allergy status to other antibiotic agents; Z23 Encounter for immunization; Z86.73 Personal history of transient ischemic attack (TIA), and cerebral infarction without residual deficits; Z79.82 Long term (current) use of aspirin; Z82.49 Family history of ischemic heart disease and other diseases of the circulatory system; Y04.1XXA Assault by human bite, initial encounter
CPT/HCPCS: 90715; 99284

== ENCOUNTER 2020-04-19 15:00 | Emergency (ER) | payer MEDICARE, MEDICAID ==
[~2020-04-19] VITALS: Ht 165.1 cm; Wt 77.2 kg
[2020-04-19] MEDS ORDERED: ACET-1672 PO ×2 (15:06→16:27)
[2020-04-19] MEDS ORDERED: NAPR-1071 PO ×2 (15:06→16:27)
--- NOTE | 2020-04-19 15:06 | ED Back Pain ---
General Stated Complaint: BACK PAIN Source of Information: Patient Exam Limitations: No Limitations (JASMINE ANDERSON APRN) History of Present Illness Date Seen by Provider: Apr 19, 2020 Time Seen by Provider: 15:03 (JASMINE ANDERSON APRN) Initial Comments Patient presents ER by private conveyance with chief complaint that last night he was stepping out of his trailer and his feet slipped out from underneath him and he landed on his low lumbar spine right across the threshold of the door causing instant pain radiating down to his foot. He's been using aspirin without significant pain relief. He still has sciatic nerve pain down into his foot. He has a history of lumbar spine fracture without surgery. He's having no numbness saddle anesthesia or loss of control of bowel or bladder. (BALTAZAR WEBBER) Allergies and Home Medications Allergies Coded Allergies: vancomycin (Unverified Allergy, Intermediate, Vomiting, 07/18/19) Bacitracin Zinc (Verified Allergy, Unknown, 06/04/12) bacitracin (Verified Allergy, Unknown, 06/04/12) benzalkonium chloride (Verified Allergy, Unknown, 06/04/12) cefadroxil (Verified Allergy, Unknown, RASH, 04/08/16) gramicidin D (Verified Allergy, Unknown, 06/04/12) hydrocortisone (Verified Allergy, Unknown, 06/04/12) methocarbamol (Verified Allergy, Unknown, 06/04/12) neomycin sulfate (Verified Allergy, Unknown, 06/04/12) polymyxin B (Verified Allergy, Unknown, 06/04/12) polymyxin B sulfate (Verified Allergy, Unknown, 06/04/12) carbamazepine (Unverified Adverse Reaction, Mild, hives, 11/12/14) Home Medications Acetaminophen/Diphenhydramine 1 Each Tablet, 2 EACH PO Q6H PRN for PAIN-SEVERE (8-10) Prescribed by: JASMINE ANDERSON on 04/19/20 1506 Albuterol Sulfate 1 Puff Puff, 2 PUFF IH Q6H PRN for SHORTNESS OF BREATH, (Reported) 1 PUFF = 90 MCG Amlodipine Besylate 5 Mg Tablet, 5 MG PO DAILY, (Reported) Aspirin 81 Mg Tablet.dr, 81 MG PO TID PRN for PAIN-MILD, (Reported) Escitalopram Oxalate 10 Mg Tablet, 10 MG PO DAILY, (Reported) LAST FILLED #30 04-20-19 Gabapentin 400 Mg Capsule, 400 MG PO TID, (Reported) LAST FILLED #90 04-20-19 Lisinopril 10 Mg Tablet, 10 MG PO DAILY, (Reported) LAST FILLED #30 03-26-19 Loratadine 10 Mg Tablet, 10 MG PO DAILY, (Reported) Meloxicam 7.5 Mg Tablet, 7.5 MG PO BID, (Reported) Metronidazole 500 Mg Tablet, 500 MG PO TID Prescribed by: JASMINE ANDERSON on 04/11/201953 Naproxen 500 Mg Tablet, 500 MG PO BID PRN for PAIN-MODERATE (5-7) Prescribed by: JASMINE ANDERSON on 04/19/20 150 Pantoprazole Sodium 20 Mg Tablet.dr, 20 MG PO BID Prescribed by: BALTAZAR WEBBER on 01/09/20911 Sucralfate 1 Gm Tablet, 1 GM PO QIDACHS Prescribed by: BALTAZAR WEBBER on 01/09/20911 Tramadol HCl 50 Mg Tablet, 50 MG PO PRN, (Reported) Patient Home Medication List Home Medication List Reviewed: Yes (BALTAZAR WEBBER) Review of Systems Constitutional: No chills, No diaphoresis EENTM: No ear discharge, No ear pain Respiratory: No cough, No short of breath Cardiovascular: No chest pain, No edema Gastrointestinal: No abdominal pain, No nausea, No vomiting Genitourinary: No discharge, No dysuria Musculoskeletal: see HPI, back pain; No joint pain (BALTAZAR WEBBER) All Other Systems Reviewed Negative Unless Noted: Yes (BALTAZAR WEBBER) Past Nqmyqsf-Zbdvqm-Epzjdx Hx Patient Social History Alcohol Beverage of Choice: Beer Drug of Choice: pot and meth Type Used: Cigarettes 2nd Hand Smoke Exposure: Yes Recent Foreign Travel: No Contact w/Someone Who Travel: No Recent Hopitalizations: Yes (SANDOR [place] JUL 12) (JASMINE ANDERSON APRN) Alcohol Use: Denies Use Recreational Drug Use: No Smoking Status: Current Everyday Smoker Type Used: Cigarettes (BALTAZAR WEBBER) Immunizations Up To Date Tetanus Booster (TDap): Unknown Date of Pneumonia Vaccine: Jun 26, 2018 Date of Influenza Vaccine: Jun 26, 2011 (JASMINE ANDERSON APRN) Seasonal Allergies Seasonal Allergies: Yes (JASMINE ANDERSON APRN) Past Medical History Surgeries: Yes (HERNIA INGUINAL AND UMBILICAL, LEG SURGERY) Eye Surgery, Lobectomy Respiratory: Yes Pneumonia, COPD, Emphysema Currently Using CPAP: No Currently Using BIPAP: No Cardiac: Yes (CHF) Coronary Artery Disease, Deep Vein Thrombosis, Heart Attack, Hypertension, Peripheral Vascular Neurological: No Neuropathy, Stroke, TIA Reproductive Disorders: No Sexually Transmitted Disease: No HIV/AIDS: No Genitourinary: No Renal Failure Gastrointestinal: No Gastroesophageal Reflux, Liver Disease/Jaundice, Hepatitis, Polyps Musculoskeletal: No Back Injury, Chronic Back Pain, Fractures Endocrine: No HEENT: No Loss of Vision: Left Cancer: Yes Lung Did You Recieve Any Treatments: Yes What Type of Treatment Did You: Surgical Intervention Psychosocial: Yes Anxiety, PTSD, Depression Integumentary: Yes (WOUNDS TO LOWER LEGS) Blood Disorders: No Adverse Reaction/Blood Tranf: No (JASMINE ANDERSON APRN) Family Medical History Cardiovascular disease 19 FATHER 19 MOTHER FH: stroke G8 BROTHER Hypertension 19 FATHER G8 BROTHER No Pertinent Family Hx (JASMINE ANDERSON APRN) Physical Exam Vital Signs Vital Signs - First Documented 04/19/20 15:05 Temp 36.5 Pulse 99 Resp 18 B/P (MAP) 107/88 (94) Pulse Ox 98 (BALTAZAR WEBBER) Vital Signs Capillary Refill : (JASMINE ANDERSON APRN) Height, Weight, BMI Height: 5'8.00" Weight: 165lbs. 5.0oz. 74.976108ny; 26.00 BMI Method:Stated (JASMINE ANDERSON APRN) General Appearance: No Apparent Distress, WD/WN HEENT: Pharynx Normal, Moist Mucous Membranes Neck: Full Range of Motion, Normal Inspection Cardiovascular: Regular Rate, Rhythm, No Edema, Normal Peripheral Pulses Respiratory: No Accessory Muscle Use, No Respiratory Distress Peripheral Pulses: 2+ Dorsalis Pedis (R), 2+ Left Dors-Pedis (L) Back: Normal Inspection, No CVA Tenderness, Muscle Spasm, Vertebral Tenderness (low lumbar spine tenderness to palpation midline as well as left paravertebral spasms) Neurologic/Psychiatric: Alert, Oriented x3, No Motor/Sensory Deficits (BALTAZAR WEBBER) Progress/Results/Core Measures Results/Orders My Orders Orders - BALTAZAR WEBBER Ct Lumbar Spine Wo (04/19/20 15:08) (BALTAZAR WEBBER) Medications Given in ED Current Medications Medications Dose Ordered Sig/Kiran Route Start Time Stop Time Status Last Admin Dose Admin Ketorolac Tromethamine 60 mg ONCE ONCE IM 04/19/20 15:15 04/19/20 15:16 DC 04/19/20 15:23 60 MG Orphenadrine Citrate 60 mg ONCE ONCE IM 04/19/20 15:15 04/19/20 15:16 DC 04/19/20 15:22 60 MG (BALTAZAR WEBBER) Vital Signs/I&O 04/19/20 15:05 Temp 36.5 Pulse 99 Resp 18 B/P (MAP) 107/88 (94) Pulse Ox 98 (BALTAZAR WEBBER) Progress Progress Note : Time: 15:14 Progress Note IM Toradol and Norflex. CT of the lumbar spine. Patient has a new onset sciatic paresthesia running down his left leg below the level of the knee. No other red flag signs. Looking for vertebral fracture, nerve impingement etc. (BALTAZAR WEBBER) Diagnostic Imaging Diagonstic Imaging: CT (without IV contrast) Plain Films/CT/US/NM/MRI: other (lumbar spine) Comments NAME: EMELYN BEJARANO [facility] REC#: [id number] PT STATUS: REG ER : 1960 PHYSICIAN: BALTAZAR WEBBER MD ADMIT DATE: 04/19/20/ER Draft Date of Exam:04/19/20 CT LUMBAR SPINE WO PROCEDURE: CT lumbar spine without contrast. TECHNIQUE: Multiple contiguous axial images were obtained through the lumbar spine without the use of intravenous contrast. Sagittal and coronal reformations were then performed. Auto Exposure Controls were utilized during the CT exam to meet ALARA standards for radiation dose reduction. INDICATION: Pain. COMPARISON: 03/11/2015. FINDINGS: 6 mm anterolisthesis of L4 on L5, slightly worsened since the prior examination in 2014. This is associated with worsened severe disc space height loss with resulting severe endplate degenerative changes. Scattered Schmorl's nodes and endplate degenerative changes are also identified at L2/L3 and L3/L4, worsened since the prior examination. No acute vertebral body compression deformity. Minimal apex right curvature of the spine. No acute fracture or dislocation. The bilateral sacroiliac joints are intact. Scattered facet joint degenerative changes are present, by far greatest at the L4/L5 level. There is resulting severe central canal stenosis at the L4/L5 level with mild to moderate bilateral neural foraminal stenosis. Disc bulge suggested at L2/L3 with resulting at least mild central canal stenosis. Scattered vascular calcifications. The paraspinal soft tissues are otherwise unremarkable. IMPRESSION: 1. No acute osseous abnormality. 2. Multilevel degenerative changes, as described above, significantly progressive since 2015. These are by far greatest at the L4/L5 level where there is worsening grade 1 anterolisthesis, severe endplate degenerative changes and severe central canal stenosis. Stenosis would be better evaluated with an MRI of the lumbar spine as clinically indicated. Dictated on workstation # [id number] Dict: 04/19/20 1535 Trans: 04/19/20 1552 [facility] [id number] Interpreted by: STEFANO BAGLEY MD Electronically signed by: Reviewed: Reviewed by Me (BALTAZAR WEBBER) Departure Impression Primary Impression: Chronic pain Qualified Codes: G89.29 - Other chronic pain Disposition: HOME, SELF-CARE Condition: Stable Departure-Patient Inst. Decision time for Depature: 15:04 (JASMINE ANDERSON APRN) Referrals: JOSEFINA PEREZ MD (PCP/Family) Primary Care Physician Patient Instructions: Low Back Pain (DC) Add. Discharge Instructions: Medication as directed. Return to ER for any concerns. Follow-up with your primary care doctor for further workup and evaluation of your back pain if you're not seeing improvement in 1-2 weeks. Heating pads, back brace, topical creams such as icy hot, Biofreeze etc. Scripts Naproxen (Naprosyn) 500 Mg Tablet 500 MG PO BID PRN for PAIN-MODERATE (5-7), #30 TAB 0 Refills Prov: JASMINE ANDERSON APRN 04/19/20 Acetaminophen/Diphenhydramine (Percogesic 325-12.5 mg Tablet) 1 Each Tablet 2 EACH PO Q6H PRN for PAIN-SEVERE (8-10), #14 TAB Prov: JASMINE ANDERSON APRN 04/19/20 JASMINE ANDERSON APRN Apr 19, 2020 15:06 BALTAZAR WEBBER Apr 19, 2020 15:15
[2020-04-19] MEDS ORDERED: ORPHENADRINE 60 MG/2 ML (NORFLEX) AMP (ED ONLY) IM ONE (15:15)
[2020-04-19] MEDS ORDERED: KETOROLAC 60 MG/2 ML VIAL IM ONE (15:15)
--- NOTE | 2020-04-19 15:25 | NUR ---
TO CT PER CAT.
--- NOTE | 2020-04-19 15:53 | Diagnostic Imaging Report ---
PROCEDURE: CT lumbar spine without contrast. TECHNIQUE: Multiple contiguous axial images were obtained through the lumbar spine without the use of intravenous contrast. Sagittal and coronal reformations were then performed. Auto Exposure Controls were utilized during the CT exam to meet ALARA standards for radiation dose reduction. INDICATION: Pain. COMPARISON: 03/11/2015. FINDINGS: 6 mm anterolisthesis of L4 on L5, slightly worsened since the prior examination in 2014. This is associated with worsened severe disc space height loss with resulting severe endplate degenerative changes. Scattered Schmorl's nodes and endplate degenerative changes are also identified at L2/L3 and L3/L4, worsened since the prior examination. No acute vertebral body compression deformity. Minimal apex right curvature of the spine. No acute fracture or dislocation. The bilateral sacroiliac joints are intact. Scattered facet joint degenerative changes are present, by far greatest at the L4/L5 level. There is resulting severe central canal stenosis at the L4/L5 level with mild to moderate bilateral neural foraminal stenosis. Disc bulge suggested at L2/L3 with resulting at least mild central canal stenosis. Scattered vascular calcifications. The paraspinal soft tissues are otherwise unremarkable. IMPRESSION: 1. No acute osseous abnormality. 2. Multilevel degenerative changes, as described above, significantly progressive since 2015. These are by far greatest at the L4/L5 level where there is worsening grade 1 anterolisthesis, severe endplate degenerative changes and severe central canal stenosis. Stenosis would be better evaluated with an MRI of the lumbar spine as clinically indicated. Dictated by: Dictated on workstation # [id number]
[2020-04-19 16:29] VITALS: BP 179/93
== END 2020-04-19 16:30 | disposition home or self-care (01) ==
LOC: EDUNIT# 15:00 → ER 15:01
DX: M54.5 Low back pain (principal); G89.29 Other chronic pain; J43.9 Emphysema, unspecified; I11.0 Hypertensive heart disease with heart failure; I25.10 Atherosclerotic heart disease of native coronary artery without angina pectoris; I25.2 Old myocardial infarction; G62.9 Polyneuropathy, unspecified; K21.9 Gastro-esophageal reflux disease without esophagitis; M54.9 Dorsalgia, unspecified; F41.9 Anxiety disorder, unspecified; F32.9 Major depressive disorder, single episode, unspecified; F17.210 Nicotine dependence, cigarettes, uncomplicated; Z86.718 Personal history of other venous thrombosis and embolism; Z88.1 Allergy status to other antibiotic agents; Z79.1 Long term (current) use of non-steroidal anti-inflammatories (NSAID); Z85.118 Personal history of other malignant neoplasm of bronchus and lung; Z88.8 Allergy status to other drugs, medicaments and biological substances; Z86.73 Personal history of transient ischemic attack (TIA), and cerebral infarction without residual deficits; Z79.82 Long term (current) use of aspirin; Z82.49 Family history of ischemic heart disease and other diseases of the circulatory system; V68.4XXA Person boarding or alighting a heavy transport vehicle injured in noncollision transport accident, initial encounter
CPT/HCPCS: 72131

== ENCOUNTER 2020-05-13 19:45 | Emergency (ER) | payer MEDICARE, MEDICAID ==
[~2020-05-13] VITALS: Ht 172.7 cm; Wt 74.8 kg
[~2020-05-13 19:45] MED LIST changes: +ACET-1672 PO; +NAPR-1071 PO
[2020-05-13] MEDS ORDERED: TRM50T PO (20:42)
[2020-05-13] MEDS ORDERED: DOXY100T2 PO (20:42)
[2020-05-13] MEDS ORDERED: DOXYCYCLINE 100 MG (VIBRAMYCIN) TABLET PO STA (20:43)
--- NOTE | 2020-05-13 20:43 | ED Lower Extremity ---
General Chief Complaint: Lower Extremity Stated Complaint: SORE ON L FOOT Nursing Triage Note: PT AMBULATE TO TRIAGE WITH C/O SORE ON LEFT FOOT SINCE MAY 2019. PT STATES IF HE DOES NOT GET SOME HELP HE IS GOING TO CUT HIS LEG OFF. PT WATCHING YOUTUBE VIDEO ON HOW TO CUT LEG OFF WHILE AMBULATING TO TRIAGE AND DURING THE TRIAGE PROCESS. PT STATES THAT THE HAD A SORE ON RIGHT FOOT THAT WAS TREATED AT WOUND CARE AND THEN HIS LEFT FOOT DEVELOPED A SORE. PT STATES THAT HE CANCELLED X3 APPOINTMENTS AT WOUND CARE FOR SORE ON LEFT FOOT AND THE "FIRED" HIM. PT STATES HE WAS IN THE PROCESS OF MOVING AND COULD NOT MAKE THE WOUND CARE APPOINTMENTS FOR SORE ON LEFT FOOT. PT STATES THAT HE HAS A PURPLE HEART FROM A BROKEN NECK IN [place] IN 1980 AND CANNOT BELIEVE THAT HE "IS BEING TREATED LIKE SHIT". PT REPORTS HX OF DRUG ABUSE AND BELIEVES THAT THIS IS WHY WOUND CARE WILL NOT TREAT HIM. Nursing Sepsis Screen: No Definite Risk History of Present Illness Date Seen by Provider: May 16, 2020 Time Seen by Provider: 20:00 Initial Comments 59-year-old male presents with chronic wounds to his left foot. Patient has been to wound care here in the past but was discharged because of failure to keep appointments. He sees Bebo Tipton APRN at [facility]. 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 He had a wound to the lateral aspect of his right foot that is healing. Patient reports pain is bad enough, he just wants it amputated. Patient denies ability to perform self harm. Onset: other (chronic) Pain/Injury Location: left foot Allergies and Home Medications Allergies Coded Allergies: vancomycin (Unverified Allergy, Intermediate, Vomiting, 07/18/19) Bacitracin Zinc (Verified Allergy, Unknown, 06/04/12) bacitracin (Verified Allergy, Unknown, 06/04/12) benzalkonium chloride (Verified Allergy, Unknown, 06/04/12) cefadroxil (Verified Allergy, Unknown, RASH, 04/08/16) gramicidin D (Verified Allergy, Unknown, 06/04/12) hydrocortisone (Verified Allergy, Unknown, 06/04/12) methocarbamol (Verified Allergy, Unknown, 06/04/12) neomycin sulfate (Verified Allergy, Unknown, 06/04/12) polymyxin B (Verified Allergy, Unknown, 06/04/12) polymyxin B sulfate (Verified Allergy, Unknown, 06/04/12) carbamazepine (Unverified Adverse Reaction, Mild, hives, 11/12/14) Home Medications Acetaminophen/Diphenhydramine 1 Each Tablet, 2 EACH PO Q6H PRN for PAIN-SEVERE (8-10) Prescribed by: BALTAZAR WEBBER on 04/19/201626 Albuterol Sulfate 1 Puff Puff, 2 PUFF IH Q6H PRN for SHORTNESS OF BREATH, (Reported) 1 PUFF = 90 MCG Amlodipine Besylate 5 Mg Tablet, 5 MG PO DAILY, (Reported) Aspirin 81 Mg Tablet.dr, 81 MG PO TID PRN for PAIN-MILD, (Reported) Doxycycline Hyclate 100 Mg Tablet, 100 MG PO BID Prescribed by: MARISELA TORREZ on 05/13/202041 Escitalopram Oxalate 10 Mg Tablet, 10 MG PO DAILY, (Reported) LAST FILLED #30 04-20-19 Gabapentin 400 Mg Capsule, 400 MG PO TID, (Reported) LAST FILLED #90 04-20-19 Lisinopril 10 Mg Tablet, 10 MG PO DAILY, (Reported) LAST FILLED #30 03-26-19 Loratadine 10 Mg Tablet, 10 MG PO DAILY, (Reported) Meloxicam 7.5 Mg Tablet, 7.5 MG PO BID, (Reported) Metronidazole 500 Mg Tablet, 500 MG PO TID Prescribed by: JASMINE ANDERSON on 04/11/201953 Naproxen 500 Mg Tablet, 500 MG PO BID PRN for PAIN-MODERATE (5-7) Prescribed by: BALTAZAR WEBBER on 04/19/201626 Pantoprazole Sodium 20 Mg Tablet.dr, 20 MG PO BID Prescribed by: BALTAZAR WEBBER on 01/09/20911 Sucralfate 1 Gm Tablet, 1 GM PO QIDACHS Prescribed by: BALTAZAR WEBBER on 01/09/20911 Tramadol HCl 50 Mg Tablet, 50 MG PO PRN, (Reported) Tramadol HCl 50 Mg Tablet, 50 MG PO Q6H PRN for PAIN Prescribed by: MAIRSELA TORREZ on 05/13/202042 Patient Home Medication List Home Medication List Reviewed: Yes Review of Systems Constitutional: no symptoms reported, see HPI Skin: lesions (stage II pressure ulcer left foot) All Other Systems Reviewed Negative Unless Noted: Yes Past Pkfblcn-Sytfam-Nezgwj Hx Past Med/Social Hx: Reviewed Nursing Past Med/Soc Hx Patient Social History Alcohol Use: Past History Number of Drinks Today: AA Alcohol Beverage of Choice: Beer Recreational Drug Use: No Drug of Choice: pot and meth Smoking Status: Current Everyday Smoker Type Used: Cigarettes Former Smoker, Quit: Apr 15, 2018 2nd Hand Smoke Exposure: Yes Recent Foreign Travel: No Contact w/Someone Who Travel: No Recent Infectious Disease Expo: No Recent Hopitalizations: Yes (SANDOR [place] JUL 12) Physical Abuse: No Sexual Abuse: No Mistreated: No Fear: No Immunizations Up To Date Tetanus Booster (TDap): Unknown Date of Pneumonia Vaccine: Jun 26, 2018 Date of Influenza Vaccine: Jun 26, 2011 Seasonal Allergies Seasonal Allergies: Yes Past Medical History Surgeries: Yes (HERNIA INGUINAL AND UMBILICAL, LEG SURGERY) Eye Surgery, Lobectomy Respiratory: Yes Pneumonia, COPD, Emphysema Currently Using CPAP: No Currently Using BIPAP: No Cardiac: Yes (CHF) Coronary Artery Disease, Deep Vein Thrombosis, Heart Attack, Hypertension, Peripheral Vascular Neurological: No Neuropathy, Stroke, TIA Reproductive Disorders: No Sexually Transmitted Disease: No HIV/AIDS: No Genitourinary: Yes Renal Failure Gastrointestinal: Yes Gastroesophageal Reflux, Liver Disease/Jaundice, Hepatitis, Polyps Musculoskeletal: Yes Back Injury, Chronic Back Pain, Fractures Endocrine: No HEENT: No Loss of Vision: Left Cancer: Yes Lung Did You Recieve Any Treatments: Yes What Type of Treatment Did You: Surgical Intervention Psychosocial: Yes Anxiety, PTSD, Depression Integumentary: Yes (WOUNDS TO LOWER LEGS) Blood Disorders: No Adverse Reaction/Blood Tranf: No Family Medical History Cardiovascular disease 19 FATHER 19 MOTHER FH: stroke G8 BROTHER Hypertension 19 FATHER G8 BROTHER No Pertinent Family Hx Physical Exam Vital Signs Vital Signs - First Documented 05/13/20 05/13/20 19:52 21:10 Temp 36.5 Pulse 90 Resp 22 B/P (MAP) 168/88 (114) Pulse Ox 99 O2 Delivery Room Air Capillary Refill : Less Than 3 Seconds Height, Weight, BMI Height: 5'8.00" Weight: 165lbs. 5.0oz. [id number]; 25.00 BMI Method:Stated General Appearance: WD/WN, no apparent distress Neck: non-tender, full range of motion, supple, normal inspection Cardiovascular: normal peripheral pulses, regular rate, rhythm, no edema, no murmur Respiratory: chest non-tender, lungs clear, normal breath sounds Gastrointestinal: normal bowel sounds, non tender, soft Feet: bilateral foot normal range of motion, bilateral foot abrasions/lacerations (lateral aspect, left worse than right); left foot bone tenderness, left foot infection, left foot soft tissue tenderness Neurologic/Tendon: normal sensation, normal motor functions, normal tendon functions Neurologic/Psychiatric: no motor/sensory deficits, alert, normal mood/affect, oriented x 3 Progress/Results/Core Measures Results/Orders Micro Results Microbiology 05/13/20 Gram Stain - Final, Resulted 05/13/20 Wound Culture - Preliminary, Resulted Mixed Bacterial Shannon Staphylococcus aureus Pseudomonas aeruginosa My Orders Orders - MARISELA TORREZ Wound Culture (05/13/20 20:37) Tramadol Tablet (Ultram Tablet) (05/13/20 20:43) Doxycycline Hyclate Tablet (Vibramycin T (05/13/20 20:43) Vital Signs/I&O 05/13/20 05/13/20 19:52 21:10 Temp 36.5 36.5 Pulse 90 90 Resp 22 22 B/P (MAP) 168/88 (114) 168/88 (114) Pulse Ox 99 O2 Delivery Room Air Blood Pressure Mean: 114 Departure Impression Primary Impression: Ulcer of left foot Qualified Codes: L97.525 - Non-pressure chronic ulcer of other part of left foot with muscle involvement without evidence of necrosis Disposition: 01 HOME, SELF-CARE Condition: Improved Departure-Patient Inst. Decision time for Depature: 20:40 Referrals: [facility] (PCP/Family) Primary Care Physician Patient Instructions: Wound Care (DC) Add. Discharge Instructions: Take antibiotics as prescribed. Take tramadol 1 tablet every 8 hours as needed for pain. Take antibiotics as prescribed. Keep your appointment with Bebo Tipton APRN at [facility]. Return to the emergency department for new, urgent health care needs. All discharge instructions reviewed with patient and/or family. Voiced understanding. Scripts Tramadol HCl (Tramadol HCl) 50 Mg Tablet 50 MG PO Q6H PRN for PAIN, #20 TAB 0 Refills Prov: MARISELA TORREZ 05/13/20 Doxycycline Hyclate (Doxycycline Hyclate) 100 Mg Tablet 100 MG PO BID, #20 TAB 0 Refills Prov: MARISELA TORREZ 05/13/20 MARISELA TORREZ May 13, 2020 20:43
[2020-05-13 21:10] VITALS: BP 168/88
== END 2020-05-13 21:10 | disposition home or self-care (01) ==
LOC: EDUNIT# 19:45 → ER 19:46
DX: L97.529 Non-pressure chronic ulcer of other part of left foot with unspecified severity (principal); J43.9 Emphysema, unspecified; I11.0 Hypertensive heart disease with heart failure; I50.9 Heart failure, unspecified; I25.10 Atherosclerotic heart disease of native coronary artery without angina pectoris; I25.2 Old myocardial infarction; K21.9 Gastro-esophageal reflux disease without esophagitis; G89.29 Other chronic pain; M54.9 Dorsalgia, unspecified; F32.9 Major depressive disorder, single episode, unspecified; F41.9 Anxiety disorder, unspecified; G62.9 Polyneuropathy, unspecified; F17.210 Nicotine dependence, cigarettes, uncomplicated; Z85.118 Personal history of other malignant neoplasm of bronchus and lung; Z88.1 Allergy status to other antibiotic agents; Z88.8 Allergy status to other drugs, medicaments and biological substances; Z79.82 Long term (current) use of aspirin; Z86.73 Personal history of transient ischemic attack (TIA), and cerebral infarction without residual deficits; Z79.891 Long term (current) use of opiate analgesic; Z86.718 Personal history of other venous thrombosis and embolism; Z82.49 Family history of ischemic heart disease and other diseases of the circulatory system
CPT/HCPCS: 87070; 87077; 87205; 99283

== ENCOUNTER → 2020-05-30 | Outpatient (CLI) | payer MEDICARE, MEDICAID ==
[~2020-05-30] MED LIST changes: +ASPI-1238 PO; -ASPI-983 PO
== END ==
LOC: WOUNDCARE 09:00
PROVIDERS: ATTEND Surgery
DX: I70.244 Atherosclerosis of native arteries of left leg with ulceration of heel and midfoot (principal); I70.234 Atherosclerosis of native arteries of right leg with ulceration of heel and midfoot; L97.423 Non-pressure chronic ulcer of left heel and midfoot with necrosis of muscle; L97.412 Non-pressure chronic ulcer of right heel and midfoot with fat layer exposed; G60.8 Other hereditary and idiopathic neuropathies; T65.222A Toxic effect of tobacco cigarettes, intentional self-harm, initial encounter; F17.218 Nicotine dependence, cigarettes, with other nicotine-induced disorders
CPT/HCPCS: A6260; G0463; 99214

== ENCOUNTER → 2020-05-31 | Outpatient (CLI) | payer MEDICARE, MEDICAID ==
[2020-05-31 13:04] LABS: BASOPHILS % (AUTO) 1 % (0-10); EOSINOPHILS # (AUTO) 0.4 10^3/uL (0.0-0.3); EOSINOPHILS % (AUTO) 5 % (0-10); HEMATOCRIT 42 % (40-54); LYMPHOCYTES # (AUTO) 1.6 X 10^3 (1.0-4.0); LYMPHOCYTES % (AUTO) 21 % (12-44); MEAN CORPUSCULAR HEMOGLOBIN 28 PG (25-34); MEAN CORPUSCULAR HGB CONC 33 G/DL (32-36); MEAN CORPUSCULAR VOLUME 83 FL (80-99); MEAN PLATELET VOLUME 9.9 FL (7.4-10.4); MONOCYTES # (AUTO) 0.8 X 10^3 (0.0-1.0); MONOCYTES % (AUTO) 10 % (0-12); NEUTROPHILS % (AUTO) 64 % (42-75); PLATELET COUNT 272 10^3/uL (130-400); WHITE BLOOD COUNT 7.8 10^3/uL (4.3-11.0)
[2020-05-31 13:13] LABS: ALBUMIN 3.9 GM/DL (3.2-4.5); CHLORIDE 105 MMOL/L (98-107); POTASSIUM 3.9 MMOL/L (3.6-5.0); SODIUM 135 MMOL/L (135-145)
[2020-05-31 13:14] LABS: CALCIUM 9.2 MG/DL (8.5-10.1)
[2020-05-31 13:15] LABS: GLUCOSE 100 MG/DL (70-105); TOTAL PROTEIN 7.7 GM/DL (6.4-8.2)
[2020-05-31 13:16] LABS: CARBON DIOXIDE 21 MMOL/L (21-32)
[2020-05-31 13:17] LABS: BILIRUBIN,TOTAL 0.4 MG/DL (0.1-1.0)
[2020-05-31 13:18] LABS: ALKALINE PHOSPHATASE 75 U/L (40-136)
[2020-05-31 13:19] LABS: CREATININE SERUM 0.88 MG/DL (0.60-1.30); GFR ESTIMATED > 60
[2020-05-31 13:20] LABS: BUN/CREATININE RATIO 28
[2020-05-31 13:22] LABS: ALANINE AMINOTRANSFERASE 53 U/L (0-55)
--- NOTE | 2020-05-31 13:39 | Diagnostic Imaging Report ---
CLINICAL HISTORY: Ulcer in the left heel and midfoot. COMPARISON: 01/03/2019. TECHNIQUE: 3 views of the left foot. FINDINGS: There is no acute fracture or dislocation of the left foot. No radiographic evidence of osteomyelitis. Alignment is anatomic. The imaged joint spaces are preserved. IMPRESSION: 1. No acute fracture or dislocation in the left foot. No radiographic evidence of acute osteomyelitis. Dictated by: Dictated on workstation # [id number]
== END ==
LOC: LAB 12:45
PROVIDERS: ATTEND Surgery
DX: L97.423 Non-pressure chronic ulcer of left heel and midfoot with necrosis of muscle (principal); I70.244 Atherosclerosis of native arteries of left leg with ulceration of heel and midfoot; I70.234 Atherosclerosis of native arteries of right leg with ulceration of heel and midfoot; L97.412 Non-pressure chronic ulcer of right heel and midfoot with fat layer exposed; G60.8 Other hereditary and idiopathic neuropathies; T65.222A Toxic effect of tobacco cigarettes, intentional self-harm, initial encounter; F17.218 Nicotine dependence, cigarettes, with other nicotine-induced disorders
CPT/HCPCS: 36415; 73630; 80053; 85025

== ENCOUNTER → 2020-06-05 | Outpatient (CLI) | payer MEDICARE, MEDICAID | LOC: WOUNDCARE 14:52 | PROVIDERS: ATTEND Surgery | DX: I70.263 Atherosclerosis of native arteries of extremities with gangrene, bilateral legs (principal); L97.423 Non-pressure chronic ulcer of left heel and midfoot with necrosis of muscle; L97.412 Non-pressure chronic ulcer of right heel and midfoot with fat layer exposed; G60.8 Other hereditary and idiopathic neuropathies; T65.222A Toxic effect of tobacco cigarettes, intentional self-harm, initial encounter; F17.218 Nicotine dependence, cigarettes, with other nicotine-induced disorders | CPT/HCPCS: 11042; G0463 ==

== ENCOUNTER 2020-08-12 08:15 | Emergency (ER) | payer MEDICARE, MEDICAID ==
[~2020-08-12] VITALS: Ht 172.7 cm; Wt 72.7 kg
[~2020-08-12 08:15] MED LIST changes: +AMLO-250 PO; -AMLO5TAB9 PO; +PANT20TA18 PO; -PANT20TA3 PO
--- NOTE | 2020-08-12 08:40 | ED Integumentary General ---
General Stated Complaint: ULCER L FOOT Source: patient Exam Limitations: no limitations History of Present Illness Date Seen by Provider: Aug 12, 2020 Time Seen by Provider: 08:36 Initial Comments 59-year-old male presents with left leg pain. Patient has a chronic left foot ulcer that is been there for at least a year. The ulcer is located on the lateral aspect of the left foot, as well granulated with no erythema. Patient reports that he's having some pain now in the left ankle they goes up the left side of the leg mildly in the left calf. He is concerned that maybe there is a secondary or developing infection. Patient denies any injury. Reports this started yesterday the pains worsened today. He has no reports of fevers chills nausea or vomiting. Patient reports he has not been seen at wound care because he "got fired" and they've missed some appointments. Allergies and Home Medications Allergies Coded Allergies: vancomycin (Unverified Allergy, Intermediate, Vomiting, 07/18/19) Bacitracin Zinc (Verified Allergy, Unknown, 06/04/12) bacitracin (Verified Allergy, Unknown, 06/04/12) benzalkonium chloride (Verified Allergy, Unknown, 06/04/12) cefadroxil (Verified Allergy, Unknown, RASH, 04/08/16) gramicidin D (Verified Allergy, Unknown, 06/04/12) hydrocortisone (Verified Allergy, Unknown, 06/04/12) methocarbamol (Verified Allergy, Unknown, 06/04/12) neomycin sulfate (Verified Allergy, Unknown, 06/04/12) polymyxin B (Verified Allergy, Unknown, 06/04/12) polymyxin B sulfate (Verified Allergy, Unknown, 06/04/12) carbamazepine (Unverified Adverse Reaction, Mild, hives, 11/12/14) Home Medications Acetaminophen/Diphenhydramine 1 Each Tablet, 2 EACH PO Q6H PRN for PAIN-SEVERE (8-10) Prescribed by: BALTAZAR WEBBER on 04/19/20 8567 Albuterol Sulfate 1 Puff Puff, 2 PUFF IH Q6H PRN for SHORTNESS OF BREATH, (Reported) 1 PUFF = 90 MCG Amlodipine Besylate 5 Mg Tablet, 5 MG PO DAILY, (Reported) Aspirin 81 Mg Tablet.dr, 81 MG PO TID PRN for PAIN-MILD, (Reported) Doxycycline Hyclate 100 Mg Tablet, 100 MG PO BID Prescribed by: MARISELA TORREZ on 05/13/202041 Escitalopram Oxalate 10 Mg Tablet, 10 MG PO DAILY, (Reported) LAST FILLED #30 04-20-19 Gabapentin 400 Mg Capsule, 400 MG PO TID, (Reported) LAST FILLED #90 04-20-19 Lisinopril 10 Mg Tablet, 10 MG PO DAILY, (Reported) LAST FILLED #30 03-26-19 Loratadine 10 Mg Tablet, 10 MG PO DAILY, (Reported) Meloxicam 7.5 Mg Tablet, 7.5 MG PO BID, (Reported) Metronidazole 500 Mg Tablet, 500 MG PO TID Prescribed by: JASMINE ANDERSON on 04/11/201953 Naproxen 500 Mg Tablet, 500 MG PO BID PRN for PAIN-MODERATE (5-7) Prescribed by: BALTAZAR WEBBER on 04/19/201626 Pantoprazole Sodium 20 Mg Tablet.dr, 20 MG PO BID Prescribed by: BALTAZAR WEBBER on 01/09/20911 Sucralfate 1 Gm Tablet, 1 GM PO QIDACHS Prescribed by: BALTAZAR WEBBER on 01/09/20911 Tramadol HCl 50 Mg Tablet, 50 MG PO PRN, (Reported) Tramadol HCl 50 Mg Tablet, 50 MG PO Q6H PRN for PAIN Prescribed by: MARISELA TORREZ on 05/13/202042 Patient Home Medication List Home Medication List Reviewed: Yes Review of Systems Review of Systems Constitutional: No chills, No diaphoresis, No fever Respiratory: no symptoms reported Cardiovascular: no symptoms reported Gastrointestinal: no symptoms reported Genitourinary: no symptoms reported Musculoskeletal: see HPI Skin: see HPI Psychiatric/Neurological: No Symptoms Reported Endocrine: No Symptoms Reported Past Jtbgmln-Vmgmwz-Rnsvqa Hx Past Med/Social Hx: Reviewed Nursing Past Med/Soc Hx Patient Social History Alcohol Beverage of Choice: Beer Drug of Choice: pot and meth Type Used: Cigarettes Former Smoker, Quit: Apr 15, 2018 2nd Hand Smoke Exposure: Yes Recent Foreign Travel: No Contact w/Someone Who Travel: No Recent Hopitalizations: Yes (SANDOR [place] JUL 12) Immunizations Up To Date Tetanus Booster (TDap): Unknown Date of Pneumonia Vaccine: Jun 26, 2018 Date of Influenza Vaccine: Jun 26, 2011 Seasonal Allergies Seasonal Allergies: Yes Past Medical History Surgeries: Yes (HERNIA INGUINAL AND UMBILICAL, LEG SURGERY) Eye Surgery, Lobectomy Respiratory: Yes Pneumonia, COPD, Emphysema Currently Using CPAP: No Currently Using BIPAP: No Cardiac: Yes (CHF) Coronary Artery Disease, Deep Vein Thrombosis, Heart Attack, Hypertension, Peripheral Vascular Neurological: No Neuropathy, Stroke, TIA Reproductive Disorders: No Sexually Transmitted Disease: No HIV/AIDS: No Genitourinary: Yes Renal Failure Gastrointestinal: Yes Gastroesophageal Reflux, Liver Disease/Jaundice, Hepatitis, Polyps Musculoskeletal: Yes Back Injury, Chronic Back Pain, Fractures Endocrine: No HEENT: No Loss of Vision: Left Cancer: Yes Lung Did You Recieve Any Treatments: Yes What Type of Treatment Did You: Surgical Intervention Psychosocial: Yes Anxiety, PTSD, Depression Integumentary: Yes (WOUNDS TO LOWER LEGS) Blood Disorders: No Adverse Reaction/Blood Tranf: No Family Medical History Cardiovascular disease 19 FATHER 19 MOTHER FH: stroke G8 BROTHER Hypertension 19 FATHER G8 BROTHER No Pertinent Family Hx Physical Exam Vital Signs Vital Signs - First Documented 08/12/20 08:30 Temp 36.0 Pulse 100 Resp 18 B/P (MAP) 157/56 (89) Pulse Ox 96 O2 Delivery Room Air Capillary Refill : General Appearance: no apparent distress HEENT: PERRL/EOMI Neck: full range of motion, supple Cardiovascular: normal peripheral pulses, regular rate, rhythm Respiratory: lungs clear, normal breath sounds, no respiratory distress Gastrointestinal: soft Extremities: other (tenderness to the left lateral leg, left anterior lateral leg and left posterior leg. Mild swelling) Neurologic/Psychiatric: alert, normal mood/affect, oriented x 3 Skin: other (chronic ulcer approximately 7 x 4 cm granulated with no increased erythema warmth or drainage) Skin Problem Location: other (small area of tenderness over the left lateral malleolus, slightly swollen but no erythema or warmth) Progress/Results/Core Measures Results/Orders Lab Results Laboratory Tests Test 08/12/20 08:47 08/12/20 09:19 Range/Units White Blood Count 5.7 4.3-11.0 10^3/uL Red Blood Count 4.51 4.30-5.52 10^6/uL Hemoglobin 12.8 L 13.3-17.7 g/dL Hematocrit 40 40-54 % Mean Corpuscular Volume 88 80-99 fL Mean Corpuscular Hemoglobin 28 25-34 pg Mean Corpuscular Hemoglobin Concent 32 32-36 g/dL Red Cell Distribution Width 15.1 H 10.0-14.5 % Platelet Count 233 130-400 10^3/uL Mean Platelet Volume 9.6 9.0-12.2 fL Immature Granulocyte % (Auto) 0 % Neutrophils (%) (Auto) 58 42-75 % Lymphocytes (%) (Auto) 21 12-44 % Monocytes (%) (Auto) 13 H 0-12 % Eosinophils (%) (Auto) 6 0-10 % Basophils (%) (Auto) 1 0-10 % Neutrophils # (Auto) 3.3 1.8-7.8 10^3/uL Lymphocytes # (Auto) 1.2 1.0-4.0 10^3/uL Monocytes # (Auto) 0.8 0.0-1.0 10^3/uL Eosinophils # (Auto) 0.4 H 0.0-0.3 10^3/uL Basophils # (Auto) 0.0 0.0-0.1 10^3/uL Immature Granulocyte # (Auto) 0.0 0.0-0.1 10^3/uL Sodium Level 140 135-145 MMOL/L Potassium Level 3.8 3.6-5.0 MMOL/L Chloride Level 107 98-107 MMOL/L Carbon Dioxide Level 23 21-32 MMOL/L Anion Gap 10 5-14 MMOL/L Blood Urea Nitrogen 19 H 7-18 MG/DL Creatinine 0.91 0.60-1.30 MG/DL Estimat Glomerular Filtration Rate > 60 BUN/Creatinine Ratio 21 Glucose Level 110 H 70-105 MG/DL Calcium Level 8.3 L 8.5-10.1 MG/DL C-Reactive Protein High Sensitivity 3.51 H 0.00-0.50 MG/DL Procalcitonin 0.08 <0.10 NG/ML D-Dimer 6.25 H 0.00-0.49 UG/ML My Orders Orders - JOHANN WARRENR L DO Basic Metabolic Panel (08/12/20 08:40) Cbc With Automated Diff (08/12/20 08:40) Hs C Reactive Protein (08/12/20 08:40) Fibrin Degradation Products (08/12/20 08:40) Procalcitonin (Pct) (08/12/20 08:40) Ankle, Left, 3 Views (08/12/20 08:49) Lidocaine 2% Jelly 5 Ml (Xylocaine Jelly (08/12/20 09:15) Us Venous Lower Ext Lt (08/12/20 09:49) Wound Dressing-Ed (08/12/20 11:14) Medications Given in ED Current Medications Medications Dose Ordered Sig/Kiran Route Start Time Stop Time Status Last Admin Dose Admin Lidocaine HCl 5 ml ONCE ONCE TOP 08/12/20 09:15 08/12/20 09:16 DC 08/12/20 09:21 5 ML Vital Signs/I&O 08/12/20 08:30 Temp 36.0 Pulse 100 Resp 18 B/P (MAP) 157/56 (89) Pulse Ox 96 O2 Delivery Room Air Progress Progress Note : Time: 11:18 Progress Note Patient with some slight swelling of the left lower leg, elevated CRP otherwise normal. Calcitonin normal white count no significant infectious presentation. However due to his noncompliance I will start him on Keflex. Patient should follow-up with his primary care provider in 2-3 days. Patient is asking for pain medication which I instructed him to follow-up with his primary care provider for his long-term management. Patient stable will be discharged home Diagnostic Imaging Diagonstic Imaging: Xray Plain Films/CT/US/NM/MRI: ankle Comments [facility], [place] NAME: EMELYN BEJARANO [employer] REC#: [id number] PT STATUS: REG ER : 1960 PHYSICIAN: POOJA WARREN DO ADMIT DATE: 08/12/20/ER Draft Date of Exam:08/12/20 ANKLE, LEFT, 3 VIEWS EXAMINATION: ANKLE, LEFT, 3 VIEWS COMPARISON: None available. INDICATION: Left ankle pain with skin ulcer. TECHNIQUE: Non-weight bearing AP, oblique, and lateral views. FINDINGS: No osseous erosions or periosteal reaction is appreciated. No fracture. No osteochondral defect of the talar dome is appreciated. No features of ankle joint effusion. Achilles shadow is grossly normal. IMPRESSION: No radiographic features that would indicate osteomyelitis. Dictated on workstation # [id number] Dict: 08/12/20913 Trans: 08/12/20918 [id number] Interpreted by: ABDOUL GA MD Electronically signed by: Departure Impression Primary Impression: Chronic ulcer of left foot Qualified Codes: L97.529 - Non-pressure chronic ulcer of other part of left foot with unspecified severity Additional Impression: Cellulitis Qualified Codes: L03.116 - Cellulitis of left lower limb Disposition: HOME, SELF-CARE Condition: Stable Departure-Patient Inst. Referrals: JOSEFINA PEREZ MD (PCP/Family) Primary Care Physician Patient Instructions: Cellulitis and Erysipelas (Skin Infections) Add. Discharge Instructions: Follow-up with your primary care provider in 2-3 days for continuation of care and further treatment of her chronic ulcer and reevaluation of your left lower leg pain Scripts Amoxicillin/Potassium Clav (Augmentin 875-125 Tablet) 1 Each Tablet 1 EACH PO BID, #14 TAB 0 Refills Prov: POOJA WARREN DO 08/12/20 POOJA WARREN DO Aug 12, 2020 08:39
[2020-08-12 08:55] LABS: BASOPHILS % (AUTO) 1 % (0-10); EOSINOPHILS # (AUTO) 0.4 10^3/uL (0.0-0.3); EOSINOPHILS % (AUTO) 6 % (0-10); HEMATOCRIT 40 % (40-54); HEMOGLOBIN 12.8 g/dL (13.3-17.7); LYMPHOCYTES # (AUTO) 1.2 10^3/uL (1.0-4.0); LYMPHOCYTES % (AUTO) 21 % (12-44); MEAN CORPUSCULAR HEMOGLOBIN 28 pg (25-34); MEAN CORPUSCULAR HGB CONC 32 g/dL (32-36); MEAN CORPUSCULAR VOLUME 88 fL (80-99); MEAN PLATELET VOLUME 9.6 fL (9.0-12.2); MONOCYTES # (AUTO) 0.8 10^3/uL (0.0-1.0); MONOCYTES % (AUTO) 13 % (0-12); NEUTROPHILS # (AUTO) 3.3 10^3/uL (1.8-7.8); NEUTROPHILS % (AUTO) 58 % (42-75); PLATELET COUNT 233 10^3/uL (130-400); WHITE BLOOD COUNT 5.7 10^3/uL (4.3-11.0)
[2020-08-12 09:12] LABS: CHLORIDE 107 MMOL/L (98-107); POTASSIUM 3.8 MMOL/L (3.6-5.0); SODIUM 140 MMOL/L (135-145)
[2020-08-12 09:13] LABS: CALCIUM 8.3 MG/DL (8.5-10.1)
[2020-08-12 09:14] LABS: GLUCOSE 110 MG/DL (70-105)
[2020-08-12 09:15] LABS: CARBON DIOXIDE 23 MMOL/L (21-32)
[2020-08-12] MEDS ORDERED: LIDOCAINE JELLY 2% (XYLOCAINE) 5 ML TUBE TOP ONE (09:15)
[2020-08-12 09:18] LABS: BUN/CREATININE RATIO 21; CREATININE SERUM 0.91 MG/DL (0.60-1.30); GFR ESTIMATED > 60
--- NOTE | 2020-08-12 09:20 | Diagnostic Imaging Report ---
EXAMINATION: ANKLE, LEFT, 3 VIEWS COMPARISON: None available. INDICATION: Left ankle pain with skin ulcer. TECHNIQUE: Non-weight bearing AP, oblique, and lateral views. FINDINGS: No osseous erosions or periosteal reaction is appreciated. No fracture. No osteochondral defect of the talar dome is appreciated. No features of ankle joint effusion. Achilles shadow is grossly normal. IMPRESSION: No radiographic features that would indicate osteomyelitis. Dictated by: Dictated on workstation # [id number]
--- NOTE | 2020-08-12 10:32 | NUR ---
Lyndsey barrera in ED - 08/12/20 at 1032 by PMCCLURE RETURN FROM [address].
--- NOTE | 2020-08-12 10:32 | NUR ---
RETURN FROM [facility]ONO
--- NOTE | 2020-08-12 11:03 | Diagnostic Imaging Report ---
PROCEDURE: US left lower extremity venous. TECHNIQUE: Multiple Real-time grayscale images were obtained over the left lower extremity in various projections. Additional duplex Doppler and color Doppler images were also obtained. INDICATION: Leg pain and swelling. FINDINGS: There are no prior studies available for comparison. The deep venous system was visualized from the distal common femoral vein to the proximal anterior and tibial veins. There is good flow and compressibility at all levels and there is no evidence for a deep venous thrombosis. IMPRESSION: There is no evidence for a deep venous thrombosis. Dictated by: Dictated on workstation # [id number]
[2020-08-12] MEDS ORDERED: AMOX-358 PO (11:22)
[2020-08-12 11:46] VITALS: BP 199/95
== END 2020-08-12 11:46 | disposition home or self-care (01) ==
LOC: EDUNIT# 08:15 → ER 08:17
DX: L97.529 Non-pressure chronic ulcer of other part of left foot with unspecified severity (principal); L03.116 Cellulitis of left lower limb; J44.9 Chronic obstructive pulmonary disease, unspecified; K21.9 Gastro-esophageal reflux disease without esophagitis; I25.10 Atherosclerotic heart disease of native coronary artery without angina pectoris; F41.9 Anxiety disorder, unspecified; F32.9 Major depressive disorder, single episode, unspecified; I10 Essential (primary) hypertension; I25.2 Old myocardial infarction; Z82.49 Family history of ischemic heart disease and other diseases of the circulatory system; Z85.118 Personal history of other malignant neoplasm of bronchus and lung; Z86.73 Personal history of transient ischemic attack (TIA), and cerebral infarction without residual deficits; Z87.891 Personal history of nicotine dependence; Z88.1 Allergy status to other antibiotic agents; Z88.8 Allergy status to other drugs, medicaments and biological substances; Z79.82 Long term (current) use of aspirin
CPT/HCPCS: 36415; 73610; 80048; 84145; 85025; 85379; 86141

== ENCOUNTER 2020-09-05 17:37 | Emergency (ER) | payer MEDICARE, MEDICAID ==
[~2020-09-05] VITALS: Ht 172.7 cm; Wt 74.0 kg
[~2020-09-05 17:37] MED LIST changes: -CLIN300C11 PO; +CLIN300C12 PO
[2020-09-05] MEDS ORDERED: OFLO5DRO33 EACH EAR (18:35)
--- NOTE | 2020-09-05 18:35 | ED EENT ---
History of Present Illness General Chief Complaint: Foreign Body Stated Complaint: SLATE WENT IN R EAR Nursing Triage Note: PT AMB TO TRIAGE WITH COMPLAINT OF WELD SLAG IN RIGHT EAR. STATES FEEL LIKE INNER EAR IS BURNED. Source: patient History of Present Illness Date Seen by Provider: Sep 05, 2020 Time Seen by Provider: 18:25 Initial Comments PT ARRIVES VIA POV FROM HOME PT STATES HE WAS WELDING SOMETHING UNDER HIS CAR, AND STATES A "PIECE OF SLAG" FELL DOWN INTO HIS RIGHT EAR OCCURRED JUST PRIOR TO ARRIVAL. STATES THAT IT FEELS LIKE THE INSIDE OF HIS EAR IS BURNED. CLAIMS HE WASHED OUT HIS EAR PRIOR TO ARRIVAL NO INJURY ANYWHERE ELSE NO PROBLEMS HEARING NO DRAINAGE OR BLEEDING FROM EAR PT STATES HE IS UP TO DATE ON TETANUS VACCINATION PCP: [facility], DR. PEREZ/SANGITA VINCENT Allergies and Home Medications Allergies Coded Allergies: vancomycin (Unverified Allergy, Intermediate, Vomiting, 07/18/19) Bacitracin Zinc (Verified Allergy, Unknown, 06/04/12) bacitracin (Verified Allergy, Unknown, 06/04/12) benzalkonium chloride (Verified Allergy, Unknown, 06/04/12) cefadroxil (Verified Allergy, Unknown, RASH, 04/08/16) gramicidin D (Verified Allergy, Unknown, 06/04/12) hydrocortisone (Verified Allergy, Unknown, 06/04/12) methocarbamol (Verified Allergy, Unknown, 06/04/12) neomycin sulfate (Verified Allergy, Unknown, 06/04/12) polymyxin B (Verified Allergy, Unknown, 06/04/12) polymyxin B sulfate (Verified Allergy, Unknown, 06/04/12) carbamazepine (Unverified Adverse Reaction, Mild, hives, 11/12/14) Home Medications Acetaminophen/Diphenhydramine 1 Each Tablet, 2 EACH PO Q6H PRN for PAIN-SEVERE (8-10) Prescribed by: BALTAZAR WEBBER on 04/19/20 1627 Albuterol Sulfate 1 Puff Puff, 2 PUFF IH Q6H PRN for SHORTNESS OF BREATH, (Reported) 1 PUFF = 90 MCG Amlodipine Besylate 5 Mg Tablet, 5 MG PO DAILY, (Reported) Amoxicillin/Potassium Clav 1 Each Tablet, 1 EACH PO BID Prescribed by: POOJA WARREN on 08/12/20 1122 Aspirin 81 Mg Tablet.dr, 81 MG PO TID PRN for PAIN-MILD, (Reported) Doxycycline Hyclate 100 Mg Tablet, 100 MG PO BID Prescribed by: MARISELA TORREZ on 05/13/202041 Escitalopram Oxalate 10 Mg Tablet, 10 MG PO DAILY, (Reported) LAST FILLED #30 04-20-19 Gabapentin 400 Mg Capsule, 400 MG PO TID, (Reported) LAST FILLED #90 04-20-19 Lisinopril 10 Mg Tablet, 10 MG PO DAILY, (Reported) LAST FILLED #30 03-26-19 Loratadine 10 Mg Tablet, 10 MG PO DAILY, (Reported) Meloxicam 7.5 Mg Tablet, 7.5 MG PO BID, (Reported) Metronidazole 500 Mg Tablet, 500 MG PO TID Prescribed by: JASMINE ANDERSON on 04/11/201953 Naproxen 500 Mg Tablet, 500 MG PO BID PRN for PAIN-MODERATE (5-7) Prescribed by: BALTAZAR WEBBER on 04/19/20 162 Ofloxacin 5 Ml Drops, 5 DROPS EACH EAR BID Prescribed by: ERYN FULLER on 09/05/20 183 Pantoprazole Sodium 20 Mg Tablet.dr, 20 MG PO BID Prescribed by: BALTAZAR WEBBER on 01/09/20911 Sucralfate 1 Gm Tablet, 1 GM PO QIDACHS Prescribed by: BALTAZAR WEBBER on 01/09/20911 Tramadol HCl 50 Mg Tablet, 50 MG PO PRN, (Reported) Tramadol HCl 50 Mg Tablet, 50 MG PO Q6H PRN for PAIN Prescribed by: MARISELA TORREZ on 05/13/202042 Patient Home Medication List Home Medication List Reviewed: Yes Review of Systems Review of Systems Constitutional: no symptoms reported Eyes: No Symptoms Reported Ears: See HPI; Denies Dizziness; Pain; Denies Tinnitus, Denies Bloody Discharge, Denies Clear Discharge, Denies Serosanguinous Discharge Skin: no symptoms reported Neurological: No Symptoms Reported Past Inboskf-Dyubus-Odlcnx Hx Past Med/Social Hx: Reviewed and Corrections made Patient Social History Alcohol Use: Denies Use Number of Drinks Today: AA Alcohol Beverage of Choice: Beer Recreational Drug Use: Yes (METH, THC) Drug of Choice: METH, THC Smoking Status: Former Smoker Type Used: Cigarettes Former Smoker, Quit: Apr 15, 2018 2nd Hand Smoke Exposure: Yes Recent Foreign Travel: No Contact w/Someone Who Travel: No Recent Infectious Disease Expo: No Recent Hopitalizations: Yes (SANDOR [employer] JUL 12-) Physical Abuse: No Sexual Abuse: No Fear: No Immunizations Up To Date Tetanus Booster (TDap): Less than 5yrs Date of Pneumonia Vaccine: Jun 26, 2018 Date of Influenza Vaccine: Jun 26, 2011 Seasonal Allergies Seasonal Allergies: Yes Past Medical History Surgeries: Yes (HERNIA INGUINAL AND UMBILICAL, LEG SURGERY) Eye Surgery, Lobectomy Respiratory: Yes Pneumonia, COPD, Emphysema Currently Using CPAP: No Currently Using BIPAP: No Cardiac: Yes (CHF) Coronary Artery Disease, Deep Vein Thrombosis, Heart Attack, Hypertension, Peripheral Vascular Neurological: No Neuropathy, Stroke, TIA Reproductive Disorders: No Sexually Transmitted Disease: No HIV/AIDS: No Genitourinary: Yes Renal Failure Gastrointestinal: Yes Gastroesophageal Reflux, Liver Disease/Jaundice, Hepatitis, Polyps Musculoskeletal: Yes Back Injury, Chronic Back Pain, Fractures Endocrine: No HEENT: No Loss of Vision: Left Cancer: Yes Lung Did You Recieve Any Treatments: Yes What Type of Treatment Did You: Surgical Intervention Psychosocial: Yes Anxiety, PTSD, Depression Integumentary: Yes (WOUNDS TO LOWER LEGS/FEET) Blood Disorders: No Adverse Reaction/Blood Tranf: No Family Medical History Cardiovascular disease 19 FATHER 19 MOTHER FH: stroke G8 BROTHER Hypertension 19 FATHER G8 BROTHER No Pertinent Family Hx Physical Exam Vital Signs Vital Signs - First Documented 09/05/20 18:06 Pulse 117 Resp 20 B/P (MAP) 187/94 (125) Pulse Ox 95 O2 Delivery Room Air Height, Weight, BMI Height: 5'8.00" Weight: 165lbs. 5.0oz. 74.287172uz; 24.00 BMI Method:Stated General Appearance: WD/WN, no apparent distress, other (CONSTANT MOVEMENTS, UNKEMPT/VERY DIRTY, COVERED IN DIRT AND GRASS. ) Ears: right ear auricle normal, right ear TM normal, right ear other (NO VISIBLE FOREIGN BODY. MILD ERYTHEMA TO OUTER ASPECT OF INNER EAR. NO BLISTERS, NO DISCOLORATION, NO SWELLING TO CANAL. NO EVIDENCE OF BURN OR ANY INJURY WHATSOEVER TO EXTERNAL ASPECT OF EAR. NO BLEEDING. NO DISCHARGE. 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 Referrals: JOSEFINA PEREZ MD (PCP/Family) Primary Care Physician Patient Instructions: How to Use Ear Drops Add. Discharge Instructions: TYLENOL AND MOTRIN NEEDED FOR PAIN USE EAR DROPS PRESCRIBED FOLLOW UP WITH [facility] IN 2-3 DAYS IF NO BETTER All discharge instructions reviewed with patient and/or family. Voiced understanding. Scripts Ofloxacin (Floxin (Non-Formulary)) 5 Ml Drops 5 DROPS EACH EAR BID for 5 Days, #1 EA 3 Refills Prov: ERYN FULLER DO 09/05/20 ERYN FULLER DO Sep 05, 2020 18:35
[2020-09-05 18:39] VITALS: BP 187/94
== END 2020-09-05 18:39 | disposition home or self-care (01) ==
LOC: EDUNIT# 17:37 → ER 17:39
DX: H92.01 Otalgia, right ear (principal); J44.9 Chronic obstructive pulmonary disease, unspecified; I25.2 Old myocardial infarction; I10 Essential (primary) hypertension; K21.9 Gastro-esophageal reflux disease without esophagitis; F32.9 Major depressive disorder, single episode, unspecified; F41.9 Anxiety disorder, unspecified; I25.10 Atherosclerotic heart disease of native coronary artery without angina pectoris; Z82.49 Family history of ischemic heart disease and other diseases of the circulatory system; Z85.118 Personal history of other malignant neoplasm of bronchus and lung; Z86.73 Personal history of transient ischemic attack (TIA), and cerebral infarction without residual deficits; Z87.891 Personal history of nicotine dependence; Z88.1 Allergy status to other antibiotic agents; Z88.8 Allergy status to other drugs, medicaments and biological substances; Z79.82 Long term (current) use of aspirin
CPT/HCPCS: 99282

== ENCOUNTER 2020-09-08 18:16 | Emergency (ER) | payer MEDICARE, MEDICAID ==
[~2020-09-08] VITALS: Ht 172.7 cm; Wt 74.0 kg
[~2020-09-08 18:16] MED LIST changes: +OFLO5DRO33 EACH EAR
--- NOTE | 2020-09-08 18:44 | ED EENT ---
History of Present Illness General Chief Complaint: Ear Problems Stated Complaint: R EAR PREV INJ/FLUID/PRESSURE/DIZZINESS Nursing Triage Note: AMB TO ED WAS SEEN ON 09/05 STARTED ON OFLOXACIN REPORTS NOT ANY BETTER IS DIZZY WITH Source: patient Exam Limitations: no limitations History of Present Illness Date Seen by Provider: Sep 08, 2020 Time Seen by Provider: 18:43 Initial Comments To ER with worsening right ear pain. He was seen here a few days ago for the same after he was diagnosed with otitis externa and given ofloxacin otic. He comes back today for dizziness and worsening symptoms. Timing/Duration: gradual Severity: moderate Location: ear (R) Prearrival Treatment: no prearrival treatment Associated Symptoms: denies symptoms Allergies and Home Medications Allergies Coded Allergies: vancomycin (Unverified Allergy, Intermediate, Vomiting, 07/18/19) Bacitracin Zinc (Verified Allergy, Unknown, 06/04/12) bacitracin (Verified Allergy, Unknown, 06/04/12) benzalkonium chloride (Verified Allergy, Unknown, 06/04/12) cefadroxil (Verified Allergy, Unknown, RASH, 04/08/16) gramicidin D (Verified Allergy, Unknown, 06/04/12) hydrocortisone (Verified Allergy, Unknown, 06/04/12) methocarbamol (Verified Allergy, Unknown, 06/04/12) neomycin sulfate (Verified Allergy, Unknown, 06/04/12) polymyxin B (Verified Allergy, Unknown, 06/04/12) polymyxin B sulfate (Verified Allergy, Unknown, 06/04/12) carbamazepine (Unverified Adverse Reaction, Mild, hives, 11/12/14) Home Medications Acetaminophen/Diphenhydramine 1 Each Tablet, 2 EACH PO Q6H PRN for PAIN-SEVERE (8-10) Prescribed by: BALTAZAR WEBBER on 04/19/20 1627 Albuterol Sulfate 1 Puff Puff, 2 PUFF IH Q6H PRN for SHORTNESS OF BREATH, (Reported) 1 PUFF = 90 MCG Amlodipine Besylate 5 Mg Tablet, 5 MG PO DAILY, (Reported) Amoxicillin/Potassium Clav 1 Each Tablet, 1 EACH PO BID Prescribed by: POOJA WARREN on 08/12/20 1122 Aspirin 81 Mg Tablet.dr, 81 MG PO TID PRN for PAIN-MILD, (Reported) Doxycycline Hyclate 100 Mg Tablet, 100 MG PO BID Prescribed by: MARISELA TORREZ on 05/13/202041 Escitalopram Oxalate 10 Mg Tablet, 10 MG PO DAILY, (Reported) LAST FILLED #30 04-20-19 Gabapentin 400 Mg Capsule, 400 MG PO TID, (Reported) LAST FILLED #90 04-20-19 Lisinopril 10 Mg Tablet, 10 MG PO DAILY, (Reported) LAST FILLED #30 03-26-19 Loratadine 10 Mg Tablet, 10 MG PO DAILY, (Reported) Meloxicam 7.5 Mg Tablet, 7.5 MG PO BID, (Reported) Metronidazole 500 Mg Tablet, 500 MG PO TID Prescribed by: JASMINE ANDERSON on 04/11/201953 Naproxen 500 Mg Tablet, 500 MG PO BID PRN for PAIN-MODERATE (5-7) Prescribed by: BALTAZAR WEBBER on 04/19/20 162 Ofloxacin 5 Ml Drops, 5 DROPS EACH EAR BID Prescribed by: ERYN FULLER on 09/05/20 183 Pantoprazole Sodium 20 Mg Tablet.dr, 20 MG PO BID Prescribed by: BALTAZAR WEBBER on 01/09/20911 Sucralfate 1 Gm Tablet, 1 GM PO QIDACHS Prescribed by: BALTAZAR WEBBER on 01/09/20911 Tramadol HCl 50 Mg Tablet, 50 MG PO PRN, (Reported) Tramadol HCl 50 Mg Tablet, 50 MG PO Q6H PRN for PAIN Prescribed by: MARISELA TORREZ on 05/13/202042 Patient Home Medication List Home Medication List Reviewed: Yes Review of Systems Review of Systems Constitutional: see HPI Eyes: No Symptoms Reported Ears: See HPI, Pain Nose: no symptoms reported Mouth: no symptoms reported Throat: no symptoms reported Respiratory: no symptoms reported Cardiovascular: no symptoms reported Musculoskeletal: no symptoms reported Skin: no symptoms reported Neurological: No Symptoms Reported Hematologic/Lymphatic: No Symptoms Reported Immunological/Allergic: no symptoms reported Past Ofudsrd-Woswqq-Zuvqnd Hx Patient Social History Alcohol Use: Denies Use Number of Drinks Today: AA Alcohol Beverage of Choice: Beer Recreational Drug Use: No Drug of Choice: METH, THC Type Used: Cigarettes Former Smoker, Quit: Apr 15, 2018 2nd Hand Smoke Exposure: Yes Recent Foreign Travel: No Contact w/Someone Who Travel: No Recent Infectious Disease Expo: No Recent Hopitalizations: Yes (SANDOR [place] JUL 12) Immunizations Up To Date Tetanus Booster (TDap): Less than 5yrs Date of Pneumonia Vaccine: Jun 26, 2018 Date of Influenza Vaccine: Jun 26, 2011 Seasonal Allergies Seasonal Allergies: Yes Past Medical History Surgeries: Yes (HERNIA INGUINAL AND UMBILICAL, LEG SURGERY) Eye Surgery, Lobectomy Respiratory: Yes Pneumonia, COPD, Emphysema Currently Using CPAP: No Currently Using BIPAP: No Cardiac: Yes (CHF) Coronary Artery Disease, Deep Vein Thrombosis, Heart Attack, Hypertension, Peripheral Vascular Neurological: No Neuropathy, Stroke, TIA Reproductive Disorders: No Sexually Transmitted Disease: No HIV/AIDS: No Genitourinary: Yes Renal Failure Gastrointestinal: Yes Gastroesophageal Reflux, Liver Disease/Jaundice, Hepatitis, Polyps Musculoskeletal: Yes Back Injury, Chronic Back Pain, Fractures Endocrine: No HEENT: No Loss of Vision: Left Cancer: Yes Lung Did You Recieve Any Treatments: Yes What Type of Treatment Did You: Surgical Intervention Psychosocial: Yes Anxiety, PTSD, Depression Integumentary: Yes (WOUNDS TO LOWER LEGS/FEET) Blood Disorders: No Adverse Reaction/Blood Tranf: No Family Medical History Cardiovascular disease 19 FATHER 19 MOTHER FH: stroke G8 BROTHER Hypertension 19 FATHER G8 BROTHER No Pertinent Family Hx Physical Exam Vital Signs Vital Signs - First Documented 09/08/20 18:24 Temp 36.7 Pulse 91 Resp 18 B/P (MAP) 142/91 (108) Pulse Ox 98 Height, Weight, BMI Height: 5'8.00" Weight: 165lbs. 5.0oz. 74.356838ts; 24.00 BMI Method:Stated General Appearance: WD/WN, no apparent distress Eyes: bilateral eye normal inspection, bilateral eye PERRL, bilateral eye EOMI Ears: right ear canal normal (Right canal is edematous and tender), right ear TM red, right ear TM bulging; bilateral ear auricle normal Mouth/Throat: normal mouth inspection, pharynx normal Neck: non-tender, full range of motion Respiratory: no respiratory distress, no accessory muscle use Gastrointestinal: normal bowel sounds, soft Neurologic/Psychiatric: alert, normal mood/affect, oriented x 3 Skin: normal color, warm/dry Progress/Results/Core Measures Results/Orders My Orders Orders - JASMINE ANDERSON APRN Ct Head Wo (09/08/20 18:35) Ceftriaxone For Im Use (Rocephin For Im (09/08/20 18:45) Dexamethasone Injection (Decadron Inje (09/08/20 18:45) Lidocaine 1% Inj 20 Ml (Xylocaine 1% Inj (09/08/20 18:45) Vital Signs/I&O 09/08/20 18:24 Temp 36.7 Pulse 91 Resp 18 B/P (MAP) 142/91 (108) Pulse Ox 98 Blood Pressure Mean: 108 Departure Impression Primary Impression: Otitis media Additional Impression: Otitis externa Disposition: HOME, SELF-CARE Condition: Stable Departure-Patient Inst. Decision time for Depature: 19:01 Referrals: JOSEFINA PEREZ MD (PCP/Family) Primary Care Physician Patient Instructions: Outer Ear Infection ED Add. Discharge Instructions: 1. Continue to use the eardrops. Start the oral antibiotic as directed. All discharge instructions reviewed with patient and/or family. Voiced understanding. Scripts Amoxicillin (Amoxicillin) 500 Mg Capsule 500 MG PO TID, #21 CAP 0 Refills Prov: JASMINE ANDERSON APRN 09/08/20 JASMINE ANDERSON APRN Sep 08, 2020 18:44
[2020-09-08] MEDS ORDERED: LIDOCAINE 1% INJ 20 ML 20 ML VIAL INJ ONE (18:45)
[2020-09-08] MEDS ORDERED: cefTRIAXone 1,000 MG/2.86 ml vial (IM ONLY) IM SCH (18:45)
--- NOTE | 2020-09-08 19:02 | Diagnostic Imaging Report ---
PROCEDURE: CT head without contrast. TECHNIQUE: Multiple contiguous axial images were obtained through the brain without the use of intravenous contrast. Auto Exposure Controls were utilized during the CT exam to meet ALARA standards for radiation dose reduction. INDICATION: Right ear pain with dizziness. Reports piece of hot slag dropping into right ear while welding. FINDINGS: The paranasal sinuses are well aerated and clear. The mastoid air cells are clear. There are no destructive bony changes. The middle ears are well-aerated. Ossicles appear in good position. The external auditory canals are patent bilaterally. There are no foreign bodies noted. The tympanic membranes are not thickened. The ventricles and cortical gyral pattern are normal. There is no intracranial hemorrhage or mass effect. No extra-axial fluid collections to suggest abscess. IMPRESSION: Negative CT head without contrast. Dictated by: Dictated on workstation # [id number]
[2020-09-08] MEDS ORDERED: AMOX500C2 PO (19:03)
[2020-09-08 19:27] VITALS: BP 138/88
== END 2020-09-08 19:27 | disposition home or self-care (01) ==
LOC: EDUNIT# 18:16 → ER 18:17
DX: H66.91 Otitis media, unspecified, right ear (principal); H60.91 Unspecified otitis externa, right ear; K21.9 Gastro-esophageal reflux disease without esophagitis; J44.9 Chronic obstructive pulmonary disease, unspecified; I25.10 Atherosclerotic heart disease of native coronary artery without angina pectoris; I10 Essential (primary) hypertension; F32.9 Major depressive disorder, single episode, unspecified; F41.9 Anxiety disorder, unspecified; I25.2 Old myocardial infarction; Z82.49 Family history of ischemic heart disease and other diseases of the circulatory system; Z80.1 Family history of malignant neoplasm of trachea, bronchus and lung; Z87.891 Personal history of nicotine dependence; Z86.73 Personal history of transient ischemic attack (TIA), and cerebral infarction without residual deficits; Z88.1 Allergy status to other antibiotic agents; Z88.8 Allergy status to other drugs, medicaments and biological substances; Z79.82 Long term (current) use of aspirin
CPT/HCPCS: 70450

== ENCOUNTER 2020-10-15 02:54 | Emergency (ER) | payer MEDICARE, MEDICAID ==
[~2020-10-15 02:54] MED LIST changes: +AMOX500C2 PO
[2020-10-15 03:10] VITALS: BP 157/97
[2020-10-15] MEDS ORDERED: AUGMENTIN 875 MG TAB (AMOXICILLIN/CLAVULANATE) PO ONE (03:15)
[2020-10-15] MEDS ORDERED: RX-HYDROCODONE/APAP 5/325 MG #4 TAB PK PO PRN (03:15)
--- NOTE | 2020-10-15 03:19 | ED EENT ---
History of Present Illness General Chief Complaint: Ear Problems Stated Complaint: RT EAR PAIN Source: patient Exam Limitations: no limitations History of Present Illness Date Seen by Provider: Oct 15, 2020 Time Seen by Provider: 03:05 Initial Comments Patient presents ER by private conveyance from home with chief complaint he was awoken with pain in his right ear. He dropped some hot welding slag about a week or 2 down his right ear causing a burn and then subsequent infection. He has an appointment with Dr. Rosales, ENT. In a week or 2. No fever or chills. He ran out of antibiotics 3 days ago. Allergies and Home Medications Allergies Coded Allergies: vancomycin (Unverified Allergy, Intermediate, Vomiting, 07/18/19) Bacitracin Zinc (Verified Allergy, Unknown, 06/04/12) bacitracin (Verified Allergy, Unknown, 06/04/12) benzalkonium chloride (Verified Allergy, Unknown, 06/04/12) cefadroxil (Verified Allergy, Unknown, RASH, 04/08/16) gramicidin D (Verified Allergy, Unknown, 06/04/12) hydrocortisone (Verified Allergy, Unknown, 06/04/12) methocarbamol (Verified Allergy, Unknown, 06/04/12) neomycin sulfate (Verified Allergy, Unknown, 06/04/12) polymyxin B (Verified Allergy, Unknown, 06/04/12) polymyxin B sulfate (Verified Allergy, Unknown, 06/04/12) carbamazepine (Unverified Adverse Reaction, Mild, hives, 11/12/14) Home Medications Acetaminophen/Diphenhydramine 1 Each Tablet, 2 EACH PO Q6H PRN for PAIN-SEVERE (8-10) Prescribed by: BALTAZAR WEBBER on 04/19/20 1627 Albuterol Sulfate 1 Puff Puff, 2 PUFF IH Q6H PRN for SHORTNESS OF BREATH, (Reported) 1 PUFF = 90 MCG Amlodipine Besylate 5 Mg Tablet, 5 MG PO DAILY, (Reported) Amoxicillin 500 Mg Capsule, 500 MG PO TID Prescribed by: JASMINE ANDERSON on 09/08/20 190 Amoxicillin/Potassium Clav 1 Each Tablet, 1 EACH PO BID Prescribed by: POOJA WARREN on 08/12/20 112 Aspirin 81 Mg Tablet.dr, 81 MG PO TID PRN for PAIN-MILD, (Reported) Doxycycline Hyclate 100 Mg Tablet, 100 MG PO BID Prescribed by: MARISELA TORREZ on 05/13/202041 Escitalopram Oxalate 10 Mg Tablet, 10 MG PO DAILY, (Reported) LAST FILLED #30 04-20-19 Gabapentin 400 Mg Capsule, 400 MG PO TID, (Reported) LAST FILLED #90 04-20-19 Lisinopril 10 Mg Tablet, 10 MG PO DAILY, (Reported) LAST FILLED #30 03-26-19 Loratadine 10 Mg Tablet, 10 MG PO DAILY, (Reported) Meloxicam 7.5 Mg Tablet, 7.5 MG PO BID, (Reported) Metronidazole 500 Mg Tablet, 500 MG PO TID Prescribed by: JASMINE ANDERSON on 04/11/201953 Naproxen 500 Mg Tablet, 500 MG PO BID PRN for PAIN-MODERATE (5-7) Prescribed by: BALTAZAR WEBBER on 04/19/20 162 Ofloxacin 5 Ml Drops, 5 DROPS EACH EAR BID Prescribed by: ERYN FULLER on 09/05/20 183 Pantoprazole Sodium 20 Mg Tablet.dr, 20 MG PO BID Prescribed by: BALTAZAR WEBBER on 01/09/20911 Sucralfate 1 Gm Tablet, 1 GM PO QIDACHS Prescribed by: BALTAZAR WEBBER on 01/09/20911 Tramadol HCl 50 Mg Tablet, 50 MG PO PRN, (Reported) Tramadol HCl 50 Mg Tablet, 50 MG PO Q6H PRN for PAIN Prescribed by: MARISELA TORREZ on 05/13/202042 Patient Home Medication List Home Medication List Reviewed: Yes Review of Systems Review of Systems Constitutional: No chills, No diaphoresis Eyes: Denies Blindness, Denies Drainage Ears: See HPI; Denies Dizziness; Pain, Purulent Discharge Nose: denies clots, denies congestion Mouth: denies clots, denies loose teeth Throat: denies pain, denies swelling Past Pxrzika-Ummifw-Gqptxo Hx Patient Social History Alcohol Use: Occasionally Uses Number of Drinks Today: AA Alcohol Beverage of Choice: Beer Drug of Choice: METH, THC Type Used: Cigarettes Former Smoker, Quit: Apr 15, 2018 2nd Hand Smoke Exposure: Yes Recent Hopitalizations: Yes (SANDOR [place] JUL 12) Immunizations Up To Date Tetanus Booster (TDap): Less than 5yrs Date of Pneumonia Vaccine: Jun 26, 2018 Date of Influenza Vaccine: Jun 26, 2011 Seasonal Allergies Seasonal Allergies: Yes Past Medical History Surgeries: Yes (HERNIA INGUINAL AND UMBILICAL, LEG SURGERY) Eye Surgery, Lobectomy Respiratory: Yes Pneumonia, COPD, Emphysema Currently Using CPAP: No Currently Using BIPAP: No Cardiac: Yes (CHF) Coronary Artery Disease, Deep Vein Thrombosis, Heart Attack, Hypertension, Peripheral Vascular Neurological: No Neuropathy, Stroke, TIA Reproductive Disorders: No Sexually Transmitted Disease: No HIV/AIDS: No Genitourinary: Yes Renal Failure Gastrointestinal: Yes Gastroesophageal Reflux, Liver Disease/Jaundice, Hepatitis, Polyps Musculoskeletal: Yes Back Injury, Chronic Back Pain, Fractures Endocrine: No HEENT: No Loss of Vision: Left Cancer: Yes Lung Did You Recieve Any Treatments: Yes What Type of Treatment Did You: Surgical Intervention Psychosocial: Yes Anxiety, PTSD, Depression Integumentary: Yes (WOUNDS TO LOWER LEGS/FEET) Blood Disorders: No Adverse Reaction/Blood Tranf: No Family Medical History Cardiovascular disease 19 FATHER 19 MOTHER FH: stroke G8 BROTHER Hypertension 19 FATHER G8 BROTHER No Pertinent Family Hx Physical Exam Height, Weight, BMI Height: 5'8.00" Weight: 165lbs. 5.0oz. 74.406020fd; 24.00 BMI Method:Stated General Appearance: WD/WN, no apparent distress Eyes: bilateral eye normal inspection, bilateral eye PERRL, bilateral eye EOMI Ears: right ear erythema, right ear tenderness, right ear TM dull, right ear TM red, right ear TM bulging, right ear other (Small amount of purulence behind the eardrum.); bilateral ear auricle normal, bilateral ear canal normal Progress/Results/Core Measures Results/Orders My Orders Orders - BALTAZAR WEBBER Rx-Hydrocodone/Apap 5-325 Mg (Rx-Vicodin (10/15/20 03:15) Amoxicillin/Clavulanate Tablet (Augmenti (10/15/20 03:15) Progress Progress Note : Time: 03:20 Progress Note Purulent acute otitis media related to injury. Plan to put him on Augmentin for 10 days. Departure Impression Primary Impression: Acute otitis media, right Disposition: 01 HOME, SELF-CARE Condition: Stable Departure-Patient Inst. Decision time for Depature: 03:21 Referrals: CECI ROSALES MD, DAVID F MD (PCP/Family) Primary Care Physician Patient Instructions: DR. ROSALES-MIDDLE EAR Add. Discharge Instructions: Hydrocodone 1 tablet every 6 hours as necessary for breakthrough pain. Tylenol 650 mg every 8 hours as necessary for pain. Ibuprofen 800 mg every 8 hours as necessary for pain. Keep your follow-up appointment with the ENT. Augmentin 1 tablet twice a day with food for the next 10 days. Ciprofloxacin drops 2 drops right ear twice a day for the next week. All discharge instructions reviewed with patient and/or family. Voiced understanding. Scripts Amoxicillin/Potassium Clav (Augmentin 875-125 Tablet) 1 Each Tablet 1 EACH PO BID for 10 Days, #20 TAB 0 Refills Prov: BALTAZAR WEBBER 10/15/20 Ciprofloxacin HCl/Dexameth (Ciprodex Otic Suspension) 7.5 Ml Soln 2 DROPS OT BID for 7 Days, #1 EA 0 Refills Prov: BALTAZAR WEBBER 10/15/20 Hydrocodone/Acetaminophen (Hydrocodone-Acetamin 5-325 mg) 1 Each Tablet 1 EACH PO Q6H PRN for PAIN-BREAKTHROUGH, #10 TAB 0 Refills Prov: BALTAZAR WEBBER 10/15/20 BALTAZAR WEBBER Oct 15, 2020 03:19
[2020-10-15] MEDS ORDERED: NF-CIPDEC OT (03:25)
[2020-10-15] MEDS ORDERED: ACHD5005 PO (03:25)
[2020-10-15] MEDS ORDERED: AMOX-358 PO (03:25)
== END 2020-10-15 03:29 | disposition home or self-care (01) ==
LOC: EDUNIT# 02:54 → ER 02:58
DX: H66.91 Otitis media, unspecified, right ear (principal); J44.9 Chronic obstructive pulmonary disease, unspecified; I25.2 Old myocardial infarction; K21.9 Gastro-esophageal reflux disease without esophagitis; I10 Essential (primary) hypertension; I25.10 Atherosclerotic heart disease of native coronary artery without angina pectoris; F41.9 Anxiety disorder, unspecified; F32.9 Major depressive disorder, single episode, unspecified; Z88.1 Allergy status to other antibiotic agents; Z88.8 Allergy status to other drugs, medicaments and biological substances; Z85.118 Personal history of other malignant neoplasm of bronchus and lung; Z86.73 Personal history of transient ischemic attack (TIA), and cerebral infarction without residual deficits; Z87.891 Personal history of nicotine dependence; Z82.49 Family history of ischemic heart disease and other diseases of the circulatory system; Z79.82 Long term (current) use of aspirin
CPT/HCPCS: 99283

== ENCOUNTER 2020-10-27 19:40 | Emergency (ER) | payer MEDICARE, MEDICAID ==
[~2020-10-27] VITALS: Ht 170 cm; Wt 72.5 kg
[~2020-10-27 19:40] MED LIST changes: +NF-CIPDEC OT
[2020-10-27] MEDS ORDERED: DOXY100T2 PO (19:56)
[2020-10-27] MEDS ORDERED: OFLO5DRO33 RIGHT EAR (19:56)
--- NOTE | 2020-10-27 19:56 | ED EENT ---
History of Present Illness General Stated Complaint: R EAR PREV INJ/BLEEDING/PAIN Source: patient Exam Limitations: no limitations History of Present Illness Date Seen by Provider: Oct 27, 2020 Time Seen by Provider: 19:52 Initial Comments To ER with right ear pain and drainage. He has an appointment with Dr. Rosales on the he states. Timing/Duration: abrupt Severity: moderate Location: ear (R) Associated Symptoms: denies symptoms Allergies and Home Medications Allergies Coded Allergies: vancomycin (Unverified Allergy, Intermediate, Vomiting, 07/18/19) Bacitracin Zinc (Verified Allergy, Unknown, 06/04/12) bacitracin (Verified Allergy, Unknown, 06/04/12) benzalkonium chloride (Verified Allergy, Unknown, 06/04/12) cefadroxil (Verified Allergy, Unknown, RASH, 04/08/16) gramicidin D (Verified Allergy, Unknown, 06/04/12) hydrocortisone (Verified Allergy, Unknown, 06/04/12) methocarbamol (Verified Allergy, Unknown, 06/04/12) neomycin sulfate (Verified Allergy, Unknown, 06/04/12) polymyxin B (Verified Allergy, Unknown, 06/04/12) polymyxin B sulfate (Verified Allergy, Unknown, 06/04/12) carbamazepine (Unverified Adverse Reaction, Mild, hives, 11/12/14) Home Medications Acetaminophen/Diphenhydramine 1 Each Tablet, 2 EACH PO Q6H PRN for PAIN-SEVERE (8-10) Prescribed by: BALTAZAR WEBBER on 04/19/20 1627 Albuterol Sulfate 1 Puff Puff, 2 PUFF IH Q6H PRN for SHORTNESS OF BREATH, (Reported) 1 PUFF = 90 MCG Amlodipine Besylate 5 Mg Tablet, 5 MG PO DAILY, (Reported) Amoxicillin 500 Mg Capsule, 500 MG PO TID Prescribed by: JASMINE ANDERSON on 09/08/20 1903 Amoxicillin/Potassium Clav 1 Each Tablet, 1 EACH PO BID Prescribed by: POOJA WARREN on 08/12/20 1122 Amoxicillin/Potassium Clav 1 Each Tablet, 1 EACH PO BID Prescribed by: BALTAZAR WEBBER on 10/15/20 0325 Aspirin 81 Mg Tablet.dr, 81 MG PO TID PRN for PAIN-MILD, (Reported) Ciprofloxacin HCl/Dexameth 7.5 Ml Soln, 2 DROPS OT BID Prescribed by: BALTAZAR WEBBER on 10/15/20 032 Doxycycline Hyclate 100 Mg Tablet, 100 MG PO BID Prescribed by: MARISELA TORREZ on 05/13/202041 Escitalopram Oxalate 10 Mg Tablet, 10 MG PO DAILY, (Reported) LAST FILLED #30 04-20-19 Gabapentin 400 Mg Capsule, 400 MG PO TID, (Reported) LAST FILLED #90 04-20-19 Hydrocodone/Acetaminophen 1 Each Tablet, 1 EACH PO Q6H PRN for PAIN-BREAKTHROUGH Prescribed by: BALTAZAR WEBBER on 10/15/20 032 Lisinopril 10 Mg Tablet, 10 MG PO DAILY, (Reported) LAST FILLED #30 03-26-19 Loratadine 10 Mg Tablet, 10 MG PO DAILY, (Reported) Meloxicam 7.5 Mg Tablet, 7.5 MG PO BID, (Reported) Metronidazole 500 Mg Tablet, 500 MG PO TID Prescribed by: JASMINE ANDERSON on 04/11/201953 Naproxen 500 Mg Tablet, 500 MG PO BID PRN for PAIN-MODERATE (5-7) Prescribed by: BALTAZAR WEBBER on 04/19/20 162 Ofloxacin 5 Ml Drops, 5 DROPS EACH EAR BID Prescribed by: ERYN FULLER on 09/05/20 183 Pantoprazole Sodium 20 Mg Tablet.dr, 20 MG PO BID Prescribed by: BALTAZAR WEBBER on 01/09/20911 Sucralfate 1 Gm Tablet, 1 GM PO QIDACHS Prescribed by: BALTAZAR WEBBER on 01/09/20911 Tramadol HCl 50 Mg Tablet, 50 MG PO PRN, (Reported) Tramadol HCl 50 Mg Tablet, 50 MG PO Q6H PRN for PAIN Prescribed by: MARISELA TORREZ on 05/13/202042 Patient Home Medication List Home Medication List Reviewed: Yes Review of Systems Review of Systems Constitutional: see HPI Eyes: No Symptoms Reported Ears: See HPI, Pain, Purulent Discharge Nose: no symptoms reported Mouth: no symptoms reported Throat: no symptoms reported Respiratory: no symptoms reported Cardiovascular: no symptoms reported Musculoskeletal: no symptoms reported Skin: no symptoms reported Neurological: No Symptoms Reported Past Jbycmqk-Xqtqfw-Sujifa Hx Patient Social History Alcohol Beverage of Choice: Beer Drug of Choice: METH, THC Type Used: Cigarettes Former Smoker, Quit: Apr 15, 2018 2nd Hand Smoke Exposure: Yes Recent Hopitalizations: Yes (SANDOR MARQUISE JUL 12-) Immunizations Up To Date Tetanus Booster (TDap): Less than 5yrs Date of Pneumonia Vaccine: Jun 26, 2018 Date of Influenza Vaccine: Jun 26, 2011 Seasonal Allergies Seasonal Allergies: Yes Past Medical History Surgeries: Yes (HERNIA INGUINAL AND UMBILICAL, LEG SURGERY) Eye Surgery, Lobectomy Respiratory: Yes Pneumonia, COPD, Emphysema Currently Using CPAP: No Currently Using BIPAP: No Cardiac: Yes (CHF) Coronary Artery Disease, Deep Vein Thrombosis, Heart Attack, Hypertension, Peripheral Vascular Neurological: No Neuropathy, Stroke, TIA Reproductive Disorders: No Sexually Transmitted Disease: No HIV/AIDS: No Genitourinary: Yes Renal Failure Gastrointestinal: Yes Gastroesophageal Reflux, Liver Disease/Jaundice, Hepatitis, Polyps Musculoskeletal: Yes Back Injury, Chronic Back Pain, Fractures Endocrine: No HEENT: No Loss of Vision: Left Cancer: Yes Lung Did You Recieve Any Treatments: Yes What Type of Treatment Did You: Surgical Intervention Psychosocial: Yes Anxiety, PTSD, Depression Integumentary: Yes (WOUNDS TO LOWER LEGS/FEET) Blood Disorders: No Adverse Reaction/Blood Tranf: No Family Medical History Cardiovascular disease 19 FATHER 19 MOTHER FH: stroke G8 BROTHER Hypertension 19 FATHER G8 BROTHER No Pertinent Family Hx Physical Exam Height, Weight, BMI Height: 5'8.00" Weight: 165lbs. 5.0oz. 74.272461wt; 24.00 BMI Method:Stated General Appearance: WD/WN, no apparent distress Eyes: bilateral eye normal inspection, bilateral eye PERRL, bilateral eye EOMI Ears: right ear other (Right TM is bulging with apparent purulence behind it, light yellowish in color and the external ear canal is moist and swollen and very tender.); left ear canal normal; bilateral ear auricle normal Neck: non-tender, full range of motion Respiratory: no respiratory distress, no accessory muscle use Neurologic/Psychiatric: alert, normal mood/affect, oriented x 3 Skin: normal color, warm/dry Progress/Results/Core Measures Results/Orders My Orders Orders - JASMINE ANDERSON APRN Rx-Hydrocodone/Apap 5-325 Mg (Rx-Vicodin (10/27/20 20:00) Ceftriaxone For Im Use (Rocephin For Im (10/27/20 20:00) Lidocaine 1% Inj 20 Ml (Xylocaine 1% Inj (10/27/20 20:00) Wound Culture (10/27/20 19:50) Departure Impression Primary Impression: Acute otitis media, right Additional Impression: Otitis externa Disposition: 01 HOME, SELF-CARE Condition: Stable Departure-Patient Inst. Decision time for Depature: 19:55 Referrals: JOSEFINA PEREZ MD (PCP/Family) Primary Care Physician Patient Instructions: Outer Ear Infection (DC) Add. Discharge Instructions: 1. Use the eardrops as directed. Return to ER for any worsening symptoms. Follow-up with Dr. Rosales as scheduled. Scripts Doxycycline Hyclate (Doxycycline Hyclate) 100 Mg Tablet 100 MG PO BID, #20 TAB 0 Refills Prov: JASMINE ANDERSON APRN 10/27/20 Ofloxacin (Floxin (Non-Formulary)) 5 Ml Drops 5 DROPS RIGHT EAR BID for 5 Days, #1 DROPS 0 Refills Prov: JASMINE ANDERSON APRN 10/27/20 JASMINE ANDERSON APRN Oct 27, 2020 19:56
[2020-10-27] MEDS ORDERED: LIDOCAINE 1% INJ 20 ML 20 ML VIAL INJ ONE (20:00)
[2020-10-27] MEDS ORDERED: RX-HYDROCODONE/APAP 5/325 MG #4 TAB PK PO PRN (20:00)
[2020-10-27] MEDS ORDERED: cefTRIAXone 1,000 MG/2.86 ml vial (IM ONLY) IM SCH (20:00)
[2020-10-27 20:14] VITALS: BP 155/90
== END 2020-10-27 20:14 | disposition home or self-care (01) ==
LOC: EDUNIT# 19:40 → ER 19:42
DX: H66.91 Otitis media, unspecified, right ear (principal); H60.91 Unspecified otitis externa, right ear; J44.9 Chronic obstructive pulmonary disease, unspecified; I25.10 Atherosclerotic heart disease of native coronary artery without angina pectoris; I25.2 Old myocardial infarction; I10 Essential (primary) hypertension; K21.9 Gastro-esophageal reflux disease without esophagitis; G89.29 Other chronic pain; M54.9 Dorsalgia, unspecified; F32.9 Major depressive disorder, single episode, unspecified; F41.9 Anxiety disorder, unspecified; Z88.1 Allergy status to other antibiotic agents; Z88.8 Allergy status to other drugs, medicaments and biological substances; Z87.891 Personal history of nicotine dependence; Z85.118 Personal history of other malignant neoplasm of bronchus and lung; Z86.73 Personal history of transient ischemic attack (TIA), and cerebral infarction without residual deficits; Z82.49 Family history of ischemic heart disease and other diseases of the circulatory system; Z79.891 Long term (current) use of opiate analgesic; Z79.82 Long term (current) use of aspirin
CPT/HCPCS: 87070; 87077; 87205; 99284

== ENCOUNTER 2021-01-06 18:45 | Emergency (ER) | payer MEDICARE, MEDICAID ==
[~2021-01-06] VITALS: Ht 172.2 cm; Wt 76.2 kg
[~2021-01-06 18:45] MED LIST changes: -LISI-552 PO; -LISI10TA2 PO; +LISI10TA25 PO; +LISI20TA26 PO; +OFLO5DRO33 RIGHT EAR
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
[2021-01-06 21:55] VITALS: BP 168/72
== END 2021-01-06 22:06 | disposition short-term general hospital (02) ==
LOC: EDUNIT# 18:45 → ER 18:48
DX: H66.91 Otitis media, unspecified, right ear (principal); J44.9 Chronic obstructive pulmonary disease, unspecified; I25.2 Old myocardial infarction; I11.0 Hypertensive heart disease with heart failure; I50.9 Heart failure, unspecified; I25.10 Atherosclerotic heart disease of native coronary artery without angina pectoris; K21.9 Gastro-esophageal reflux disease without esophagitis; G89.29 Other chronic pain; M54.9 Dorsalgia, unspecified; F32.9 Major depressive disorder, single episode, unspecified; F41.9 Anxiety disorder, unspecified; Z88.1 Allergy status to other antibiotic agents; Z88.8 Allergy status to other drugs, medicaments and biological substances; Z87.891 Personal history of nicotine dependence; Z86.73 Personal history of transient ischemic attack (TIA), and cerebral infarction without residual deficits; Z79.82 Long term (current) use of aspirin; Z79.891 Long term (current) use of opiate analgesic

== ENCOUNTER → 2021-02-10 | Outpatient (CLI) | payer OTHER, MEDICAID ==
[2021-02-10 09:20] LABS: BASOPHILS # (AUTO) 0.1 10^3/uL (0.0-0.1); BASOPHILS % (AUTO) 1 % (0-10); EOSINOPHILS # (AUTO) 0.1 10^3/uL (0.0-0.3); EOSINOPHILS % (AUTO) 2 % (0-10); HEMATOCRIT 48 % (40-54); HEMOGLOBIN 15.9 g/dL (13.3-17.7); LYMPHOCYTES # (AUTO) 1.4 10^3/uL (1.0-4.0); LYMPHOCYTES % (AUTO) 21 % (12-44); MEAN CORPUSCULAR HEMOGLOBIN 29 pg (25-34); MEAN CORPUSCULAR HGB CONC 33 g/dL (32-36); MEAN CORPUSCULAR VOLUME 86 fL (80-99); MEAN PLATELET VOLUME 9.8 fL (9.0-12.2); MONOCYTES # (AUTO) 0.8 10^3/uL (0.0-1.0); MONOCYTES % (AUTO) 11 % (0-12); NEUTROPHILS # (AUTO) 4.3 10^3/uL (1.8-7.8); NEUTROPHILS % (AUTO) 65 % (42-75); PLATELET COUNT 227 10^3/uL (130-400); WHITE BLOOD COUNT 6.6 10^3/uL (4.3-11.0)
[2021-02-10 09:49] LABS: BILIRUBIN,TOTAL 0.7 MG/DL (0.1-1.0); CALCIUM 9.5 MG/DL (8.5-10.1); CREATININE SERUM 1.43 MG/DL (0.60-1.30); POTASSIUM 3.9 MMOL/L (3.6-5.0); TOTAL PROTEIN 7.5 GM/DL (6.4-8.2)
== END ==
LOC: LAB 08:46
PROVIDERS: ATTEND Internal Medicine Infectious Disease
DX: H66.3X9 Other chronic suppurative otitis media, unspecified ear (principal); Z79.2 Long term (current) use of antibiotics
CPT/HCPCS: 36415; 80053; 85025

== ENCOUNTER → 2021-02-17 | Outpatient (CLI) | payer OTHER, MEDICAID ==
[2021-02-17 09:19] LABS: BASOPHILS # (AUTO) 0.1 10^3/uL (0.0-0.1); BASOPHILS % (AUTO) 1 % (0-10); EOSINOPHILS # (AUTO) 0.1 10^3/uL (0.0-0.3); EOSINOPHILS % (AUTO) 2 % (0-10); HEMATOCRIT 44 % (40-54); HEMOGLOBIN 14.8 g/dL (13.3-17.7); LYMPHOCYTES # (AUTO) 1.4 10^3/uL (1.0-4.0); LYMPHOCYTES % (AUTO) 22 % (12-44); MEAN CORPUSCULAR HEMOGLOBIN 29 pg (25-34); MEAN CORPUSCULAR HGB CONC 33 g/dL (32-36); MEAN CORPUSCULAR VOLUME 86 fL (80-99); MEAN PLATELET VOLUME 10.1 fL (9.0-12.2); MONOCYTES # (AUTO) 0.7 10^3/uL (0.0-1.0); MONOCYTES % (AUTO) 10 % (0-12); NEUTROPHILS # (AUTO) 4.1 10^3/uL (1.8-7.8); NEUTROPHILS % (AUTO) 65 % (42-75); PLATELET COUNT 223 10^3/uL (130-400); WHITE BLOOD COUNT 6.4 10^3/uL (4.3-11.0)
[2021-02-17 09:37] LABS: BILIRUBIN,TOTAL 0.9 MG/DL (0.1-1.0); CALCIUM 9.2 MG/DL (8.5-10.1); CREATININE SERUM 1.39 MG/DL (0.60-1.30); POTASSIUM 3.7 MMOL/L (3.6-5.0)
== END ==
LOC: LAB 08:52
PROVIDERS: ATTEND Internal Medicine Infectious Disease
DX: H66.3X9 Other chronic suppurative otitis media, unspecified ear (principal); Z79.2 Long term (current) use of antibiotics
CPT/HCPCS: 36415; 80053; 85025

== ENCOUNTER 2021-03-30 08:31 | Emergency (ER) | payer OTHER, MEDICAID ==
[~2021-03-30] VITALS: Ht 172.7 cm; Wt 73.9 kg
[2021-03-30 08:31] VITALS: BP 119/79
[2021-03-30 09:08] LABS: BASOPHILS # (AUTO) 0.1 10^3/uL (0.0-0.1); BASOPHILS % (AUTO) 1 % (0-10); EOSINOPHILS # (AUTO) 0.5 10^3/uL (0.0-0.3); EOSINOPHILS % (AUTO) 7 % (0-10); HEMATOCRIT 33 % (40-54); HEMOGLOBIN 10.9 g/dL (13.3-17.7); LYMPHOCYTES # (AUTO) 1.2 10^3/uL (1.0-4.0); LYMPHOCYTES % (AUTO) 19 % (12-44); MEAN CORPUSCULAR HEMOGLOBIN 30 pg (25-34); MEAN CORPUSCULAR HGB CONC 33 g/dL (32-36); MEAN CORPUSCULAR VOLUME 91 fL (80-99); MEAN PLATELET VOLUME 9.7 fL (9.0-12.2); MONOCYTES # (AUTO) 0.6 10^3/uL (0.0-1.0); MONOCYTES % (AUTO) 9 % (0-12); NEUTROPHILS # (AUTO) 4.2 10^3/uL (1.8-7.8); NEUTROPHILS % (AUTO) 65 % (42-75); PLATELET COUNT 229 10^3/uL (130-400); WHITE BLOOD COUNT 6.6 10^3/uL (4.3-11.0)
[2021-03-30 09:09] LABS: ALBUMIN 3.4 GM/DL (3.2-4.5); CHLORIDE 108 MMOL/L (98-107); POTASSIUM 4.2 MMOL/L (3.6-5.0); SODIUM 139 MMOL/L (135-145)
[2021-03-30 09:10] LABS: CALCIUM 8.4 MG/DL (8.5-10.1)
[2021-03-30 09:11] LABS: GLUCOSE 124 MG/DL (70-105)
[2021-03-30 09:12] LABS: TOTAL PROTEIN 6.4 GM/DL (6.4-8.2)
[2021-03-30 09:13] LABS: BILIRUBIN,TOTAL 0.6 MG/DL (0.1-1.0); CARBON DIOXIDE 19 MMOL/L (21-32)
[2021-03-30 09:15] LABS: ALKALINE PHOSPHATASE 64 U/L (40-136); CREATININE SERUM 0.99 MG/DL (0.60-1.30); GFR ESTIMATED > 60; INR 1.1 (0.8-1.4); PROTHROMBIN TIME PATIENT 14.6 SEC (12.2-14.7)
[2021-03-30 09:16] LABS: BUN/CREATININE RATIO 17; MAGNESIUM 1.8 MG/DL (1.6-2.4)
[2021-03-30 09:18] LABS: ALANINE AMINOTRANSFERASE 32 U/L (0-55)
--- NOTE | 2021-03-30 09:18 | ED General ---
General Chief Complaint: General Problems/Pain Stated Complaint: BI LAT LEG PAIN Nursing Triage Note: PT TO ED VIA EMS FOR MULTIPLE COMPLAINTS. PT C/O BILAT L PAIN, WORSE IN THE R LEG. PT REPORTS HX OF BLOOD CLOTS. PT C/O R ARM PAIN, SOB, CONFUSION. PT REPORTS HAVING A FUNGAL INFECTION IN THE HEAD AND IS CURRENTLY TAKING ANTIBIOTICS. EMS BROUGHT PT TO ED ON O2. PT DOES NOT NORMALLY WEAR O2 BUT WANTED O2 FOR COMFORT. Source of Information: Patient, EMS, Old Records Exam Limitations: No Limitations History of Present Illness Date Seen by Provider: Mar 30, 2021 Time Seen by Provider: 08:32 Initial Comments This 60-year-old gentleman presents to the emergency room via EMS with cascading complaints. His initial complaint was pain and swelling in the lower extremities worsening over the past few days. He is concerned about blood clot. He also reports having some shortness of breath and confusion and some chest discomfort. He reports numerous ongoing problems including stroke with some neurologic deficits including right facial droop, chronic right ear fungal infection, and history of cryoglobulinemia. He has history of substance abuse and has dystonic movements at this time. He denies any illicit drug use recently. He states he is proud of his sobriety of several years. States he is receiving temporary housing benefits in a local hotel. Allergies and Home Medications Allergies Coded Allergies: vancomycin (Unverified Allergy, Intermediate, Vomiting, 07/18/19) Bacitracin Zinc (Verified Allergy, Unknown, 06/04/12) bacitracin (Verified Allergy, Unknown, 06/04/12) benzalkonium chloride (Verified Allergy, Unknown, 06/04/12) cefadroxil (Verified Allergy, Unknown, RASH, 04/08/16) gramicidin D (Verified Allergy, Unknown, 06/04/12) hydrocortisone (Verified Allergy, Unknown, 06/04/12) methocarbamol (Verified Allergy, Unknown, 06/04/12) neomycin sulfate (Verified Allergy, Unknown, 06/04/12) polymyxin B (Verified Allergy, Unknown, 06/04/12) polymyxin B sulfate (Verified Allergy, Unknown, 06/04/12) carbamazepine (Unverified Adverse Reaction, Mild, hives, 11/12/14) Home Medications Acetaminophen/Diphenhydramine 1 Each Tablet, 2 EACH PO Q6H PRN for PAIN-SEVERE (8-10) Prescribed by: BALTAZAR WEBBER on 04/19/20 162 Albuterol Sulfate 1 Puff Puff, 2 PUFF IH Q6H PRN for SHORTNESS OF BREATH, (Reported) 1 PUFF = 90 MCG Amlodipine Besylate 5 Mg Tablet, 5 MG PO DAILY, (Reported) Amoxicillin 500 Mg Capsule, 500 MG PO TID Prescribed by: JASMINE ANDERSON on 09/08/20 190 Amoxicillin/Potassium Clav 1 Each Tablet, 1 EACH PO BID Prescribed by: POOJA WARREN on 08/12/20 112 Amoxicillin/Potassium Clav 1 Each Tablet, 1 EACH PO BID Prescribed by: BALTAZAR WEBBER on 10/15/20 032 Aspirin 81 Mg Tablet.dr, 81 MG PO TID PRN for PAIN-MILD, (Reported) Ciprofloxacin HCl/Dexameth 7.5 Ml Soln, 2 DROPS OT BID Prescribed by: BALTAZAR WEBBER on 10/15/20 032 Doxycycline Hyclate 100 Mg Tablet, 100 MG PO BID Prescribed by: MARISELA TORREZ on 05/13/202041 Doxycycline Hyclate 100 Mg Tablet, 100 MG PO BID Prescribed by: JASMINE ANDERSON on 10/27/201955 Escitalopram Oxalate 10 Mg Tablet, 10 MG PO DAILY, (Reported) LAST FILLED #30 04-20-19 Gabapentin 400 Mg Capsule, 400 MG PO TID, (Reported) LAST FILLED #90 04-20-19 Hydrocodone/Acetaminophen 1 Each Tablet, 1 EACH PO Q6H PRN for PAIN-BREAKTHROUGH Prescribed by: BALTAZAR WEBBER on 10/15/20325 Lisinopril 10 Mg Tablet, 10 MG PO DAILY, (Reported) LAST FILLED #30 03-26-19 Loratadine 10 Mg Tablet, 10 MG PO DAILY, (Reported) Meloxicam 7.5 Mg Tablet, 7.5 MG PO BID, (Reported) Metronidazole 500 Mg Tablet, 500 MG PO TID Prescribed by: JASMINE ANDERSON on 04/11/201953 Naproxen 500 Mg Tablet, 500 MG PO BID PRN for PAIN-MODERATE (5-7) Prescribed by: BALTAZAR WEBBER on 04/19/20 162 Ofloxacin 5 Ml Drops, 5 DROPS EACH EAR BID Prescribed by: ERYN FULLER on 09/05/20 183 Ofloxacin 5 Ml Drops, 5 DROPS RIGHT EAR BID Prescribed by: JASMINE ANDERSON on 10/27/201955 Pantoprazole Sodium 20 Mg Tablet.dr, 20 MG PO BID Prescribed by: BALTAZAR WEBBER on 01/09/20911 Sucralfate 1 Gm Tablet, 1 GM PO QIDACHS Prescribed by: BALTAZAR WEBBER on 01/09/20911 Tramadol HCl 50 Mg Tablet, 50 MG PO PRN, (Reported) Tramadol HCl 50 Mg Tablet, 50 MG PO Q6H PRN for PAIN Prescribed by: MARISELA TORREZ on 05/13/202042 Patient Home Medication List Home Medication List Reviewed: Yes Review of Systems Review of Systems Constitutional: see HPI Respiratory: see HPI Cardiovascular: see HPI Gastrointestinal: no symptoms reported Genitourinary: no symptoms reported Musculoskeletal: see HPI Skin: see HPI Psychiatric/Neurological: See HPI Hematologic/Lymphatic: See HPI Immunological/Allergic: no symptoms reported Past Wckoxoh-Qhwqox-Jrabts Hx Patient Social History Tobacco Use?: Yes Tobacco type used: Cigarettes Smoking Status: Current Everyday Smoker Substance use?: Yes Substance type: Methamphetamine, Nicotine Alcohol Use?: No Immunizations Up To Date Tetanus Booster (TDap): Less than 5yrs Seasonal Allergies Seasonal Allergies: Yes Past Medical History Surgeries: Yes (HERNIA INGUINAL AND UMBILICAL, LEG SURGERY) Eye Surgery, Lobectomy Respiratory: Yes Pneumonia, COPD, Emphysema Currently Using CPAP: No Currently Using BIPAP: No Cardiac: Yes (CHF) Coronary Artery Disease, Deep Vein Thrombosis, Heart Attack, Hypertension, Peripheral Vascular Neurological: No Neuropathy, Stroke, TIA Reproductive Disorders: No Sexually Transmitted Disease: No HIV/AIDS: No Genitourinary: Yes Renal Failure Gastrointestinal: Yes Gastroesophageal Reflux, Liver Disease/Jaundice, Hepatitis, Polyps Musculoskeletal: Yes Back Injury, Chronic Back Pain, Fractures Endocrine: No HEENT: No Loss of Vision: Left Cancer: Yes Lung Did You Recieve Any Treatments: Yes What Type of Treatment Did You: Surgical Intervention Psychosocial: Yes Anxiety, PTSD, Depression Integumentary: Yes (WOUNDS TO LOWER LEGS/FEET) Blood Disorders: Yes (Cryoglobulinemia) Adverse Reaction/Blood Tranf: No Family Medical History Cardiovascular disease 19 FATHER 19 MOTHER FH: stroke G8 BROTHER Hypertension 19 FATHER G8 BROTHER No Pertinent Family Hx Physical Exam Vital Signs Vital Signs - First Documented Capillary Refill : Less Than 3 Seconds Height, Weight, BMI Height: 5'8.00" Weight: 165lbs. 5.0oz. 74.958647iy; 24.00 BMI Method:Stated General Appearance: WD/WN, Mild Distress HEENT: PERRL/EOMI, TMs Normal, Normal ENT Inspection, Other (Right eyelid drooping) Neck: Normal Inspection Respiratory: Lungs Clear, No Accessory Muscle Use, No Respiratory Distress, Wheezing Cardiovascular: Regular Rate, Rhythm, No Edema, No Murmur Gastrointestinal: Normal Bowel Sounds, Non Tender, Soft Extremity: Other (Bilateral lower leg edema, tenderness, and erythema) Neurologic/Psychiatric: Alert, Other (Mild confusion and slurred speech. Right eyelid droop stated as chronic and unchanged. Dystonic movements consistent with adverse effect of methamphetamines. Agitation.) Skin: Normal Color, Warm/Dry Focused Exam Lactate Level 03/30/21 08:58: Lactic Acid Level 1.66 Lactic Acid Level Laboratory Tests Test 03/30/21 08:58 Lactic Acid Level 1.66 MMOL/L (0.50-2.00) Progress/Results/Core Measures Suspected Sepsis SIRS Temperature: Pulse: 93 Respiratory Rate: 22 Laboratory Tests 03/30/21 08:39: White Blood Count 6.6 Blood Pressure 119 /79 Mean: 92 03/30/21 08:58: Lactic Acid Level 1.66 Laboratory Tests 03/30/21 08:39: Creatinine 0.99, INR Comment 1.1, Platelet Count 229, Total Bilirubin 0.6 Results/Orders Lab Results Laboratory Tests Test 03/30/21 08:39 03/30/21 08:57 03/30/21 08:58 03/30/21 11:44 Range/Units White Blood Count 6.6 4.3-11.0 10^3/uL Red Blood Count 3.65 L 4.30-5.52 10^6/uL Hemoglobin 10.9 L 13.3-17.7 g/dL Hematocrit 33 L 40-54 % Mean Corpuscular Volume 91 80-99 fL Mean Corpuscular Hemoglobin 30 25-34 pg Mean Corpuscular Hemoglobin Concent 33 32-36 g/dL Red Cell Distribution Width 15.0 H 10.0-14.5 % Platelet Count 229 130-400 10^3/uL Mean Platelet Volume 9.7 9.0-12.2 fL Immature Granulocyte % (Auto) 0 % Neutrophils (%) (Auto) 65 42-75 % Lymphocytes (%) (Auto) 19 12-44 % Monocytes (%) (Auto) 9 0-12 % Eosinophils (%) (Auto) 7 0-10 % Basophils (%) (Auto) 1 0-10 % Neutrophils # (Auto) 4.2 1.8-7.8 10^3/uL Lymphocytes # (Auto) 1.2 1.0-4.0 10^3/uL Monocytes # (Auto) 0.6 0.0-1.0 10^3/uL Eosinophils # (Auto) 0.5 H 0.0-0.3 10^3/uL Basophils # (Auto) 0.1 0.0-0.1 10^3/uL Immature Granulocyte # (Auto) 0.0 0.0-0.1 10^3/uL Erythrocyte Sedimentation Rate 35 H 0-30 MM/HR Prothrombin Time 14.6 12.2-14.7 SEC INR Comment 1.1 0.8-1.4 Activated Partial Thromboplast Time 32 24-35 SEC D-Dimer 6.59 H 0.00-0.49 UG/ML Sodium Level 139 135-145 MMOL/L Potassium Level 4.2 3.6-5.0 MMOL/L Chloride Level 108 H 98-107 MMOL/L Carbon Dioxide Level 19 L 21-32 MMOL/L Anion Gap 12 5-14 MMOL/L Blood Urea Nitrogen 17 7-18 MG/DL Creatinine 0.99 0.60-1.30 MG/DL Estimat Glomerular Filtration Rate > 60 BUN/Creatinine Ratio 17 Glucose Level 124 H 70-105 MG/DL Calcium Level 8.4 L 8.5-10.1 MG/DL Corrected Calcium 8.9 8.5-10.1 MG/DL Magnesium Level 1.8 1.6-2.4 MG/DL Total Bilirubin 0.6 0.1-1.0 MG/DL Aspartate Amino Transf (AST/SGOT) 32 5-34 U/L Alanine Aminotransferase (ALT/SGPT) 32 0-55 U/L Alkaline Phosphatase 64 40-136 U/L Myoglobin 123.5 H 10.0-92.0 NG/ML Troponin I < 0.028 <0.028 NG/ML C-Reactive Protein High Sensitivity 4.92 H 0.00-0.50 MG/DL B-Type Natriuretic Peptide 52.8 <100.0 PG/ML Total Protein 6.4 6.4-8.2 GM/DL Albumin 3.4 3.2-4.5 GM/DL Serum Alcohol < 10 <10 MG/DL Influenza Type A (RT-PCR) Not Detected Not Detecte Influenza Type B (RT-PCR) Not Detected Not Detecte SARS-CoV-2 RNA (RT-PCR) Not Detected Not Detecte Lactic Acid Level 1.66 0.50-2.00 MMOL/L Urine Color YELLOW Urine Clarity CLEAR Urine pH 5.5 5-9 Urine Specific [place] 1.010 L 1.016-1.022 Urine Protein NEGATIVE NEGATIVE Urine Glucose (UA) NEGATIVE NEGATIVE Urine Ketones NEGATIVE NEGATIVE Urine Nitrite NEGATIVE NEGATIVE Urine Bilirubin NEGATIVE NEGATIVE Urine Urobilinogen 0.2 < = 1.0 MG/DL Urine Leukocyte Esterase NEGATIVE NEGATIVE Urine RBC (Auto) NEGATIVE NEGATIVE Urine RBC NONE /HPF Urine WBC NONE /HPF Urine Squamous Epithelial Cells NONE /HPF Urine Crystals NONE /LPF Urine Bacteria NEGATIVE /HPF Urine Casts NONE /LPF Urine Mucus NEGATIVE /LPF Urine Culture Indicated CULTURE PENDING Urine Opiates Screen NEGATIVE NEGATIVE Urine Oxycodone Screen NEGATIVE NEGATIVE Urine Methadone Screen NEGATIVE NEGATIVE Urine Propoxyphene Screen NEGATIVE NEGATIVE Urine Barbiturates Screen NEGATIVE NEGATIVE Ur Tricyclic Antidepressants Screen NEGATIVE NEGATIVE Urine Phencyclidine Screen NEGATIVE NEGATIVE Urine Amphetamines Screen POSITIVE H NEGATIVE Urine Methamphetamines Screen POSITIVE H NEGATIVE Urine Benzodiazepines Screen NEGATIVE NEGATIVE Urine Cocaine Screen NEGATIVE NEGATIVE Urine Cannabinoids Screen NEGATIVE NEGATIVE Test 03/30/21 12:10 Range/Units Uric Acid 5.0 2.6-7.2 MG/DL Troponin I < 0.028 <0.028 NG/ML My Orders Orders - RAMANA SALAS MD Cbc With Automated Diff (03/30/21 08:49) Comprehensive Metabolic Panel (03/30/21 08:49) Blood Culture (03/30/21 08:49) Urinalysis (03/30/21 08:49) Urine Culture (03/30/21 08:49) Protime With Inr (03/30/21 08:49) Partial Thromboplastin Time (03/30/21 08:49) Chest 1 View, Ap/Pa Only (03/30/21 08:49) Ed Iv/Invasive Line Start (03/30/21 08:49) Ed Iv/Invasive Line Start (03/30/21 08:49) Vital Signs Adult Sepsis Patie Q15M (03/30/21 08:49) O2 (03/30/21 08:49) Remove Rings In Anticipation O (03/30/21 08:49) Lactic Acid Analyzer (03/30/21 08:49) Magnesium (03/30/21 08:49) Ekg Tracing (03/30/21 08:49) Myoglobin Serum (03/30/21 08:49) Monitor-Rhythm Ecg Trace Only (03/30/21 08:49) Troponin I (03/30/21 08:49) BNP (03/30/21 09:11) Hs C Reactive Protein (03/30/21 09:11) Fibrin Degradation Products (03/30/21 09:11) Alcohol (03/30/21 09:11) Drug Screen Stat (Urine) (03/30/21 09:11) Ct Head Wo (03/30/21 09:11) Covid 19 Inhouse Test (03/30/21 09:11) Influenza A And B By Pcr (03/30/21 09:11) Albuterol Inhaler (Ventolin Hfa) (03/30/21 10:00) Ct Angio Chest W (03/30/21 09:52) Iohexol Injection (Omnipaque 350 Mg/Ml 1 (03/30/21 10:15) Received Contrast (Hold Metformin- Contr (03/30/21 10:15) Sodium Chloride Flush (Catheter Flush Sy (03/30/21 10:15) Ns (Ivpb) (Sodium Chloride 0.9% Ivpb Bag (03/30/21 10:15) Erythrocyte Sedimentation Rate (03/30/21 10:51) Troponin I (03/30/21 12:10) Uric Acid (03/30/21 12:10) Ekg Tracing (03/30/21 13:15) Medications Given in ED Current Medications Medications Dose Ordered Sig/Kiran Route Start Time Stop Time Status Last Admin Dose Admin Iohexol 100 ml ONCE ONCE IV 03/30/21 10:15 03/30/21 10:16 DC 03/30/21 11:07 70 ML Sodium Chloride 10 ml NEEDED PRN IV 03/30/21 10:15 03/30/21 14:00 DC 7/5/21 11:08 10 ML Sodium Chloride 100 ml ONCE ONCE IV 03/30/21 10:15 03/30/21 10:16 DC 03/30/21 11:07 80 ML Vital Signs/I&O 03/30/21 03/30/21 08:31 08:31 Temp 36.9 Pulse 93 Resp 22 B/P (MAP) 119/79 (92) Pulse Ox 98 98 O2 Delivery Nasal Cannula Nasal Cannula O2 Flow Rate 2.00 2.00 Capillary Refill : Less Than 3 Seconds Blood Pressure Mean: 92 Progress Note : Progress Note Thorough work-up was pursued to address the patient's numerous complaints. He had a markedly elevated D-dimer prompting CT angiogram of his chest which was negative. Given the extensiveness of his complaints and his apparent influence of methamphetamines, admission for observation and further work-up was deemed most appropriate. Ultrasound of the lower extremities could be obtained during admission which was not available in the ER. Anticipated also treating for possible cellulitis of the lower extremities. Patient complained of a rebound chest pain. Staff presented to repeat an EKG during this episode of chest pain. At that time patient accused staff of putting methamphetamines in the water to drug him. He then demanded his IV be removed and to leave. IV was removed and he refused to sign the AMA papers. Patient then stated to this provider that "that nurse called me a drug addict and ripped out my IV". I discussed risks of him leaving the hospital AGAINST MEDICAL ADVICE. He then stated he would stay for admission. After I walked out of the room, he walked out of the emergency department without signing AMA papers or informing staff he was leaving. ECG Initial ECG Impression Date: Mar 30, 2021 Initial ECG Impression Time: 08:53 Initial ECG Rate: 88 Initial ECG Rhythm: Normal Sinus Comment Normal sinus rhythm with no ST elevation or depression. No abnormal intervals or axis deviation. Diagnostic Imaging Diagonstic Imaging: Xray Plain Films/CT/US/NM/MRI: chest Comments NAME: EMELYN BEJARANO [facility] REC#: [id number] PT STATUS: REG ER : 1960 PHYSICIAN: RAMANA SALAS MD ADMIT DATE: 03/30/21/ER Signed Date of Exam:03/30/21 CHEST 1 VIEW, AP/PA ONLY EXAMINATION: Chest radiograph, portable AP view. DATE: 03/30/2021 10:18 AM INDICATION: 60-year-old male, shortness of breath. COMPARISON: July 23, 2019. FINDINGS: Heart size and mediastinal contours are unchanged. There is no identified pneumothorax. There is no large pleural effusion. There is no identified focal airspace consolidation. IMPRESSION: No identified acute cardiopulmonary abnormality. Dictated by: Dictated on workstation # [id number] Dict: 03/30/21 1034 Trans: 03/30/211125 CVB Interpreted by: OCTAVIO FERRIS MD Electronically signed by: OCTAVIO FERRIS MD 03/30/21 1126 Diagonstic Imaging: CT Plain Films/CT/US/NM/MRI: head Comments NAME: EMELYN BEJARANO MED REC#: [id number] PT STATUS: REG ER : 1960 PHYSICIAN: RAMANA SALAS MD ADMIT DATE: 03/30/21/ER Draft Date of Exam:03/30/21 CT HEAD WO INDICATION: Altered mental status. TECHNIQUE: Multiple contiguous axial images were obtained through the brain without the use of intravenous contrast. Auto Exposure Controls were utilized during the CT exam to meet ALARA standards for radiation dose reduction. Comparison made to prior study of 09/08/2020. There are no extra-axial fluid collections. No intracranial hemorrhage. No intracranial mass or mass effect. No midline shift. Ventricles are normal in size and position. There were no focal parenchymal abnormalities in the brain. Calvarial windows are unremarkable. Visualized portions of the orbits and sinuses appear unremarkable. IMPRESSION: No acute intracranial abnormality. Dictated on workstation # [id number] Dict: 03/30/21 1118 Trans: 03/30/211121 CVB [id number] Interpreted by: EMELYN BEAVERS MD Diagonstic Imaging: CT Plain Films/CT/US/NM/MRI: chest Comments NAME: EMELYN BEJARANO MED REC#: [id number] PT STATUS: REG ER : 1960 PHYSICIAN: RAMANA SALAS MD ADMIT DATE: 03/30/21/ER Signed Date of Exam:03/30/21 CT ANGIO CHEST W PROCEDURE: CT angiography of the chest with contrast. TECHNIQUE: Multiple contiguous axial images were obtained through the chest after uneventful bolus administration of intravenous contrast. 3D reconstructed CTA MIP acquisitions were also performed. Auto Exposure Controls were utilized during the CT exam to meet ALARA standards for radiation dose reduction. DATE: March 30, 2021. COMPARISON: CT chest December 04, 2014. INDICATION: 60-year-old male, shortness of breath. History of intracranial fungal infection. FINDINGS: There are mild upper lobe findings of paraseptal emphysema. There is a benign calcified 9 mm left upper lobe granuloma on axial image 40. There is very mild scarring in the left upper lobe. There is scarring and/or atelectasis in the lateral aspect of the right middle lobe. There is no identified noncalcified pulmonary nodule. There is no lung mass. There is no otherwise noted focal airspace consolidation. There is no pneumothorax. There is no pleural effusion. The central airways are patent. There is no identified pulmonary embolus. The main pulmonary artery is normal in caliber. The heart is not enlarged. There is no pericardial effusion. There are coronary artery calcifications. There is no abnormally enlarged mediastinal, hilar, or axillary lymph node meeting CT size criteria for adenopathy. There is cholelithiasis without evidence of acute cholecystitis. There is high attenuation in the right urinary collecting system which may relate to timing of the contrast bolus. There is no identified acute bony abnormality. There are fairly prominent collateral vessels noted without apparent occlusion of the superior vena cava. IMPRESSION: CT CHEST. 1. No identified pulmonary embolus or other acute cardiopulmonary abnormality. 2. Mild upper lobe predominant findings of paraseptal emphysema. 3. Cholelithiasis without findings to specifically suggest acute cholecystitis. Dictated by: Dictated on workstation # [id number] Dict: 03/30/21 1121 Trans: 03/30/21 1154 CV [id number] Interpreted by: OCTAVIO FERRIS MD Electronically signed by: OCTAVIO FERRIS MD 03/30/21 1154 Departure Impression Primary Impression: D-dimer, elevated Additional Impressions: Chest pain Qualified Codes: R07.9 - Chest pain, unspecified Lower extremity edema Positive urine drug screen Left against medical advice Disposition: AGAINST MEDICAL ADVICE Condition: Against Medical Advice Departure-Patient Inst. Referrals: JOSEFINA PEREZ MD (PCP/Family) Primary Care Physician Copy Copies To 1: JOSEFINA PEREZ MD, JOSHUA T MD Mar 30, 2021 09:18
[2021-03-30] MEDS ORDERED: RT-ALBUTEROL INHALER HFA (VENTOLIN HFA) 18 GM IH SCH (10:00)
[2021-03-30] MEDS ORDERED: HOLD METFORMIN - RECEIVED CONTRAST 20 ML VIAL IV SCH (10:15)
[2021-03-30] MEDS ORDERED: IOHEXOL 350 MG/ML 100 ML (OMNIPAQUE 350) VIAL IV ONE (10:15)
[2021-03-30] MEDS ORDERED: CATHETER FLUSH 10 ML SYR IV PRN (10:15)
[2021-03-30] MEDS ORDERED: NS 100 ML (IVPB) BAG IV ONE (10:15)
--- NOTE | 2021-03-30 11:00 | Diagnostic Imaging Report ---
EXAMINATION: Chest radiograph, portable AP view. DATE: 03/30/2021 10:18 AM INDICATION: 60-year-old male, shortness of breath. COMPARISON: July 23, 2019. FINDINGS: Heart size and mediastinal contours are unchanged. There is no identified pneumothorax. There is no large pleural effusion. There is no identified focal airspace consolidation. IMPRESSION: No identified acute cardiopulmonary abnormality. Dictated by: Dictated on workstation # [id number]
--- NOTE | 2021-03-30 11:22 | Diagnostic Imaging Report ---
INDICATION: Altered mental status. TECHNIQUE: Multiple contiguous axial images were obtained through the brain without the use of intravenous contrast. Auto Exposure Controls were utilized during the CT exam to meet ALARA standards for radiation dose reduction. Comparison made to prior study of 09/08/2020. There are no extra-axial fluid collections. No intracranial hemorrhage. No intracranial mass or mass effect. No midline shift. Ventricles are normal in size and position. There were no focal parenchymal abnormalities in the brain. Calvarial windows are unremarkable. Visualized portions of the orbits and sinuses appear unremarkable. IMPRESSION: No acute intracranial abnormality. Dictated by: Dictated on workstation # [id number]
--- NOTE | 2021-03-30 11:28 | Diagnostic Imaging Report ---
PROCEDURE: CT angiography of the chest with contrast. TECHNIQUE: Multiple contiguous axial images were obtained through the chest after uneventful bolus administration of intravenous contrast. 3D reconstructed CTA MIP acquisitions were also performed. Auto Exposure Controls were utilized during the CT exam to meet ALARA standards for radiation dose reduction. DATE: March 30, 2021. COMPARISON: CT chest December 04, 2014. INDICATION: 60-year-old male, shortness of breath. History of intracranial fungal infection. FINDINGS: There are mild upper lobe findings of paraseptal emphysema. There is a benign calcified 9 mm left upper lobe granuloma on axial image 40. There is very mild scarring in the left upper lobe. There is scarring and/or atelectasis in the lateral aspect of the right middle lobe. There is no identified noncalcified pulmonary nodule. There is no lung mass. There is no otherwise noted focal airspace consolidation. There is no pneumothorax. There is no pleural effusion. The central airways are patent. There is no identified pulmonary embolus. The main pulmonary artery is normal in caliber. The heart is not enlarged. There is no pericardial effusion. There are coronary artery calcifications. There is no abnormally enlarged mediastinal, hilar, or axillary lymph node meeting CT size criteria for adenopathy. There is cholelithiasis without evidence of acute cholecystitis. There is high attenuation in the right urinary collecting system which may relate to timing of the contrast bolus. There is no identified acute bony abnormality. There are fairly prominent collateral vessels noted without apparent occlusion of the superior vena cava. IMPRESSION: CT CHEST. 1. No identified pulmonary embolus or other acute cardiopulmonary abnormality. 2. Mild upper lobe predominant findings of paraseptal emphysema. 3. Cholelithiasis without findings to specifically suggest acute cholecystitis. Dictated by: Dictated on workstation # [id number]
[2021-03-30 11:48] LABS: BILIRUBIN,URINE NEGATIVE (NEGATIVE); CLARITY,URINE CLEAR; COLOR,URINE YELLOW; GLUCOSE, URINE (UA) NEGATIVE (NEGATIVE); KETONES,URINE NEGATIVE (NEGATIVE); LEUKOCYTE ESTERASE ,URINE NEGATIVE (NEGATIVE); NITRITE,URINE NEGATIVE (NEGATIVE); PH,URINE 5.5 (5-9); PROTEIN,URINE NEGATIVE (NEGATIVE)
[2021-03-30 11:55] LABS: BACTERIA,URINE NEGATIVE /HPF
[2021-03-30 12:00] LABS: AMPHETAMINE SCREEN, URINE POSITIVE (NEGATIVE); BARBITURATE SCREEN URINE NEGATIVE (NEGATIVE); BENZODIAZEPINES SCREEN URINE NEGATIVE (NEGATIVE); CANNABINOID SCREEN, URINE NEGATIVE (NEGATIVE); COCAINE SCREEN URINE NEGATIVE (NEGATIVE); METHADONE STAT NEGATIVE (NEGATIVE); METHAMPHETAMINE SCREEN URINE S POSITIVE (NEGATIVE); OPIATE SCREEN URINE NEGATIVE (NEGATIVE); OXYCODONE STAT NEGATIVE (NEGATIVE); PROPOXYPHENE STAT NEGATIVE (NEGATIVE); TRICYCLIC ANTIDEPRESSANTS SCRE NEGATIVE (NEGATIVE)
== END 2021-03-30 13:30 | disposition left against medical advice (07) ==
LOC: EDUNIT# 08:31 → ER 08:32
DX: R79.1 Abnormal coagulation profile (principal); R07.9 Chest pain, unspecified; R60.0 Localized edema; R82.998 Other abnormal findings in urine; J44.9 Chronic obstructive pulmonary disease, unspecified; I25.2 Old myocardial infarction; I11.0 Hypertensive heart disease with heart failure; I50.9 Heart failure, unspecified; F41.9 Anxiety disorder, unspecified; I25.10 Atherosclerotic heart disease of native coronary artery without angina pectoris; F32.9 Major depressive disorder, single episode, unspecified; K21.9 Gastro-esophageal reflux disease without esophagitis; G89.29 Other chronic pain; M54.9 Dorsalgia, unspecified; F17.210 Nicotine dependence, cigarettes, uncomplicated; Z20.822 Contact with and (suspected) exposure to COVID-19; Z86.73 Personal history of transient ischemic attack (TIA), and cerebral infarction without residual deficits; Z79.82 Long term (current) use of aspirin; Z79.899 Other long term (current) drug therapy; Z79.891 Long term (current) use of opiate analgesic
CPT/HCPCS: 70450; 71045; 71275; 80053; 80306; 81000; 83605; 83735; 83874; 83880; 84484; 84550; 85025; 85379; 85610; 85652; 85730; 86141; 87040; 87088; 87636; 93005; 93041; 99284; G0480; 36415; 80320

== ENCOUNTER 2021-04-04 18:07 | Emergency (ER) | payer MEDICARE, MEDICAID ==
[~2021-04-04] VITALS: Ht 172 cm; Wt 68.0 kg
--- NOTE | 2021-04-04 18:23 | ED Lower Extremity ---
General Chief Complaint: Lower Extremity Stated Complaint: BILAT CALF SWELLING Source: patient Exam Limitations: no limitations History of Present Illness Date Seen by Provider: Apr 04, 2021 Time Seen by Provider: 18:20 Initial Comments To ER with bilateral lower extremity swelling and pain for the past few days. Has history of blood clots and is supposed to be on Coumadin he says. He was seen here the other day for this had an elevated D-dimer and was recommended admission to further evaluate his symptoms but he became agitated when he was alerted to the presence of methamphetamine in his urine and decided to sign out AGAINST MEDICAL ADVICE. Onset: just prior to arrival Severity: moderate Pain/Injury Location: bilateral leg Modifying Factors: Worse With Movement Allergies and Home Medications Allergies Coded Allergies: vancomycin (Unverified Allergy, Intermediate, Vomiting, 07/18/19) Bacitracin Zinc (Verified Allergy, Unknown, 06/04/12) bacitracin (Verified Allergy, Unknown, 06/04/12) benzalkonium chloride (Verified Allergy, Unknown, 06/04/12) cefadroxil (Verified Allergy, Unknown, RASH, 04/08/16) gramicidin D (Verified Allergy, Unknown, 06/04/12) hydrocortisone (Verified Allergy, Unknown, 06/04/12) methocarbamol (Verified Allergy, Unknown, 06/04/12) neomycin sulfate (Verified Allergy, Unknown, 06/04/12) polymyxin B (Verified Allergy, Unknown, 06/04/12) polymyxin B sulfate (Verified Allergy, Unknown, 06/04/12) carbamazepine (Unverified Adverse Reaction, Mild, hives, 11/12/14) Home Medications Acetaminophen/Diphenhydramine 1 Each Tablet, 2 EACH PO Q6H PRN for PAIN-SEVERE (8-10) Prescribed by: BALTAZAR WEBBER on 04/19/20 1627 Albuterol Sulfate 1 Puff Puff, 2 PUFF IH Q6H PRN for SHORTNESS OF BREATH, (Reported) 1 PUFF = 90 MCG Amlodipine Besylate 5 Mg Tablet, 5 MG PO DAILY, (Reported) Amoxicillin 500 Mg Capsule, 500 MG PO TID Prescribed by: JASMINE ANDERSON on 09/08/20 1903 Amoxicillin/Potassium Clav 1 Each Tablet, 1 EACH PO BID Prescribed by: POOJA WARREN on 08/12/20 1122 Amoxicillin/Potassium Clav 1 Each Tablet, 1 EACH PO BID Prescribed by: BALTAZAR WEBBER on 10/15/20324 Aspirin 81 Mg Tablet.dr, 81 MG PO TID PRN for PAIN-MILD, (Reported) Ciprofloxacin HCl/Dexameth 7.5 Ml Soln, 2 DROPS OT BID Prescribed by: BALTAZAR WEBBER on 10/15/20324 Doxycycline Hyclate 100 Mg Tablet, 100 MG PO BID Prescribed by: MARISELA TORREZ on 05/13/202041 Doxycycline Hyclate 100 Mg Tablet, 100 MG PO BID Prescribed by: JASMINE ANDERSON on 10/27/201955 Escitalopram Oxalate 10 Mg Tablet, 10 MG PO DAILY, (Reported) LAST FILLED #30 04-20-19 Gabapentin 400 Mg Capsule, 400 MG PO TID, (Reported) LAST FILLED #90 04-20-19 Hydrocodone/Acetaminophen 1 Each Tablet, 1 EACH PO Q6H PRN for PAIN-BREAKTHROUGH Prescribed by: BALTAZAR WEBBER on 10/15/20325 Lisinopril 10 Mg Tablet, 10 MG PO DAILY, (Reported) LAST FILLED #30 03-26-19 Loratadine 10 Mg Tablet, 10 MG PO DAILY, (Reported) Meloxicam 7.5 Mg Tablet, 7.5 MG PO BID, (Reported) Metronidazole 500 Mg Tablet, 500 MG PO TID Prescribed by: JASMINE ANDERSON on 04/11/201953 Naproxen 500 Mg Tablet, 500 MG PO BID PRN for PAIN-MODERATE (5-7) Prescribed by: BALTAZAR WEBBER on 04/19/20 162 Ofloxacin 5 Ml Drops, 5 DROPS EACH EAR BID Prescribed by: ERYN FULLER on 09/05/20 1835 Ofloxacin 5 Ml Drops, 5 DROPS RIGHT EAR BID Prescribed by: JASMINE ANDERSON on 10/27/201955 Pantoprazole Sodium 20 Mg Tablet.dr, 20 MG PO BID Prescribed by: BALTAZAR WEBBER on 01/09/20911 Sucralfate 1 Gm Tablet, 1 GM PO QIDACHS Prescribed by: BALTAZAR WEBBER on 01/09/20911 Tramadol HCl 50 Mg Tablet, 50 MG PO PRN, (Reported) Tramadol HCl 50 Mg Tablet, 50 MG PO Q6H PRN for PAIN Prescribed by: MARISELA OTRREZ on 05/13/202042 Patient Home Medication List Home Medication List Reviewed: Yes Review of Systems Constitutional: see HPI EENTM: see HPI Respiratory: no symptoms reported Cardiovascular: no symptoms reported Genitourinary: no symptoms reported Musculoskeletal: no symptoms reported Skin: no symptoms reported Psychiatric/Neurological: No Symptoms Reported Past Asfmjep-Rpqwiq-Xzokrh Hx Patient Social History Tobacco Use?: Yes Tobacco type used: Cigarettes Smoking Status: Current Everyday Smoker Substance use?: No Alcohol Use?: No Pt feels they are or have been: No Immunizations Up To Date Tetanus Booster (TDap): Less than 5yrs Seasonal Allergies Seasonal Allergies: Yes Past Medical History Surgeries: Yes (HERNIA INGUINAL AND UMBILICAL, LEG SURGERY) Eye Surgery, Lobectomy Respiratory: Yes Pneumonia, COPD, Emphysema Currently Using CPAP: No Currently Using BIPAP: No Cardiac: Yes (CHF) Coronary Artery Disease, Deep Vein Thrombosis, Heart Attack, Hypertension, Peripheral Vascular Neurological: No Neuropathy, Stroke, TIA Reproductive Disorders: No Sexually Transmitted Disease: No HIV/AIDS: No Genitourinary: Yes Renal Failure Gastrointestinal: Yes Gastroesophageal Reflux, Liver Disease/Jaundice, Hepatitis, Polyps Musculoskeletal: Yes Back Injury, Chronic Back Pain, Fractures Endocrine: No HEENT: No Loss of Vision: Left Cancer: Yes Lung Did You Recieve Any Treatments: Yes What Type of Treatment Did You: Surgical Intervention Psychosocial: Yes Anxiety, PTSD, Depression Integumentary: Yes (WOUNDS TO LOWER LEGS/FEET) Blood Disorders: Yes (Cryoglobulinemia) Adverse Reaction/Blood Tranf: No Family Medical History Cardiovascular disease 19 FATHER 19 MOTHER FH: stroke G8 BROTHER Hypertension 19 FATHER G8 BROTHER No Pertinent Family Hx Physical Exam Vital Signs Vital Signs - First Documented 04/04/21 18:11 Temp 36.1 Pulse 94 Resp 18 B/P (MAP) 149/97 (114) Pulse Ox 97 O2 Delivery Room Air Capillary Refill : Height, Weight, BMI Height: 5'8.00" Weight: 165lbs. 5.0oz. 74.469112uk; 24.00 BMI Method:Stated General Appearance: WD/WN, no apparent distress HEENT: PERRL/EOMI, normal ENT inspection Neck: non-tender, full range of motion Respiratory: no respiratory distress Gastrointestinal: normal bowel sounds, non tender Hips: bilateral hip non-tender, bilateral hip normal inspection, bilateral hip normal range of motion Legs: left leg pain (BLE brownish coloration with 1/2 cm ulcerated area to the dorsal lateral aspect of the left foot. No erythema. He has a palpable dorsalis pedis pulse on both feet. No significant swelling.) Knees: bilateral knee non-tender, bilateral knee normal inspection Ankles: bilateral ankle non-tender, bilateral ankle normal inspection Feet: bilateral foot non-tender, bilateral foot normal inspection Neurologic/Psychiatric: alert, normal mood/affect, oriented x 3 Skin: normal color, warm/dry Progress/Results/Core Measures Results/Orders Lab Results Laboratory Tests Test 04/04/21 18:38 Range/Units White Blood Count 6.9 4.3-11.0 10^3/uL Red Blood Count 3.99 L 4.30-5.52 10^6/uL Hemoglobin 11.7 L 13.3-17.7 g/dL Hematocrit 36 L 40-54 % Mean Corpuscular Volume 90 80-99 fL Mean Corpuscular Hemoglobin 29 25-34 pg Mean Corpuscular Hemoglobin Concent 33 32-36 g/dL Red Cell Distribution Width 14.7 H 10.0-14.5 % Platelet Count 261 130-400 10^3/uL Mean Platelet Volume 9.7 9.0-12.2 fL Immature Granulocyte % (Auto) 0 % Neutrophils (%) (Auto) 65 42-75 % Lymphocytes (%) (Auto) 18 12-44 % Monocytes (%) (Auto) 8 0-12 % Eosinophils (%) (Auto) 8 0-10 % Basophils (%) (Auto) 1 0-10 % Neutrophils # (Auto) 4.5 1.8-7.8 10^3/uL Lymphocytes # (Auto) 1.3 1.0-4.0 10^3/uL Monocytes # (Auto) 0.5 0.0-1.0 10^3/uL Eosinophils # (Auto) 0.6 H 0.0-0.3 10^3/uL Basophils # (Auto) 0.0 0.0-0.1 10^3/uL Immature Granulocyte # (Auto) 0.0 0.0-0.1 10^3/uL D-Dimer 8.12 H 0.00-0.49 UG/ML Sodium Level 138 135-145 MMOL/L Potassium Level 4.1 3.6-5.0 MMOL/L Chloride Level 105 98-107 MMOL/L Carbon Dioxide Level 20 L 21-32 MMOL/L Anion Gap 13 5-14 MMOL/L Blood Urea Nitrogen 20 H 7-18 MG/DL Creatinine 1.00 0.60-1.30 MG/DL Estimat Glomerular Filtration Rate > 60 BUN/Creatinine Ratio 20 Glucose Level 109 H 70-105 MG/DL Calcium Level 9.1 8.5-10.1 MG/DL Corrected Calcium 9.4 8.5-10.1 MG/DL Total Bilirubin 0.3 0.1-1.0 MG/DL Aspartate Amino Transf (AST/SGOT) 28 5-34 U/L Alanine Aminotransferase (ALT/SGPT) 34 0-55 U/L Alkaline Phosphatase 67 40-136 U/L B-Type Natriuretic Peptide 73.0 <100.0 PG/ML Total Protein 7.1 6.4-8.2 GM/DL Albumin 3.6 3.2-4.5 GM/DL My Orders Orders - JASMINE ANDERSON APRN Fibrin Degradation Products (04/04/21 18:18) Cbc With Automated Diff (04/04/21 18:18) Comprehensive Metabolic Panel (04/04/21 18:18) BNP (04/04/21 18:18) Gabapentin Capsule/Tablet (Neurontin Cap (04/04/21 19:15) Apixaban Tablet (Eliquis Tablet) (04/04/21 19:15) Vital Signs/I&O 04/04/21 18:11 Temp 36.1 Pulse 94 Resp 18 B/P (MAP) 149/97 (114) Pulse Ox 97 O2 Delivery Room Air Departure Communication (Admissions) I will give him a dose of gabapentin for the tingling pain in both of his feet. I will give him a dose of Eliquis 10 mg tonight for presumptive DVT. I have arranged for an outpatient venous ultrasound lower extremity bilateral tomorrow. The patient was discharged home with instructions to return for this tomorrow AT 8AM after verifying with heat transfer technician (and subsequently the [employer] tech [employer] worker). Impression Primary Impression: Bilateral leg pain Additional Impressions: History of DVT (deep vein thrombosis) Elevated d-dimer Disposition: HOME, SELF-CARE Condition: Stable Departure-Patient Inst. Decision time for Depature: 19:14 Referrals: JOSEFINA PEREZ MD (PCP/Family) Primary Care Physician Patient Instructions: Going Home on Blood Thinners Add. Discharge Instructions: 1. Return to the hospital TOMORROW AT 8AM for an ultrasound of the lower extremities. All discharge instructions reviewed with patient and/or family. Voiced understanding. JASMINE ANDERSON [facility] Apr 04, 2021 18:22
[2021-04-04 18:48] LABS: BASOPHILS % (AUTO) 1 % (0-10); EOSINOPHILS # (AUTO) 0.6 10^3/uL (0.0-0.3); EOSINOPHILS % (AUTO) 8 % (0-10); HEMATOCRIT 36 % (40-54); HEMOGLOBIN 11.7 g/dL (13.3-17.7); LYMPHOCYTES # (AUTO) 1.3 10^3/uL (1.0-4.0); LYMPHOCYTES % (AUTO) 18 % (12-44); MEAN CORPUSCULAR HEMOGLOBIN 29 pg (25-34); MEAN CORPUSCULAR HGB CONC 33 g/dL (32-36); MEAN CORPUSCULAR VOLUME 90 fL (80-99); MEAN PLATELET VOLUME 9.7 fL (9.0-12.2); MONOCYTES # (AUTO) 0.5 10^3/uL (0.0-1.0); MONOCYTES % (AUTO) 8 % (0-12); NEUTROPHILS # (AUTO) 4.5 10^3/uL (1.8-7.8); NEUTROPHILS % (AUTO) 65 % (42-75); PLATELET COUNT 261 10^3/uL (130-400); WHITE BLOOD COUNT 6.9 10^3/uL (4.3-11.0)
[2021-04-04 18:59] LABS: ALBUMIN 3.6 GM/DL (3.2-4.5)
[2021-04-04 19:00] LABS: CHLORIDE 105 MMOL/L (98-107); POTASSIUM 4.1 MMOL/L (3.6-5.0); SODIUM 138 MMOL/L (135-145)
[2021-04-04 19:01] LABS: CALCIUM 9.1 MG/DL (8.5-10.1)
[2021-04-04 19:02] LABS: GLUCOSE 109 MG/DL (70-105); TOTAL PROTEIN 7.1 GM/DL (6.4-8.2)
[2021-04-04 19:03] LABS: CARBON DIOXIDE 20 MMOL/L (21-32)
[2021-04-04 19:04] LABS: BILIRUBIN,TOTAL 0.3 MG/DL (0.1-1.0)
[2021-04-04 19:05] LABS: ALKALINE PHOSPHATASE 67 U/L (40-136)
[2021-04-04 19:06] LABS: GFR ESTIMATED > 60
[2021-04-04 19:07] LABS: BUN/CREATININE RATIO 20
[2021-04-04 19:09] LABS: ALANINE AMINOTRANSFERASE 34 U/L (0-55)
[2021-04-04] MEDS ORDERED: GABAPENTIN 300 MG (NEURONTIN) CAP PO ONE (19:15)
[2021-04-04] MEDS ORDERED: APIXABAN 5 MG (ELIQUIS) TABLET PO SCH (19:15)
[2021-04-04 19:28] VITALS: BP 168/86
== END 2021-04-04 19:28 | disposition home or self-care (01) ==
LOC: EDUNIT# 18:07 → ER 18:08
DX: M79.605 Pain in left leg (principal); M79.604 Pain in right leg; R79.89 Other specified abnormal findings of blood chemistry; J44.9 Chronic obstructive pulmonary disease, unspecified; I25.2 Old myocardial infarction; I11.0 Hypertensive heart disease with heart failure; I50.9 Heart failure, unspecified; K21.9 Gastro-esophageal reflux disease without esophagitis; G89.29 Other chronic pain; M54.9 Dorsalgia, unspecified; F41.9 Anxiety disorder, unspecified; F32.9 Major depressive disorder, single episode, unspecified; F17.210 Nicotine dependence, cigarettes, uncomplicated; Z86.718 Personal history of other venous thrombosis and embolism; Z86.73 Personal history of transient ischemic attack (TIA), and cerebral infarction without residual deficits; Z79.899 Other long term (current) drug therapy; Z79.82 Long term (current) use of aspirin; Z79.891 Long term (current) use of opiate analgesic
CPT/HCPCS: 36415; 80053; 83880; 85025; 85379

== ENCOUNTER → 2021-04-05 | Outpatient (CLI) | payer MEDICARE, MEDICAID ==
--- NOTE | 2021-04-05 10:30 | Diagnostic Imaging Report ---
PROCEDURE: US Venous Lower Ext Paul. TECHNIQUE: Multiple real-time grayscale images were obtained over the lower extremities in various projections, bilaterally. Additional duplex Doppler and color Doppler images were also obtained. INDICATION: Leg pain and swelling The previous left lower study venous Doppler exam of 08/12/2020 failed to show any sign of a deep venous thrombosis. On this exam there is generally good blood flow and compressibility at all levels of the deep venous system of each lower extremity. There is no sign of a deep venous thrombosis. Impression: There is no evidence for deep venous thrombosis of either lower extremity. Dictated by: Dictated on workstation # [id number]
== END ==
LOC: RAD 08:07
PROVIDERS: ATTEND Nurse Practitioner Family
DX: M79.606 Pain in leg, unspecified (principal); M79.89 Other specified soft tissue disorders; R79.1 Abnormal coagulation profile; Z86.718 Personal history of other venous thrombosis and embolism
CPT/HCPCS: 93970

== ENCOUNTER 2021-04-20 03:11 | Inpatient (IN) | payer MEDICARE, MEDICAID ==
[~2021-04-20] VITALS: Ht 172.7 cm; Wt 75.0 kg
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
[2021-04-20 04:51] LABS: BASOPHILS # (AUTO) 0.1 10^3/uL (0.0-0.1); BASOPHILS % (AUTO) 1 % (0-10); EOSINOPHILS # (AUTO) 0.3 10^3/uL (0.0-0.3); EOSINOPHILS % (AUTO) 3 % (0-10); HEMATOCRIT 35 % (40-54); HEMOGLOBIN 11.3 g/dL (13.3-17.7); LYMPHOCYTES # (AUTO) 1.9 10^3/uL (1.0-4.0); LYMPHOCYTES % (AUTO) 19 % (12-44); MEAN CORPUSCULAR HEMOGLOBIN 30 pg (25-34); MEAN CORPUSCULAR HGB CONC 33 g/dL (32-36); MEAN CORPUSCULAR VOLUME 91 fL (80-99); MEAN PLATELET VOLUME 9.5 fL (9.0-12.2); MONOCYTES # (AUTO) 1.1 10^3/uL (0.0-1.0); MONOCYTES % (AUTO) 11 % (0-12); NEUTROPHILS # (AUTO) 6.7 10^3/uL (1.8-7.8); NEUTROPHILS % (AUTO) 67 % (42-75); PLATELET COUNT 261 10^3/uL (130-400)
[2021-04-20] MEDS ORDERED: LACTATED RINGERS 1,000 ML IV ONE (05:00)
[2021-04-20 05:02] LABS: ALBUMIN 3.6 GM/DL (3.2-4.5); CHLORIDE 106 MMOL/L (98-107); POTASSIUM 4.2 MMOL/L (3.6-5.0); SODIUM 138 MMOL/L (135-145)
[2021-04-20 05:03] LABS: CALCIUM 9.2 MG/DL (8.5-10.1)
[2021-04-20 05:04] LABS: GLUCOSE 89 MG/DL (70-105); TOTAL PROTEIN 6.9 GM/DL (6.4-8.2)
[2021-04-20 05:05] LABS: CARBON DIOXIDE 20 MMOL/L (21-32)
[2021-04-20 05:06] LABS: BILIRUBIN,TOTAL 0.4 MG/DL (0.1-1.0)
[2021-04-20 05:08] LABS: ALKALINE PHOSPHATASE 61 U/L (40-136); CREATININE SERUM 1.26 MG/DL (0.60-1.30); GFR ESTIMATED 59
[2021-04-20 05:09] LABS: BUN/CREATININE RATIO 26; FIBRIN DEGRADATION PRODUCTS 8.02 UG/ML (0.00-0.49); INR 1.1 (0.8-1.4)
[2021-04-20 05:11] LABS: ALANINE AMINOTRANSFERASE 20 U/L (0-55); ERYTHROCYTE SEDIMENTATION RATE 46 MM/HR (0-30)
[2021-04-20] MEDS: KETOROLAC 30 MG/ML VIAL IVP STA ×2 (05:11→07:16)
[2021-04-20] MEDS ORDERED: PIPERACILLIN SODIUM/TAZOBACTAM 4.5 GM in NS (IVPB) 100 ML IV ONE (06:30)
[2021-04-20] MEDS ORDERED: VANCOMYCIN INJECTION 750 MG in NS (IVPB) 250 ML IV SCH (06:45)
[2021-04-20] MEDS ORDERED: diphenhydrAMINE 50 MG/ML INJ (BENADRYL) IVP ONE (06:45)
[2021-04-20] MEDS ORDERED: PIPERACILLIN/TAZOBACTAM (BULK) 4.5 GM in NS (IVPB) 100 ML IV ONE (06:45)
[2021-04-20] MEDS ORDERED: VANCOMYCIN 1500 MG/NS 500 ML IVPB IV SCH ×2 (06:45)
--- NOTE | 2021-04-20 06:58 | Diagnostic Imaging Report ---
FOOT, LEFT, 3 VIEWS INDICATION: Left foot pain with ulcers COMPARISON: None available. TECHNIQUE: Three non-weightbearing views of foot were obtained. FINDINGS: No fracture or osseous erosions. No periosteal reaction. No soft tissue gas is appreciated. No soft tissue swelling is appreciated. IMPRESSION: 1. No radiographic features of osteomyelitis. 2. No soft tissue gas. Dictated by: Dictated on workstation # [id number]
--- NOTE | 2021-04-20 07:00 | Diagnostic Imaging Report ---
INDICATION: Left ankle pain with ulcers. COMPARISON: None available. TECHNIQUE: 3 views of left ankle were obtained. FINDINGS: No fracture or erosions. No soft tissue swelling or gas. Tibiotalar joint space is preserved. No osteochondral lesion of the talar dome. IMPRESSION: 1. No radiographic features of osteomyelitis. 2. No soft tissue gas. Dictated by: Dictated on workstation # [id number]
--- NOTE | 2021-04-20 07:00 | Diagnostic Imaging Report ---
INDICATION: Right foot pain and ulcers. COMPARISON: None available. TECHNIQUE: 3 nonweightbearing views of right foot. FINDINGS: No fracture or erosions. No periosteal reaction. Mild degenerative arthritis of 1st MTP. No soft tissue gas or appreciable swelling. IMPRESSION: 1. No radiographic features of osteomyelitis. 2. No soft tissue gas. Dictated by: Dictated on workstation # [id number]
--- NOTE | 2021-04-20 07:01 | Diagnostic Imaging Report ---
CLINICAL INDICATION: Patient with right ankle pain and ulcers. EXAM: X-ray of the right ankle, AP and lateral views. COMPARISON: None. FINDINGS AND IMPRESSION: 1: There appears to be a soft tissue defect involving the dorsal aspect of the foot in the region of the midfoot. There is no radiodense foreign object. 2: There is no acute fracture or dislocation. There is no bony erosive or destructive process. 3: Ankle mortise and syndesmotic joints unremarkable. Dictated by: Dictated on workstation # [id number]
[2021-04-20] MEDS ORDERED: KETOROLAC 30 MG/ML VIAL ONE (07:05)
[2021-04-20 10:00] VITALS: BP 143/67
[2021-04-20] MEDS ORDERED: LORazepam INJ 2 MG/ML (ATIVAN) VIAL IVP PRN (10:00)
[2021-04-20] MEDS ORDERED: MELATONIN 3 MG TABLET PO PRN (10:30)
[2021-04-20] MEDS ORDERED: CALCIUM CARBONATE 500 MG (TUMS) TAB.CHEW PO PRN (10:30)
[2021-04-20] MEDS ORDERED: diphenhydrAMINE 25 MG TAB (BENADRYL) PO PRN (10:30)
[2021-04-20] MEDS ORDERED: ACETAMINOPHEN 325 MG TABLET PO PRN (10:45)
[2021-04-20] MEDS: ENOXAPARIN 40 MG/0.4 ML (LOVENOX) SYR SC SCH (10:53)
[2021-04-20] MEDS: 1/2 NS IV SOLUTION 1,000 ML IV SCH ×2 (10:53→17:47)
[2021-04-20 12:00] VITALS: BP 132/64
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
[2021-04-20] MEDS ORDERED: KETOROLAC 30 MG/ML VIAL IVP PRN (13:00)
[2021-04-20] MEDS ORDERED: ALBU18HF2 INH (14:37)
[2021-04-20] MEDS ORDERED: DOXY100C2 PO (14:37)
[2021-04-20] MEDS ORDERED: BUDE10.2 INH (14:37)
[2021-04-20] MEDS ORDERED: HYDR-700 PO (14:37)
[2021-04-20 15:13] LABS: AMPHETAMINE SCREEN, URINE POSITIVE (NEGATIVE); BARBITURATE SCREEN URINE NEGATIVE (NEGATIVE); BENZODIAZEPINES SCREEN URINE NEGATIVE (NEGATIVE); CANNABINOID SCREEN, URINE POSITIVE (NEGATIVE); COCAINE SCREEN URINE NEGATIVE (NEGATIVE); METHADONE STAT NEGATIVE (NEGATIVE); METHAMPHETAMINE SCREEN URINE S POSITIVE (NEGATIVE); OPIATE SCREEN URINE NEGATIVE (NEGATIVE); OXYCODONE STAT POSITIVE (NEGATIVE); PROPOXYPHENE STAT NEGATIVE (NEGATIVE); TRICYCLIC ANTIDEPRESSANTS SCRE NEGATIVE (NEGATIVE)
[2021-04-20 16:00] VITALS: BP 144/62
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
[2021-04-20] MEDS: PIPERACILLIN/TAZO 4.5 GM/NS 100 ML IV SCH ×4 (16:46→23:07)
--- NOTE | 2021-04-20 17:42 | Diagnostic Imaging Report ---
PROCEDURE: US Bilateral lower extremity arterial. TECHNIQUE: Multiple real-time grayscale images were obtained over the bilateral lower extremities in in various projections. Additional duplex Doppler and color Doppler images were also obtained. HISTORY: Bilateral lower extremity ulcers. History of hypertension and coronary artery disease along with tobacco use. COMPARISON: None FINDINGS: Examination is compromised with patient movement. Right lower extremity: The major arteries of the right leg are patent to the ankle. There is detectable flow at the dorsalis pedis and posterior tibial arteries at the ankle. There are diffusely dampened monophasic waveforms present. There is increased velocity in the common femoral artery, profunda femoral artery as well as into the proximal aspect of the superficial femoral artery, does raise concern for potential underlying stenosis. There is otherwise severity of increased velocity of the remaining vessels. Left lower extremity: The major arteries of the left leg are patent to the ankle. There is detectable flow in the dorsalis pedis and posterior tibial artery. There is diffusely dampened monophasic waveforms noted throughout the major arteries of the left leg. There is diffuse increased velocities of the common femoral artery, profunda femoral artery as well as the proximal and mid aspect of the superficial femoral artery on into the distal aspect. This does suggest the potential for stenosis. RIGHT SHARON: N/A LEFT SHARON: N/A IMPRESSION: 1. Limited bilateral lower extremity arterial duplex Doppler assessment. The major arteries do appear to be patent of both legs to the level of the ankles. However, there is diffusely abnormal monophasic waveforms. 2. Diffuse increased velocity particularly within the common femoral arteries through the mid to distal aspect of the superficial femoral arteries, left greater than right. While findings are somewhat indeterminate, it does raise concern for potential proximal stenosis. When patient is clinically able, repeat imaging would be recommended. Dictated by: Dictated on workstation # [id number]
[2021-04-20] MEDS: VANCOMYCIN 1250 MG/NS 250 ML IVPB IV SCH ×2 (18:23)
[2021-04-20 20:00] VITALS: BP 136/79
[2021-04-20 20:13] LABS: BILIRUBIN,URINE NEGATIVE (NEGATIVE); CLARITY,URINE CLOUDY; COLOR,URINE YELLOW; GLUCOSE, URINE (UA) NEGATIVE (NEGATIVE); KETONES,URINE NEGATIVE (NEGATIVE); LEUKOCYTE ESTERASE ,URINE NEGATIVE (NEGATIVE); NITRITE,URINE NEGATIVE (NEGATIVE); PROTEIN,URINE NEGATIVE (NEGATIVE)
[2021-04-20 20:22] LABS: BACTERIA,URINE LARGE /HPF
[2021-04-20] MEDS: SENNA W/DOCUSATE (SENOKOT S) TABLET PO SCH (21:43)
[2021-04-20] MEDS: polyethylene glycoL POWDER 17 GM (MIRALAX) PACK PO SCH (21:45)
[2021-04-21 00:10] VITALS: BP 158/83
[2021-04-21] MEDS: HYDROcodone/APAP 5 MG/325 MG (LORTAB) TAB PO PRN (02:59)
[2021-04-21] MEDS: 1/2 NS IV SOLUTION 1,000 ML IV SCH (02:59)
[2021-04-21 04:05] VITALS: BP 149/76
[2021-04-21] MEDS: VANCOMYCIN 1250 MG/NS 250 ML IVPB IV SCH ×4 (06:22→20:33)
[2021-04-21] MEDS: PIPERACILLIN/TAZO 4.5 GM/NS 100 ML IV SCH ×6 (06:22→22:58)
[2021-04-21 06:38] LABS: BASOPHILS % (AUTO) 0 % (0-10); EOSINOPHILS # (AUTO) 0.4 10^3/uL (0.0-0.3); EOSINOPHILS % (AUTO) 6 % (0-10); HEMATOCRIT 32 % (40-54); HEMOGLOBIN 10.3 g/dL (13.3-17.7); LYMPHOCYTES # (AUTO) 0.5 10^3/uL (1.0-4.0); LYMPHOCYTES % (AUTO) 7 % (12-44); MEAN CORPUSCULAR HEMOGLOBIN 29 pg (25-34); MEAN CORPUSCULAR HGB CONC 32 g/dL (32-36); MEAN CORPUSCULAR VOLUME 91 fL (80-99); MEAN PLATELET VOLUME 9.6 fL (9.0-12.2); MONOCYTES # (AUTO) 0.3 10^3/uL (0.0-1.0); MONOCYTES % (AUTO) 5 % (0-12); NEUTROPHILS # (AUTO) 5.3 10^3/uL (1.8-7.8); NEUTROPHILS % (AUTO) 81 % (42-75); PLATELET COUNT 206 10^3/uL (130-400); WHITE BLOOD COUNT 6.5 10^3/uL (4.3-11.0)
[2021-04-21 06:51] LABS: ALBUMIN 3.2 GM/DL (3.2-4.5); POTASSIUM 4.4 MMOL/L (3.6-5.0)
[2021-04-21 06:53] LABS: CALCIUM 8.8 MG/DL (8.5-10.1)
[2021-04-21 06:54] LABS: TOTAL PROTEIN 6.2 GM/DL (6.4-8.2)
[2021-04-21 06:56] LABS: BILIRUBIN,TOTAL 0.4 MG/DL (0.1-1.0)
[2021-04-21 06:57] LABS: CREATININE SERUM 0.99 MG/DL (0.60-1.30)
[2021-04-21 07:06] LABS: BAND NEUTROPHILS 2 %; EOSINOPHILS % (MANUAL) 9 %; LYMPHOCYTES % (MANUAL) 6 %; MONOCYTES % (MANUAL) 2 %; NEUTROPHILS % (MANUAL) 81 %; RBC MORPH NORMAL
[2021-04-21 07:36] VITALS: BP 174/79
[2021-04-21] MEDS: SENNA W/DOCUSATE (SENOKOT S) TABLET PO SCH ×2 (07:53→21:06)
[2021-04-21] MEDS: polyethylene glycoL POWDER 17 GM (MIRALAX) PACK PO SCH ×2 (07:53→21:06)
[2021-04-21] MEDS: ENOXAPARIN 40 MG/0.4 ML (LOVENOX) SYR SC SCH (10:18)
--- NOTE | 2021-04-21 10:22 | Progress Note - Hospitalist ---
JAQUELINE DALE MED STUDENT 04/21/21 1022: Subjective HPI/CC On Admission Date Seen by Provider: Apr 21, 2021 Time Seen by Provider: 08:15 This is a 60 YO male with history of IV meth use , hepatitis C, peripheral vascular disease, tobacco use, and DVT presents to the ER with 2-3 weeks of BLE pain, swelling, and ulceration. Pt states he has had this before. Seen recently at [facility] and was prescribed Doxycycline, which he says he has been taking. He is noncompliant with his other medications, including Coumadin for his hx of DVT. Recently had LE US that was negative. Pt was supposed to see Dr. Adames and Dr. Alonzo, but has not made appointments. In the ER, vitals were stable and lactic acid was normal, but PCT, CRP, and DDimer were elevated. WBC is 10.0. X-rays of bilateral feet and ankles showed no soft tissue gas or evidence of osteomyelitis. Admitted to the floor and started on IV Vancomycin and Zosyn. Hx of leaving AMA. Subjective/Events-last exam States his leg pain is improved, but still significant. Focused Exam Lactate Level 04/20/21 04:32: Lactic Acid Level 1.03 Objective Exam Vital Signs Vital Signs Date Time Temp Pulse Resp B/P (MAP) Pulse Ox O2 Delivery O2 Flow Rate FiO2 04/21/21 08:00 94 Room Air 04/21/21 07:36 36.5 88 22 174/79 (110) Capillary Refill : Less Than 3 Seconds General Appearance: No Apparent Distress, WD/WN HEENT: PERRL/EOMI Respiratory: Normal Breath Sounds, No Accessory Muscle Use, No Respiratory Distress Cardiovascular: Regular Rate, Rhythm, No Edema Gastrointestinal: Non Tender, Soft Extremity: Other (chronic venous stasis changes of BLE; ulcers covered in wound dressing) Neurologic/Psychiatric: Alert, Normal Mood/Affect Skin: Normal Color, Warm/Dry Results/Procedures Lab Laboratory Tests 04/21/21 06:26 Patient resulted labs reviewed. Imaging: Reviewed Imaging Report Assessment/Plan Assessment and Plan Assess & Plan/Chief Complaint bilateral foot ulcers surgery consulted, no intervention warranted x-rays negative for bone involvement Zosyn and Vancomycin preliminary blood cultures positive for Pseudomonas and S. aureus pain control PVD ultrasound showed evidence of bilateral femoral artery stenosis medication noncompliance IVDA-methamphetamine UDS positive for cannabis and methamphetamines Hx DVT hepatitis C tobacco abuse Lovenox for DVT prophylaxis. VALERIE WINSLOW DO 04/21/212136: Subjective Subjective/Events-last exam Pt doing pretty well Methamphetamines on drug screen as suspected Will discontinue IV fluid and telemetry Reviewing cultures Checked meds and labs Review of Systems General: Fatigue, Malaise Objective Exam General Appearance: No Apparent Distress, WD/WN, Chronically ill Assessment/Plan Assessment and Plan Assess & Plan/Chief Complaint IV abx Eval DC tomorrow? Supervisory-Addendum Brief Verification & Attestation Participated in pt care: history, MDM, physical Personally performed: exam, history, MDM, supervision of care Care discussed with: Medical Student Procedures: n/a Results interpretation: Verified all documentation Verification and Attestation of Medical Student E/M Service A medical student performed and documented this service in my presence. I reviewed and verified all information documented by the medical student and made modifications to such information, when appropriate. I personally performed the physical exam and medical decision making. Valerie Winslow, Apr 21, 2021,21:36 JAQUELINE DALE MED STUDENT Apr 21, 2021 10:22 VALERIE WINSLOW DO Apr 21, 2021 21:37
[2021-04-21 11:25] VITALS: BP 150/74
--- NOTE | 2021-04-21 13:02 | Progress Note - Surgery ---
Subjective Time Seen by a Provider: 11:42 Subjective/Events-last exam Pt seen and examined, he had eaten and was sleeping. Stated he had foot pain, when I asked. Review of Systems General: Fatigue Pulmonary: No Dyspnea, No Cough Cardiovascular: No: Chest Pain, Palpitations Gastrointestinal: No: Nausea, Vomiting, Abdominal Pain Musculoskeletal: foot pain Focused Exam Lactate Level 04/20/21 04:32: Lactic Acid Level 1.03 Objective Exam Vital Signs Date Time Temp Pulse Resp B/P (MAP) Pulse Ox O2 Delivery O2 Flow Rate FiO2 04/21/21 11:25 36.1 85 22 150/74 (99) 96 Room Air 04/21/21 08:00 94 Room Air 04/21/21 07:36 36.5 88 22 174/79 (110) 94 Room Air 04/21/21 07:00 83 04/21/21 04:05 35.9 87 22 149/76 (100) 94 Room Air 04/21/21 01:00 83 04/21/21 00:10 36.1 88 18 158/83 (108) 96 Room Air 04/20/21 21:45 Room Air 04/20/21 20:00 35.8 87 16 136/79 (98) 96 Room Air 04/20/21 19:00 80 04/20/21 16:10 75 04/20/21 16:00 36.0 79 16 144/62 (89) 96 Room Air I & O 04/21/21 07:00 Intake Total 1210 ml Output Total 1100 ml Balance 110 ml Capillary Refill : Less Than 3 Seconds General Appearance: No Apparent Distress, WD/WN HEENT: PERRL/EOMI Respiratory: Normal Breath Sounds, No Accessory Muscle Use, No Respiratory D istress Cardiovascular: Regular Rate, Rhythm, No Edema Peripheral Pulses: 0 Dorsalis Pedis (R), 0 Left Dors-Pedis (L) Gastrointestinal: non tender, soft, no organomegaly, no pulsatile mass Extremity: Other (chronic venous stasis changes of BLE; ulcers covered in wound dressing) Results Lab Laboratory Tests 04/20/21 14:45: Urine Color YELLOW, Urine Clarity CLOUDY, Urine pH 6.0, Urine Specific [place] 1.020, Urine Protein NEGATIVE, Urine Glucose (UA) NEGATIVE, Urine Ketones NEGATIVE, Urine Nitrite NEGATIVE, Urine Bilirubin NEGATIVE, Urine Urobilinogen 0.2, Urine Leukocyte Esterase NEGATIVE, Urine RBC (Auto) NEGATIVE, Urine RBC NONE, Urine WBC NONE, Urine Squamous Epithelial Cells NONE, Urine Renal Epithelial Cells NONE, Urine Crystals NONE, Urine Bacteria LARGEH, Urine Casts NONE, Urine Mucus NEGATIVE, Urine Culture Indicated NO, Urine Opiates Screen NEGATIVE, Urine Oxycodone Screen POSITIVEH, Urine Methadone Screen NEGATIVE, Urine Propoxyphene Screen NEGATIVE, Urine Barbiturates Screen NEGATIVE, Ur Tricyclic Antidepressants Screen NEGATIVE, Urine Phencyclidine Screen NEGATIVE, Urine Amphetamines Screen POSITIVEH, Urine Methamphetamines Screen POSITIVEH, Urine Benzodiazepines Screen NEGATIVE, Urine Cocaine Screen NEGATIVE, Urine Cannabinoids Screen POSITIVEH 04/21/21 06:26: White Blood Count 6.5, Red Blood Count 3.52L, Hemoglobin 10.3L, Hematocrit 32L, Mean Corpuscular Volume 91, Mean Corpuscular Hemoglobin 29, Mean Corpuscular Hemoglobin Concent 32, Red Cell Distribution Width 14.2, Platelet Count 206, Mean Platelet Volume 9.6, Immature Granulocyte % (Auto) 1, Neutrophils (%) (Auto) 81H, Lymphocytes (%) (Auto) 7L, Monocytes (%) (Auto) 5, Eosinophils (%) (Auto) 6, Basophils (%) (Auto) 0, Neutrophils # (Auto) 5.3, Lymphocytes # (Auto) 0.5L, Monocytes # (Auto) 0.3, Eosinophils # (Auto) 0.4H, Basophils # (Auto) 0.0, Immature Granulocyte # (Auto) 0.0, Neutrophils % (Manual) 81, Lymphocytes % (Manual) 6, Monocytes % (Manual) 2, Eosinophils % (Manual) 9, Band Neutrophils 2, Blood Morphology Comment NORMAL, Sodium Level 137, Potassium Level 4.4, Chloride Level 107, Carbon Dioxide Level 20L, Anion Gap 10, Blood Urea Nitrogen 21H, Creatinine 0.99, Estimat Glomerular Filtration Rate 78, BUN/Creatinine Ratio 21, Glucose Level 93, Calcium Level 8.8, Corrected Calcium 9.4, Total Bilirubin 0.4, Aspartate Amino Transf (AST/SGOT) 19, Alanine Aminotransferase (ALT/SGPT) 19, Alkaline Phosphatase 50, Total Protein 6.2L, Albumin 3.2 Microbiology 04/20/21 Blood Culture - Preliminary, Resulted No growth 04/20/21 Gram Stain - Final, Resulted 7/26/21 Wound Culture - Preliminary, Resulted Pseudomonas aeruginosa Staphylococcus aureus Assessment/Plan Assessment/Plan Assessment/Plan Bilateral Ulcer on feet Polysubstance Abuse Non-compliance Pt has peripheral vascular disease and chronic venous stasis changes in lower legs. The ulcers on his feet are chronic with no signs of gangrene and nothing on x-ray to suggest Osteomyelitis. Nothing surgical is needed at this time. He would benefit from good local wound care and possibly stenting if he has bad PAD. Wound care saw pt and has started dressing changes. HENRRY PARISI DO Apr 21, 2021 13:02
[2021-04-21 16:44] VITALS: BP 149/67
[2021-04-21] MEDS ORDERED: TROUGH ORDER-PHARMACY XX NR (18:00)
[2021-04-22 00:50] VITALS: BP 149/67
[2021-04-22] MEDS: VANCOMYCIN 1250 MG/NS 250 ML IVPB IV SCH ×4 (06:15→18:12)
[2021-04-22] MEDS: PIPERACILLIN/TAZO 4.5 GM/NS 100 ML IV SCH ×6 (06:15→22:54)
[2021-04-22 06:39] LABS: BASOPHILS % (AUTO) 1 % (0-10); EOSINOPHILS # (AUTO) 0.4 10^3/uL (0.0-0.3); EOSINOPHILS % (AUTO) 7 % (0-10); HEMATOCRIT 32 % (40-54); HEMOGLOBIN 10.7 g/dL (13.3-17.7); LYMPHOCYTES # (AUTO) 0.7 10^3/uL (1.0-4.0); LYMPHOCYTES % (AUTO) 11 % (12-44); MEAN CORPUSCULAR HEMOGLOBIN 30 pg (25-34); MEAN CORPUSCULAR HGB CONC 33 g/dL (32-36); MEAN CORPUSCULAR VOLUME 89 fL (80-99); MEAN PLATELET VOLUME 9.7 fL (9.0-12.2); MONOCYTES # (AUTO) 0.5 10^3/uL (0.0-1.0); MONOCYTES % (AUTO) 9 % (0-12); NEUTROPHILS # (AUTO) 4.1 10^3/uL (1.8-7.8); NEUTROPHILS % (AUTO) 73 % (42-75); PLATELET COUNT 241 10^3/uL (130-400); WHITE BLOOD COUNT 5.7 10^3/uL (4.3-11.0)
[2021-04-22 06:47] LABS: ALBUMIN 3.2 GM/DL (3.2-4.5)
[2021-04-22 06:48] LABS: CALCIUM 9.1 MG/DL (8.5-10.1)
[2021-04-22 06:49] LABS: TOTAL PROTEIN 6.3 GM/DL (6.4-8.2)
[2021-04-22 06:51] LABS: BILIRUBIN,TOTAL 0.3 MG/DL (0.1-1.0)
[2021-04-22 06:53] LABS: CREATININE SERUM 0.95 MG/DL (0.60-1.30)
[2021-04-22 08:18] VITALS: BP 166/77
[2021-04-22] MEDS: SENNA W/DOCUSATE (SENOKOT S) TABLET PO SCH ×3 (09:58→20:19)
[2021-04-22] MEDS: polyethylene glycoL POWDER 17 GM (MIRALAX) PACK PO SCH ×3 (09:58→20:18)
[2021-04-22] MEDS: ENOXAPARIN 40 MG/0.4 ML (LOVENOX) SYR SC SCH (09:59)
--- NOTE | 2021-04-22 11:43 | Physical Therapy Progress Note ---
Therapy Progress Note Patient in bed with covers over his head. Patient remained like this with PT attempt to evaluate patient. Patient, through the covers, states, "I get up just fine." PT attempted to educated patient on importance of participating with therapy, however, patient just grunted under the covers. PT will attempt in a.m. Physician notified. 1 ref ([id number]) HENOK LOJA PT Apr 22, 2021 11:43
--- NOTE | 2021-04-22 12:59 | Occ Therapy Progress Note ---
Therapy Progress Note OT order received, chart reviewed. OT attempted to talk with pt. Pt. asleep. Mumbles to OT, but refuses to open eyes. OT introduces self, attempts to educate pt. purpose of goals. Pt. ignores OT. Spoke with nursing. Pt. has been getting self up independently. Will attempt evaluation again in a.m. [id number] 1, visit x 5minutes CIELO RABAGO OT Apr 22, 2021 12:59
--- NOTE | 2021-04-22 13:56 | Physical Therapy Evaluation ---
PT Evaluation-General Medical Diagnosis Admission Date Apr 20, 2021 at 08:32 Medical Diagnosis: weakness, bilateral foot ulcers Onset Date: Apr 20, 2021 Therapy Diagnosis Therapy Diagnosis: impaired mobility, endurance Height/Weight Height (Feet): 5 Height (Inches): 8.00 Weight (Pounds): 165 Weight (Ounces): 5.0 Precautions Precautions/Isolations: Contact Isolation Referral Physician: Valerie Figueredo DO Reason for Referral: Evaluation/Treatment Medical History Additional Medical History Past Medical History Surgeries: Abdominal, Eye Surgery, Lobectomy Pneumonia, COPD, Emphysema Currently Using CPAP: No Currently Using BIPAP: No Coronary Artery Disease, Deep Vein Thrombosis, Heart Attack, Hypertension, Peripheral Vascular, Valvular Heart Disease Headaches /Migraines, Neuropathy, Stroke, TIA Sexually Transmitted Disease: No HIV/AIDS: No Renal Failure Gastroesophageal Reflux, Liver Disease/Jaundice, Hepatitis, Polyps Back Injury, Chronic Back Pain, Fractures Loss of Vision: Left Lung Did You Recieve Any Treatments: Yes What Type of Treatment Did You: Surgical Intervention UNCLEAR HISTORY--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 Anxiety, PTSD, Depression Blood Disorders: Yes (Cryoglobulinemia) Reviewed History: Yes Social History Patient states he is homeless and stays in motels. Prior Prior Level of Function SCALE: Activities may be completed with or without assistive devices. 8-Cfsimqevce-obiqjmr completes the activity by him/herself with no assistance from a helper. 5-Set-up or Clean-up Assistance-helper sets up or cleans up; patient completes activity. [place] assists only prior to or following the activity. 4-Supervision or Touching Assistance-helper provides verbal cues and/or touching/steadying and/or contact guard assistance as patient completes activity. Assistance may be provided throughout the activity or intermittently. 3-Partial/Moderate Assistance-helper does LESS THAN HALF the effort. [place] lifts, holds or supports trunk or limbs, but provides less than half the effort. 2-Substantial/Maximal Assistance-helper does MORE THAN HALF the effort. [place] lifts or holds trunk or limbs and provides more than half the effort. 9-Mlazizqaw-vydrnh does ALL the effort. Patient does none of the effort to complete the activity. Or, the assistance of 2 or more helpers is required for the patient to complete the activity. If activity was not attempted, code reason: 7-Patient Refused. 9-Not Applicable-not attempted and the patient did not perform the activity before the current illness, exacerbation or injury. 10-Not Attempted due to Environmental Limitations-(lack of equipment, weather restraints, etc.). 88-Not Attempted due to Medical Conditions or Safety Concerns. Bed Mobility: 6 Transfers (B,C,W/C): 6 Gait: 6 Stairs: 6 Indoor Mobility (Ambulation): Independent Stairs: Independent PT Evaluation-Current Subjective Patient in bed pre tx, agrees to PT with encouragement, has 8/10 pain in both feet. Patient states he has an ear infection that is painful and makes him dizzy, nurse notified. Pt/Family Goals none stated Objective Patient Orientation: Person, Place, Situation, Mumbles ROM/Strength ROM Lower Extremities WNL, active dorsiflexion is limited Sensory Hearing: Functional Transfers Roll Left to Right (QC): 6 Sit to Lying (QC): 6 Lying to Sitting/Side of Bed(Q: 6 Sit to Stand (QC): 5 Chair/Xef-pf-Plcaa Xfer(QC): 5 Toilet Transfer (QC): 5 Gait Does the Patient Walk?: Yes Mode of Locomotion: Walk Anticipated Mode of Locomotion: Walk Walk 10 feet (QC): 5 Distance: 10'x2 Gait Assistive Device: None Comments/Gait Description Patient ambulated to the restroom and back to bed. Ambulation is painful but he can do it without assist or assistive device. Balance Sitting Static: Normal Sitting Dynamic: Normal Standing Static: Good Standing Dynamic: Good Treatment seated BLE exercises x10 (AP, LAQ) Assessment/Needs Patient in bed post tx with nurse call, phone, tray, all needs met. Patient has impaired mobility and endurance. Patient can ambulate without assist but is very painful for his feet. Patient is impulsive, keeps eyes closed most of the time. Rehab Potential: Guarded PT Supervisor [employer] Goals Supervisor [employer] Goals PT [facility] Goals Time Frame: Apr 29, 2021 Roll Left & Right (QC): 6 Sit to Lying (QC): 6 Lying-Sitting on Side/Bed(QC): 6 Sit to Stand (QC): 6 Chair/Lje-qo-Vqjrt Xfer(QC): 6 Toilet Transfer (QC): 6 Walk 10 feet (QC): 6 Walk 50ft with 2 Turns (QC): 6 PT Plan Problem List Problem List: Activity Tolerance, Functional Strength, Safety, Balance, Gait, Transfer, ROM Treatment/Plan Treatment Plan: Continue Plan of Care Treatment Plan: Education, Functional Activity Dana, Functional Strength, Gait, Safety, Therapeutic Exercise, Transfers Treatment Duration: Apr 29, 2021 Frequency: 6 times per week Estimated Hrs Per Day: .25 hour per day Patient and/or Family Agrees t: Yes Safety Risks/Education Patient Education: Gait Training, Transfer Techniques, Correct Positioning, Safety Issues Teaching Recipient: Patient Teaching Methods: Demonstration, Discussion Response to Teaching: Reinforcement Needed Discharge Recommendations Plan Patient will perform bed mobility and transfer training,balance and endurance training, functional strengthening, stair training, gait training, and education, to improve functional mobility and independence at home. Therapy Discharge Recommendati: 24 Hour Supervision Time/GCodes Time In: 1315 Time Out: 1326 Total Billed Treatment Time: 11 Total Billed Treatment 1 visit ALISIA JACK PT Apr 22, 2021 13:56
--- NOTE | 2021-04-22 14:28 | Progress Note - Hospitalist ---
JAQUELINE DALE MED STUDENT 04/22/21 1428: Subjective HPI/CC On Admission Date Seen by Provider: Apr 22, 2021 Time Seen by Provider: 08:20 This is a 60 YO male with history of IV meth use , hepatitis C, peripheral vascular disease, tobacco use, and DVT presents to the ER with 2-3 weeks of BLE pain, swelling, and ulceration. Pt states he has had this before. Seen recently at [facility] and was prescribed Doxycycline, which he says he has been taking. He is noncompliant with his other medications, including Coumadin for his hx of DVT. Recently had LE US that was negative. Pt was supposed to see Dr. Adames and Dr. Alonzo, but has not made appointments. In the ER, vitals were stable and lactic acid was normal, but PCT, CRP, and DDimer were elevated. WBC is 10.0. X-rays of bilateral feet and ankles showed no soft tissue gas or evidence of osteomyelitis. Admitted to the floor and started on IV Vancomycin and Zosyn. Hx of leaving AMA. Subjective/Events-last exam Had diarrhea this morning and some abdominal bloating, but no other complaints. Focused Exam Lactate Level 04/20/21 04:32: Lactic Acid Level 1.03 Objective Exam Vital Signs Vital Signs Date Time Temp Pulse Resp B/P (MAP) Pulse Ox O2 Delivery O2 Flow Rate FiO2 04/22/21 08:18 36.8 84 20 166/77 (106) 97 Room Air Capillary Refill : Less Than 3 Seconds General Appearance: No Apparent Distress, WD/WN Respiratory: Normal Breath Sounds, No Accessory Muscle Use, No Respiratory Distress Cardiovascular: Regular Rate, Rhythm, No Murmur Gastrointestinal: Non Tender, Soft Extremity: Other (chronic venous stasis changes of BLE; ulcers covered in wound dressing) Neurologic/Psychiatric: Alert, Oriented x3, No Motor/Sensory Deficits Skin: Normal Color, Warm/Dry Results/Procedures Lab Laboratory Tests 04/22/21 06:30 Patient resulted labs reviewed. Imaging: Reviewed Imaging Report Assessment/Plan Assessment and Plan Assess & Plan/Chief Complaint bilateral foot ulcers surgery consulted, no intervention warranted x-rays negative for bone involvement Zosyn and Vancomycin preliminary blood cultures positive for Pseudomonas, S. aureus, and S. pyogenes pain control PVD ultrasound showed evidence of bilateral femoral artery stenosis medication noncompliance IVDA-methamphetamine UDS positive for cannabis and methamphetamines Hx DVT hepatitis C tobacco abuse Lovenox for DVT prophylaxis. Consult social services coordinator. VALERIE WINSLOW DO 04/23/21 0501: Subjective Subjective/Events-last exam Pt denies wanting to get up to walk IV antibiotics maintained The question is whether he would take his antibiotics or not if we discharged him May need swingbed Supervisory-Addendum Brief Verification & Attestation Participated in pt care: history, MDM, physical Personally performed: exam, history, MDM, supervision of care Care discussed with: Medical Student Procedures: n/a Results interpretation: Verified all documentation Verification and Attestation of Medical Student E/M Service A medical student performed and documented this service in my presence. I reviewed and verified all information documented by the medical student and made modifications to such information, when appropriate. I personally performed the physical exam and medical decision making. Valerie Winslow, Apr 23, 2021,05:00 JAQUELINE DALE MED STUDENT Apr 22, 2021 14:28 VALERIE WINSLOW DO Apr 23, 2021 05:01
[2021-04-22] MEDS ORDERED: VORI200T8 PO (14:42)
[2021-04-22] MEDS ORDERED: CALCIUM CARBONATE 500 MG (TUMS) TAB.CHEW PO PRN (15:30)
[2021-04-22] MEDS ORDERED: ONDANSETRON 4 MG/2 ML (SDV) Z0FRAN IVP PRN (15:30)
[2021-04-22] MEDS ORDERED: amLODIPine 5 MG (NORVASC) TAB PO ONE (15:30)
[2021-04-22] MEDS ORDERED: hydrOXYzine (ATARAX) 10 MG TAB PO PRN (15:30)
[2021-04-22] MEDS ORDERED: MELATONIN 3 MG TABLET PO PRN (15:30)
[2021-04-22] MEDS ORDERED: PATIENT MAY USE OWN MED,SINGLE MED PO SCH (15:30)
[2021-04-22] MEDS ORDERED: RT-ALBUTEROL SULF 2.5 MG/3 ML PRE-MIX VIAL INH PRN (15:30)
[2021-04-22] MEDS ORDERED: DOCUSATE SODIUM 100 MG (COLACE) CAP PO PRN (15:30)
[2021-04-22] MEDS ORDERED: LOPERAMIDE 2 MG (IMODIUM) TABLET PO PRN (15:30)
[2021-04-22] MEDS: ONDANSETRON 4 MG (ZOFRAN) ORAL DISSOLVE TAB PO PRN (15:45)
[2021-04-22 16:11] VITALS: BP 167/81
[2021-04-22] MEDS: HYDROcodone/APAP 5 MG/325 MG (LORTAB) TAB PO PRN (18:12)
[2021-04-22] MEDS: GABAPENTIN 400 MG (NEURONTIN) CAP PO SCH (20:18)
[2021-04-22] MEDS: RT--FLUTICASONE/SALMETEROL 113-14 (AIRDUO RespiCLICK) IH SCH (21:40)
[2021-04-23] VITALS: BP 102/56
[2021-04-23] MEDS: PIPERACILLIN/TAZO 4.5 GM/NS 100 ML IV SCH ×6 (05:22→23:09)
[2021-04-23] MEDS: VANCOMYCIN 1250 MG/NS 250 ML IVPB IV SCH ×4 (05:22→18:24)
--- NOTE | 2021-04-23 05:28 | Progress Note - Hospitalist ---
Subjective HPI/CC On Admission Date Seen by Provider: Apr 23, 2021 Time Seen by Provider: 11:00 This is a 60 YO male with history of IV meth use , hepatitis C, peripheral vascular disease, tobacco use, and DVT presents to the ER with 2-3 weeks of BLE pain, swelling, and ulceration. Pt states he has had this before. Seen recently at [facility] and was prescribed Doxycycline, which he says he has been taking. He is noncompliant with his other medications, including Coumadin for his hx of DVT. Recently had LE US that was negative. Pt was supposed to see Dr. Adames and Dr. Alonzo, but has not made appointments. In the ER, vitals were stable and lactic acid was normal, but PCT, CRP, and DDimer were elevated. WBC is 10.0. X-rays of bilateral feet and ankles showed no soft tissue gas or evidence of osteomyelitis. Admitted to the floor and started on IV Vancomycin and Zosyn. Hx of leaving AMA. Subjective/Events-last exam Pt talking on the phone so I really cant interview him or examine him At side of the bed eating and drinking his lunch Swingbed is not an option Wound care evaluated him and made a few modifications Review of Systems General: Fatigue Musculoskeletal: leg pain, foot pain Objective Exam Vital Signs Vital Signs Date Time Temp Pulse Resp B/P (MAP) Pulse Ox O2 Delivery O2 Flow Rate FiO2 04/23/21 20:05 Room Air 04/23/21 17:19 94 04/23/21 16:00 36.4 80 18 148/79 (102) Capillary Refill : Less Than 3 Seconds General Appearance: No Apparent Distress, WD/WN, Chronically ill Results/Procedures Lab Laboratory Tests 04/23/21 05:20 Patient resulted labs reviewed. Imaging: Reviewed Imaging Report Assessment/Plan Assessment and Plan Assess & Plan/Chief Complaint Assessment: Bilateral lower extremity cellulitis with ulcerations Meth use Plan: IV antibiotics High risk for noncompliance in risk of amputation SUDHEER WINSLOW DO Apr 23, 2021 05:28
[2021-04-23 05:40] LABS: BASOPHILS % (AUTO) 1 % (0-10); EOSINOPHILS # (AUTO) 0.3 10^3/uL (0.0-0.3); EOSINOPHILS % (AUTO) 6 % (0-10); HEMATOCRIT 34 % (40-54); HEMOGLOBIN 11.2 g/dL (13.3-17.7); LYMPHOCYTES # (AUTO) 0.5 10^3/uL (1.0-4.0); LYMPHOCYTES % (AUTO) 8 % (12-44); MEAN CORPUSCULAR HEMOGLOBIN 29 pg (25-34); MEAN CORPUSCULAR HGB CONC 33 g/dL (32-36); MEAN CORPUSCULAR VOLUME 88 fL (80-99); MEAN PLATELET VOLUME 9.3 fL (9.0-12.2); MONOCYTES # (AUTO) 0.6 10^3/uL (0.0-1.0); MONOCYTES % (AUTO) 10 % (0-12); NEUTROPHILS # (AUTO) 4.5 10^3/uL (1.8-7.8); NEUTROPHILS % (AUTO) 76 % (42-75); PLATELET COUNT 238 10^3/uL (130-400); WHITE BLOOD COUNT 5.9 10^3/uL (4.3-11.0)
[2021-04-23 05:50] LABS: ALBUMIN 3.1 GM/DL (3.2-4.5)
[2021-04-23 05:52] LABS: CALCIUM 8.9 MG/DL (8.5-10.1)
[2021-04-23 05:53] LABS: TOTAL PROTEIN 6.3 GM/DL (6.4-8.2)
[2021-04-23 05:55] LABS: BILIRUBIN,TOTAL 0.3 MG/DL (0.1-1.0)
[2021-04-23 05:57] LABS: CREATININE SERUM 1.08 MG/DL (0.60-1.30)
[2021-04-23] MEDS: RT--FLUTICASONE/SALMETEROL 113-14 (AIRDUO RespiCLICK) IH SCH ×2 (07:28→17:15)
[2021-04-23 07:30] VITALS: BP 122/70
[2021-04-23] MEDS: GABAPENTIN 400 MG (NEURONTIN) CAP PO SCH ×3 (08:22→20:04)
[2021-04-23] MEDS: SENNA W/DOCUSATE (SENOKOT S) TABLET PO SCH ×2 (08:22→19:19)
[2021-04-23] MEDS: polyethylene glycoL POWDER 17 GM (MIRALAX) PACK PO SCH ×2 (08:22→19:18)
[2021-04-23] MEDS: lisINopril 10 MG (PRINIVIL) TABLET PO SCH (08:22)
[2021-04-23] MEDS: amLODIPine 5 MG (NORVASC) TAB PO SCH (08:22)
--- NOTE | 2021-04-23 10:02 | Physical Therapy Daily Note ---
PT Daily Note-Current Subjective Patient agrees to ambulate with FWW to relieve bilateral foot pressure after PT education. Pain Numeric Pain Scale: 8 Location: Right, Left Location Body Site: Foot Pain Description: Pressure, Burning, Sharp Mental Status Patient Orientation: Normal For Age Transfers SCALE: Activities may be completed with or without assistive devices. 9-Vywmtyfzwg-uximglk completes the activity by him/herself with no assistance from a helper. 5-Set-up or Clean-up Assistance-helper sets up or cleans up; patient completes a ctivity. [place] assists only prior to or following the activity. 4-Supervision or Touching Assistance-helper provides verbal cues and/or touching/steadying and/or contact guard assistance as patient completes activity. Assistance may be provided throughout the activity or intermittently. 3-Partial/Moderate Assistance-helper does LESS THAN HALF the effort. [place] lifts, holds or supports trunk or limbs, but provides less than half the effort. 2-Substantial/Maximal Assistance-helper does MORE THAN HALF the effort. [place] lifts or holds trunk or limbs and provides more than half the effort. 0-Bimdzdbdd-nlizur does ALL the effort. Patient does none of the effort to complete the activity. Or, the assistance of 2 or more helpers is required for the patient to complete the activity. If activity was not attempted, code reason: 7-Patient Refused. 9-Not Applicable-not attempted and the patient did not perform the activity before the current illness, exacerbation or injury. 10-Not Attempted due to Environmental Limitations-(lack of equipment, weather restraints, etc.). 88-Not Attempted due to Medical Conditions or Safety Concerns. Sit to Lying (QC): 6 Lying to Sitting/Side of Bed(Q: 6 Sit to Stand (QC): 6 Gait Training Does the Patient Walk?: Yes Distance: 30' Walk 10 feet (QC): 6 Gait Assistive Device: FWW safe and functional with improved balance Assessment Patient tolerated treatment and is up with nursing independently in room. Patient educated on importance of utilizing FWW for mobility to relieve bilateral foot pressure. Patient voices understanding and will require one for home use. SW notified. PT to dismiss patient from services at this time. PT Shelter Goals Shelter Goals PT Shelter Goals Time Frame: Apr 29, 2021 Roll Left & Right (QC): 6 Sit to Lying (QC): 6 Lying-Sitting on Side/Bed(QC): 6 Sit to Stand (QC): 6 Chair/Zln-ls-Wzkpq Xfer(QC): 6 Toilet Transfer (QC): 6 Walk 10 feet (QC): 6 Walk 50ft with 2 Turns (QC): 6 PT Plan Treatment/Plan Treatment Plan: Discontinue PT Treatment Plan: Education, Functional Activity Dana, Functional Strength, Gait, Safety, Therapeutic Exercise, Transfers Treatment Duration: Apr 29, 2021 Frequency: 6 times per week Estimated Hrs Per Day: .25 hour per day Patient and/or Family Agrees t: Yes Time/GCodes Time In: 950 Time Out: 958 Total Billed Treatment Time: 8 Total Billed Treatment 1 visit FA 8 min HENOK LOJA PT Apr 23, 2021 10:02
[2021-04-23] MEDS: HYDROcodone/APAP 5 MG/325 MG (LORTAB) TAB PO PRN ×2 (10:36→20:29)
[2021-04-23] MEDS: ENOXAPARIN 40 MG/0.4 ML (LOVENOX) SYR SC SCH (10:36)
[2021-04-23] MEDS: HYDROmorphone 2 MG/ML VIAL (DILAUDID) IV PRN (10:59)
--- NOTE | 2021-04-23 12:14 | Progress Note - Hospitalist ---
JAQUELINE DALE MED STUDENT 04/23/21 1214: Subjective HPI/CC On Admission Date Seen by Provider: Apr 23, 2021 Time Seen by Provider: 09:50 This is a 60 YO male with history of IV meth use , hepatitis C, peripheral vascular disease, tobacco use, and DVT presents to the ER with 2-3 weeks of BLE pain, swelling, and ulceration. Pt states he has had this before. Seen recently at [facility] and was prescribed Doxycycline, which he says he has been taking. He is noncompliant with his other medications, including Coumadin for his hx of DVT. Recently had LE US that was negative. Pt was supposed to see Dr. Adames and Dr. Alonzo, but has not made appointments. In the ER, vitals were stable and lactic acid was normal, but PCT, CRP, and DDimer were elevated. WBC is 10.0. X-rays of bilateral feet and ankles showed no soft tissue gas or evidence of osteomyelitis. Admitted to the floor and started on IV Vancomycin and Zosyn. Hx of leaving AMA. Subjective/Events-last exam No new complaints. Still having diarrhea. Objective Exam Vital Signs Vital Signs Date Time Temp Pulse Resp B/P (MAP) Pulse Ox O2 Delivery O2 Flow Rate FiO2 04/23/21 08:00 94 Room Air 04/23/21 07:30 36.6 83 18 122/70 (87) Capillary Refill : Less Than 3 Seconds General Appearance: No Apparent Distress, WD/WN Respiratory: Normal Breath Sounds, No Accessory Muscle Use, No Respiratory Distress Cardiovascular: Regular Rate, Rhythm, No Edema Gastrointestinal: Non Tender, Soft Extremity: Other (chronic venous stasis changes to BLE; wound dressing in place) Neurologic/Psychiatric: Alert, Oriented x3 Skin: Normal Color, Warm/Dry Results/Procedures Lab Laboratory Tests 04/23/21 05:20 Patient resulted labs reviewed. Imaging: Reviewed Imaging Report Assessment/Plan Assessment and Plan Assess & Plan/Chief Complaint bilateral foot ulcers surgery consulted, no intervention warranted x-rays negative for bone involvement Zosyn and Vancomycin pain control PVD ultrasound showed evidence of bilateral femoral artery stenosis medication noncompliance IVDA-methamphetamine Hx DVT hepatitis C tobacco abuse Lovenox for DVT prophylaxis. VALERIE WINSLOW DO 04/23/211: Supervisory-Addendum Brief Verification & Attestation Participated in pt care: history, MDM, physical Personally performed: exam, history, MDM, supervision of care Care discussed with: Medical Student Procedures: n/a Results interpretation: Verified all documentation Verification and Attestation of Medical Student E/M Service A medical student performed and documented this service in my presence. I reviewed and verified all information documented by the medical student and made modifications to such information, when appropriate. I personally performed the physical exam and medical decision making. Valerie Winslow, Apr 23, 2021,22:23 JAQUELINE DALE MED STUDENT Apr 23, 2021 12:14 VALERIE WINSLOW DO Apr 23, 2021 22:23
--- NOTE | 2021-04-23 13:08 | Occ Therapy Progress Note ---
Therapy Progress Note Attempted this date to see pt. twice. At first time, pt. in shower and nursing scrubbing wounds/LE in preparation for wound care. At second attempt, pt. in bed, had received pain meds, and having wound care address wounds and dressing changes. Will attempt back as time allows. Did speak with nurse aide in regards to pt's ability in shower. Pt. able to wash all parts, excluding wounds/feet. Pt. also up ad rabia in room and taking self to bathroom, toileting independently. Does have pain with ambulation. Will address any concerns pt. may have otherwise. 1020 1, visit 1115 1, visit CIELO RABAGO OT Apr 23, 2021 13:07
[2021-04-23 16:00] VITALS: BP 148/79
[2021-04-23 23:11] VITALS: BP 125/80
[2021-04-24] MEDS: HYDROcodone/APAP 5 MG/325 MG (LORTAB) TAB PO PRN ×4 (01:50→20:28)
[2021-04-24] MEDS: VANCOMYCIN 1250 MG/NS 250 ML IVPB IV SCH ×4 (06:24→18:07)
[2021-04-24] MEDS: PIPERACILLIN/TAZO 4.5 GM/NS 100 ML IV SCH ×6 (06:24→23:17)
[2021-04-24 07:11] LABS: BASOPHILS % (AUTO) 1 % (0-10); EOSINOPHILS # (AUTO) 0.4 10^3/uL (0.0-0.3); EOSINOPHILS % (AUTO) 7 % (0-10); HEMATOCRIT 36 % (40-54); HEMOGLOBIN 11.6 g/dL (13.3-17.7); LYMPHOCYTES # (AUTO) 0.6 10^3/uL (1.0-4.0); LYMPHOCYTES % (AUTO) 11 % (12-44); MEAN CORPUSCULAR HEMOGLOBIN 29 pg (25-34); MEAN CORPUSCULAR HGB CONC 32 g/dL (32-36); MEAN CORPUSCULAR VOLUME 90 fL (80-99); MEAN PLATELET VOLUME 9.5 fL (9.0-12.2); MONOCYTES # (AUTO) 0.7 10^3/uL (0.0-1.0); MONOCYTES % (AUTO) 13 % (0-12); NEUTROPHILS # (AUTO) 3.3 10^3/uL (1.8-7.8); NEUTROPHILS % (AUTO) 67 % (42-75); PLATELET COUNT 250 10^3/uL (130-400)
[2021-04-24 07:20] LABS: ALBUMIN 3.1 GM/DL (3.2-4.5); POTASSIUM 4.2 MMOL/L (3.6-5.0)
[2021-04-24 07:21] LABS: CALCIUM 9.2 MG/DL (8.5-10.1)
[2021-04-24 07:22] LABS: TOTAL PROTEIN 6.3 GM/DL (6.4-8.2)
[2021-04-24 07:24] LABS: BILIRUBIN,TOTAL 0.2 MG/DL (0.1-1.0)
[2021-04-24 07:26] LABS: CREATININE SERUM 1.11 MG/DL (0.60-1.30)
[2021-04-24 08:16] VITALS: BP 152/83
[2021-04-24] MEDS: RT--FLUTICASONE/SALMETEROL 113-14 (AIRDUO RespiCLICK) IH SCH ×2 (08:17→21:50)
[2021-04-24] MEDS: amLODIPine 5 MG (NORVASC) TAB PO SCH (08:20)
[2021-04-24] MEDS: lisINopril 10 MG (PRINIVIL) TABLET PO SCH (08:20)
[2021-04-24] MEDS: GABAPENTIN 400 MG (NEURONTIN) CAP PO SCH ×3 (08:20→20:28)
[2021-04-24] MEDS: ENOXAPARIN 40 MG/0.4 ML (LOVENOX) SYR SC SCH (08:20)
[2021-04-24] MEDS: polyethylene glycoL POWDER 17 GM (MIRALAX) PACK PO SCH ×2 (09:21→19:17)
[2021-04-24] MEDS: SENNA W/DOCUSATE (SENOKOT S) TABLET PO SCH ×2 (09:22→19:17)
[2021-04-24] MEDS ORDERED: ASPIRIN E.C. 81 MG (ECOTRIN) TAB PO ONE (10:30)
--- NOTE | 2021-04-24 11:46 | Progress Note - Hospitalist ---
Subjective HPI/CC On Admission Date Seen by Provider: Apr 24, 2021 Time Seen by Provider: 09:35 This is a 60 YO male with history of IV meth use , hepatitis C, peripheral vascular disease, tobacco use, and DVT presents to the ER with 2-3 weeks of BLE pain, swelling, and ulceration. Pt states he has had this before. Seen recently at [facility] and was prescribed Doxycycline, which he says he has been taking. He is noncompliant with his other medications, including Coumadin for his hx of DVT. Recently had LE US that was negative. Pt was supposed to see Dr. Adames and Dr. Alonzo, but has not made appointments. In the ER, vitals were stable and lactic acid was normal, but PCT, CRP, and DDimer were elevated. WBC is 10.0. X-rays of bilateral feet and ankles showed no soft tissue gas or evidence of osteomyelitis. Admitted to the floor and started on IV Vancomycin and Zosyn. Hx of leaving AMA. Subjective/Events-last exam He continues to have a bilateral leg pain. He has no other complaints or concerns. Objective Exam Vital Signs Vital Signs Date Time Temp Pulse Resp B/P (MAP) Pulse Ox O2 Delivery O2 Flow Rate FiO2 04/24/21 08:17 93 Room Air 04/24/21 08:16 36.2 76 22 152/83 (106) Capillary Refill : Less Than 3 Seconds General Appearance: No Apparent Distress, WD/WN HEENT: PERRL/EOMI, Pharynx Normal Neck: Normal Inspection, Supple Respiratory: Lungs Clear, Normal Breath Sounds, No Respiratory Distress Cardiovascular: Regular Rate, Rhythm, No Edema, No Murmur Gastrointestinal: Normal Bowel Sounds, Non Tender, Soft Extremity: No Pedal Edema, Other (Bilateral lower extremity ulcers) Neurologic/Psychiatric: Alert, Depressed Affect Skin: No Diaphoresis, No Jaundice; Other (Bilateral lower extremity ulcers with dressings in place) Results/Procedures Lab Laboratory Tests 04/24/21 07:05 Patient resulted labs reviewed. Imaging: Reviewed Imaging Report Assessment/Plan Assessment and Plan Assess & Plan/Chief Complaint Bilateral lower extremity ulcers Peripheral arterial disease XR without evidence of osteomyelitis Cultures showing MRSA, Pseudomonas, and strep pyogenes Continue Vanc and Zosyn Surgery consulted, no indication for surgical intervention at this time Consult cardiology for peripheral arterial disease PT/OT Hypertension Continue amlodipine and lisinopril Methamphetamine abuse Cannabis abuse Clinically significant, no acute management needs Social work consulted, appreciate assistance DVT prophylaxis: Lovenox Diagnosis/Problems Diagnosis/Problems (1) Bilateral leg ulcer Status: Acute (2) Peripheral arterial disease Status: Acute MANJU BISHOP MD Apr 24, 2021 11:46
--- NOTE | 2021-04-24 15:02 | Occ Therapy Progress Note ---
Therapy Progress Note OT nilay received, chart reviewed again. OT attempted one more time for full evaluation completion. Pt. in bed and did wake up to talk with OT. He states that he is in significant pain in his ankles/feet, but that he has just had pain medication and is waiting for it to work. He does not want to get out of bed or make "things worse." Pt. was admitted on 04-20-21 with diagnosis of bilateral foot ulcers. He is currently undergoing wound care and IV antibiotics/pain management. OT has spoke with nursing as well as pt. about current ADL status and independence level. Pt. is able to ambulate in room with walker, and is taking self to bathroom. He is able to take care of his needs in the bathroom. When bathing, he is able to wash all parts except his feet due to his wounds. He is able to dress all parts except his feet. OT offers to practice this with him, and show him different methods for donning socks that might help with pain control. He declines this and says that he will be fine. OT educates him about being independent, and asks him about what his concerns are, if any. He says h is main concern is his medication for his ear fungus. He was given it by [facility], and he lost it before coming in the hospital. He states that he was "couch surfing" prior to admission, and has no idea where it is. OT asks if he has made anyone else aware, and he states that he has made "everyone" aware, and that this hospital "does not carry it." Pt. declines any further OT, and says that talking only makes his feet hurt more. OT provides warm blanket and water. Pt. reports comfort. No further OT needs at this time due to reported independence level and continual refusals. 1, visit x 10minutes [id number] Discharge OT CIELO RABAGO OT Apr 24, 2021 15:02
[2021-04-24 15:07] VITALS: BP 118/73
--- NOTE | 2021-04-24 17:09 | Consultation-Cardiology ---
HPI-Cardiology Cardiology Consultation: Date of Consultation 04/24/2021 Date of Admission 04/20/2021 Attending Physician Valerie Figueredo DO Admitting Physician Daniel Omalley MD Consulting Physician DANIEL JACKSON JR, MD HPI: Time Seen by a Provider: 17:05 Chief Complaint: Reason for consultation: Peripheral arterial disease. He is a 60-year-old male with nonhealing wounds on both feet. He came to the emergency room a few days ago for this reason. He has had these nonhealing wounds in the past and has been referred to the wound care center but never followed up. He was post follow-up with one of my partners in the near future as well. Apparently, he also has issues with medication noncompliance. Nonet heless, he has not been here for a few days and due to the ongoing nonhealing wounds, a cardiology consultation was requested. He states that both feet feet are in pain. He also has progressive shortness of breath. Just getting up to go to the bathroom makes him feel short of breath. He has occasional intermittent chest discomfort. He denies paroxysmal nocturnal dyspnea or orthopnea. He has occasional lightheaded spells but denies syncope. He states he carries a diagnosis of congestive heart failure but denies any previous myocardial infarction, coronary stents or bypass surgery, or stroke. He quit smoking about 6 months ago. Certain portions of this document may have been dictated utilizing voice recognition technology. Inherent to this technology, typographical and grammatical errors may exist. As much as I am diligent to identify and correct these mistakes, some errors may remain in the document. Review of Systems-Cardiology Review of Systems Other comments Review of 10 organ systems is as per the history of present illness, otherwise negative. All Other Systems Reviewed Negative Unless Noted: Yes [id number]-[id number] Hx Patient Social History Smoking Status: Current Everyday Smoker 2nd Hand Smoke Exposure: Yes Have you traveled recently?: No Alcohol Use?: No Substance type: Caffeine, Methamphetamine, Marijuana Pt feels they are or have been: No Tobacco type used: Cigarettes Immunizations Up To Date Tetanus Booster (TDap): Less than 5yrs Date of Pneumonia Vaccine: Jun 26, 2018 Date of Influenza Vaccine: Jun 26, 2011 Past Medical History PMH As described under Assessment. Family Medical History Family History: Cardiovascular disease 19 FATHER 19 MOTHER FH: stroke G8 BROTHER Hypertension 19 FATHER G8 BROTHER Allergies and Home Medications Allergies Coded Allergies: Bacitracin Zinc (Verified Allergy, Unknown, 04/20/21) bacitracin (Verified Allergy, Unknown, 04/20/21) benzalkonium chloride (Verified Allergy, Unknown, 04/20/21) cefadroxil (Verified Allergy, Unknown, RASH, 04/20/21) gramicidin D (Verified Allergy, Unknown, 04/20/21) hydrocortisone (Verified Allergy, Unknown, 04/20/21) methocarbamol (Verified Allergy, Unknown, 04/20/21) neomycin sulfate (Verified Allergy, Unknown, 04/20/21) polymyxin B (Verified Allergy, Unknown, 04/20/21) polymyxin B sulfate (Verified Allergy, Unknown, 04/20/21) carbamazepine (Verified Adverse Reaction, Mild, hives, 04/20/21) Home Medications Albuterol Sulfate 18 Gm Hfa.aer.ad, 1 PUFF INH Q4H PRN for SHORTNESS OF BREATH, (Reported) Last Action: Continued Budesonide/Formoterol Fumarate 10.2 Gm Hfa.aer.ad, 1 PUFF INH DAILY, (Reported) Last Action: Converted Doxycycline Hyclate 100 Mg Capsule, 100 MG PO BID, (Reported) STARTED TAKING 04/12/2021 #20 10 DAY SUPPLY Last Action: Held Gabapentin 400 Mg Capsule, 400 MG PO TID, (Reported) Last Action: Continued Hydroxyzine HCl 25 Mg Tablet, 25 MG PO TID, (Reported) Last Action: Converted Lisinopril 10 Mg Tablet, 10 MG PO DAILY, (Reported) Last Action: Continued Voriconazole 200 Mg Tablet, 200 MG PO BIDAC, (Reported) Last Action: Reviewed Patient Home Medication List Home Medication List Reviewed: Yes Exam Vital Signs Vital Signs Date Time Temp Pulse Resp B/P (MAP) Pulse Ox O2 Delivery O2 Flow Rate FiO2 04/24/21 15:07 35.9 75 20 118/73 (88) 98 Room Air Physical Exam General: Alert. No acute distress. Well nourished and appears stated age. He appears older than his stated age. Eye: Extraocular movements are intact. Conjunctivae are clear. There are no xanthelasma. HENT: Normocephalic. Atraumatic. Carotid pulsations 2/2 without bruits. Neck: Jugular venous pressure does not appear elevated. No thyromegaly appreciated. Respiratory: Lungs are clear to auscultation. Respirations are non-labored. Breath sounds are equal. Symmetrical chest wall expansion. Cardiovascular: Normal rate. Regular rhythm.2/6 holosystolic murmur. No gallop. Point of maximal impulse is not appear displaced. Peripheral pulses are dim inished bilaterally in the feet. No edema. Gastrointestinal: Soft. Normal bowel sounds. Skin: Skin turgor is normal. There is no pallor. Both feet are in bandages. Musculoskeletal: No kyphosis or scoliosis appreciated. Neurologic: Alert and oriented to person, place, time. Cranial nerves 3-12 appear grossly intact. The patient has good motor tone strength in the upper and lower extremities bilaterally. Psychiatric: Cooperative. Appropriate mood & affect. Labs Laboratory Tests Test 04/24/21 07:05 Range/Units White Blood Count 5.0 4.3-11.0 10^3/uL Red Blood Count 3.99 L 4.30-5.52 10^6/uL Hemoglobin 11.6 L 13.3-17.7 g/dL Hematocrit 36 L 40-54 % Mean Corpuscular Volume 90 80-99 fL Mean Corpuscular Hemoglobin 29 25-34 pg Mean Corpuscular Hemoglobin Concent 32 32-36 g/dL Red Cell Distribution Width 13.9 10.0-14.5 % Platelet Count 250 130-400 10^3/uL Mean Platelet Volume 9.5 9.0-12.2 fL Immature Granulocyte % (Auto) 1 % Neutrophils (%) (Auto) 67 42-75 % Lymphocytes (%) (Auto) 11 L 12-44 % Monocytes (%) (Auto) 13 H 0-12 % Eosinophils (%) (Auto) 7 0-10 % Basophils (%) (Auto) 1 0-10 % Neutrophils # (Auto) 3.3 1.8-7.8 10^3/uL Lymphocytes # (Auto) 0.6 L 1.0-4.0 10^3/uL Monocytes # (Auto) 0.7 0.0-1.0 10^3/uL Eosinophils # (Auto) 0.4 H 0.0-0.3 10^3/uL Basophils # (Auto) 0.0 0.0-0.1 10^3/uL Immature Granulocyte # (Auto) 0.0 0.0-0.1 10^3/uL Sodium Level 136 135-145 MMOL/L Potassium Level 4.2 3.6-5.0 MMOL/L Chloride Level 102 98-107 MMOL/L Carbon Dioxide Level 26 21-32 MMOL/L Anion Gap 8 5-14 MMOL/L Blood Urea Nitrogen 22 H 7-18 MG/DL Creatinine 1.11 0.60-1.30 MG/DL Estimat Glomerular Filtration Rate 68 BUN/Creatinine Ratio 20 Glucose Level 103 70-105 MG/DL Calcium Level 9.2 8.5-10.1 MG/DL Corrected Calcium 9.9 8.5-10.1 MG/DL Total Bilirubin 0.2 0.1-1.0 MG/DL Aspartate Amino Transf (AST/SGOT) 35 H 5-34 U/L Alanine Aminotransferase (ALT/SGPT) 32 0-55 U/L Alkaline Phosphatase 52 40-136 U/L Total Protein 6.3 L 6.4-8.2 GM/DL Albumin 3.1 L 3.2-4.5 GM/DL Diagnosis/Problems Diagnosis/Problems (1) Peripheral arterial disease Status: Acute Assessment & Plan: He underwent lower extremity arterial ultrasound that showed monophasic flow bilaterally below the knee. He will likely need further evaluation with peripheral angiogram. I have started the patient on aspirin and rivaroxaban. He is on parenteral antibiotics which the hospitalist is managing. We will see how he progresses over the weekend. I do not perform peripheral angiograms. I will ask one of my partners on Tuesday whether or not they think he would be a reasonable candidate for peripheral angiogram. He has not a good candidate for statin medications due to chronically elevated liver enzyme levels. I will start him on ezetimibe. He needs to maintain cigarette smoking cessation. (2) Aortic regurgitation Status: Chronic Assessment & Plan: This was mild on today's echocardiogram. This will need to be followed longitudinally. (3) CAD (coronary artery disease) Status: Chronic Assessment & Plan: He has been having some atypical chest discomfort. However, his troponin level on admission was negative. I have started the patient on aspirin and added ezetimibe. I also added low-dose rivaroxaban which will not only decrease peripheral vascular events, but other vascular events as well. He had a cardiac catheterization about 6 years ago that showed mild coronary disease. At some point, we may want to consider a nuclear stress test. I do not see any indication for a cardiac catheterization at this timeI would suggest avoiding beta-norah as there are theoretical reasons why this could potentially cause worsening problems with his peripheral arterial disease. (4) Essential hypertension Assessment & Plan: Blood pressures are reasonably controlled with amlodipine and lisinopril. DANIEL JACKSON JR, MD Apr 24, 2021 17:09
[2021-04-24] MEDS: eZETimibe 10 MG (ZETIA) TABLET PO SCH (20:28)
[2021-04-24] MEDS ORDERED: RIVAROXABAN 2.5 MG TABLET (XARELTO) PO SCH (21:00)
[2021-04-24 23:30] VITALS: BP 130/70
[2021-04-25] MEDS: HYDROcodone/APAP 5 MG/325 MG (LORTAB) TAB PO PRN ×2 (03:06→08:38)
[2021-04-25] MEDS: polyethylene glycoL POWDER 17 GM (MIRALAX) PACK PO SCH ×2 (07:45→20:18)
[2021-04-25] MEDS: SENNA W/DOCUSATE (SENOKOT S) TABLET PO SCH ×2 (07:45→20:18)
[2021-04-25 08:00] VITALS: BP 170/81
[2021-04-25] MEDS: RT--FLUTICASONE/SALMETEROL 113-14 (AIRDUO RespiCLICK) IH SCH ×2 (08:06→19:40)
[2021-04-25] MEDS: GABAPENTIN 400 MG (NEURONTIN) CAP PO SCH ×3 (08:38→20:17)
[2021-04-25] MEDS: lisINopril 10 MG (PRINIVIL) TABLET PO SCH (08:38)
[2021-04-25] MEDS: ASPIRIN E.C. 81 MG (ECOTRIN) TAB PO SCH (08:38)
[2021-04-25] MEDS: amLODIPine 5 MG (NORVASC) TAB PO SCH (08:38)
[2021-04-25] MEDS: ENOXAPARIN 40 MG/0.4 ML (LOVENOX) SYR SC SCH (11:47)
--- NOTE | 2021-04-25 11:58 | Progress Note - Hospitalist ---
Subjective HPI/CC On Admission Date Seen by Provider: Apr 25, 2021 Time Seen by Provider: 07:45 This is a 60 YO male with history of IV meth use , hepatitis C, peripheral vascular disease, tobacco use, and DVT presents to the ER with 2-3 weeks of BLE pain, swelling, and ulceration. Pt states he has had this before. Seen recently at [facility] and was prescribed Doxycycline, which he says he has been taking. He is noncompliant with his other medications, including Coumadin for his hx of DVT. Recently had LE US that was negative. Pt was supposed to see Dr. Adames and Dr. Alonzo, but has not made appointments. In the ER, vitals were stable and lactic acid was normal, but PCT, CRP, and DDimer were elevated. WBC is 10.0. X-rays of bilateral feet and ankles showed no soft tissue gas or evidence of osteomyelitis. Admitted to the floor and started on IV Vancomycin and Zosyn. Hx of leaving AMA. Subjective/Events-last exam He is feeling about the same today. He is having bilateral lower extremity pain. He is trying to find someone to bring in his ear drops that he says he is taking as an anti-fungal. Objective Exam Vital Signs Vital Signs Date Time Temp Pulse Resp B/P (MAP) Pulse Ox O2 Delivery O2 Flow Rate FiO2 04/25/21 08:06 96 Room Air 04/25/21 08:00 36.2 85 20 170/81 (110) Capillary Refill : Less Than 3 Seconds General Appearance: No Apparent Distress, Chronically ill Respiratory: Lungs Clear, Normal Breath Sounds, No Respiratory Distress Cardiovascular: Regular Rate, Rhythm, No Edema, No Murmur Gastrointestinal: Normal Bowel Sounds, Non Tender, Soft Extremity: No Inflammation; Other (bilateral lower extremity ulcers with dressings in place) Neurologic/Psychiatric: Alert, No Motor/Sensory Deficits, Normal Mood/Affect Skin: Other (bilateral lower extremity ulcers) Results/Procedures Lab Patient resulted labs reviewed. Imaging: Reviewed Imaging Report Assessment/Plan Assessment and Plan Assess & Plan/Chief Complaint Bilateral lower extremity ulcers Peripheral arterial disease XR without evidence of osteomyelitis Cultures showing MRSA, Pseudomonas, and Strep pyogenes Continue Vanc and Zosyn Surgery consulted, no indication for surgical intervention at this time Cardiology consulted, may need peripheral angiogram Started on ASA and low-dose Xarelto, transition to DVT prophylaxis dose while inpatient PT/OT Hypertension Increase amlodipine Continue lisinopril Methamphetamine abuse Cannabis abuse Clinically significant, no acute management needs Social work consulted, appreciate assistance DVT prophylaxis: Xarelto Diagnosis/Problems Diagnosis/Problems (1) Bilateral leg ulcer Status: Acute (2) Peripheral arterial disease Status: Acute MANJU BISHOP MD Apr 25, 2021 11:58
[2021-04-25] MEDS ORDERED: amLODIPine 5 MG (NORVASC) TAB PO ONE (12:30)
--- NOTE | 2021-04-25 12:41 | Cardiology Progress Note ---
Progress Note-Cardiology Events since last exam Date Seen by Provider: Apr 25, 2021 Time Seen by Provider: 12:36 Events since last exam We are seeing him due to peripheral arterial disease. He continues to complain of pain in his feet. He has some stabbing chest pains off and on. He denies dy spnea, palpitations, or syncope. He would be willing to undergo peripheral angiogram if needed. Certain portions of this document may have been dictated utilizing voice recognition technology. Inherent to this technology, typographical and grammatical errors may exist. As much as I am diligent to identify and correct these mistakes, some errors may remain in the document. Vitals Last set of Vitals Signs Vital Signs 04/25/21 08:06 Pulse Ox 96 O2 Delivery Room Air Exam Vital Signs Vital Signs Date Time Temp Pulse Resp B/P (MAP) Pulse Ox O2 Delivery O2 Flow Rate FiO2 04/25/21 08:06 96 Room Air 04/25/21 08:00 36.2 85 20 170/81 (110) Physical Exam General: Alert. No acute distress. He appears much older than his stated age. Eye: No xanthelasma. HENT: Normocephalic. Neck: Jugular venous pressure does not appear elevated. Respiratory: Lungs are clear to auscultation. Respirations are non-labored. Breath sounds are equal. Symmetrical chest wall expansion. Cardiovascular: Normal rate. Regular rhythm. 2/6 systolic ejection murmur. No gallop. No edema. Gastrointestinal: Soft. Normal bowel sounds. Skin: Warm. Dry. Both feet wrapped in bandages which are dry. Neurologic: Alert and oriented to person, place, time. Cranial nerves 3-11 grossly intact. Psychiatric: Cooperative. Appropriate mood & affect. Diagnosis/Problems Diagnosis/Problems (1) Peripheral arterial disease Status: Acute Assessment & Plan: He underwent lower extremity arterial ultrasound that showed monophasic flow bilaterally below the knee. He will likely need further evaluation with a peripheral angiogram. I have started the patient on aspirin and rivaroxaban. The hospitalist increase the rivaroxaban dose to DVT prophylaxis which is fine for now. I also started him on ezetimibe since he has chronic elevation of the transaminase levels and may not be a good candidate for statin medication. He is on parenteral antibiotics which the hospitalist is managing. We will see how he progresses over the weekend. I have reached out to one of my partners to see if he could perform a peripheral angiogram on Tuesday. He is ordered for follow-up blood work tomorrow. (2) Aortic regurgitation Status: Chronic Assessment & Plan: This was mild on his echocardiogram from this admission. T his should not be causing symptoms. This will need to be followed longitudinally after discharge. (3) CAD (coronary artery disease) Status: Chronic Assessment & Plan: He has been having some atypical chest discomfort. However, his troponin level on admission was negative. As above, I have started the patient on aspirin and added ezetimibe. At some point, we may want to consider a nuclear stress test, especially if he needs surgical revascularization of his lower extremities. I do not see any indication for a cardiac catheterization at this time. I would suggest avoiding beta-norah as there are theoretical reasons why this could potentially cause worsening problems with his peripheral arterial disease. (4) Essential hypertension Assessment & Plan: Blood pressures have been intermittently elevated. The hospitalist has increased the dose of amlodipine. JOSEFINA JACKSON JR, MD Apr 25, 2021 12:41
[2021-04-25] MEDS: HYDROmorphone 2 MG/ML VIAL (DILAUDID) IV PRN (12:43)
[2021-04-25] MEDS ORDERED: NAPROXEN 250 MG (NAPROSYN) TABLET PO NR (13:30)
[2021-04-25] MEDS ORDERED: PIPERACILLIN/TAZOBACTAM (BULK) 4.5 GM in NS (IVPB) 100 ML IV NR (13:30)
[2021-04-25] MEDS ORDERED: VANCOMYCIN INJECTION 1,500 MG in NS IV 500 ML 500 ML IV NR (13:30)
[2021-04-25] MEDS: LACTATED RINGERS 1,000 ML IV SCH ×2 (13:43→23:49)
[2021-04-25 15:04] LABS: URIC ACID 3.5 MG/DL (2.6-7.2)
[2021-04-25 15:52] VITALS: BP 121/71
[2021-04-25] MEDS: ALPRAZolam 0.25 MG (XANAX) TAB PO PRN (15:56)
[2021-04-25] MEDS: PIPERACILLIN/TAZOBACTAM (BULK) 4.5 GM in NS (IVPB) 100 ML IV SCH (20:17)
[2021-04-25] MEDS: eZETimibe 10 MG (ZETIA) TABLET PO SCH (20:17)
[2021-04-25] MEDS: RIVAROXABAN 10 MG TABLET (XARELTO) PO SCH (20:18)
[2021-04-25] MEDS: NAPROXEN 250 MG (NAPROSYN) TABLET PO SCH (20:18)
[2021-04-26 00:10] VITALS: BP 122/72
[2021-04-26] MEDS: VANCOMYCIN 1250 MG/NS 250 ML IVPB IV SCH ×4 (00:28→15:02)
[2021-04-26] MEDS: HYDROcodone/APAP 5 MG/325 MG (LORTAB) TAB PO PRN ×3 (02:44→17:23)
[2021-04-26] MEDS: PIPERACILLIN/TAZOBACTAM (BULK) 4.5 GM in NS (IVPB) 100 ML IV SCH ×3 (02:44→19:32)
[2021-04-26] MEDS: ALPRAZolam 0.25 MG (XANAX) TAB PO PRN ×3 (02:50→22:04)
[2021-04-26] MEDS: NAPROXEN 250 MG (NAPROSYN) TABLET PO SCH ×3 (05:38→20:40)
[2021-04-26 06:00] LABS: BASOPHILS # (AUTO) 0.1 10^3/uL (0.0-0.1); BASOPHILS % (AUTO) 1 % (0-10); EOSINOPHILS # (AUTO) 0.3 10^3/uL (0.0-0.3); EOSINOPHILS % (AUTO) 6 % (0-10); HEMATOCRIT 34 % (40-54); LYMPHOCYTES # (AUTO) 0.7 X 10^3 (1.0-4.0); LYMPHOCYTES % (AUTO) 13 % (12-44); MEAN CORPUSCULAR HEMOGLOBIN 29 pg (25-34); MEAN CORPUSCULAR HGB CONC 32 g/dL (32-36); MEAN CORPUSCULAR VOLUME 91 fL (80-99); MEAN PLATELET VOLUME 9.4 fL (9.0-12.2); MONOCYTES # (AUTO) 0.5 X 10^3 (0.0-1.0); MONOCYTES % (AUTO) 9 % (0-12); NEUTROPHILS # (AUTO) 4.2 X 10^3 (1.8-7.8); NEUTROPHILS % (AUTO) 71 % (42-75); PLATELET COUNT 248 10^3/uL (130-400); WHITE BLOOD COUNT 5.9 10^3/uL (4.3-11.0)
[2021-04-26 06:27] LABS: POTASSIUM 4.4 MMOL/L (3.6-5.0)
[2021-04-26 06:28] LABS: CALCIUM 8.6 MG/DL (8.5-10.1); CREATININE SERUM 1.15 MG/DL (0.60-1.30)
[2021-04-26] MEDS: RT--FLUTICASONE/SALMETEROL 113-14 (AIRDUO RespiCLICK) IH SCH ×2 (07:26→21:34)
[2021-04-26 08:00] VITALS: BP 136/67
--- NOTE | 2021-04-26 10:14 | Cardiology Progress Note ---
Progress Note-Cardiology Events since last exam Date Seen by Provider: Apr 26, 2021 Time Seen by Provider: 10:08 Events since last exam We are seeing him due to peripheral arterial disease. He did not offer compl aints about foot pain to me this morning. He denies chest pain, dyspnea, palpitations, or syncope. Certain portions of this document may have been dictated utilizing voice recognition technology. Inherent to this technology, typographical and grammatical errors may exist. As much as I am diligent to identify and correct these mistakes, some errors may remain in the document. Vitals Last set of Vitals Signs Vital Signs 04/26/21 08:00 Temp 36.1 Pulse 77 Resp 20 B/P (MAP) 136/67 (90) Pulse Ox 95 O2 Delivery Room Air Labs Labs Laboratory Tests 04/26/21 05:30 Exam Vital Signs Vital Signs Date Time Temp Pulse Resp B/P (MAP) Pulse Ox O2 Delivery O2 Flow Rate FiO2 04/26/21 08:00 36.1 77 20 136/67 (90) 95 Room Air Physical Exam General: Alert. No acute distress. He appears older than his stated age. Eye: No xanthelasma. HENT: Normocephalic. Neck: Jugular venous pressure does not appear elevated. Respiratory: Lungs are clear to auscultation. Respirations are non-labored. Breath sounds are equal. Symmetrical chest wall expansion. Cardiovascular: Normal rate. Regular rhythm. 2/6 systolic ejection murmur. No gallop. No edema. Gastrointestinal: Soft. Normal bowel sounds. Skin: Warm. Dry. Feet are wrapped in bandages which are dry. Neurologic: Alert and oriented to person, place, time. Cranial nerves 3-11 grossly intact. Psychiatric: Cooperative. Appropriate mood & affect. Labs Laboratory Tests Test 04/25/21 14:37 04/26/21 05:30 Range/Units Uric Acid 3.5 2.6-7.2 MG/DL Triglycerides Level 179 H <150 MG/DL Cholesterol Level 135 < 200 MG/DL LDL Cholesterol Direct 96 1-129 MG/DL VLDL Cholesterol 36 5-40 MG/DL HDL Cholesterol 17 L 40-60 MG/DL White Blood Count 5.9 4.3-11.0 10^3/uL Red Blood Count 3.75 L 4.30-5.52 10^6/uL Hemoglobin 11.0 L 13.3-17.7 g/dL Hematocrit 34 L 40-54 % Mean Corpuscular Volume 91 80-99 fL Mean Corpuscular Hemoglobin 29 25-34 pg Mean Corpuscular Hemoglobin Concent 32 32-36 g/dL Red Cell Distribution Width 14.4 10.0-14.5 % Platelet Count 248 130-400 10^3/uL Mean Platelet Volume 9.4 9.0-12.2 fL Immature Granulocyte % (Auto) 2 % Neutrophils (%) (Auto) 71 42-75 % Lymphocytes (%) (Auto) 13 12-44 % Monocytes (%) (Auto) 9 0-12 % Eosinophils (%) (Auto) 6 0-10 % Basophils (%) (Auto) 1 0-10 % Neutrophils # (Auto) 4.2 1.8-7.8 X 10^3 Lymphocytes # (Auto) 0.7 L 1.0-4.0 X 10^3 Monocytes # (Auto) 0.5 0.0-1.0 X 10^3 Eosinophils # (Auto) 0.3 0.0-0.3 10^3/uL Basophils # (Auto) 0.1 0.0-0.1 10^3/uL Immature Granulocyte # (Auto) 0.1 0.0-0.1 10^3/uL Sodium Level 136 135-145 MMOL/L Potassium Level 4.4 3.6-5.0 MMOL/L Chloride Level 104 98-107 MMOL/L Carbon Dioxide Level 24 21-32 MMOL/L Anion Gap 8 5-14 MMOL/L Blood Urea Nitrogen 32 H 7-18 MG/DL Creatinine 1.15 0.60-1.30 MG/DL Estimat Glomerular Filtration Rate 65 BUN/Creatinine Ratio 28 Glucose Level 103 70-105 MG/DL Calcium Level 8.6 8.5-10.1 MG/DL Diagnosis/Problems Diagnosis/Problems (1) Peripheral arterial disease Status: Acute Assessment & Plan: He underwent lower extremity arterial ultrasound during this admission that showed monophasic flow bilaterally below the knee. He will likely need further evaluation with a peripheral angiogram. I spoke to my partner, Dr. Sawyer who will plan on peripheral angiogram on Tuesday. I have started the patient on aspirin and rivaroxaban. The hospitalist increased the rivaroxaban dose to DVT prophylaxis which is fine for now. The rivaroxaban will need to be held tomorrow evening in anticipation of the peripheral angiogram on Tuesday. I also started the patient on ezetimibe since he has chronic elevation of the transaminase levels and may not be a good candidate for statin medication. He is on parenteral antibiotics which the hospitalist is managing. (2) Aortic regurgitation Status: Chronic Assessment & Plan: This was mild on his echocardiogram from this admission. This should not be causing symptoms. This will need to be followed longitudinally after discharge. (3) CAD (coronary artery disease) Status: Chronic Assessment & Plan: He had been having some atypical chest discomfort but this is now improved. However, his troponin level on admission was negative. As above, I have started the patient on aspirin and added ezetimibe. At some point, we may want to consider a nuclear stress test, especially if he needs surgical revascularization of his lower extremities. I do not see any indication for a cardiac catheterization at this time. At the present time, we have limited availability for nuclear imaging due to the technicians being on vacation. I would suggest avoiding beta-norah as there are theoretical reasons why this could potentially cause worsening problems with his peripheral arterial disease. (4) Essential hypertension Assessment & Plan: Blood pressures are improved on the higher dose of amlodipine which was adjusted by the hospitalist. (5) Mixed hyperlipidemia Assessment & Plan: Given his coexisting coronary artery disease and peripheral arterial disease, goal LDL less than 70 mg/dL is recommended. I started him on ezetimibe. He is not a good candidate for statin medications due to chronic elevation of his transaminase levels. JOSEFINA JACKSON JR, MD Apr 26, 2021 10:14
[2021-04-26] MEDS: GABAPENTIN 400 MG (NEURONTIN) CAP PO SCH ×3 (10:21→20:40)
[2021-04-26] MEDS: ASPIRIN E.C. 81 MG (ECOTRIN) TAB PO SCH (10:21)
[2021-04-26] MEDS: lisINopril 10 MG (PRINIVIL) TABLET PO SCH (10:21)
[2021-04-26] MEDS: amLODIPine 10 MG (NORVASC) TAB PO SCH (10:21)
[2021-04-26] MEDS: LACTATED RINGERS 1,000 ML IV SCH (10:22)
[2021-04-26] MEDS: polyethylene glycoL POWDER 17 GM (MIRALAX) PACK PO SCH ×2 (10:22→19:32)
[2021-04-26] MEDS: SENNA W/DOCUSATE (SENOKOT S) TABLET PO SCH ×2 (10:22→19:33)
--- NOTE | 2021-04-26 14:35 | Progress Note - Hospitalist ---
Subjective HPI/CC On Admission Date Seen by Provider: Apr 26, 2021 Time Seen by Provider: 10:40 This is a 60 YO male with history of IV meth use , hepatitis C, peripheral vascular disease, tobacco use, and DVT presents to the ER with 2-3 weeks of BLE pain, swelling, and ulceration. Pt states he has had this before. Seen recently at [facility] and was prescribed Doxycycline, which he says he has been taking. He is noncompliant with his other medications, including Coumadin for his hx of DVT. Recently had LE US that was negative. Pt was supposed to see Dr. Adames and Dr. Alonzo, but has not made appointments. In the ER, vitals were stable and lactic acid was normal, but PCT, CRP, and DDimer were elevated. WBC is 10.0. X-rays of bilateral feet and ankles showed no soft tissue gas or evidence of osteomyelitis. Admitted to the floor and started on IV Vancomycin and Zosyn. Hx of leaving AMA. Subjective/Events-last exam He reports bilateral leg pain. He has no other complaints or concerns. Objective Exam Vital Signs Vital Signs Date Time Temp Pulse Resp B/P (MAP) Pulse Ox O2 Delivery O2 Flow Rate FiO2 04/26/21 08:00 36.1 77 20 136/67 (90) 95 Room Air Capillary Refill : Less Than 3 Seconds General Appearance: No Apparent Distress, WD/WN Respiratory: Lungs Clear, Normal Breath Sounds, No Respiratory Distress Cardiovascular: Regular Rate, Rhythm, No Edema, No Murmur Gastrointestinal: Normal Bowel Sounds, Non Tender, Soft Extremity: Normal Inspection, Non Tender, No Pedal Edema Neurologic/Psychiatric: Alert, Oriented x3, No Motor/Sensory Deficits, Normal Mood/Affect Skin: Normal Color, Warm/Dry Results/Procedures Lab Laboratory Tests 04/26/21 05:30 Patient resulted labs reviewed. Imaging: Reviewed Imaging Report Assessment/Plan Assessment and Plan Assess & Plan/Chief Complaint Bilateral lower extremity ulcers Peripheral arterial disease XR without evidence of osteomyelitis Cultures showing MRSA, Pseudomonas, and Strep pyogenes Continue Vanc and Zosyn Surgery consulted, no indication for surgical intervention at this time Cardiology consulted, peripheral angiogram on Tuesday Continue ASA and low-dose Xarelto, transitioned to DVT prophylaxis dose while inpatient PT/OT Hypertension Continue amlodipine Continue lisinopril Methamphetamine abuse Cannabis abuse Clinically significant, no acute management needs Social work consulted, appreciate assistance DVT prophylaxis: Xarelto Diagnosis/Problems Diagnosis/Problems (1) Bilateral leg ulcer Status: Acute (2) Peripheral arterial disease Status: Acute MANJU BISHOP MD Apr 26, 2021 14:34
[2021-04-26 16:00] VITALS: BP 133/74
[2021-04-26] MEDS: eZETimibe 10 MG (ZETIA) TABLET PO SCH (20:40)
[2021-04-26] MEDS: RIVAROXABAN 10 MG TABLET (XARELTO) PO SCH (20:40)
[2021-04-27 00:14] VITALS: BP 118/69
[2021-04-27] MEDS: LACTATED RINGERS 1,000 ML IV SCH ×4 (00:57→21:27)
[2021-04-27] MEDS: VANCOMYCIN 1250 MG/NS 250 ML IVPB IV SCH ×4 (00:57→13:02)
[2021-04-27] MEDS: PIPERACILLIN/TAZOBACTAM (BULK) 4.5 GM in NS (IVPB) 100 ML IV SCH ×3 (04:07→19:56)
[2021-04-27] MEDS: NAPROXEN 250 MG (NAPROSYN) TABLET PO SCH ×3 (05:03→20:34)
[2021-04-27] MEDS: RT--FLUTICASONE/SALMETEROL 113-14 (AIRDUO RespiCLICK) IH SCH ×2 (07:19→20:20)
[2021-04-27 07:45] VITALS: BP 136/59
[2021-04-27] MEDS: ASPIRIN E.C. 81 MG (ECOTRIN) TAB PO SCH (09:02)
[2021-04-27] MEDS: amLODIPine 10 MG (NORVASC) TAB PO SCH (09:02)
[2021-04-27] MEDS: GABAPENTIN 400 MG (NEURONTIN) CAP PO SCH ×3 (09:02→20:34)
[2021-04-27] MEDS: lisINopril 10 MG (PRINIVIL) TABLET PO SCH (09:02)
[2021-04-27] MEDS: SENNA W/DOCUSATE (SENOKOT S) TABLET PO SCH ×2 (09:03→20:34)
[2021-04-27] MEDS: polyethylene glycoL POWDER 17 GM (MIRALAX) PACK PO SCH ×2 (09:03→20:34)
[2021-04-27] MEDS ORDERED: CATHETER FLUSH 10 ML SYR IV PRN (10:45)
[2021-04-27] MEDS ORDERED: TROUGH ORDER-PHARMACY XX NR (12:30)
--- NOTE | 2021-04-27 14:25 | Progress Note ---
Subjective Subjective/Events-last exam Patient states that his pain is about the same. Tolerating PO diet. States that he has some discomfort like something is eating his foot. + BM last night. Review of Systems General: Fatigue Pulmonary: No Dyspnea, No Cough Cardiovascular: No: Chest Pain, Palpitations, Edema Gastrointestinal: No: Nausea, Vomiting, Abdominal Pain, Diarrhea, Constipation Musculoskeletal: leg pain, foot pain Neurological: Weakness Objective Exam Last Set of Vital Signs Vital Signs Date Time Temp Pulse Resp B/P (MAP) Pulse Ox O2 Delivery O2 Flow Rate FiO2 04/27/21 12:44 36.6 04/27/21 07:45 91 20 136/59 (84) 94 Room Air Capillary Refill : Less Than 3 Seconds I&O Intake and Output 04/27/21 00:00 Intake Total 2077 ml Output Total 1300 ml Balance 777 ml Intake Oral 2077 ml Output Urine Total 1300 ml # Bowel Movements 2 General: Alert, Oriented X3, No Acute Distress Lungs: Clear to Auscultation, Normal Air Movement Heart: Regular Rate, No Murmurs Abdomen: Normal Bowel Sounds, Soft, No Tenderness, No Masses Extremities: Other (Chronic venous statsis changes, 1-2+ pitting edema b ilaterally, mild ttp) Neuro: Normal Speech, Cranial Nerves 3-12 NL Psych/Mental Status: Mental Status NL, Mood NL Results/Procedures Lab Laboratory Tests 04/27/21 12:25: Vancomycin Level Trough 25.9*H Microbiology 04/20/21 Blood Culture - Final, Complete No growth 04/20/21 Gram Stain - Final, Complete 04/20/21 Wound Culture - Final, Complete Pseudomonas aeruginosa Staphylococcus aureus Streptococcus pyogenes Grp A Assessment/Plan Assessment/Plan (1) Bilateral leg ulcer Status: Acute Assessment & Plan: 04/27: Dr Pickering, consulted and appreciate recommendations (2) Peripheral arterial disease Status: Acute Assessment & Plan: 04/27: Plan for angiogram tomorrow bilateral LE (3) Cellulitis of both feet Status: Acute Assessment & Plan: 04/27: Continue IV antibiotics, Vanc Trough elevated, pharmacy notified (4) Essential hypertension Status: Chronic (5) CAD (coronary artery disease) Status: Chronic (6) Mixed hyperlipidemia Status: Chronic (7) Methamphetamine use Status: Acute Assessment & Plan: - Discussed the need for cessation ANNELIESE RAMON MD Apr 27, 2021 14:25
[2021-04-27 15:43] VITALS: BP 136/76
[2021-04-27] MEDS: ALPRAZolam 0.25 MG (XANAX) TAB PO PRN (16:52)
[2021-04-27] MEDS: HYDROcodone/APAP 5 MG/325 MG (LORTAB) TAB PO PRN (16:52)
--- NOTE | 2021-04-27 17:14 | Cardiology Progress Note ---
Progress Note-Cardiology Events since last exam Date Seen by Provider: Apr 27, 2021 Time Seen by Provider: 17:09 Events since last exam We are seeing him due to peripheral arterial disease with nonhealing wounds on his feet. He denies chest pain, dyspnea, palpitations, syncope, or ankle edema. Certain portions of this document may have been dictated utilizing voice recognition technology. Inherent to this technology, typographical and grammatical errors may exist. As much as I am diligent to identify and correct these mistakes, some errors may remain in the document. Vitals Last set of Vitals Signs Vital Signs 04/27/21 15:43 Temp 37.0 Pulse 117 Resp 22 B/P (MAP) 136/76 (96) Pulse Ox 96 O2 Delivery Room Air Exam Vital Signs Vital Signs Date Time Temp Pulse Resp B/P (MAP) Pulse Ox O2 Delivery O2 Flow Rate FiO2 04/27/21 15:43 37.0 117 22 136/76 (96) 96 Room Air Physical Exam General: Alert. No acute distress. He appears older than his stated age. Eye: No xanthelasma. HENT: Normocephalic. Neck: Jugular venous pressure does not appear elevated. Respiratory: Lungs are clear to auscultation. Respirations are non-labored. Breath sounds are equal. Symmetrical chest wall expansion. Cardiovascular: Normal rate. Irregularly irregular rhythm. 2/6 systolic ejection murmur. No gallop. No edema. Gastrointestinal: Soft. Normal bowel sounds. Skin: Warm. Dry. Feet are wrapped in bandages which are dry. Neurologic: Alert and oriented to person, place, time. Cranial nerves 3-11 grossly intact. Psychiatric: Cooperative. Appropriate mood & affect. Labs Laboratory Tests Test 04/27/21 12:25 Range/Units Vancomycin Level Trough 25.9 *H 10.0-20.0 UG/ML Diagnosis/Problems Diagnosis/Problems (1) Peripheral arterial disease Status: Acute Assessment & Plan: He underwent lower extremity arterial ultrasound during this admission that showed monophasic flow bilaterally below the knee. He is scheduled for peripheral angiogram tomorrow morning with my partner, Dr. Sawyer. I stopped his Xarelto for the procedure. He should continue on the aspirin. We can resume Xarelto following the procedure. Continue ezetimibe. He is not a good candidate for statin medications due to chronic elevation of his transaminase levels. (2) Aortic regurgitation Status: Chronic Assessment & Plan: This was mild on his echocardiogram from this admission. This degree of aortic regurgitation should not be causing symptoms but will need to be followed longitudinally after discharge. (3) CAD (coronary artery disease) Status: Chronic Assessment & Plan: He had been having some atypical chest discomfort but this is now improved. His troponin level on admission was negative. We will continue aspirin and ezetimibe. At some point, we may want to consider a nuclear stress test, especially if he needs surgical revascularization of his lower ext remities. I do not see any indication for a cardiac catheterization at this time. (4) Essential hypertension Status: Chronic Assessment & Plan: Blood pressures are improved on the higher dose of amlodipine which was adjusted by the hospitalist. (5) Mixed hyperlipidemia Status: Chronic Assessment & Plan: Given his coexisting coronary artery disease and peripheral arterial disease, goal LDL less than 70 mg/dL is recommended. I started him on ezetimibe. He is not a good candidate for statin medications due to chronic elevation of his transaminase levels. JOSEFINA JACKSON JR, MD Apr 27, 2021 17:14
[2021-04-27] MEDS ORDERED: dilTIAZem120 MG (CARDIZEM CD) CAP PO SCH (18:00)
[2021-04-27] MEDS: ACETAMINOPHEN 325 MG TABLET PO PRN (19:56)
[2021-04-27] MEDS: ONDANSETRON 4 MG (ZOFRAN) ORAL DISSOLVE TAB PO PRN (19:56)
[2021-04-27] MEDS ORDERED: ALPRAZolam 0.25 MG (XANAX) TAB PO ONE (20:30)
[2021-04-27] MEDS: eZETimibe 10 MG (ZETIA) TABLET PO SCH (20:34)
[2021-04-27 23:55] VITALS: BP 128/94
[2021-04-28] VITALS (13 sets, daily range): BP systolic 99–154; BP diastolic 35–96
[2021-04-28] MEDS: PIPERACILLIN/TAZOBACTAM (BULK) 4.5 GM in NS (IVPB) 100 ML IV SCH ×3 (04:17→18:55)
[2021-04-28] MEDS: NAPROXEN 250 MG (NAPROSYN) TABLET PO SCH ×3 (04:25→20:19)
[2021-04-28] MEDS ORDERED: TROUGH ORDER-PHARMACY XX NR (06:00)
[2021-04-28 06:25] LABS: BASOPHILS % (AUTO) 0 % (0-10); EOSINOPHILS # (AUTO) 0.2 10^3/uL (0.0-0.3); EOSINOPHILS % (AUTO) 3 % (0-10); HEMATOCRIT 33 % (40-54); HEMOGLOBIN 10.5 g/dL (13.3-17.7); LYMPHOCYTES % (AUTO) 20 % (12-44); MEAN CORPUSCULAR HEMOGLOBIN 29 pg (25-34); MEAN CORPUSCULAR HGB CONC 32 g/dL (32-36); MEAN CORPUSCULAR VOLUME 92 fL (80-99); MEAN PLATELET VOLUME 9.7 fL (9.0-12.2); MONOCYTES # (AUTO) 0.2 10^3/uL (0.0-1.0); MONOCYTES % (AUTO) 5 % (0-12); NEUTROPHILS # (AUTO) 3.5 10^3/uL (1.8-7.8); NEUTROPHILS % (AUTO) 71 % (42-75); PLATELET COUNT 165 10^3/uL (130-400); WHITE BLOOD COUNT 4.9 10^3/uL (4.3-11.0)
[2021-04-28 06:27] LABS: SMEAR SCAN COMMENT YES
[2021-04-28 06:43] LABS: ALBUMIN 2.7 GM/DL (3.2-4.5); BILIRUBIN,TOTAL 0.2 MG/DL (0.1-1.0); CALCIUM 8.5 MG/DL (8.5-10.1); CREATININE SERUM 1.24 MG/DL (0.60-1.30); POTASSIUM 4.3 MMOL/L (3.6-5.0); TOTAL PROTEIN 5.9 GM/DL (6.4-8.2)
[2021-04-28] MEDS ORDERED: HEParin (CATH LAB) 2,000 ML IV ONE (06:45)
[2021-04-28] MEDS ORDERED: LIDOCAINE 1% INJ 20 ML 20 ML VIAL ONE (06:45)
[2021-04-28 06:49] LABS: VANCOMYCIN,TROUGH 16.8 UG/ML (10.0-20.0)
[2021-04-28] MEDS: ASPIRIN E.C. 81 MG (ECOTRIN) TAB PO SCH (08:05)
[2021-04-28] MEDS: polyethylene glycoL POWDER 17 GM (MIRALAX) PACK PO SCH ×3 (08:05→20:18)
[2021-04-28] MEDS: SENNA W/DOCUSATE (SENOKOT S) TABLET PO SCH ×3 (08:05→20:18)
[2021-04-28] MEDS: LACTATED RINGERS 1,000 ML IV SCH ×3 (08:05→19:02)
[2021-04-28] MEDS: lisINopril 10 MG (PRINIVIL) TABLET PO SCH (08:05)
[2021-04-28] MEDS: GABAPENTIN 400 MG (NEURONTIN) CAP PO SCH ×3 (08:05→20:20)
[2021-04-28] MEDS: VANCOMYCIN 1250 MG/NS 250 ML IVPB IV SCH ×2 (08:06)
--- NOTE | 2021-04-28 09:01 | Consultation-Cardiology ---
HPI-Cardiology Cardiology Consultation: Date of Consultation 04/28/21 Time Seen by a Provider: 08:35 Date of Admission 04-20-21 Attending Physician Anneliese Ramon MD Admitting Physician Daniel Omalley MD Consulting Physician Nalini Sawyer MD HPI: Chief Complaint: Non-healing foot ulcers Mr. Tsang is a 60 yr old male admitted to [facility] from the ED. We have been asked to see him d/t non-healing bilat foot ulcers. He reports he has had previous foot wounds in the past d/t PVD. He reports he was seen at in [place], [place] approx 2 yrs at which time he underwent balloon angioplasty bilat. He reports the wounds healed, but over the last few months have returned. He reports less than 1/2 block bilat leg claudication. He denies any fever or chills. He reports chronic SOB, which is unchanged in the recent past. He is not reporting any leg discomfort this morning. He continues to smoke cigs. 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 He reports he was previously taking warfarin, but approx a year ago he saw Dr. Adames and was changed to Xarelto, but he has not been compliant. Review of Systems-Cardiology Review of Systems Constitutional: No chills, No fever Eyes: No vision change Ears/Nose/Throat: No epistaxis, No recent hearing loss Respiratory: As described under HPI Cardiovascular: no symptoms reported Gastrointestinal: No constipation, No diarrhea, No nausea, No vomiting Genitourinary: No dysuria, No hematuria Musculoskeletal: no symptoms reported Skin: As described under HPI Psychiatric/Neurological: No anxiety, No depression, No focal weakness, No syncope Hematologic: As described under HPI All Other Systems Reviewed Negative Unless Noted: Yes CXD-Hhczzk-Jirkao Hx Patient Social History Smoking Status: Current Everyday Smoker 2nd Hand Smoke Exposure: Yes Have you traveled recently?: No Alcohol Use?: No Substance type: Caffeine, Methamphetamine, Marijuana Pt feels they are or have been: No Tobacco type used: Cigarettes Immunizations Up To Date Tetanus Booster (TDap): Less than 5yrs Date of Pneumonia Vaccine: Jun 26, 2018 Date of Influenza Vaccine: Jun 26, 2011 Past Medical History PMH As described under Assessment. Family Medical History Family Medical History: Family h/o mother and father both having CAD. He reports his brother has had a stroke. Family History: Cardiovascular disease 19 FATHER 19 MOTHER FH: stroke G8 BROTHER Hypertension 19 FATHER G8 BROTHER Allergies and Home Medications Allergies Coded Allergies: Bacitracin Zinc (Verified Allergy, Unknown, 04/20/21) bacitracin (Verified Allergy, Unknown, 04/20/21) benzalkonium chloride (Verified Allergy, Unknown, 04/20/21) cefadroxil (Verified Allergy, Unknown, RASH, 04/20/21) gramicidin D (Verified Allergy, Unknown, 04/20/21) hydrocortisone (Verified Allergy, Unknown, 04/20/21) methocarbamol (Verified Allergy, Unknown, 04/20/21) neomycin sulfate (Verified Allergy, Unknown, 04/20/21) polymyxin B (Verified Allergy, Unknown, 04/20/21) polymyxin B sulfate (Verified Allergy, Unknown, 04/20/21) carbamazepine (Verified Adverse Reaction, Mild, hives, 04/20/21) Home Medications Albuterol Sulfate 18 Gm Hfa.aer.ad, 1 PUFF INH Q4H PRN for SHORTNESS OF BREATH, (Reported) Last Action: Continued Aspirin 81 Mg Tablet.dr, 81 MG PO DAILY Prescribed by: ANNELIESE RAMON on 04/29/21 1224 Budesonide/Formoterol Fumarate 10.2 Gm Hfa.aer.ad, 1 PUFF INH DAILY, (Reported) Last Action: Converted Diltiazem HCl 240 Mg Cap.er.24h, 240 MG PO DAILY Prescribed by: ANNELIESE RAMON on 04/29/21 1224 Ezetimibe 10 Mg Tablet, 10 MG PO HS Prescribed by: ANNELIESE RAMON on 04/29/21 1224 Gabapentin 400 Mg Capsule, 400 MG PO TID, (Reported) Last Action: Continued Hydroxyzine HCl 25 Mg Tablet, 25 MG PO TID, (Reported) Last Action: Converted Levofloxacin 750 Mg Tablet, 750 MG PO DAILY Prescribed by: ANNELIESE RAMON on 04/29/21 1224 Linezolid 600 Mg Tablet, 600 MG PO BID Prescribed by: ANNELIESE RAMON on 04/29/21 1224 Lisinopril 10 Mg Tablet, 10 MG PO DAILY, (Reported) Last Action: Continued Rivaroxaban 20 Mg Tablet, 20 MG PO DAILY@1700 Prescribed by: ANNELIESE RAMON on 04/29/21 1224 Voriconazole 200 Mg Tablet, 200 MG PO BIDAC, (Reported) Last Action: Reviewed Patient Home Medication List Home Medication List Reviewed: Yes Physical Exam-Cardiology Physical Exam Vital Signs/I&O Capillary Refill : Less Than 3 Seconds Constitutional: AAO x 3, well-developed, well-nourished HEENT: PERRL, hearing is well preserved, oral hygience is good Neck: carotid bruit Respiratory: No accessory muscle use, No respiratory distress; chest expansion is symmetric, chest is bilaterally symmetric, rhonchi (scattered), other (prolonged exp phase) Cardiovascular: regular rate-rhythm; No JVD; S1 and S2 Gastrointestinal: No tender; soft, round, audible bowel sounds Extremities: no lower extremity edema bilateral Neurologic/Psychiatric: grossly intact (moves all extremities) Skin: other (dressings to feet/ankles bilat; dressings not removed) Data Review Labs Microbiology 04/20/21 Blood Culture - Final, Complete No growth 04/20/21 Gram Stain - Final, Complete 04/20/21 Wound Culture - Final, Complete Pseudomonas aeruginosa Staphylococcus aureus Streptococcus pyogenes Grp A Radiology NAME: EMELYN TSANG [facility] REC#: [id number] PT STATUS: ADM IN : 1960 PHYSICIAN: SUDHEER WINSLOW DO ADMIT DATE: 04/20/21 Signed Date of Exam:04/20/21 US SAL LOWER EXT [id number] PROCEDURE: US Bilateral lower extremity arterial. TECHNIQUE: Multiple real-time grayscale images were obtained over the bilateral lower extremities in in various projections. Additional duplex Doppler and color Doppler images were also obtained. HISTORY: Bilateral lower extremity ulcers. History of hypertension and coronary artery disease along with tobacco use. COMPARISON: None FINDINGS: Examination is compromised with patient movement. Right lower extremity: The major arteries of the right leg are patent to the ankle. There is detectable flow at the dorsalis pedis and posterior tibial arteries at the ankle. There are diffusely dampened monophasic waveforms present. There is increased velocity in the common femoral artery, profunda femoral artery as well as into the proximal aspect of the superficial femoral artery, does raise concern for potential underlying stenosis. There is otherwise severity of increased velocity of the remaining vessels. Left lower extremity: The major arteries of the left leg are patent to the ankle. There is detectable flow in the dorsalis pedis and posterior tibial artery. There is diffusely dampened monophasic waveforms noted throughout the major arteries of the left leg. There is diffuse increased velocities of the common femoral artery, profunda femoral artery as well as the proximal and mid aspect of the superficial femoral artery on into the distal aspect. This does suggest the potential for stenosis. RIGHT SHARON: N/A LEFT SHARON: N/A IMPRESSION: 1. Limited bilateral lower extremity arterial duplex Doppler assessment. The major arteries do appear to be patent of both legs to the level of the ankles. However, there is diffusely abnormal monophasic waveforms. 2. Diffuse increased velocity particularly within the common femoral arteries through the mid to distal aspect of the superficial femoral arteries, left greater than right. While findings are somewhat indeterminate, it does raise concern for potential proximal stenosis. When patient is clinically able, repeat imaging would be recommended. Dictated by: Dictated on workstation # [id number] Dict: 04/20/21 1640 ECG Impression ECG Initial ECG Rhythm: Normal Sinus A/P-Cardiology Assessment/Admission Diagnosis Non-healing bilat foot ulcers likely d/t PVD PVD - h/o balloon angioplasty bilat approx 2 yrs ago at [place], [place] - details unknown - bilat leg claudication of less than 1/2 block Reported h/o CAD with AL in the past - details unknown - reports no cardiac interventions Echocardiogram of 04-24-[address] 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/o cryobloinemia - previously following with hematology in [place], [place] - had been on OAC with Coumadin - was changed approx a 1 1/2 ago to Xarelto - has not been compliant COPD Tobaccoism - cessation advised Discussion and Recomendations Complex management issue for reasons noted above Bilat non-healing foot ulcers - management per medical/surgical services PVD per history and arterial duplex - advise peripheral angiogram with possible later today Discussed the procedure, risks, benefits and potential complications of peripheral angiogram with possible percutaneous intervention - verbalized understanding Records requested Management of cardiac issues per Dr. Ruiz We would like to thank Dr. Ruiz for this consult Further recs will be based on his hospital course Physician Assessment Physician Assessment I interviewed and examined the patient on the same date. The exam is outlined above. I explained the rationale, procedure, risks, benefits, and potential complications of the procedure to him. He understood and provided informed consent. RITESH ROSS [facility] Apr 28, 2021 09:01 NALINI SAWYER MD FACP [facility] May 04, 2021 11:53
[2021-04-28] MEDS ORDERED: fentaNYL INJ 100 MCG/2 ML AMP ONE (11:04)
[2021-04-28] MEDS ORDERED: MIDAZOLAM 5 MG/5 ML (VERSED) VIAL ONE (11:05)
[2021-04-28] MEDS ORDERED: NS IV 1000 ML 1,000 ML ONE (11:25)
[2021-04-28] MEDS ORDERED: dilTIAZem120 MG (CARDIZEM CD) CAP PO SCH (15:45)
--- NOTE | 2021-04-28 16:25 | OPERATIVE REPORT ---
DATE OF SERVICE: 04/28/2021 PERIPHERAL ANGIOGRAPHY REPORT The patient is a 60-year-old gentleman who has multiple risk factors for peripheral arterial disease and has a history of balloon angioplasty of the left anterior tibial couple of years ago. He has come in with nonhealing wounds of the feet. Noninvasive imaging had indicated monophasic flow and possible proximal obstructive arterial disease in the legs. Informed consent was obtained for peripheral angiography. DESCRIPTION OF PROCEDURE: He was brought to the cardiac catheterization laboratory in a fasting state. Right groin was prepared and draped in the usual sterile fashion. Lidocaine 1% was used for local anesthesia. Modified Seldinger technique was used to advance a 5-Vincentian sheath into the right femoral artery. We used a 5-Vincentian pigtail catheter to carry out abdominal aortic angiography. The pigtail catheter was then pulled back to the level of the aortoiliac bifurcation and runoff was performed down to the level of the ankles. We then used a 5-Vincentian crossover catheter to carry out selective angiography of the left iliac artery with runoff. This did not delineate the distal circulation well. We advanced a Storq wire into the left superficial femoral artery. The crossover catheter was removed and replaced with a 5-Vincentian straight catheter. This allowed angiography of the left superficial femoral artery and the popliteal artery and the trifurcation of the popliteal artery to the level of the ankles. The catheter was removed. Angiography of the right femoral artery was carried out through the sheath. Mynx was used to achieve hemostasis. He tolerated the procedure well. ABDOMINAL AORTIC ANGIOGRAPHY: Abdominal aortic angiography did not indicate abdominal aortic aneurysm or dissection. Only one renal artery is identified. This is the right renal artery and it appears intact. Only a single kidney shadow is seen. The mesenteric vessels appear intact. The aortoiliac bifurcation does not exhibit significant disease. BILATERAL LEG ARTERY ANGIOGRAPHY: The iliac arteries, the common femoral and the deep and superficial femoral arteries are intact on both sides without significant disease. The popliteal arteries are intact on both sides with a normal looking trifurcation. On the left side, the vessel show runoff down to the level of the ankle. On the right side, the anterior tibial appears to be of small size and appears moderately diseased. The peroneal and posterior tibial arteries exhibit good runoff down to the level of the ankles. CONCLUSIONS: 1. Single (right) renal artery and single kidney. 2. No significant obstructive peripheral arterial disease seen except that the right anterior tibial artery is of a small caliber and appears to have diffuse moderate disease. This vessel is of too small a caliber for any intervention. Job ID: [id number] DocumentID: [id number] Dictated Date: 04/28/2021 12:29:16 Home Delivery Driver Date: 04/28/2021 15:54:35 Dictated By: ANIL PARKER MD, MA, FACP, FACC, MTDD
[2021-04-28] MEDS: RIVAROXABAN 20 MG TABLET (XARELTO) PO SCH (17:14)
[2021-04-28] MEDS: RT--FLUTICASONE/SALMETEROL 113-14 (AIRDUO RespiCLICK) IH SCH (18:31)
[2021-04-28] MEDS: HYDROcodone/APAP 5 MG/325 MG (LORTAB) TAB PO PRN (20:19)
[2021-04-28] MEDS: eZETimibe 10 MG (ZETIA) TABLET PO SCH (20:19)
[2021-04-28] MEDS: diphenhydrAMINE 25 MG TAB (BENADRYL) PO PRN (20:19)
--- NOTE | 2021-04-28 20:52 | Progress Note ---
Subjective Subjective/Events-last exam Patient doing well this AM. Resting Comfortably. NPO for procedure this afternoon. Review of Systems Pulmonary: No Dyspnea, No Cough Cardiovascular: Edema; No: Chest Pain, Palpitations Gastrointestinal: No: Nausea, Vomiting, Abdominal Pain, Diarrhea, Constipation Neurological: Weakness, Numbness Objective Exam Last Set of Vital Signs Vital Signs Date Time Temp Pulse Resp B/P (MAP) Pulse Ox O2 Delivery O2 Flow Rate FiO2 04/28/21 19:00 85 04/28/21 18:31 96 Room Air 04/28/21 16:56 36.2 04/28/21 16:30 16 109/59 (76) 04/28/21 08:00 0.00 Capillary Refill : Less Than 3 Seconds I&O Intake and Output 04/28/21 00:00 Intake Total 1745 ml Output Total 3075 ml Balance -1330 ml Intake Oral 1745 ml Output Urine Total 3075 ml # Bowel Movements 2 General: Alert, Oriented X3, Cooperative, No Acute Distress Lungs: Clear to Auscultation, Normal Air Movement Heart: Regular Rate, No Murmurs Abdomen: Normal Bowel Sounds, Soft, No Tenderness, No Masses Extremities: No Edema, No Tenderness/Swelling Skin: Other (Chronic venous statis changes bilaterally, wounds dressed this AM) Neuro: Normal Speech, Other (decrease sensation to pain bilateral LE ) Results/Procedures Lab Laboratory Tests 04/28/21 06:20: White Blood Count 4.9, Red Blood Count 3.57L, Hemoglobin 10.5L, Hematocrit 33L, Mean Corpuscular Volume 92, Mean Corpuscular Hemoglobin 29, Mean Corpuscular Hemoglobin Concent 32, Red Cell Distribution Width 14.5, Platelet Count 165, Mean Platelet Volume 9.7, Immature Granulocyte % (Auto) 1, Neutrophils (%) (Auto) 71, Lymphocytes (%) (Auto) 20, Monocytes (%) (Auto) 5, Eosinophils (%) (Auto) 3, Basophils (%) (Auto) 0, Neutrophils # (Auto) 3.5, Lymphocytes # (Auto) 1.0, Monocytes # (Auto) 0.2, Eosinophils # (Auto) 0.2, Basophils # (Auto) 0.0, Immature Granulocyte # (Auto) 0.1, Sodium Level 136, Potassium Level 4.3, Chloride Level 105, Carbon Dioxide Level 24, Anion Gap 7, Blood Urea Nitrogen 30H, Creatinine 1.24, Estimat Glomerular Filtration Rate 60, BUN/Creatinine Ratio 24, Glucose Level 107H, Calcium Level 8.5, Corrected Calcium 9.5, Total Bilirubin 0.2, Aspartate Amino Transf (AST/SGOT) 40H, Alanine Aminotransferase (ALT/SGPT) 55, Alkaline Phosphatase 59, Total Protein 5.9L, Albumin 2.7L, Vancomycin Level Trough 16.8, Smear Scan YES Microbiology 04/20/21 Blood Culture - Final, Complete No growth 04/20/21 Gram Stain - Final, Complete 04/20/21 Wound Culture - Final, Complete Pseudomonas aeruginosa Staphylococcus aureus Streptococcus pyogenes Grp A Radiology NAME: EMELYN BEJARANO [facility] REC#: [id number] PT STATUS: ADM IN : 1960 PHYSICIAN: SUDHEER WINSLOW DO ADMIT DATE: 04/20/21 Signed Date of Exam:04/20/21 US SAL LOWER EXT [id number] PROCEDURE: US Bilateral lower extremity arterial. TECHNIQUE: Multiple real-time grayscale images were obtained over the bilateral lower extremities in in various projections. Additional duplex Doppler and color Doppler images were also obtained. HISTORY: Bilateral lower extremity ulcers. History of hypertension and coronary artery disease along with tobacco use. COMPARISON: None FINDINGS: Examination is compromised with patient movement. Right lower extremity: The major arteries of the right leg are patent to the ankle. There is detectable flow at the dorsalis pedis and posterior tibial arteries at the ankle. There are diffusely dampened monophasic waveforms present. There is increased velocity in the common femoral artery, profunda femoral artery as well as into the proximal aspect of the superficial femoral artery, does raise concern for potential underlying stenosis. There is otherwise severity of increased velocity of the remaining vessels. Left lower extremity: The major arteries of the left leg are patent to the ankle. There is detectable flow in the dorsalis pedis and posterior tibial artery. There is diffusely dampened monophasic waveforms noted throughout the major arteries of the left leg. There is diffuse increased velocities of the common femoral artery, profunda femoral artery as well as the proximal and mid aspect of the superficial femoral artery on into the distal aspect. This does suggest the potential for stenosis. RIGHT SHARON: N/A LEFT SHARON: N/A IMPRESSION: 1. Limited bilateral lower extremity arterial duplex Doppler assessment. The major arteries do appear to be patent of both legs to the level of the ankles. However, there is diffusely abnormal monophasic waveforms. 2. Diffuse increased velocity particularly within the common femoral arteries through the mid to distal aspect of the superficial femoral arteries, left greater than right. While findings are somewhat indeterminate, it does raise concern for potential proximal stenosis. When patient is clinically able, repeat imaging would be recommended. Dictated by: Dictated on workstation # [id number] Dict: 04/20/21 1640 Assessment/Plan Assessment/Plan (1) Bilateral leg ulcer Status: Acute Assessment & Plan: 04/27: Dr Pickering, consulted and appreciate recommendations 04/28: Will get patient set up for outpatient wound care (2) Peripheral arterial disease Status: Acute Assessment & Plan: 04/27: Plan for angiogram tomorrow bilateral LE 04/28: Angiogram today by Dr Sawyer, no intervention recommended at this time (3) Cellulitis of both feet Status: Acute Assessment & Plan: 04/27: Continue IV antibiotics, Vanc Trough elevated, pharmacy notified (4) Essential hypertension Status: Chronic Assessment & Plan: - Continue home meds (5) CAD (coronary artery disease) Status: Chronic (6) Mixed hyperlipidemia Status: Chronic Assessment & Plan: 04/28: Continue statin (7) Methamphetamine use Status: Acute Assessment & Plan: - Discussed the need for cessation ANNELIESE RAMON MD Apr 28, 2021 20:52
[2021-04-28] MEDS: ALPRAZolam 0.25 MG (XANAX) TAB PO PRN (22:28)
[2021-04-29] MEDS: HYDROcodone/APAP 5 MG/325 MG (LORTAB) TAB PO PRN (01:50)
[2021-04-29] MEDS: PIPERACILLIN/TAZOBACTAM (BULK) 4.5 GM in NS (IVPB) 100 ML IV SCH ×3 (04:14→18:53)
[2021-04-29] MEDS: diphenhydrAMINE 25 MG TAB (BENADRYL) PO PRN ×3 (04:14→20:39)
[2021-04-29] MEDS: NAPROXEN 250 MG (NAPROSYN) TABLET PO SCH ×3 (05:43→20:39)
[2021-04-29 05:59] LABS: BASOPHILS % (AUTO) 0 % (0-10); EOSINOPHILS # (AUTO) 0.1 10^3/uL (0.0-0.3); EOSINOPHILS % (AUTO) 3 % (0-10); HEMATOCRIT 32 % (40-54); HEMOGLOBIN 10.3 g/dL (13.3-17.7); LYMPHOCYTES # (AUTO) 0.7 10^3/uL (1.0-4.0); LYMPHOCYTES % (AUTO) 20 % (12-44); MEAN CORPUSCULAR HEMOGLOBIN 29 pg (25-34); MEAN CORPUSCULAR HGB CONC 32 g/dL (32-36); MEAN CORPUSCULAR VOLUME 90 fL (80-99); MEAN PLATELET VOLUME 9.6 fL (9.0-12.2); MONOCYTES # (AUTO) 0.1 10^3/uL (0.0-1.0); MONOCYTES % (AUTO) 4 % (0-12); NEUTROPHILS # (AUTO) 2.6 10^3/uL (1.8-7.8); NEUTROPHILS % (AUTO) 72 % (42-75); PLATELET COUNT 196 10^3/uL (130-400); WHITE BLOOD COUNT 3.6 10^3/uL (4.3-11.0)
[2021-04-29 06:05] LABS: SMEAR SCAN COMMENT YES
[2021-04-29 06:35] LABS: ALBUMIN 2.9 GM/DL (3.2-4.5); BILIRUBIN,TOTAL 0.3 MG/DL (0.1-1.0); CALCIUM 8.8 MG/DL (8.5-10.1); CREATININE SERUM 1.16 MG/DL (0.60-1.30); POTASSIUM 4.4 MMOL/L (3.6-5.0); TOTAL PROTEIN 6.4 GM/DL (6.4-8.2)
[2021-04-29 07:16] VITALS: BP 149/74
[2021-04-29] MEDS: RT--FLUTICASONE/SALMETEROL 113-14 (AIRDUO RespiCLICK) IH SCH ×2 (07:56→21:15)
[2021-04-29] MEDS: lisINopril 10 MG (PRINIVIL) TABLET PO SCH (08:37)
[2021-04-29] MEDS: SENNA W/DOCUSATE (SENOKOT S) TABLET PO SCH ×2 (08:37→20:38)
[2021-04-29] MEDS: ASPIRIN E.C. 81 MG (ECOTRIN) TAB PO SCH (08:37)
[2021-04-29] MEDS: polyethylene glycoL POWDER 17 GM (MIRALAX) PACK PO SCH ×2 (08:37→20:39)
[2021-04-29] MEDS: GABAPENTIN 400 MG (NEURONTIN) CAP PO SCH ×3 (08:37→20:39)
--- NOTE | 2021-04-29 10:04 | Cardiology Progress Note ---
Progress Note-Cardiology Events since last exam Date Seen by Provider: Apr 29, 2021 Time Seen by Provider: 09:59 Events since last exam We are seeing him due to peripheral arterial disease and now atrial fibrillat ion. He underwent a peripheral angiogram on 04/28 and this did not show any significant disease of either lower extremity that would require revascularization. He most likely has small vessel disease. He denies chest discomfort, dyspnea, palpitations, syncope, or ankle edema. Certain portions of this document may have been dictated utilizing voice recognition technology. Inherent to this technology, typographical and grammatical errors may exist. As much as I am diligent to identify and correct these mistakes, some errors may remain in the document. Vitals Last set of Vitals Signs Vital Signs 04/28/21 04/29/21 04/29/21 08:00 07:16 08:00 Temp 36.6 Pulse 81 Resp 20 B/P (MAP) 149/74 (99) Pulse Ox 98 O2 Delivery Room Air O2 Flow Rate 0.00 Labs Labs Laboratory Tests 04/29/21 05:03 Exam Vital Signs Vital Signs Date Time Temp Pulse Resp B/P (MAP) Pulse Ox O2 Delivery O2 Flow Rate FiO2 04/29/21 08:00 98 Room Air 04/29/21 07:16 36.6 81 20 149/74 (99) 04/28/21 08:00 0.00 Physical Exam General: Alert. No acute distress. Eye: No xanthelasma. HENT: Normocephalic. Neck: Jugular venous pressure does not appear elevated. Neurologic: Alert and oriented to person, place, time. Cranial nerves 3-11 grossly intact. Psychiatric: Cooperative. Appropriate mood & affect. Labs Laboratory Tests Test 04/29/21 05:03 Range/Units White Blood Count 3.6 L 4.3-11.0 10^3/uL Red Blood Count 3.54 L 4.30-5.52 10^6/uL Hemoglobin 10.3 L 13.3-17.7 g/dL Hematocrit 32 L 40-54 % Mean Corpuscular Volume 90 80-99 fL Mean Corpuscular Hemoglobin 29 25-34 pg Mean Corpuscular Hemoglobin Concent 32 32-36 g/dL Red Cell Distribution Width 14.8 H 10.0-14.5 % Platelet Count 196 130-400 10^3/uL Mean Platelet Volume 9.6 9.0-12.2 fL Immature Granulocyte % (Auto) 1 % Neutrophils (%) (Auto) 72 42-75 % Lymphocytes (%) (Auto) 20 12-44 % Monocytes (%) (Auto) 4 0-12 % Eosinophils (%) (Auto) 3 0-10 % Basophils (%) (Auto) 0 0-10 % Neutrophils # (Auto) 2.6 1.8-7.8 10^3/uL Lymphocytes # (Auto) 0.7 L 1.0-4.0 10^3/uL Monocytes # (Auto) 0.1 0.0-1.0 10^3/uL Eosinophils # (Auto) 0.1 0.0-0.3 10^3/uL Basophils # (Auto) 0.0 0.0-0.1 10^3/uL Immature Granulocyte # (Auto) 0.0 0.0-0.1 10^3/uL Sodium Level 135 135-145 MMOL/L Potassium Level 4.4 3.6-5.0 MMOL/L Chloride Level 105 98-107 MMOL/L Carbon Dioxide Level 23 21-32 MMOL/L Anion Gap 7 5-14 MMOL/L Blood Urea Nitrogen 27 H 7-18 MG/DL Creatinine 1.16 0.60-1.30 MG/DL Estimat Glomerular Filtration Rate 65 BUN/Creatinine Ratio 23 Glucose Level 93 70-105 MG/DL Calcium Level 8.8 8.5-10.1 MG/DL Corrected Calcium 9.7 8.5-10.1 MG/DL Total Bilirubin 0.3 0.1-1.0 MG/DL Aspartate Amino Transf (AST/SGOT) 46 H 5-34 U/L Alanine Aminotransferase (ALT/SGPT) 52 0-55 U/L Alkaline Phosphatase 57 40-136 U/L Total Protein 6.4 6.4-8.2 GM/DL Albumin 2.9 L 3.2-4.5 GM/DL Smear Scan YES Diagnosis/Problems Diagnosis/Problems (1) Peripheral arterial disease Status: Acute Assessment & Plan: As above, his peripheral angiogram on 04/28 did not show any disease requiring revascularization. We will continue with medical therapy. The hospitalist is managing antibiotics for his nonhealing wounds. He may need nephrology social worker assistance to help with placement. Continue Aspirin, rivaroxaban, and ezetimibe. He is not a good candidate for statin medications due to chronic elevation of his transaminase levels. (2) Paroxysmal atrial fibrillation Assessment & Plan: He developed recurrent atrial fibrillation on 04/27. He has a previous diagnosis of this during a hospitalization a few years ago. He seemed to be asymptomatic with this during this hospitalization. He has now converted back to sinus rhythm. I recommend he continue on diltiazem CD. He is on full- strength rivaroxaban for stroke prophylaxis. (3) Aortic regurgitation Status: Chronic Assessment & Plan: This was mild on his echocardiogram from this admission. This degree of aortic regurgitation should not be causing symptoms but will need to be followed longitudinally after discharge. (4) CAD (coronary artery disease) Status: Chronic Assessment & Plan: He had been having some atypical chest discomfort but this is now improved. His troponin level on admission was negative. We will continue aspirin and ezetimibe. No statin due to the chronic elevation of his transaminase levels. I recommend holding off on an ischemic evaluation until he has completely healed his wounds. He would not be a good candidate for percutaneous or surgical coronary revascularization given his acute nonhealing wounds. (5) Essential hypertension Status: Chronic Assessment & Plan: He had been on amlodipine but I change this over to diltiazem CD when he developed the atrial fibrillation. His blood pressures appear to be controlled on the diltiazem. (6) Mixed hyperlipidemia Status: Chronic Assessment & Plan: Given his coexisting coronary artery disease and peripheral arterial disease, goal LDL less than 70 mg/dL is recommended. Continue ezetimibe. As above, he is not a good candidate for statin medications due to chronic elevation of his transaminase levels. (7) Non-compliance with treatment Status: Acute Assessment & Plan: This makes ongoing treatment of his peripheral wounds difficult. I suspect he may need temporary placement in alf so that he can receive a full course of intravenous antibiotics. I have asked the nurse to check with social work about options. JOSEFINA JACKSON JR, MD Apr 29, 2021 10:04
[2021-04-29] MEDS: VANCOMYCIN 1250 MG/NS 250 ML IVPB IV SCH ×2 (10:06)
[2021-04-29] MEDS: ACETAMINOPHEN 325 MG TABLET PO PRN (11:24)
[2021-04-29] MEDS ORDERED: methylPREDNISolone 80 MG/ML (DEPO MEDROL) VIAL IM ONE (11:30)
[2021-04-29] MEDS ORDERED: FAMOTIDINE 20 MG (PEPCID) TABLET PO ONE (11:30)
[2021-04-29] MEDS ORDERED: RIVA20TA2 PO (12:24)
[2021-04-29] MEDS ORDERED: ASPI-1238 PO (12:24)
[2021-04-29] MEDS ORDERED: DILT240C91 PO (12:24)
[2021-04-29] MEDS ORDERED: LINE600T12 PO (12:24)
[2021-04-29] MEDS ORDERED: EZET10TA49 PO (12:24)
[2021-04-29] MEDS ORDERED: LEVO750T39 PO (12:24)
--- NOTE | 2021-04-29 12:27 | Discharge Summary ---
Discharge Summary Reconcile Patient Problems Problems Reviewed?: Yes Instructions for Patient Via [facility], Assessment/Instructions Bilateral Leg Ulcers PVD Cellulitis of LE HTN CAD HLD Substance abuse Physician to follow Patient: [facility] Discharge Diet for Home: ADA Diet Hospital Course Date of Admission: Apr 20, 2021 at 08:32 Admission Diagnosis : Family Physician/Provider: Daniel Omalley MD Date of Discharge: 04/29/21 Discharge Diagnosis: Bilateral Leg Ulcers PVD Cellulitis of LE HTN CAD HLD Substance Abuse Hospital Course: 60 yo M that presented with cellulitis and bilateral LE non healing wounds. Patient was seen by surgery and had angio for his LE and did not have any areas for intervention. Will set patient up with wound care. Will send home on PO antibiotics. Labs and Pending Lab Test: Laboratory Tests 04/29/21 05:03: White Blood Count 3.6L, Red Blood Count 3.54L, Hemoglobin 10.3L, Hematocrit 32L, Mean Corpuscular Volume 90, Mean Corpuscular Hemoglobin 29, Mean Corpuscular Hemoglobin Concent 32, Red Cell Distribution Width 14.8H, Platelet Count 196, Mean Platelet Volume 9.6, Immature Granulocyte % (Auto) 1, Neutrophils (%) (Auto) 72, Lymphocytes (%) (Auto) 20, Monocytes (%) (Auto) 4, Eosinophils (%) (Auto) 3, Basophils (%) (Auto) 0, Neutrophils # (Auto) 2.6, Lymphocytes # (Auto) 0.7L, Monocytes # (Auto) 0.1, Eosinophils # (Auto) 0.1, Basophils # (Auto) 0.0, Immature Granulocyte # (Auto) 0.0, Sodium Level 135, Potassium Level 4.4, Chloride Level 105, Carbon Dioxide Level 23, Anion Gap 7, Blood Urea Nitrogen 27H, Creatinine 1.16, Estimat Glomerular Filtration Rate 65, BUN/Creatinine Ratio 23, Glucose Level 93, Calcium Level 8.8, Corrected Calcium 9.7, Total Bilirubin 0.3, Aspartate Amino Transf (AST/SGOT) 46H, Alanine Aminotransferase (ALT/SGPT) 52, Alkaline Phosphatase 57, Total Protein 6.4, Albumin 2.9L, Smear Scan YES Microbiology 04/20/21 Blood Culture - Final, Complete No growth 04/20/21 Gram Stain - Final, Complete 04/20/21 Wound Culture - Final, Complete Pseudomonas aeruginosa Staphylococcus aureus Streptococcus pyogenes Grp A Home Meds Active Reported Voriconazole 200 Mg Tablet 200 Mg PO BIDAC Ventolin Hfa (Albuterol Sulfate) 18 Gm Hfa.aer.ad 1 Puff INH Q4H PRN Hydroxyzine HCl 25 Mg Tablet 25 Mg PO TID Symbicort 160-4.5 Mcg Inhaler (Budesonide/Formoterol Fumarate) 10.2 Gm Hfa.aer.ad 1 Puff INH DAILY Doxycycline Hyclate 100 Mg Capsule 100 Mg PO BID STARTED TAKING 04/12/2021 #20 10 DAY SUPPLY Gabapentin 400 Mg Capsule 400 Mg PO TID Lisinopril 10 Mg Tablet 10 Mg PO DAILY Consulations Dr Raheel Sawyer Patient Allergies: Coded Allergies: Bacitracin Zinc (Verified Allergy, Unknown, 04/20/21) bacitracin (Verified Allergy, Unknown, 04/20/21) benzalkonium chloride (Verified Allergy, Unknown, 04/20/21) cefadroxil (Verified Allergy, Unknown, RASH, 04/20/21) gramicidin D (Verified Allergy, Unknown, 04/20/21) hydrocortisone (Verified Allergy, Unknown, 04/20/21) methocarbamol (Verified Allergy, Unknown, 04/20/21) neomycin sulfate (Verified Allergy, Unknown, 04/20/21) polymyxin B (Verified Allergy, Unknown, 04/20/21) polymyxin B sulfate (Verified Allergy, Unknown, 04/20/21) carbamazepine (Verified Adverse Reaction, Mild, hives, 04/20/21) Height (Feet): 5 Height (Inches): 8.00 Weight (Pounds): 165 Weight (Ounces): 5.0 New Medications: Levofloxacin (Levofloxacin) 750 Mg Tablet 750 MG PO DAILY, #5 TAB Linezolid (Zyvox) 600 Mg Tablet 600 MG PO BID for 5 Days, #10 TAB Aspirin (Aspirin EC) 81 Mg Tablet.dr 81 MG PO DAILY, #30 TAB Diltiazem HCl (Diltiazem 24Hr ER) 240 Mg Cap.er.24h 240 MG PO DAILY, #30 CAP Ezetimibe (Ezetimibe) 10 Mg Tablet 10 MG PO HS, #30 TAB Rivaroxaban (Xarelto Tablet) 20 Mg Tablet 20 MG PO DAILY@1700, #30 TAB Continued Medications: Albuterol Sulfate (Ventolin Hfa) 18 Gm Hfa.aer.ad 1 PUFF INH Q4H PRN for SHORTNESS OF BREATH, INH Budesonide/Formoterol Fumarate (Symbicort 160-4.5 Mcg Inhaler) 10.2 Gm Hfa.aer.ad 1 PUFF INH DAILY, INH Gabapentin (Gabapentin) 400 Mg Capsule 400 MG PO TID, CAP Hydroxyzine HCl (Hydroxyzine HCl) 25 Mg Tablet 25 MG PO TID, TAB Lisinopril (Lisinopril) 10 Mg Tablet 10 MG PO DAILY, TAB Voriconazole (Voriconazole) 200 Mg Tablet 200 MG PO BIDAC, TAB Discontinued Medications: Doxycycline Hyclate (Doxycycline Hyclate) 100 Mg Capsule 100 MG PO BID, CAP STARTED TAKING 04/12/2021 #20 10 DAY SUPPLY Home Health Need/Face to Face Date of Face to Face: Apr 29, 2021 Clinical Findings: Unsteady gait, Wound infection, Non-healing wound I have seen Pt [id number]: Yes Discharged To: Home Diagnosis/Conditions: See Above Patient is Homebound due to: Brianna fall risk due to instabilty Homebound Status Due to the above stated illness, injury or surgical procedure (medical condition or diagnosis) and associated clinical findings, the patient is homebound because of his/her inability to leave home except with aid of a supportive device and/or person AND leaving the home requires a considerable and taxing effort or is medically contraindicated. Pt req the following assistanc: [facility] Nursing Orders Home Health Services Order: Nursing Services, Physical Therapy-Evaluate & Marlyn t, Wound Care-Eval/Treat Home Health Infusion Therapy Line Start Date: Apr 20, 2021 Therapy Orders Therapy Specific Orders: Eval assistive deivces, Gait training Certify Stmt I certify that this patient is under my care and that I, a nurse practitioner or a physician; a critical care physician assistant working with me, had a face to face encounter that - meets the physician face to face encounter requirements with this patient as dated. Discharge Physical Exam General: Alert, Oriented X3, Cooperative, No Acute Distress HEENT: Mucous Memb Moist/[place] Lungs: Clear to Auscultation, Normal Air Movement Heart: Regular Rate, No Murmurs Abdomen: Normal Bowel Sounds, Soft, No Tenderness, No Masses Extremities: Other (1+ edema LE bilaterally) Neuro: Normal Speech, Sensation Intact, Cranial Nerves 3-12 NL Psych/Mental Status: Mental Status NL, Mood NL ANNELIESE RAMON MD Apr 29, 2021 12:20
[2021-04-29 16:29] VITALS: BP 114/61
[2021-04-29] MEDS: RIVAROXABAN 20 MG TABLET (XARELTO) PO SCH (16:56)
[2021-04-29] MEDS: LACTATED RINGERS 1,000 ML IV SCH (16:56)
[2021-04-29] MEDS: eZETimibe 10 MG (ZETIA) TABLET PO SCH (20:39)
[2021-04-30 00:43] VITALS: BP 115/69
[2021-04-30] MEDS: diphenhydrAMINE 25 MG TAB (BENADRYL) PO PRN ×2 (01:50→08:50)
[2021-04-30] MEDS: PIPERACILLIN/TAZOBACTAM (BULK) 4.5 GM in NS (IVPB) 100 ML IV SCH (03:45)
[2021-04-30 04:59] VITALS: BP 139/78
[2021-04-30] MEDS: NAPROXEN 250 MG (NAPROSYN) TABLET PO SCH ×2 (05:12→11:51)
[2021-04-30] MEDS: LACTATED RINGERS 1,000 ML IV SCH ×2 (05:12→11:51)
[2021-04-30] MEDS: RT--FLUTICASONE/SALMETEROL 113-14 (AIRDUO RespiCLICK) IH SCH (06:58)
[2021-04-30 08:05] VITALS: BP 152/74
[2021-04-30] MEDS: lisINopril 10 MG (PRINIVIL) TABLET PO SCH (08:50)
[2021-04-30] MEDS: ASPIRIN E.C. 81 MG (ECOTRIN) TAB PO SCH (08:50)
[2021-04-30] MEDS: GABAPENTIN 400 MG (NEURONTIN) CAP PO SCH ×2 (08:50→11:50)
[2021-04-30] MEDS: HYDROcodone/APAP 5 MG/325 MG (LORTAB) TAB PO PRN (08:50)
[2021-04-30] MEDS: SENNA W/DOCUSATE (SENOKOT S) TABLET PO SCH (08:51)
[2021-04-30] MEDS: polyethylene glycoL POWDER 17 GM (MIRALAX) PACK PO SCH (08:51)
[2021-04-30] MEDS: VANCOMYCIN 1250 MG/NS 250 ML IVPB IV SCH ×2 (09:00)
[2021-04-30] MEDS: ALPRAZolam 0.25 MG (XANAX) TAB PO PRN (10:04)
[2021-04-30] MEDS ORDERED: FUROSEMIDE 40 MG/4 ML INJ (LASIX) IVP ONE (11:30)
[2021-04-30 12:01] VITALS: BP 143/74
--- NOTE | 2021-04-30 12:14 | Cardiology Progress Note ---
Progress Note-Cardiology Events since last exam Date Seen by Provider: Apr 30, 2021 Time Seen by Provider: 12:10 Events since last exam We are seeing him due to peripheral arterial disease and now atrial fibrillation. Yesterday he developed a rash and his IV antibiotics were discontinued. He was wheezing this morning and was given 1 dose of IV Lasix by the hospitalist. He has not been reporting chest discomfort, palpitations, or syncope. Certain portions of this document may have been dictated utilizing voice recognition technology. Inherent to this technology, typographical and grammatical errors may exist. As much as I am diligent to identify and correct these mistakes, some errors may remain in the document. Vitals Last set of Vitals Signs Vital Signs 04/30/21 13:53 Temp 36.5 Pulse 75 Resp 20 B/P (MAP) 143/74 Pulse Ox 97 O2 Delivery Room Air O2 Flow Rate 0.00 Exam Vital Signs Vital Signs Date Time Temp Pulse Resp B/P (MAP) Pulse Ox O2 Delivery O2 Flow Rate FiO2 04/30/21 13:53 36.5 75 20 143/74 97 Room Air 0.00 Physical Exam I did not examine the patient today due to his MRSA status. Diagnosis/Problems Diagnosis/Problems (1) Peripheral arterial disease Status: Acute Assessment & Plan: His peripheral angiogram on 04/28 did not show any disease requiring revascularization. We will continue with medical therapy including aspirin, rivaroxaban and ezetimibe. He is not a good candidate for statin medications due to chronic elevation of his transaminase levels. The hospitalist is managing the antibiotics for his nonhealing wounds. (2) Paroxysmal atrial fibrillation Assessment & Plan: He developed recurrent atrial fibrillation on 04/27. He has a previous diagnosis of paroxysmal atrial fibrillation during a hospitalization a few years ago. He seemed to be asymptomatic with this during this hospitalization. He had converted back to sinus rhythm on 04/29. I recommend he continue on diltiazem CD for rate control in the event he has recurrent atrial fibrillation and full-strength rivaroxaban for stroke prophylaxis. I do not see any strong indication for antiarrhythmic drug at this time. (3) Aortic regurgitation Status: Chronic Assessment & Plan: This was mild on his echocardiogram from this admission. This degree of aortic regurgitation should not be causing symptoms but will need to be followed longitudinally after discharge. (4) CAD (coronary artery disease) Status: Chronic Assessment & Plan: He had been having some atypical chest discomfort but this is now improved. His troponin level on admission was negative. We will continue aspirin and ezetimibe. No statin due to the chronic elevation of his transaminase levels. I recommend holding off on an ischemic evaluation until he has completely healed his wounds. He would not be a good candidate for percutaneous or surgical coronary revascularization given his acute nonhealing wounds. (5) Essential hypertension Status: Chronic Assessment & Plan: He had been on amlodipine but I change this over to diltiazem CD when he developed the atrial fibrillation. His blood pressures appear to be controlled on the diltiazem. (6) Mixed hyperlipidemia Status: Chronic Assessment & Plan: Given his coexisting coronary artery disease and peripheral arterial disease, goal LDL less than 70 mg/dL is recommended. Continue ezetimibe. As above, he is not a good candidate for statin medications due to chronic elevation of his transaminase levels. (7) Non-compliance with treatment Status: Acute Assessment & Plan: This makes ongoing treatment of his peripheral wounds difficult. I suspect he may need temporary placement in [facility] so that he can receive a full course of intravenous antibiotics. The hospitalist is coordinating the his aftercare plan. JOSEFINA JACKSON JR, MD Apr 30, 2021 12:14
[2021-04-30 13:53] VITALS: BP 143/74
== END 2021-04-30 13:59 | disposition home health service (06) | DRG 593 ==
LOC: EDUNIT# 03:11 → ER 03:14 → 4TH 08:32
PROVIDERS: ADMIT Internal Medicine; ATTEND Family Medicine
PROC: B4101ZZ Fluoroscopy of Abdominal Aorta using Low Osmolar Contrast (ICD-10-PCS; principal; 2021-04-28)
PROC: B41G1ZZ Fluoroscopy of Left Lower Extremity Arteries using Low Osmolar Contrast (ICD-10-PCS; 2021-04-28)
DX: L97.529 Non-pressure chronic ulcer of other part of left foot with unspecified severity (principal); L03.116 Cellulitis of left lower limb; L03.115 Cellulitis of right lower limb; I73.9 Peripheral vascular disease, unspecified; B19.20 Unspecified viral hepatitis C without hepatic coma; F17.210 Nicotine dependence, cigarettes, uncomplicated; J43.9 Emphysema, unspecified; I25.10 Atherosclerotic heart disease of native coronary artery without angina pectoris; I10 Essential (primary) hypertension; G43.909 Migraine, unspecified, not intractable, without status migrainosus; G62.9 Polyneuropathy, unspecified; K21.9 Gastro-esophageal reflux disease without esophagitis; G89.29 Other chronic pain; M54.9 Dorsalgia, unspecified; F41.9 Anxiety disorder, unspecified; F43.10 Post-traumatic stress disorder, unspecified; F32.9 Major depressive disorder, single episode, unspecified; L97.519 Non-pressure chronic ulcer of other part of right foot with unspecified severity; F15.10 Other stimulant abuse, uncomplicated; E78.2 Mixed hyperlipidemia; I87.8 Other specified disorders of veins; I35.1 Nonrheumatic aortic (valve) insufficiency; I48.0 Paroxysmal atrial fibrillation; Z91.14 Patient's other noncompliance with medication regimen; Z79.82 Long term (current) use of aspirin; Z86.718 Personal history of other venous thrombosis and embolism; I25.2 Old myocardial infarction; Z86.73 Personal history of transient ischemic attack (TIA), and cerebral infarction without residual deficits; Z79.899 Other long term (current) drug therapy; Z79.01 Long term (current) use of anticoagulants
CPT/HCPCS: 36410; 36415; 73610; 73630; 75625; 75716; 76937; 80048; 80053; 80061; 80202; 80306; 80320; 81000; 83605; 84145; 84550; 85007; 85025; 85027; 85379; 85610; 85652; 85730; 86141; 87040; 87070; 87077; 87186; 87205; 93005; 93306; 93925; 94640; 96374; 96375